=== PATIENT | female | born 1960 | race Caucasian/White ===

== ENCOUNTER → 2016-10-29 | Outpatient (CLI) | payer BC ==
[~2016-10-29] MED LIST: ASCO500T9 PO; DOCU-168 PO; DRON2.5C11 PO; GADOBUTROL 10mMol/10ml INJECTION IV ONE; HYDR-4246 PO; IBUP200C5 PO; LIRA0.6P2 SQ; LISI10TA7 PO; NORMAL SALINE 50 ML IV ONE; OMEP-122 PO; ONDA4TAB7 PO; ONDA8TAB8 PO; OXYC-532 PO; PREN1TAB73 PO; PROC-14 PO; SALINE FLUSH 10ml SYRINGE ONE; SUCR1TAB20 PO
--- NOTE | 2016-10-29 15:34 | DI ---
Indication: ITS.REASON: C54.1 BREAST CANCER, C57.8; C78.6;C79.62 C79.61 PROCEDURE: MRI BREAST BILATERAL W/WO CON: Encounter: Initial Comparison: CT chest dated July 05, 2016 Technique: Multiplanar multisequence MR imaging of both breasts was performed with and without contrast utilizing a dedicated breast coil. Dynamic postcontrast imaging was analyzed on a stand-alone [employer] workstation. Contrast: 15 mL Gadavist Findings: There is minimal background parenchymal enhancement. Increased number of axillary nodes bilaterally which are stable in size and appearance compared to the comparison chest CT. These are borderline enlarged measuring up to 11 mm in short axis dimension in the right axilla on axial postcontrast image #169 and 11 mm in the left axilla on image #143. There is also an intramammary node in the central right breast on axial postcontrast image #118 and T2 fat-suppressed images #23 measuring 6 mm in short axis dimension. Additional smaller intramammary node in the anterior aspect of the right breast at the 2:00 position on image #191 of the postcontrast series measuring 4 mm in short axis. No enhancing mass or worrisome nonmasslike enhancement. There is artifact and loss of fat suppression due to the patient's right-sided port. No fluid collections or obvious skin thickening. Impression: No MR evidence of breast malignancy. Bilateral borderline axillary adenopathy probably related to a systemic process. BI-RADS 2: Benign .
== END ==
LOC: IMA 12:11
PROVIDERS: ATTEND Internal Medicine Medical Oncology
DX: C54.1 Malignant neoplasm of endometrium (principal); C57.8 Malignant neoplasm of overlapping sites of female genital organs; C78.6 Secondary malignant neoplasm of retroperitoneum and peritoneum; C79.62 Secondary malignant neoplasm of left ovary; C79.61 Secondary malignant neoplasm of right ovary
CPT/HCPCS: 77059; A9585; J1642; J7050

== ENCOUNTER 2017-07-11 10:26 | Inpatient (IN) ==
[2017-07-11] MEDS ORDERED: DEXAMETHASONE 20 MG/5 ML INJECTION IVP ONE (10:40)
[2017-07-11] MEDS ORDERED: NS 1,000 ML IV SCH (10:45)
--- NOTE | 2017-07-11 10:51 | Emergency Department Report ---
General Adult HPI - General Chief complaint: Medical Emergency Stated complaint: altered mental status Time Seen by Provider: 07/11/17 10:51 Source: patient Mode of arrival: ambulatory Limitations: no limitations - History of Present Illness HPI narrative: Patient is a 56-year-old female history of endometrial cancer. Patient is under treatment Dr. Endy Quezada. Patient received ifosfamide and Paxil call 2 days ago, presented to the office today with complaint of "not myself". Patient is slow to mentate, having difficulty with memory. Patient thought the year was 2006 and the president was Lynnette. Dr. Quezada's concern for ifosfamide toxicity, is also confirmed for metastases to the brain. He did contact Hospital service recommend come to the ER for acute evaluation. On arrival patient is alert and oriented somewhat slow to respond to questions, however appropriate. Patient got to your right this time, however still does not know who the president is. Patient given dexamethasone [address] Quezada's recommendation - Related Data Home Medications Medication Instructions Recorded Confirmed Pnv No.95/Ferrous Fum/Folic AC 1 tab PO DAILY 06/25/17 07/11/17 [ Tablet] Ondansetron [Zofran Odt] 4 mg PO Q4HR 06/26/17 07/11/17 LORazepam [Ativan] 0.5 mg PO Q6H PRN 07/11/17 07/11/17 Sennosides [Senokot] 8.6 mg PO PRN 07/11/17 07/11/17 Previous Rx's Medication Instructions Recorded Oxycodone/Apap 7.5/325 [Percocet 1 tab PO Q4H PRN #20 tab 06/25/17 7.5/325] Allergies Allergy/AdvReac Type Severity Reaction Status Date / Time morphine AdvReac Intermediate NAUSEA & Verified 06/26/17 16:18 VOMITING Review of Systems Constitutional: Reports: weakness. Denies: fever, chills Eyes: Denies: eye pain, eye discharge, vision change ENT: Denies: throat pain, dental pain Cardiovascular: Denies: chest pain, palpitations Respiratory: Denies: cough, dyspnea Gastrointestinal: Reports: abdominal pain. Denies: nausea, vomiting Genitourinary: Denies: dysuria, frequency Musculoskeletal: Denies: back pain Neurological: Reports: weakness, confusion. Denies: headache Psychiatric: Denies: anxiety, depression Endocrine: Denies: fatigue, heat or cold intolerance PFSH Patient Stated Medical History Migraine Yes Diabetes Mellitus Type 2 Yes Obstructive Bowel Yes Other GI Yes: ENDOMETRIAL CA W/ METASTASIS TO LIVER, STOMACH, AND KIDNEYS Depression Yes Post Menopausal Yes Now No Medical History Updates: Anxiety. Depression. Insomnia. Endometrial CA ( stage 4) Surgical History: Hysterectomy 2016 - Social History Smoking status: Never smoker Substance use type: does not use Alcohol intake frequency: does not drink Physical Exam - Limitations Limitations: no limitations - General General appearance: alert, in no apparent distress - Eye Eye exam: Present: PERRL, EOMI - ENT ENT exam: Present: normal oropharynx, mucous membranes moist - Neck Neck exam: Present: trachea midline - Chest Chest inspection: Present: symmetric chest wall rise. Absent: tenderness - Respiratory Respiratory exam: Present: normal lung sounds bilaterally. Absent: respiratory distress, wheezes - Cardiovascular Cardiovascular exam: Present: regular rate, normal rhythm, normal heart sounds - Abdominal Exam Abdominal exam: Present: soft, normal bowel sounds. Absent: distention, tenderness - Back Exam Back exam: Present: full ROM. Absent: tenderness, CVA tenderness (R), CVA tenderness (L), muscle spasm, paraspinal tenderness - Skin Skin exam: Present: warm, dry - Neurological Exam Neurological exam: Present: alert, oriented X3 - Psychiatric Psychiatric exam: Present: normal affect, normal mood Course Vital Signs Temperature 98.5 F 07/11/17 10:27 Pulse Rate 100 07/11/17 10:27 Respiratory Rate 28 H 07/11/17 10:27 Blood Pressure 167/83 H 07/11/17 10:27 Pulse Oximetry 96 07/11/17 10:27 Temperature 96.2 F L 07/11/17 15:24 Pulse Rate 97 07/11/17 15:24 Respiratory Rate 18 07/11/17 15:24 Blood Pressure 148/78 H 07/11/17 15:24 Pulse Oximetry 98 07/11/17 15:24 Medical Decision Making - [facility] Narrative Medical decision making narrative: Discuss case with Dr. Quezada, he will feel it was prudent to place patient in observation status. Discuss case with Dr. Fowler, hospitalist, she will admit patient observation status - Medical Records Medical records reviewed: Yes: I reviewed the patient's medical records. - Lab Data Lab results reviewed: Yes: I reviewed the patient's lab results. Lab results narrative: I reviewed the patient's laboratory results from earlier today - Radiology Data Radiology results reviewed: Yes: I reviewed the patient's radiology results. MRI with and without: No acute findings, chronic changes. Disposition Clinical Impression: Altered mental status Disposition: 02 To [facility] Condition: Stable - Seen By: physician
[2017-07-11] MEDS: SALINE FLUSH 10ml SYRINGE IVF PRN (10:52)
[2017-07-11] MEDS ORDERED: FentaNYL 100 MCG/2 ML INJECTION IVP ONE ×3 (10:53→14:07)
[2017-07-11] MEDS ORDERED: SALINE FLUSH 10ml SYRINGE ONE (12:05)
[2017-07-11] MEDS ORDERED: ONDANSETRON 4 MG/2 ML INJECTION IVP ONE (12:43)
--- NOTE | 2017-07-11 13:00 | Magnetic Resonance Report ---
Indication: altered mental status, endometrial CA rule out metastases PROCEDURE: MR head/brain wo/w con: Encounter: Initial Comparisons: None Technique: Multiplanar, multisequence, MR imaging of the head with and without contrast was acquired. Contrast: 20 mL of ProHance FINDINGS: The ventricles are of normal size, shape, and contour for the patient's age. There are a couple nonspecific punctate areas of T2-weighted and T2 FLAIR weighted signal abnormality in the deep frontoparietal white matter that most likely represent small vessel ischemic disease. These lesions do not enhance and are of a degree that is considered to be normal for the patient's age. The brain stem, cerebellum, and cerebral hemispheres otherwise have a normal morphologic appearance as well as MR signal intensity on all pulse sequences. Following intravenous administration of contrast, no areas of abnormal enhancement are evident. There are no areas of restricted diffusion to suggest an acute infarct. There is no evidence of an intracranial mass lesion, intracranial hemorrhage, or hydrocephalus. The visualized portions of the orbits, calvarium, paranasal sinuses, and skull base demonstrate no significant abnormality. IMPRESSION: Unremarkable MRI of the head for the patient's age with and without contrast. No evidence of acute intracranial abnormality or metastatic disease. .
[2017-07-11] MEDS ORDERED: KETOROLAC 30 MG/ML INJECTION IVP ONE (15:08)
--- NOTE | 2017-07-11 15:09 | History & Physical Report ---
History of Present Illness Date: 07/11/17 Chief complaint: altered mental status HPI: Elva Heredia is a 56 year old woman with a history of metastatic endometrial cancer, diagnosed in March,. She had to restart chemotherapy (ifosfamide and Taxol) on 07/09/17. The plans were to have chemo on Friday, , and Friday for a total of 8 cycles. She had chemo on 07/09 and 07/10, but in the evening of 07/10 started to get sick with nausea and vomiting. She really hasn't been able to keep anything down. She also states that she has been having more intense abdominal pain. Compared to usual. She has been requiring regular doses of Percocet 7.5 mg to help control her pain. Her pain is mostly to the right upper quadrant and right lower quadrant, and tends to be waxing and waning. She is also having some pain related to constipation, but she does not believe that the current pain. She is feeling is because of constipation, which is more "gurgly" nature. She hasn't been able to sleep well, and has felt weak, lightheaded and dizzy. She developed a cold sore to her left naris a few days ago, soon after receiving her pneumonia and influenza vaccinations. She denies any fevers, but admits to having chills. She denies numbness or tingling. She denies dysuria. In the morning of 07/11/17. She went to go see Dr. Quezada ( usually she sees Dr. Clancy), and she was having difficulty thinking straight. For example, she thought the year was 2016, and that [facility] was president. She complained of blurred vision, which has since resolved. Her significant other stated that she wasn't able to walk with a steady gait, and she had to help hold her up. She was not able to answer questions appropriately, and wasn't sure that Elva could even understand her questions at all. Labs were done, showing leukocytosis with a white count of 14.4, mild anemia with hemoglobin of 11.8. Electrolytes were stable: Sodium 140, potassium 4.1, BUN 21, creatinine 0.8, blood glucose 130, magnesium 2.3. Dr. Quezada was concerned about neurotoxicity from ifosfamide, which has been known to cause seizures, neuropathy, weakness and ataxia. He recommended ED evaluation. On arrival, she was mildly tachycardic. She was afebrile. Brain MRI was negative for acute intracranial abnormality or metastatic disease. She received IV fluids, Toradol , fentanyl, and antiemetics. Dr. Quezada also recommended dexamethasone. She was subsequently admitted for further observation. Review of Systems All systems PM: 10-point ROS was reviewed, no additional remarkable complaints except - Constitutional Constitutional: Present: as per HPI - EENMT Eyes: Present: as per HPI Nose: Absent: obstruction Mouth/Throat: Absent: sore throat - Cardiovascular Cardiovascular: Present: as per HPI Vascular: Absent: pedal edema - Respiratory Respiratory: Present: as per HPI - Gastrointestinal Gastrointestinal: Present: as per HPI - Genitourinary Genitourinary: Absent: dysuria, urinary frequency, urinary urgency Menstruation: post hysterectomy, post menopausal - Musculoskeletal Musculoskeletal: Present: as per HPI - Integumentary/Breasts Integumentary: Present: alopecia (associated with chemotherapy) - Neurological Neurological: Present: as per HPI - Psychiatric Psychiatric: Present: as per HPI - Endocrine Endocrine: Present: as per HPI - Hematologic/Lymphatic Hematologic/Lymphatic: Absent: easy bleeding - Allergic/Immunologic Allergic/Immunologic: Absent: seasonal rhinorrhea Past Medical History Coronary artery disease Stage IV endometrial cancer Anxiety Depression Insomnia Migraine Obesity, BMI 37.7 Remote history of gastric ulcers Surgical History: PowerPort insertion. Total abdominal hysterectomy with resection of right ureter anastomosis in March 2016. Lumbar discectomy. Partial right knee replacement. Heart catheter with angioplasty 2 vessels in 2003. Laparoscopic ovarian cystectomy. Ectopic with left oophorectomy. EGD. Family History Updates: Mother had advanced lymphoma, heart disease and diabetes. She at age 47 of suicide from a self-inflicted gunshot wound to the head. Her father at age 58. He had epilepsy. He also committed suicide via self-inflicted gunshot wound to the head, a year after his . Elva does not have any brothers or sisters. She was an only child. She has a son who is doing well. She has a daughter who suffers from drug addiction. 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 Medications Home Medications Medication Instructions Recorded Confirmed Type Pnv No.95/Ferrous Fum/Folic AC 1 tab PO DAILY 06/25/17 07/11/17 History [ Tablet] Ondansetron [Zofran Odt] 4 mg PO Q4HR 06/26/17 07/11/17 History LORazepam [Ativan] 0.5 mg PO Q6H PRN 07/11/17 07/11/17 History Sennosides [Senokot] 8.6 mg PO PRN 07/11/17 07/11/17 History Allergies Allergy/AdvReac Type Severity Reaction Status Date / Time morphine AdvReac Intermediate NAUSEA & Verified 06/26/17 16:18 VOMITING Exam Vital Signs: Temperature 98.5 F 07/11/17 10:27 Pulse Rate 105 H 07/11/17 13:00 Respiratory Rate 19 07/11/17 13:00 Blood Pressure 133/76 07/11/17 13:00 Pulse Oximetry 90 07/11/17 13:00 Height/Weight/BMI: Height 1.6 m Weight 96.6 kg - Constitutional Present: mild distress, well nourished, well developed - Routine HEENT Exam Head: Present: normocephalic Eye: Present: EOMI, PERRL. Absent: conjunctival icterus, scleral injection ENT: Present: mucous membranes moist, oropharynx clear - Routine Neck Exam Present: supple - Routine Respiratory Exam Present: CTA bilaterally - Routine Cardiovascular Exam Present: RRR, S1, S2 - Routine Abdominal Exam Present: soft, tenderness (mild tenderness without guarding or rebound to the right upper quadrant, right lower quadrant, and to a lesser extent left upper quadrant) - Routine Extremities Exam Present: no edema, pulses intact, normal capillary refill - Routine Skin Exam Present: intact, dry, warm - Routine Neurological Exam Present: alert, oriented X3, CN II-XII intact, moving all extremities, normal speech - Routine Psychiatric Exam Present: normal affect, normal thought process, cooperative Assessment and Plan (1) Ifosfamide toxicity Current visit: Yes Status: Acute Assessment and Plan: Impression Ifosfamide neurotoxicity Leukocytosis, present on admission Nausea and vomiting, Acute on chronic abdominal pain Stage IV endometrial cancer Coronary artery disease Anxiety and Depression Insomnia Migraine Plan Admit, observation status, under the hospitalist service. IV fluids: Normal saline at 125 mL's per hour. Zofran and/or Reglan as needed for nausea. Percocet as needed for pain (she takes Percocet 7.5 mg at home) Repeat urinalysis. UA done on 07/09/17 was negative. Continue home medications. Serial neuro exams. Consult Dr. Quezada for ongoing management and to delineate dexamethasone dosing. Patient requests that any potentially sensitive medical diagnoses should be discussed with her before disclosing any information to family or significant other. 07/11/2017-6:16 PM-I reviewed this chart, the patient history, and the DROPHAMMER OPERATOR's/PA 's documented findings as above. We discussed and formulated the assessment and plan as above with the additions below.-Dr. Fowler The patient was seen this evening accompanied by her girlfriend. Patient states that she recently started new chemotherapy on Friday. Friday evening she started to have nausea and vomiting which she did not think was unusual. She had further nausea and vomiting yesterday. Last night she woke up and felt confused. She describes how she was feeling fairly well. She states she did not feel herself and her vision was somewhat wavy for a bit. She states her gait was off. She states that at one point her speech was slurred but this has resolved. She states overall she still feels a little "out of it" but feels much better than she did earlier today. She states that initially she thought she had taken too much pain medication and so she waited longer than usual to take her next dose of pain medicine. By that time, she states she was having pretty severe back pain. She denies any headache today but states she had a migraine last week. She has some occasional charley horse type pain in her right side of her neck and left leg. She denies any chest pain. She states she occasionally feels short of breath. She briefly became emotional and tearful when discussing feeling short of breath. He states she has lorazepam that she takes when necessary for anxiety. She is not on any antidepressants. During my examination she was noted to have some mild giveaway type weakness in the left leg and stated she was having a little numbness in the leg, possibly from lying on it wrong. On exam she is alert and a good historian. Speech is normal And fluent. She briefly becomes emotional and tearful but then this resolves. HEENT reveals pupils to be equal round and reactive, sclerae are anicteric, extraocular movements are intact. Oropharynx is moist. She does have an cold sore in the left nares that has been present for 5 or 6 days. Neck is supple. Chest is clear to auscultation. Cardiovascular reveals regular rate and rhythm. Abdomen is soft with positive bowel sounds. Extremities are free of edema. On neurologic exam, cranial nerves II through XII are grossly intact. Motor strength is equal and 5 over 5 in the upper extremities. She has some possibly giveaway weakness in the left leg which is mild. She does describe some mild numbness in the leg which she just noticed when she was trying to move to have her strength examined. MRI brain showed no significant abnormalities Lab was reviewed and white count is mildly elevated without significant left shift. Impression Altered mental [id number] secondary to ifosfamide neurotoxicity New onset mild left leg weakness, numbness Nausea and vomiting Endometrial cancer Anxiety and depression History of migraine headache Plan Neuro checks every 4 hours. IV fluid for rehydration. Pain medication as needed. Antiemetics as needed. Consult PT and OT tomorrow regarding left leg weakness, which can be a result of ifosfamide neurotoxicity. We'll need to continue to monitor this. Discussed with the patient, Dr. Quezada, and the patient's nurse. DVT Prophylaxis: SCD's Resuscitation Status: Full Code - Physician Narrative Narrative: Date: 07/11/17 Time: 1459 Hospital Course Summary Disclaimer: The visit summary below is not to be considered part of the above Progress Note. Hospital Course: Impression Ifosfamide neurotoxicity Leukocytosis, present on admission Nausea and vomiting, Acute on chronic abdominal pain Stage IV endometrial cancer Coronary artery disease Anxiety and Depression Insomnia Migraine Plan Admit, observation status, under the hospitalist service. IV fluids: Normal saline at 125 mL's per hour. Zofran and/or Reglan as needed for nausea. Percocet as needed for pain (she takes Percocet 7.5 mg at home) Repeat urinalysis. UA done on 07/09/17 was negative. Continue home medications. Serial neuro exams. Consult Dr. Quezada.a Patient requests that any potentially sensitive medical diagnoses should be discussed with her before disclosing any information to family or significant other.
[2017-07-11 15:31] VITALS: BMI 38.1
[2017-07-11] MEDS: NS 1,000 ML IV SCH ×2 (15:39→20:30)
[2017-07-11] MEDS ORDERED: SENNOSIDES 8.6 MG TABLET PO PRN (16:15)
[2017-07-11] MEDS: OXYCODONE/APAP 7.5 MG/325 MG TABLET PO PRN ×2 (17:17→22:53)
[2017-07-11] MEDS: METOCLOPRAMIDE 10mg/2ml INJECTION IVP PRN (18:42)
[2017-07-11] MEDS: FentaNYL 100 MCG/2 ML INJECTION IVP PRN (18:46)
[2017-07-11] MEDS: HYDROMORPHONE 2 MG/ML INJECTION IVP PRN ×2 (18:54→21:43)
[2017-07-11] MEDS: ONDANSETRON ODT 4 MG TABLET PO SCH (20:23)
[2017-07-12] MEDS: FentaNYL 100 MCG/2 ML INJECTION IVP PRN ×5 (00:20→16:39)
[2017-07-12] MEDS: ONDANSETRON ODT 4 MG TABLET PO SCH ×6 (00:21→20:31)
[2017-07-12] MEDS: NS 1,000 ML IV SCH ×4 (00:40→20:51)
[2017-07-12] MEDS: OXYCODONE/APAP 7.5 MG/325 MG TABLET PO PRN ×4 (02:43→20:40)
[2017-07-12] MEDS: SALINE FLUSH 10ml SYRINGE IVF PRN (05:18)
[2017-07-12] MEDS: POLYETHYL GLYCOL 3350 17gm PACKET PO SCH (08:27)
[2017-07-12] MEDS: PRENATAL VITAMIN TABLET PO SCH (08:27)
[2017-07-12] MEDS: HYDROMORPHONE 2 MG/ML INJECTION IVP PRN ×2 (13:01→20:34)
--- NOTE | 2017-07-12 13:46 | Consultation ---
DATE OF CONSULTATION 07/12/2017 CHIEF COMPLAINT Nausea and abdominal pain. HISTORY OF PRESENT ILLNESS This is a 56-year-old female patient diagnosed in March 2016 with stage III/ locally advanced endometrial cancer, mixed mllerian type/carcinosarcoma. She was treated with debulking surgery, hysterectomy, bilateral salpingo- oophorectomy, omentectomy. She received six cycles of adjuvant chemotherapy, Taxol and carboplatin which ended in October 2016. Unfortunately, she has developed a recurrence in less than six months with peritoneal disease. She presented with bowel obstruction. She underwent exploratory laparotomy by Dr. Viveros at [facility] and was found to have peritoneal metastasis in the incisional hernia sac. She presented again with abdominal pain. CT scan showed peritoneal carcinomatosis with mass causing right hydronephrosis. She was started on chemotherapy, ifosfamide and Taxol, on 07/09/2017. She received two doses out of three. Taxol was given on day 1. Ifosfamide on days 1 and 2 and was supposed to be given on day 3 07/11/2017 followed by Vandana. However, the patient presented with confusion and change in mental status. It was thought due to ifosfamide, i.e., ifosfamide-induced neurotoxicity. She was admitted for observation. All the confusion and neurologic symptoms resolved with conservative treatment including hydration. Her albumin is fine at 4.1. Her chief complaint is nausea and abdominal pain. She is on Percocet. She is on 100 mcg IV every three hours. Also, she had constipation. REVIEW OF SYSTEMS GENERAL: No fever. No weight loss. INTERIOR DESIGN COORDINATOR: Neurologic symptoms of confusion and change in mental status resolved. CARDIOVASCULAR: No chest pain. GASTROINTESTINAL: Nausea, vomiting and constipation. She passes gas. She had a bowel movement yesterday. RESPIRATORY: No shortness of breath, cough or hemoptysis. SKIN: No skin rash. PAST MEDICAL HISTORY Coronary artery disease. Anxiety/depression. Insomnia. Migraines. PAST SURGICAL HISTORY Hysterectomy with bilateral salpingo-oophorectomy and debulking surgery in March 2016. Exploratory laparotomy for bowel obstruction. Herniorrhaphy. Port-A-Cath placement. SOCIAL HISTORY Never smoked. She works for [employer]. PHYSICAL EXAMINATION GENERAL: Not in acute distress. She seems in pain. The short-acting fentanyl patch and Percocet do not last enough. Has pain in her abdomen. VITAL SIGNS: Stable. LYMPH SYSTEM: No cervical, supraclavicular or axillary adenopathy. RESPIRATORY: Lungs are clear to auscultation. No wheezing. CARDIOVASCULAR: No murmur. No JVD. Normal heart sounds. ABDOMEN: Diffuse mild tenderness. No rebound tenderness. Bowel sounds are positive. No masses or organomegaly. She has midline incision, healed. INTERIOR DESIGN COORDINATOR: No focal neurologic deficits. Alert and oriented x 3. Cranial nerves II- XII intact. SKIN: No rash. HEENT: Unremarkable. LABORATORY Chemistry remarkable for a potassium of 3.4. Creatinine is 0.7. Liver enzymes are normal. Alkaline phosphatase 134. Albumin 4.1. CA-125 elevated at 79.8. CBC remarkable for WBC 12.9. Urinalysis shows no RBCs. No hematuria. MRI of the brain negative. ASSESSMENT 1. 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 2. Patient is on ifosfamide and Taxol for metastatic disease, completed two days out of three. She was supposed to receive Neulasta following the chemotherapy due to previous chemotherapy treatment. 3. Persistent nausea, vomiting and abdominal pain due to peritoneal carcinomatosis. 4. Ifosfamide-induced neurotoxicity, resolved. 5. Constipation due to narcotics. RECOMMENDATION/PLAN 1. Continue hydration and neuro checks. 2. Continue Percocet and fentanyl IV for pain control. Fentanyl patch 50 mcg every three days added to the narcotic regimen. 3. MiraLAX, Senokot and Zofran for the GI symptoms. 4. I will add GCSF at least for three days for anticipated neutropenia. The patient was supposed to receive GCSF following chemotherapy. 5. If the patient stays stable by tomorrow she could go home with a fentanyl patch 50 mcg and Percocet as needed. 6. Follow up in the office. MTDD
--- NOTE | 2017-07-12 13:48 | Progress Note ---
- Date 07/12/17 Subjective: 56 y/o female with a history of metastatic endometrial cancer diagnosed in March,. She had to restart chemotherapy (ifosfamide and Taxol) on . The plans were to have chemo on Friday, , and Friday for a total of 8 cycles. She had chemo on 07/09 and 07/10, but in the evening of 07/10 started to get sick with nausea and vomiting. She couldn't keep anything down. She also states that she has been having more intense abdominal pain compared to usual. She has been requiring regular doses of Percocet 7.5 mg to help control her pain. Her pain is mostly to the right upper quadrant and right lower quadrant, and tends to be waxing and waning. She is also having some pain related to constipation. She hasn't been able to sleep well, and has felt weak, lightheaded and dizzy. She developed a cold sore to her left naris a few days ago, soon after receiving her pneumonia and influenza vaccinations. She denies any fevers, but admits to having chills. She denies numbness or tingling. She denies dysuria. In the morning of 07/11/17. She went to go see Dr. Quezada ( usually she sees Dr. Clancy), and she was having difficulty thinking straight. For example, she thought the year was 2016, and that [facility] was president. She complained of blurred vision, which has since resolved. Her significant other stated that she wasn't able to walk with a steady gait, and she had to help hold her up. She was not able to answer questions appropriately, and wasn't sure that Elva could even understand her questions at all. Labs were done, showing leukocytosis with a white count of 14.4, mild anemia with hemoglobin of 11.8. Electrolytes were stable: Sodium 140, potassium 4.1, BUN 21, creatinine 0.8, blood glucose 130, magnesium 2.3. Dr. Quezada was concerned about neurotoxicity from ifosfamide, which has been known to cause seizures, neuropathy, weakness and ataxia. He recommended ED evaluation. On arrival, she was mildly tachycardic. She was afebrile. Brain MRI was negative for acute intracranial abnormality or metastatic disease. She received IV fluids, Toradol , fentanyl, and antiemetics. Dr. Quezada also recommended dexamethasone. She was subsequently admitted for further observation. Today, she has been up and walking with physical therapy. Shortly after she ambulate in the halls with physical therapy she became nauseated and vomited. When I saw her she was resting comfortably in bed however she continues to complain of brother severe abdominal pain. She states that the combination of her cancer pain as well as her constipation pain. She is requiring IV pain management. She is requesting senna S for her constipation. She denies any further episodes of confusion, blurred vision or unstable gait. She is able to answer all questions appropriately today. She denies feeling short of breath. She denies any chest discomfort, or palpitations. She is urinating without difficulty. She is not eating very well as nothing sounds good and by the time she gets her food the smell and appearance of it makes for slightly nauseated. She was seen by Dr. Clancy today ordered a fentanyl patch 50 g every 3 days in addition to her narcotic regimen. He also gave her GCSF in anticipation of neutropenia from her recent chemotherapy. Objective Vital signs: Temperature 96.2 F L 07/12/17 07:00 Pulse Rate 107 H 07/12/17 07:00 Respiratory Rate 18 07/12/17 07:00 Blood Pressure 141/75 H 07/12/17 07:00 Pulse Oximetry 92 07/12/17 07:00 Height/Weight/BMI: Height 1.6 m Weight 97.7 kg Body Mass Index 38.1 Comments: Gen: alert and oriented. NAD. Pleasant and conversive Skin: warm and dry. HEENT: NC/AT PERRL, EOMI, Sclera,lids and conjunctiva wnl. MMM. OP clear. Neck: supple. No JVD. Carotids 2+ without bruits Lungs: clear. No rales, rhonchi or wheezes CV: regular rate and rhythm. No murmur, rub or gallop No edema. Pedal pulses are good Abd: soft. Hypoactive BS. TTP diffusely, ND MS: Good strength and ROM. Neuro: no focal deficit. Results - Labs CBC & Chem 7: 07/12/17 05:04 07/12/17 05:04 Assessment and Plan (1) Ifosfamide toxicity Current visit: Yes Status: Acute Assessment and Plan: Impression and Plan: 1. Ifosfamide neurotoxicity -her altered mental status appears to have resolved with conservative therapy -continue neural checks 2. Leukocytosis, present on admission -Better today. 3. Nausea and vomiting, -Likely related to chemotherapy as well as constipation -Will add Senna S to her bowel regimen -Antiemetics 4. Constipation -Increase ambulation -Miralax and Senna S 5. Acute on chronic abdominal pain -we will add Senna S back to her medical regimen see if we can get her bowels moving better. -She will likely need to be on this chronically due to her narcotic consumption. 6. Stage IV endometrial cancer -she is under the care of Dr. Clancy -He ordered GCSF today -he recommends continued IV fluids 7. Coronary artery disease -patient denies any symptoms at this time. -History of angioplasties times 2 in 2003. 8. Anxiety and Depression 9. Insomnia 10. Migraine -she states that she really hasn't had a migraine in quite some time. 11. Prophylaxis -PPI and SCDs - Physician Narrative Narrative: Date: 07/12/17 Time: 1348 Hospital Course Summary Disclaimer: The visit summary below is not to be considered part of the above Progress Note. Hospital Course: Impression Ifosfamide neurotoxicity Leukocytosis, present on admission Nausea and vomiting, Acute on chronic abdominal pain Stage IV endometrial cancer Coronary artery disease Anxiety and Depression Insomnia Migraine Plan Admit, observation status, under the hospitalist service. IV fluids: Normal saline at 125 mL's per hour. Zofran and/or Reglan as needed for nausea. Percocet as needed for pain (she takes Percocet 7.5 mg at home) Repeat urinalysis. UA done on 07/09/17 was negative. Continue home medications. Serial neuro exams. Consult Dr. Quezada.a Patient requests that any potentially sensitive medical diagnoses should be discussed with her before disclosing any information to family or significant other.
[2017-07-12] MEDS: SENNA + DOCUSATE TABLET PO SCH (15:03)
[2017-07-12] MEDS: TBO-FILGRASTIM 480mcg/0.8ml INJECTION SQ SCH (15:03)
[2017-07-13] MEDS: ONDANSETRON ODT 4 MG TABLET PO SCH ×6 (00:01→21:21)
[2017-07-13] MEDS: FentaNYL 100 MCG/2 ML INJECTION IVP PRN ×7 (00:11→21:28)
[2017-07-13] MEDS: NS 1,000 ML IV SCH ×3 (01:18→21:39)
[2017-07-13] MEDS: OXYCODONE/APAP 7.5 MG/325 MG TABLET PO PRN ×5 (04:55→21:29)
[2017-07-13] MEDS: METOCLOPRAMIDE 10mg/2ml INJECTION IVP PRN (05:00)
[2017-07-13] MEDS: PANTOPRAZOLE 20 MG TABLET PO SCH (06:59)
[2017-07-13] MEDS: HYDROMORPHONE 2 MG/ML INJECTION IVP PRN ×2 (08:32→23:08)
[2017-07-13] MEDS: ONDANSETRON 4 MG/2 ML INJECTION IVP PRN (09:22)
[2017-07-13] MEDS: SENNA + DOCUSATE TABLET PO SCH (09:23)
[2017-07-13] MEDS: POLYETHYL GLYCOL 3350 17gm PACKET PO SCH (09:24)
[2017-07-13] MEDS: TBO-FILGRASTIM 480mcg/0.8ml INJECTION SQ SCH (11:15)
[2017-07-13] MEDS: PRENATAL VITAMIN TABLET PO SCH (11:15)
--- NOTE | 2017-07-13 14:11 | Progress Note ---
- Date 07/13/17 Subjective: 56 y/o female with a history of metastatic endometrial cancer diagnosed in March,. She had to restart chemotherapy (ifosfamide and Taxol) on . The plans were to have chemo on Friday, , and Friday for a total of 8 cycles. She had chemo on 07/09 and 07/10, but in the evening of 07/10 started to get sick with nausea and vomiting. She couldn't keep anything down. She also states that she has been having more intense abdominal pain compared to usual. She has been requiring regular doses of Percocet 7.5 mg to help control her pain. Her pain is mostly to the right upper quadrant and right lower quadrant, and tends to be waxing and waning. She is also having some pain related to constipation. She hasn't been able to sleep well, and has felt weak, lightheaded and dizzy. She developed a cold sore to her left naris a few days ago, soon after receiving her pneumonia and influenza vaccinations. She denies any fevers, but admits to having chills. She denies numbness or tingling. She denies dysuria. In the morning of 07/11/17. She went to go see Dr. Quezada ( usually she sees Dr. Clancy), and she was having difficulty thinking straight. For example, she thought the year was 2016, and that [facility] was president. She complained of blurred vision, which has since resolved. Her significant other stated that she wasn't able to walk with a steady gait, and she had to help hold her up. She was not able to answer questions appropriately, and wasn't sure that Elva could even understand her questions at all. Labs were done, showing leukocytosis with a white count of 14.4, mild anemia with hemoglobin of 11.8. Electrolytes were stable: Sodium 140, potassium 4.1, BUN 21, creatinine 0.8, blood glucose 130, magnesium 2.3. Dr. Quezada was concerned about neurotoxicity from ifosfamide, which has been known to cause seizures, neuropathy, weakness and ataxia. He recommended ED evaluation. On arrival, she was mildly tachycardic. She was afebrile. Brain MRI was negative for acute intracranial abnormality or metastatic disease. She received IV fluids, Toradol , fentanyl, and antiemetics. Dr. Quezada also recommended dexamethasone. She was subsequently admitted for further observation. The patient today continues to complain of abdominal pain. She reports still no flatus or bowel movement. Her nausea is under fairly good control with the medications. She denies any further confusion or disorientation. She still not eating well as nothing sounds good to her. She denies any headaches. She denies any shortness of breath, cough or sputum production. She denies chest pain or palpitations. She is urinating without issue. Her strength is pretty good and she is up and walking. Objective Vital signs: Temperature 98.4 F 07/13/17 08:08 Pulse Rate 100 07/13/17 08:08 Respiratory Rate 20 07/13/17 08:08 Blood Pressure 134/66 07/13/17 08:08 Pulse Oximetry 94 07/13/17 08:08 Height/Weight/BMI: Weight 101 kg Comments: Gen: alert and oriented. NAD. Skin: warm and dry. HEENT: NC/AT PERRL, EOMI, Sclera,lids and conjunctiva wnl. MMM. OP clear. Neck: supple. No JVD. Carotids 2+ without bruits Lungs: clear. No rales, rhonchi or wheezes CV: regular rate and rhythm. No murmur, rub or gallop No edema. Pedal pulses are good Abd: soft. Hypoactive BS. TTP diffusely, MS: Good strength and ROM. Neuro: no focal deficit. Results - Labs CBC & Chem 7: 07/13/17 04:14 07/13/17 04:14 Assessment and Plan (1) Ifosfamide toxicity Current visit: Yes Status: Acute Assessment and Plan: Impression and Plan: 1. Ifosfamide neurotoxicity-resolved. -her altered mental status appears to have resolved with conservative therapy 2. Leukocytosis, present on admission -Up today but was given GCSF 07/12/17 3. Nausea and vomiting, -Likely related to chemotherapy as well as constipation -Will add Senna S to her bowel regimen -Antiemetics -Will get KUB today and do enema 4. Constipation -Increase ambulation -Miralax and Senna S -Enema 5. Acute on chronic abdominal pain -we will add Senna S back to her medical regimen see if we can get her bowels moving better. -She will likely need to be on this chronically due to her narcotic consumption. 6. Stage IV endometrial cancer -she is under the care of Dr. Clancy -He ordered GCSF 07/12/17 -he recommends continued IV fluids 7. Coronary artery disease -patient denies any symptoms at this time. -History of angioplasties times 2 in 2003. 8. Anxiety and Depression 9. Insomnia 10. Migraine -she states that she really hasn't had a migraine in quite some time. 11. Prophylaxis -PPI and SCDs - Physician Narrative Narrative: Date: 07/13/17 Time: 1406 Hospital Course Summary Disclaimer: The visit summary below is not to be considered part of the above Progress Note. Hospital Course: Impression Ifosfamide neurotoxicity Leukocytosis, present on admission Nausea and vomiting, Acute on chronic abdominal pain Stage IV endometrial cancer Coronary artery disease Anxiety and Depression Insomnia Migraine Plan Admit, observation status, under the hospitalist service. IV fluids: Normal saline at 125 mL's per hour. Zofran and/or Reglan as needed for nausea. Percocet as needed for pain (she takes Percocet 7.5 mg at home) Repeat urinalysis. UA done on 07/09/17 was negative. Continue home medications. Serial neuro exams. Consult Dr. Quezada.a Patient requests that any potentially sensitive medical diagnoses should be discussed with her before disclosing any information to family or significant other.
[2017-07-13] MEDS ORDERED: FLEET PHOSPHO - SODA ENEMA 133ml PR ONE (16:55)
[2017-07-13] MEDS: METOCLOPRAMIDE 10mg/2ml INJECTION IVP SCH ×2 (18:26→21:22)
--- NOTE | 2017-07-13 19:08 | Progress Note ---
Oncology Subjective .She complains of constipation nausea and abdominal pain. Abdomen x-ray series showed air-fluid level concerning for bowel obstruction. The patient has no fever. Exam Vital signs: Temperature 97.1 F 07/13/17 15:38 Pulse Rate 95 07/13/17 15:38 Respiratory Rate 20 07/13/17 15:38 Blood Pressure 112/52 07/13/17 15:38 Pulse Oximetry 94 07/13/17 15:38 - Constitutional no acute distress - Routine Respiratory Exam Absent: rales, respiratory distress, rhonchi, wheezes - Routine Cardiovascular Exam Present: RRR, no murmur - Routine Abdominal Exam Present: soft, non tender Comments: Bowel sounds are distant. There is mild diffuse tenderness. No rebound tenderness. - Routine Skin Exam Present: intact. Absent: rash - Routine Neurological Exam Present: alert, oriented X3, CN II-XII intact, normal reflexes. Absent: sensory deficit, motor deficit Oncology Results - Labs CBC & Chem 7: 07/13/17 04:14 07/13/17 04:14 Labs: Short CBC 07/13/17 Range/Units 04:14 WBC 17.2 H (4.5-11.0) T/MM3 Hgb 9.7 L (12-16) GM/DL Hct 30.5 L (36-46) % Plt Count 291 (130-400) T/MM3 [facility] 07/13/17 04:14 Sodium 140 Potassium 3.4 L Chloride 108 H Carbon Dioxide 26 BUN 18.0 H Creatinine 0.7 Glucose 140 H Calcium 8.5 Assessment and Plan Assessment and Plan: Assessment and plan 1. 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 2. Ifosfamide induced neurotoxicity, resolved. 3. Leukocytosis due to G-CSF. Continue conservative treatment with laxative. The patient may not be a good candidate for surgical intervention in case of bowel obstruction due to peritoneal carcinomatosis. - Time Spent With Patient Total time spent is greater than 50% in coordination of care (as documented) at patient's floor/unit and/or counseling patient: 25 - 35 minutes
[2017-07-14] MEDS: NS 1,000 ML IV SCH ×2 (01:02→06:42)
[2017-07-14] MEDS: HYDROMORPHONE 2 MG/ML INJECTION IVP PRN ×4 (02:17→17:15)
[2017-07-14] MEDS: ONDANSETRON ODT 4 MG TABLET PO SCH ×7 (02:17→23:59)
[2017-07-14] MEDS: METOCLOPRAMIDE 10mg/2ml INJECTION IVP SCH ×4 (02:34→20:34)
[2017-07-14] MEDS: FentaNYL 100 MCG/2 ML INJECTION IVP PRN ×5 (04:25→23:00)
[2017-07-14] MEDS: PANTOPRAZOLE 20 MG TABLET PO SCH (05:40)
[2017-07-14] MEDS: OXYCODONE/APAP 7.5 MG/325 MG TABLET PO PRN ×4 (06:16→23:59)
[2017-07-14] MEDS: LORazepam 0.5 MG TABLET PO PRN ×2 (06:16→23:00)
[2017-07-14] MEDS: POLYETHYL GLYCOL 3350 17gm PACKET PO SCH (09:12)
[2017-07-14] MEDS: PRENATAL VITAMIN TABLET PO SCH (09:12)
[2017-07-14] MEDS: SENNA + DOCUSATE TABLET PO SCH (09:13)
[2017-07-14] MEDS: SALINE FLUSH 10ml SYRINGE IVF PRN ×4 (09:13→20:35)
[2017-07-14] MEDS: NS with KCL 20 mEq 1,000 ML IV SCH ×2 (10:19→20:41)
[2017-07-14] MEDS: TBO-FILGRASTIM 480mcg/0.8ml INJECTION SQ SCH (10:19)
--- NOTE | 2017-07-14 14:35 | Progress Note ---
<Poly Adkins - Last Filed: 07/14/17 15:27> Oncology Subjective Alert and oriented. Answers questions correctly. Continues w/ decreased appetite , nausea-no emesis. Persistent, intermittent abd. pain-feels Fentanyl patch is helping pain, but recurs. Reports moderate BM yesterday. Voiding normally. General: No fever, no night sweats Eyes: No redness, no pain, no diplopia ENT: No mouth sores, no trouble swallowing Cardiac: No chest pain no palpitations Pulmonary: No cough, no shortness of breath, no wheezing Abdomen: + pain, +nausea, no vomiting. no diarrhea, + constipation : No urgency, frequency, dysuria, or hematuria Musculoskeletal: No arthritis, no myalgias Neurological: No headaches, no focal weakness Skin: No rash, no sores Psychiatric: Some anxiety/depression R/T cancer diagnosis. Exam Vital signs: Temperature 96.3 F L 07/14/17 08:16 Pulse Rate 106 H 07/14/17 08:16 Respiratory Rate 15 07/14/17 00:00 Blood Pressure 131/75 07/14/17 08:16 Pulse Oximetry 91 07/14/17 08:16 - Constitutional mild distress, well nourished, well developed, cooperative - Routine HEENT Exam Head: Present: normocephalic Eye: Present: EOMI ENT: Present: mucous membranes moist - Routine Neck Exam Present: supple. Absent: lymphadenopathy - Routine Respiratory Exam Present: CTA bilaterally. Absent: wheezes, crackles - Routine Cardiovascular Exam Present: RRR. Absent: no murmur, gallop - Routine Abdominal Exam Present: soft, tenderness (mild tenderness with examination. Bowel sounds appreciated/slow/decreased) - Routine Extremities Exam Present: full ROM. Absent: no edema - Routine Back/Spine/Pelvis Exam Back/Spine: Absent: vertebral tenderness - Routine Skin Exam Present: intact, dry. Absent: petechiae, jaundice - Routine Neurological Exam Present: alert, oriented X3, moving all extremities - Routine Psychiatric Exam Present: normal affect, cooperative Oncology Results - Labs CBC & Chem 7: 07/14/17 04:15 07/14/17 04:15 Labs: Short CBC 07/14/17 Range/Units 04:15 WBC 10.9 (4.5-11.0) T/MM3 Hgb 9.5 L (12-16) GM/DL Hct 30.0 L (36-46) % Plt Count 281 (130-400) T/MM3 [facility] 07/14/17 04:15 Sodium 142 Potassium 3.4 L Chloride 108 H Carbon Dioxide 27 BUN 9.0 D Creatinine 0.7 Glucose 122 H Calcium 8.6 Assessment and Plan Assessment and Plan: Assessment and plan 1. 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 Constipation/ nausea intermittently, subjectively feels some improvement. BM noted yesterday and today. 2. Ifosfamide induced neurotoxicity, resolved. 3. Leukocytosis due to G-CSF. Continue conservative treatment with laxative. Continue w/ supportive care. The patient not a good candidate for surgical intervention in case of bowel obstruction due to peritoneal carcinomatosis. - Time Spent With Patient Total time spent is greater than 50% in coordination of care (as documented) at patient's floor/unit and/or counseling patient: less than 15 minutes <Tomás Quezada - Last Filed: 07/14/17 17:01> Exam Vital signs: Temperature 96.5 F L 07/14/17 15:13 Pulse Rate 108 H 07/14/17 15:13 Respiratory Rate 16 07/14/17 15:13 Blood Pressure 120/68 07/14/17 15:13 Pulse Oximetry 97 07/14/17 15:13 Oncology Results - Labs CBC & Chem 7: 07/14/17 04:15 07/14/17 04:15 Labs: Short CBC 07/14/17 Range/Units 04:15 WBC 10.9 (4.5-11.0) T/MM3 Hgb 9.5 L (12-16) GM/DL Hct 30.0 L (36-46) % Plt Count 281 (130-400) T/MM3 [facility] 07/14/17 04:15 Sodium 142 Potassium 3.4 L Chloride 108 H Carbon Dioxide 27 BUN 9.0 D Creatinine 0.7 Glucose 122 H Calcium 8.6 Assessment and Plan Assessment and Plan: Increasing abdominal pain. No significant bowel movements. Pain is crampy and worrisome for obstruction. She is having significant pain at the present time. Bowel sounds are present and have a high pitched sound. Will obtain CT scan with Gastrografin contrast both oral and rectal. Laboratory Tests 07/11/17 07/14/17 07/14/17 22:04 04:15 04:15 WBC 10.9 Hgb 9.5 L Hct 30.0 L Plt Count 281 Sodium 142 Potassium 3.4 L Chloride 108 H Carbon Dioxide 27 BUN 9.0 D Creatinine 0.7 Ur Specific [place] >=1.030 H Urine WBC 5-10 H I participated in development of the plan of care with this patient. Dr. Clancy has mentioned consultation with Dr. Mcneil - Time Spent With Patient Total time spent is greater than 50% in coordination of care (as documented) at patient's floor/unit and/or counseling patient:
--- NOTE | 2017-07-14 14:53 | XRay Report ---
EXAM: XR acute abdomen series DICTATION LOCATION: [facility] INDICATION: No BM, no flatus COMPARISON STUDY: None available. FINDINGS: Chest: The heart size is normal. The lungs are clear. Right PowerPort in place the tip overlying the mid SVC. Abdomen: Nonobstructive bowel gas pattern.Gas within normal caliber colonic bowel loops. Nonspecific Differential air-fluid levels on upright views. No free intraperitoneal air. Cholecystectomy clips. Skeletal Structures: The visualized skeletal structures are within normal limits for the patient's age. IMPRESSION: 1. Nonobstructive bowel gas pattern. Nonspecific differential air-fluid levels on upright views. 2. Cholecystectomy clips. .
[2017-07-14] MEDS ORDERED: FLEET PHOSPHO - SODA ENEMA 133ml PR ONE (15:39)
--- NOTE | 2017-07-14 16:55 | Progress Note ---
- Date 07/14/17 Subjective: Debbie is still having quite a bit of pain. It is almost constantly is at a 6- 7, and at times it spikes up even higher. Even with the fentanyl patch, Percocet , and IV Dilaudid and fentanyl, her pain has not been adequately controlled. Her nausea has improved with Reglan. She had an enema yesterday which produced a bowel movement, and is volunteering for another enema today. Her appetite has been poor. She feels a little bit dizzy if she stands up or changes positions too quickly. She denies any shortness of breath. She knows that her cancer will not be cured, but she is hoping to resume chemotherapy as soon as possible to slow the rate down and have some quality of life at home. Objective Vital signs: Temperature 96.5 F L 07/14/17 15:13 Pulse Rate 108 H 07/14/17 15:13 Respiratory Rate 16 07/14/17 15:13 Blood Pressure 120/68 07/14/17 15:13 Pulse Oximetry 97 07/14/17 15:13 Height/Weight/BMI: Weight 102.5 kg - Constitutional Present: mild distress, well nourished, well developed, obese - Routine HEENT Exam Head: Present: normocephalic Eye: Absent: conjunctival icterus, scleral injection ENT: Present: mucous membranes moist Comments: Herpes simplex to left naris is improving and dried up. - Routine Respiratory Exam Present: CTA bilaterally - Routine Cardiovascular Exam Present: RRR, S1, S2 - Routine Abdominal Exam Present: soft, tenderness (tender, especially to right lower quadrant and left upper quadrant), non distended. Absent: normoactive bowel sounds (very hypoactive bowel sounds), rebound - Routine Extremities Exam Present: no edema - Routine Skin Exam Present: intact, dry, warm - Routine Neurological Exam Present: alert, oriented X3 - Routine Psychiatric Exam Present: normal affect, normal thought process, cooperative Results - Labs CBC & Chem 7: 07/14/17 04:15 07/14/17 04:15 Assessment and Plan (1) Ifosfamide toxicity Current visit: Yes Status: Acute Assessment and Plan: Impression Ifosfamide neurotoxicity-resolved. Leukocytosis, present on admission; received GCSF 07/12/17 Acute on chronic abdominal pain Nausea and vomiting Constipation Stage IV endometrial cancer Coronary artery disease Anxiety and Depression Insomnia Migraine Plan Cognitively she has returned to baseline WBC returned to normal level K slightly low at 3.4 - will try oral replacement if she can tolerate. Pain is still poorly managed - consider increasing fentanyl patch (currently on 50 mcg) and/or introducing a longer-acting narcotic. In the meantime, will increase Dilaudid to 1 mg. Requiring repeated IV doses of fentanyl and Dilaudid. Discussed with Dr. Quezada - CT scan abd/pelvis to be ordered; concerned for bowel obstruction. Not a good surgical candidate. Continue meds for bowel motivation and nausea. Dr. Mcneil consulted; awaiting recommendations. DVT Prophylaxis: SCD's GI Prophylaxis: Protonix Resuscitation Status: Full Code - Physician Narrative Physician: Ibis Anguiano MD Narrative: Date: 07/14/17 Time: 1819 I have independently evaluated and examined this patient. I reviewed the chart, the patient's history, and the DISTRIBUTION SALES MANAGER/PA's documented findings as above. We discussed and formulated the assessment and plan as above with additions as below: Debbie was seen earlier today. She reports that she was able to eat half of the sandwich at lunch and that she had a bowel movement after an enema yesterday but is not passing gas and has not had a spontaneous stool in over 3 weeks. She continues to have abdominal pain which varies in intensity and comes in waves. Vision has normalized. NAD, alert, oriented 3 Hyperactive bowel sounds the time of my assessment, bowel activity corresponds to patient wincing. Abdomen is distended with moderate tenderness on palpation diffusely. Respirations are nonlabored with good airflow and clear breath sounds Yesterday's chest x-ray/KUB is reviewed-multiple air-fluid levels although bowel loops are not particularly distended; chest x-ray unremarkable. Findings discussed with Dr. Quezada-proceed with CT imaging of abdomen and formal surgical consultation. Discussed with nursing-repeat enema or Dulcolax suppository for bowel stimulation. Hospital Course Summary Disclaimer: The visit summary below is not to be considered part of the above Progress Note. Hospital Course: Impression Ifosfamide neurotoxicity Leukocytosis, present on admission Nausea and vomiting, Acute on chronic abdominal pain Stage IV endometrial cancer Coronary artery disease Anxiety and Depression Insomnia Migraine Plan Admit, observation status, under the hospitalist service. IV fluids: Normal saline at 125 mL's per hour. Zofran and/or Reglan as needed for nausea. Percocet as needed for pain (she takes Percocet 7.5 mg at home) Repeat urinalysis. UA done on 07/09/17 was negative. Continue home medications. Serial neuro exams. Consult Dr. Quezada. Patient requests that any potentially sensitive medical diagnoses should be discussed with her before disclosing any information to family or significant other. 07/14/17 Still with severe pain despite fentanyl patch and multiple IV doses of narcotics. CT scan abdomen/pelvis ordered and Dr. Mcneil ordered. K 3.4. WBC back to normal.
[2017-07-14] MEDS ORDERED: HYDROMORPHONE 2 MG/ML INJECTION IVP PRN (17:04)
[2017-07-14] MEDS ORDERED: SALINE FLUSH 10ml SYRINGE ONE (18:34)
[2017-07-14] MEDS ORDERED: NS 100 ML ONE (18:34)
[2017-07-14] MEDS ORDERED: IOHEXOL 300mg/ml 100ml INJECTION ONE (18:34)
[2017-07-15] MEDS: METOCLOPRAMIDE 10mg/2ml INJECTION IVP SCH ×4 (04:03→19:00)
[2017-07-15] MEDS: ONDANSETRON ODT 4 MG TABLET PO SCH ×5 (04:23→19:39)
[2017-07-15] MEDS: OXYCODONE/APAP 7.5 MG/325 MG TABLET PO PRN ×5 (04:23→23:29)
[2017-07-15] MEDS: FentaNYL 100 MCG/2 ML INJECTION IVP PRN ×6 (04:23→23:29)
[2017-07-15] MEDS: PANTOPRAZOLE 20 MG TABLET PO SCH (06:32)
[2017-07-15] MEDS: NS with KCL 20 mEq 1,000 ML IV SCH ×2 (06:37→17:04)
--- NOTE | 2017-07-15 08:27 | CT Scan Report ---
Indication: Abd Pain PROCEDURE: CT abdomen pelvis w con: Encounter: Initial Comparison: CT abdomen and pelvis dated June 25, 2017 Technique: Axial CT images were performed through the abdomen and pelvis after the administration of intravenous contrast. Coronal and sagittal two-dimensional reformats. Automated Exposure Control and Iterative Reconstruction dose reducing techniques were utilized. Contrast: Omnipaque 300 100 mL Findings: New atelectasis in the lower lobes. Increasing ascites. Hepatic metastatic lesions are grossly stable from the recent comparison study. No bile duct dilatation. The gallbladder is surgically absent. The spleen, pancreas, adrenal glands and left kidney are within normal limits. Delayed nephrogram in the obstructed right kidney with severe hydronephrosis and hydroureter. Retroperitoneal soft tissue implant causing obstruction of the right ureter is again noted along the right side as muscle. Bladder is grossly normal. Rectum is distended with contrast with a cystic submucosal possible metastatic lesion in the mid sigmoid causing luminal narrowing. This is best seen on sagittal image #43 measuring 4 cm in diameter. Severe wall thickening of the more proximal sigmoid colon is seen extending through the splenic flexure. Bone windows are stable without obvious lytic or blastic lesions. Impression: 1. Impaired function of the severely obstructed right kidney. 3. 4 cm cystic submucosal mass within the mid sigmoid colon causing luminal narrowing. There is severe wall thickening of the more proximal sigmoid colon extending through the splenic flexure. This could represent metastatic disease, infectious/inflammatory/ischemic colitis or possibly a primary colonic neoplastic process. Recommend direct visualization with colonoscopy. 3. Increasing ascites probably malignant. 4. Grossly stable hepatic metastatic lesions. There is a preliminary report by [employer]. .
[2017-07-15] MEDS: PRENATAL VITAMIN TABLET PO SCH (08:55)
[2017-07-15] MEDS: POLYETHYL GLYCOL 3350 17gm PACKET PO SCH ×2 (08:55→22:09)
[2017-07-15] MEDS: SALINE FLUSH 10ml SYRINGE IVF PRN ×4 (08:56→19:14)
[2017-07-15] MEDS: SENNA + DOCUSATE TABLET PO SCH ×2 (08:56→22:09)
[2017-07-15] MEDS: TBO-FILGRASTIM 480mcg/0.8ml INJECTION SQ SCH (10:44)
--- NOTE | 2017-07-15 13:23 | Progress Note ---
<Poly Adkins - Last Filed: 07/15/17 13:20> Oncology Subjective Reclining in hospital bed, daughter at bedside. Continues to have intermittent left upper quadrant and right lower quadrant pain. Intermittent nausea, no emesis today. Describes 2 small bowel movements, describes as loose/watery, small amount 2 times in the past 24 hours. Denies fever, chills, night sweats. No cough or shortness of air. No other complaints. General: No fever, no night sweats Eyes: No redness, no pain, no diplopia ENT: No mouth sores, no trouble swallowing Cardiac: No chest pain no palpitations Pulmonary: No cough, no shortness of breath, no wheezing Abdomen: + pain, + nausea, no vomiting. 2 small loose/watery stools : No urgency, frequency, dysuria, or hematuria Musculoskeletal: No arthritis, no myalgias Neurological: No headaches, no focal weakness Skin: No rash, no sores Psychiatric: No anxiety, no depression Exam Vital signs: Temperature 98.6 F 07/15/17 09:00 Pulse Rate 91 07/15/17 08:00 Respiratory Rate 16 07/15/17 08:00 Blood Pressure 143/99 H 07/15/17 08:00 Pulse Oximetry 99 07/15/17 08:00 - Constitutional mild distress, obese - Routine HEENT Exam Head: Present: normocephalic Eye: Present: EOMI. Absent: scleral injection ENT: Present: mucous membranes moist - Routine Neck Exam Present: supple. Absent: lymphadenopathy, tenderness - Routine Respiratory Exam Present: CTA bilaterally. Absent: wheezes - Routine Cardiovascular Exam Present: RRR, no murmur - Routine Abdominal Exam Present: soft, tenderness (mild tenderness with deep palpation. Bowel sounds noted, decreased/slow) - Routine Extremities Exam Present: no edema, full ROM - Routine Back/Spine/Pelvis Exam Back/Spine: Absent: vertebral tenderness - Routine Skin Exam Present: intact, dry - Routine Neurological Exam Present: alert, oriented X3 - Routine Psychiatric Exam Present: normal affect (becomes tearful when discussing findings.) Oncology Results - Labs CBC & Chem 7: 07/15/17 04:21 07/15/17 04:21 Labs: Short CBC 07/15/17 Range/Units 04:21 WBC 8.6 (4.5-11.0) T/MM3 Hgb 9.4 L (12-16) GM/DL Hct 29.5 L (36-46) % Plt Count 265 (130-400) T/MM3 BMP 07/15/17 04:21 Sodium 141 Potassium 3.6 Chloride 106 Carbon Dioxide 27 BUN 6.0 L Creatinine 0.7 Glucose 115 H Calcium 8.8 Liver Function 07/15/17 Range/Units 04:21 Total Bilirubin 0.40 (0.20-1.30) MG/DL AST 83 H (14-36) U/L ALT 107 H (9-52) U/L Alkaline Phosphatase 138 H (38-126) U/L Albumin 3.4 L (3.5-5.0) G/DL - Impressions = = = = = = = = = = = = = = = = = = = = = = = = = = = = = = = = = = = = = = = = = = = = = = = = = = = = = = = = = = = Date of Exam: 07/14/17 Ordering Provider: Tomás Quezada MD Type of Exam(s): CT abdomen pelvis w con Reason for Exam(s): Abd Pain Indication: Abd Pain PROCEDURE: CT abdomen pelvis w con: Encounter: Initial Comparison: CT abdomen and pelvis dated June 25, 2017 Technique: Axial CT images were performed through the abdomen and pelvis after the administration of intravenous contrast. Coronal and sagittal two-dimensional reformats. Automated Exposure Control and Iterative Reconstruction dose reducing techniques were utilized. Contrast: Omnipaque 300 100 mL Findings: New atelectasis in the lower lobes. Increasing ascites. Hepatic metastatic lesions are grossly stable from the recent comparison study. No bile duct dilatation. The gallbladder is surgically absent. The spleen, pancreas, adrenal glands and left kidney are within normal limits. Delayed nephrogram in the obstructed right kidney with severe hydronephrosis and hydroureter. Retroperitoneal soft tissue implant causing obstruction of the right ureter is again noted along the right side as muscle. Bladder is grossly normal. Rectum is distended with contrast with a cystic submucosal possible metastatic lesion in the mid sigmoid causing luminal narrowing. This is best seen on sagittal image #43 measuring 4 cm in diameter. Severe wall thickening of the more proximal sigmoid colon is seen extending through the splenic flexure. Bone windows are stable without obvious lytic or blastic lesions. Impression: 1. Impaired function of the severely obstructed right kidney. 3. 4 cm cystic submucosal mass within the mid sigmoid colon causing luminal narrowing. There is severe wall thickening of the more proximal sigmoid colon extending through the splenic flexure. This could represent metastatic disease, infectious/inflammatory/ischemic colitis or possibly a primary colonic neoplastic process. Recommend direct visualization with colonoscopy. 3. Increasing ascites probably malignant. 4. Grossly stable hepatic metastatic lesions. There is a preliminary report by [employer]. . Assessment and Plan Assessment and Plan: Assessment and plan 1. 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 Constipation/ nausea intermittently. Gastrografin CT performed; shows worsening/increasing mass in the midsigmoid and severe thickening of sigmoid colon with increasing ascites. 2. Ifosfamide induced neurotoxicity, resolved. 3. Leukocytosis due to G-CSF, resolved. Plan Dr. Clancy had long discussion with patient/daughter and reviewed CAT scan findings showing worsening disease and potential bowel obstruction related to new mass mid sigmoid. Call has been placed to surgeon, Dr. ALVAREZ. Dr. Clancy also discussed case with Dr. Albarran today; at this point will cancel consultation with Dr. Albarran. Awaiting Dr. Alvarez's input/ recommendations. Patient asked if radiation is a treatment option. Informed no; abdominal areas to diffuse to treat with radiation. Discussed potential sigmoid obstruction will need to be addressed before receives further chemotherapy. Patient understands treatment is not curative. Lesion verbalizes desire to continue chemotherapy "as long as I have a quality of life and can continue to function." Continue supportive care. Dr. Clancy will return later today. - Time Spent With Patient Total time spent is greater than 50% in coordination of care (as documented) at patient's floor/unit and/or counseling patient: 25 - 35 minutes <Digna Clancy - Last Filed: 07/15/17 17:11> Exam Vital signs: Temperature 96.8 F 07/15/17 14:22 Pulse Rate 99 07/15/17 14:22 Respiratory Rate 18 07/15/17 14:22 Blood Pressure 154/84 H 07/15/17 14:22 Pulse Oximetry 99 07/15/17 14:22 Oncology Results - Labs CBC & Chem 7: 07/15/17 04:21 07/15/17 04:21 Labs: Short CBC 07/15/17 Range/Units 04:21 WBC 8.6 (4.5-11.0) T/MM3 Hgb 9.4 L (12-16) GM/DL Hct 29.5 L (36-46) % Plt Count 265 (130-400) T/MM3 BMP 07/15/17 04:21 Sodium 141 Potassium 3.6 Chloride 106 Carbon Dioxide 27 BUN 6.0 L Creatinine 0.7 Glucose 115 H Calcium 8.8 Liver Function 07/15/17 Range/Units 04:21 Total Bilirubin 0.40 (0.20-1.30) MG/DL AST 83 H (14-36) U/L ALT 107 H (9-52) U/L Alkaline Phosphatase 138 H (38-126) U/L Albumin 3.4 L (3.5-5.0) G/DL Assessment and Plan Assessment and Plan: I have interviewed and examined the patient. And I developed the plan of care. I explained to the patient the situation of having disease progression in the abdomen causing intermittent bowel obstruction. I draw pictures for the patient to understand clinical situation. I discussed the situation with Dr. Alvarez over the phone. Dr. Alvarez is not recommending surgical intervention. He recommends continuing conservative treatment and may be chemotherapy with the plan for comfort care and hospice if the patient condition get worse. I went back to discuss with the patient the critical situation of having imminent bowel obstruction which could be a life-threatening situation. We discussed all options including comfort care and palliative chemotherapy. We will increase the fentanyl patch to 100 mcg and keep short acting Percocet. Once pain is controlled we will have the patient go home with soft diet. Also she needs to keep taking laxatives to keep her bowels moving. I answer the patient' s questions to her satisfaction. She is aware of the critical situation of bowel obstruction and disease progression. - Time Spent With Patient Total time spent is greater than 50% in coordination of care (as documented) at patient's floor/unit and/or counseling patient:
[2017-07-15] MEDS: LORazepam 0.5 MG TABLET PO PRN ×2 (14:25→23:34)
--- NOTE | 2017-07-15 17:10 | Progress Note ---
- Date 07/15/17 Subjective: A little bit better today. Her pain is under better control. She got her fentanyl patch had been increased, but looking at the patch, it continues as a 50 g dose. She went for a long walk today and denied feeling weak or dizzy or short of breath. She continues to feel nauseated and her appetite has been very poor. She had a very, very small bowel movement earlier. She has not been passing flatus. She knows that her cancer is not curative, and wants to focus on quality of life. As we're talking, Dr. Clancy entered the room and relayed information from his conversation with Dr. Mitchell. Dr. Mitchell does not recommend surgery to remove part of her colon because that would delay any chance of chemotherapy which might prolong her life and promote quality of life by slowing tumor growth. Objective Vital signs: Temperature 96.8 F 07/15/17 14:22 Pulse Rate 99 07/15/17 14:22 Respiratory Rate 18 07/15/17 14:22 Blood Pressure 154/84 H 07/15/17 14:22 Pulse Oximetry 99 07/15/17 14:22 Height/Weight/BMI: Weight 104.2 kg - Constitutional Present: no acute distress, well nourished, well developed - Routine HEENT Exam Eye: Present: PERRL. Absent: conjunctival icterus, scleral injection ENT: Present: oropharynx clear - Routine Respiratory Exam Present: CTA bilaterally - Routine Cardiovascular Exam Present: RRR, S1, S2 - Routine Abdominal Exam Present: non tender, distended. Absent: normoactive bowel sounds (hypoactive) - Routine Extremities Exam Present: no edema - Routine Musculoskeletal Exam Musculoskeletal: Present: moving extremities well - Routine Skin Exam Present: intact, dry, warm - Routine Neurological Exam Present: alert, oriented X3, CN II-XII intact, normal speech - Routine Psychiatric Exam Present: normal affect, normal thought process, cooperative Results - Labs CBC & Chem 7: 07/15/17 04:21 07/15/17 04:21 Assessment and Plan (1) Ifosfamide toxicity Current visit: Yes Status: Acute Assessment and Plan: Impression Ifosfamide neurotoxicity-resolved. Leukocytosis, present on admission; received GCSF 07/12/17 Acute on chronic abdominal pain Nausea and vomiting Constipation Hypokalemia Stage IV endometrial cancer with carcinomatosis Coronary artery disease Anxiety and Depression Insomnia Migraine Plan Labs are stable, potassium improved to 3.6. Discussed case in depth with Dr. Clancy and patient. The hope is to continue chemotherapy to help relieve the degree of carcinomatosis, which could help relieve impending bowel obstruction. First, however, we must get on top of her pain and promote regular bowel function. For pain control, Dr. Clancy recommends increasing the fentanyl patch to 100 g. For her bowels, will increase MiraLAX to twice a day. Give a dose of lactulose 20 g 1 now. Start Dulcolax suppositories 4 times a day until good results. Will change diet to low fiber. She was encouraged to consume more soft foods and more liquids instead of fiber rich and difficult to digest foods. Encourage activity and angulation. Increased Reglan dose to 10 mg. Oral intake is improving. Will DC IV fluids. Dr. Viveros does not recommend surgery. Dr. Clancy would like to resume chemotherapy in about 2 weeks. Debbie will be meeting with [facility] for an informational session tomorrow morning. She does not want her family or significant other to know about this meeting until she gets her questions answered. Discharge plans were discussed with Dr. Clancy. Once her pain is under control and bowels have been more regular, she can be discharged home. Hope for discharge before the weekend. High risk medications, still in use. DVT Prophylaxis: SCD's GI Prophylaxis: Protonix Resuscitation Status: Full Code - Time spent with patient Time with patient PN: 30 minutes Coordination of Care: >50% of visit spent providing counseling/coordination of care - Physician Narrative Physician: Ibis Anguiano MD Narrative: Date: 07/15/17 Time: 2023 I have independently evaluated and examined this patient. I reviewed the chart, the patient's history, and the LENS INSPECTOR/PA's documented findings as above. We discussed and formulated the assessment and plan as above with additions as below: Debbie reports having very small stool earlier today and tolerating a small amount of food but continues to have some nausea and variable abdominal pain. We additionally discussed whether it was truly her intent to remain a full code in light of her disease and she indicated that she did not want resuscitative efforts initiated and would prefer that natural be allowed should it occur. NAD, not grimacing in pain today, alert Abdomen is moderately distended but soft there is mild generalized tenderness but no guarding, hyperactive bowel sounds again present at time of my exam Hospice consultation for informative purposes noted/discussed with case management earlier today. DO NOT RESUSCITATE/allow natural order written. Continue to work on bowel regimen. CT abdomen/pelvis reviewed earlier demonstrating ascites, liver metastases, hydronephrosis/hydroureter on the right but no evidence of bowel obstruction. Possible mid sigmoid luminal narrowing due to metastatic lesion. Radiology reports thickening of the proximal sigmoid colon extending to the splenic flexure and recommends direct visualization by colonoscopy to determine if malignant, infectious, or ischemic. Will discuss further with patient. Hospital Course Summary Disclaimer: The visit summary below is not to be considered part of the above Progress Note. Hospital Course: Impression Ifosfamide neurotoxicity Leukocytosis, present on admission Nausea and vomiting, Acute on chronic abdominal pain Stage IV endometrial cancer Coronary artery disease Anxiety and Depression Insomnia Migraine Plan Admit, observation status, under the hospitalist service. IV fluids: Normal saline at 125 mL's per hour. Zofran and/or Reglan as needed for nausea. Percocet as needed for pain (she takes Percocet 7.5 mg at home) Repeat urinalysis. UA done on 07/09/17 was negative. Continue home medications. Serial neuro exams. Consult Dr. Quezada. Patient requests that any potentially sensitive medical diagnoses should be discussed with her before disclosing any information to family or significant other. 07/14/17 Still with severe pain despite fentanyl patch and multiple IV doses of narcotics. CT scan abdomen/pelvis ordered and Dr. Mcneil ordered. K 3.4. WBC back to normal. 07/15/17 Labs are stable, potassium improved to 3.6. Discussed case in depth with Dr. Clancy and patient. The hope is to continue chemotherapy to help relieve the degree of carcinomatosis, which could help relieve impending bowel obstruction. First, however, we must get on top of her pain and promote regular bowel function. For pain control, Dr. Clancy recommends increasing the fentanyl patch to 100 g. For her bowels, will increase MiraLAX to twice a day. Give a dose of lactulose 20 g 1 now. Start Dulcolax suppositories 4 times a day until good results. Will change diet to low fiber. She was encouraged to consume more soft foods and more liquids instead of fiber rich and difficult to digest foods. Encourage activity and angulation. Increased Reglan dose to 10 mg. Oral intake is improving. Will DC IV fluids. Dr. Viveros does not recommend surgery. Dr. Clancy would like to resume chemotherapy in about 2 weeks. Debbie will be meeting with [facility] for an informational session tomorrow morning.
[2017-07-15] MEDS ORDERED: LACTULOSE 20 GM/30 ML ORAL LIQUID PO ONE (17:16)
[2017-07-15] MEDS: BISACODYL 10 MG SUPPOSITORY RECTALLY SCH (22:10)
[2017-07-16] MEDS: METOCLOPRAMIDE 10mg/2ml INJECTION IVP SCH ×5 (01:52→23:50)
[2017-07-16] MEDS: ONDANSETRON ODT 4 MG TABLET PO SCH ×7 (01:53→23:50)
[2017-07-16] MEDS: FentaNYL 100 MCG/2 ML INJECTION IVP PRN ×5 (02:31→23:50)
[2017-07-16] MEDS: OXYCODONE/APAP 7.5 MG/325 MG TABLET PO PRN ×4 (03:01→23:50)
[2017-07-16] MEDS: PANTOPRAZOLE 20 MG TABLET PO SCH (05:38)
[2017-07-16] MEDS: LORazepam 0.5 MG TABLET PO PRN (07:55)
[2017-07-16] MEDS: POLYETHYL GLYCOL 3350 17gm PACKET PO SCH ×2 (08:46→20:07)
[2017-07-16] MEDS: PRENATAL VITAMIN TABLET PO SCH (08:46)
[2017-07-16] MEDS: BISACODYL 10 MG SUPPOSITORY RECTALLY SCH ×2 (08:46→13:42)
[2017-07-16] MEDS: SENNA + DOCUSATE TABLET PO SCH ×2 (08:46→20:07)
[2017-07-16] MEDS ORDERED: BISACODYL 10 MG SUPPOSITORY RECTALLY PRN (16:06)
--- NOTE | 2017-07-16 17:21 | Progress Note ---
- Date 07/16/17 Subjective: Patient is seen sitting in her bed. She reports that her pain is better, but she is still having breakthrough pain. The increased dose on the fentanyl patch has helped with the frequency of the breakthrough pain. She states her bowels are moving. She has been declining the suppositories since she has been going regularly. No chest pain or shortness of breath. Some vomiting this morning. Nausea has been controlled with Zofran and Reglan. Objective Vital signs: Temperature 98.6 F 07/16/17 00:00 Pulse Rate 92 07/16/17 16:00 Respiratory Rate 17 07/16/17 16:00 Blood Pressure 151/82 H 07/16/17 16:00 Pulse Oximetry 96 07/16/17 16:00 Height/Weight/BMI: Weight 103.2 kg - Constitutional Present: no acute distress, well nourished, well developed - Routine HEENT Exam Head: Present: normocephalic, atraumatic - Routine Respiratory Exam Present: CTA bilaterally. Absent: wheezes - Routine Cardiovascular Exam Present: RRR. Absent: murmur - Routine Abdominal Exam Present: soft, normoactive bowel sounds, tenderness (right lower quadrant. Left upper quadrant), non distended - Routine Extremities Exam Present: no edema, normal capillary refill - Routine Skin Exam Present: dry, warm - Routine Neurological Exam Present: alert, oriented X3 - Routine Lymphatic Exam Lymphatic: Absent: adenopathy - Routine Psychiatric Exam Present: normal affect, cooperative Results - Labs CBC & Chem 7: 07/16/17 04:23 07/16/17 04:23 Assessment and Plan (1) Ifosfamide toxicity Current visit: Yes Status: Acute Assessment and Plan: Impression Ifosfamide neurotoxicity-resolved. Leukocytosis, present on admission; received GCSF 07/12/17 Acute on chronic abdominal pain Nausea and vomiting Constipation Hypokalemia Stage IV endometrial cancer with carcinomatosis Coronary artery disease Anxiety and Depression Insomnia Migraine Plan Labs are stable. Patient is hoping to be able to discharge on Friday. Pain improved with the 100 micrograms fentanyl patch. Continue MiraLAX and senna plus twice a day, soft diet DVT Prophylaxis: SCD's GI Prophylaxis: Protonix Resuscitation Status: Do Not Resuscitate - Physician Narrative Physician: Ibis Anguiano MD Narrative: Date: 07/16/17 Time: 1929 Debbie reports today's been a better day. Pain control is improving with increased dose but no patch and she is only required 2 doses IV narcotic today. She's having some loose stools and variable nausea but overall feels improved. I advised her of this thickening and narrowed area reported by radiology on CT scan and the recommendation to consider colonoscopy but she felt comfortable focusing on pain control without further testing. NAD-appears much more comfortable than prior days, respirations nonlabored Abdomen is soft, obese, moderate tenderness right lower quadrant and mild tenderness left upper quadrant; diminished bowel sounds. Blood pressures modestly elevated, given advanced malignancy do not believe treatment indicated. Diet as tolerated. Continue to focus on management of GI symptoms with goal of discharge in the next 1-2 days. Oral pain medications available for breakthrough. Patient met with hospice earlier today; not discussed as she had visitors when seen. Hospital Course Summary Disclaimer: The visit summary below is not to be considered part of the above Progress Note. Hospital Course: Impression Ifosfamide neurotoxicity Leukocytosis, present on admission Nausea and vomiting, Acute on chronic abdominal pain Stage IV endometrial cancer Coronary artery disease Anxiety and Depression Insomnia Migraine Plan Admit, observation status, under the hospitalist service. IV fluids: Normal saline at 125 mL's per hour. Zofran and/or Reglan as needed for nausea. Percocet as needed for pain (she takes Percocet 7.5 mg at home) Repeat urinalysis. UA done on 07/09/17 was negative. Continue home medications. Serial neuro exams. Consult Dr. Quezada. Patient requests that any potentially sensitive medical diagnoses should be discussed with her before disclosing any information to family or significant other. 07/14/17 Still with severe pain despite fentanyl patch and multiple IV doses of narcotics. CT scan abdomen/pelvis ordered and Dr. Mcneil ordered. K 3.4. WBC back to normal. 07/15/17 Labs are stable, potassium improved to 3.6. Discussed case in depth with Dr. Clancy and patient. The hope is to continue chemotherapy to help relieve the degree of carcinomatosis, which could help relieve impending bowel obstruction. First, however, we must get on top of her pain and promote regular bowel function. For pain control, Dr. Clancy recommends increasing the fentanyl patch to 100 g. For her bowels, will increase MiraLAX to twice a day. Give a dose of lactulose 20 g 1 now. Start Dulcolax suppositories 4 times a day until good results. Will change diet to low fiber. She was encouraged to consume more soft foods and more liquids instead of fiber rich and difficult to digest foods. Encourage activity and angulation. Increased Reglan dose to 10 mg. Oral intake is improving. Will DC IV fluids. Dr. Viveros does not recommend surgery. Dr. Clancy would like to resume chemotherapy in about 2 weeks. Debbie will be meeting with [facility] for an informational session tomorrow morning. 07/16/17 Patient is hoping to be able to discharge on Friday. Pain improved with the 100 micrograms fentanyl patch. Continue MiraLAX and senna plus twice a day, soft diet
[2017-07-16] MEDS: ONDANSETRON 4 MG/2 ML INJECTION IVP PRN ×2 (20:07→23:50)
[2017-07-16] MEDS: SALINE FLUSH 10ml SYRINGE IVF PRN (20:07)
[2017-07-17] MEDS: LORazepam 0.5 MG TABLET PO PRN ×2 (01:58→19:39)
[2017-07-17] MEDS: SALINE FLUSH 10ml SYRINGE IVF PRN ×5 (03:34→22:07)
[2017-07-17] MEDS: FentaNYL 100 MCG/2 ML INJECTION IVP PRN ×6 (03:35→22:07)
[2017-07-17] MEDS: OXYCODONE/APAP 7.5 MG/325 MG TABLET PO PRN ×4 (04:38→20:50)
[2017-07-17] MEDS: ONDANSETRON 4 MG/2 ML INJECTION IVP PRN (04:41)
[2017-07-17] MEDS: METOCLOPRAMIDE 10mg/2ml INJECTION IVP SCH ×3 (04:41→18:11)
[2017-07-17] MEDS: ONDANSETRON ODT 4 MG TABLET PO SCH ×5 (04:42→20:48)
[2017-07-17] MEDS: PANTOPRAZOLE 20 MG TABLET PO SCH (06:36)
[2017-07-17] MEDS: POLYETHYL GLYCOL 3350 17gm PACKET PO SCH ×2 (10:08→22:06)
[2017-07-17] MEDS: PRENATAL VITAMIN TABLET PO SCH (10:09)
[2017-07-17] MEDS: SENNA + DOCUSATE TABLET PO SCH ×2 (10:09→22:06)
--- NOTE | 2017-07-17 17:27 | Progress Note ---
- Date 07/17/17 Subjective: Patient is seen in her room after her shower. She reports she is feeling better. Pain is still an issue, but it is tolerable. Currently is 6 out of 10. Bowels are loose. No cough or shortness of breath. No urinary symptoms. Trying to drink plenty of fluids. Nausea has been controlled. Objective Vital signs: Temperature 98.4 F 07/17/17 08:00 Pulse Rate 92 07/17/17 15:28 Respiratory Rate 16 07/17/17 15:28 Blood Pressure 153/91 H 07/17/17 15:28 Pulse Oximetry 93 07/17/17 15:28 Height/Weight/BMI: Weight 102.6 kg - Constitutional Present: well nourished, well developed - Routine Respiratory Exam Present: CTA bilaterally. Absent: wheezes - Routine Cardiovascular Exam Present: RRR. Absent: murmur - Routine Abdominal Exam Present: soft, normoactive bowel sounds, tenderness (left upper quadrant and right lower quadrant), non distended - Routine Extremities Exam Present: no edema, normal capillary refill - Routine Skin Exam Present: dry, warm - Routine Neurological Exam Present: alert, oriented X3 - Routine Lymphatic Exam Lymphatic: Absent: adenopathy - Routine Psychiatric Exam Present: normal affect, cooperative Results - Labs CBC & Chem 7: 07/16/17 04:23 07/16/17 04:23 Assessment and Plan (1) Ifosfamide toxicity Current visit: Yes Status: Acute Assessment and Plan: Impression Ifosfamide neurotoxicity-resolved. Leukocytosis, present on admission; received GCSF 07/12/17 Acute on chronic abdominal pain Nausea and vomiting Constipation Hypokalemia Stage IV endometrial cancer with carcinomatosis Coronary artery disease Anxiety and Depression Insomnia Migraine Plan Labs are stable. Tentatively planning discharge for tomorrow. Dr. Clancy will continue with her pain management outpatient. Pain improved with the 100 micrograms fentanyl patch. Using Percocet for breakthrough pain. Continue MiraLAX and senna plus twice a day, soft diet. She will need prescription for Reglan to go home on. She already has Zofran. She has a follow-up appointment with Dr. Clancy in 2 weeks DVT Prophylaxis: SCD's Resuscitation Status: Do Not Resuscitate - Physician Narrative Physician: Ibis Anguiano MD Narrative: Date: 07/17/17 Time: 2224 I have independently evaluated and examined this patient. I reviewed the chart, the patient's history, and the PROGRAM SUPPORT ASSISTANT/PA's documented findings as above. We discussed and formulated the assessment and plan as above with additions as below: Debbie was in good spirits when seen and reported that she's having no dyspnea and general improvement in abdominal pain and nausea. She's trying to stay ahead of nausea utilizing Zofran with meals. Pain tends to increase in the evening when she has needed IV medications more than she does early in the day. Patient is alert and appears comfortable, abdomen is obese but soft and bowel sounds are present Labs reviewed-unremarkable Lactulose added when necessary for constipation in addition to current regimen. Patient encouraged to use Percocet for breakthrough pain. IV narcotics still being utilized for to 5 times daily. Hospital Course Summary Disclaimer: The visit summary below is not to be considered part of the above Progress Note. Hospital Course: Impression Ifosfamide neurotoxicity Leukocytosis, present on admission Nausea and vomiting, Acute on chronic abdominal pain Stage IV endometrial cancer Coronary artery disease Anxiety and Depression Insomnia Migraine Plan Admit, observation status, under the hospitalist service. IV fluids: Normal saline at 125 mL's per hour. Zofran and/or Reglan as needed for nausea. Percocet as needed for pain (she takes Percocet 7.5 mg at home) Repeat urinalysis. UA done on 07/09/17 was negative. Continue home medications. Serial neuro exams. Consult Dr. Quezada. Patient requests that any potentially sensitive medical diagnoses should be discussed with her before disclosing any information to family or significant other. 07/14/17 Still with severe pain despite fentanyl patch and multiple IV doses of narcotics. CT scan abdomen/pelvis ordered and Dr. Mcneil ordered. K 3.4. WBC back to normal. 07/15/17 Labs are stable, potassium improved to 3.6. Discussed case in depth with Dr. Clancy and patient. The hope is to continue chemotherapy to help relieve the degree of carcinomatosis, which could help relieve impending bowel obstruction. First, however, we must get on top of her pain and promote regular bowel function. For pain control, Dr. Clancy recommends increasing the fentanyl patch to 100 g. For her bowels, will increase MiraLAX to twice a day. Give a dose of lactulose 20 g 1 now. Start Dulcolax suppositories 4 times a day until good results. Will change diet to low fiber. She was encouraged to consume more soft foods and more liquids instead of fiber rich and difficult to digest foods. Encourage activity and angulation. Increased Reglan dose to 10 mg. Oral intake is improving. Will DC IV fluids. Dr. Viveros does not recommend surgery. Dr. Clancy would like to resume chemotherapy in about 2 weeks. Debbie will be meeting with [facility] for an informational session tomorrow morning. 07/16/17 Patient is hoping to be able to discharge on Friday. Pain improved with the 100 micrograms fentanyl patch. Continue MiraLAX and senna plus twice a day, soft diet 07/17/17 Nausea is controlled. Pain is manageable. Bowels are moving. Plan discharge for tomorrow.
[2017-07-17] MEDS ORDERED: LACTULOSE 20 GM/30 ML ORAL LIQUID PO PRN (22:27)
[2017-07-18] MEDS: METOCLOPRAMIDE 10mg/2ml INJECTION IVP SCH ×4 (00:23→16:41)
[2017-07-18] MEDS: ONDANSETRON ODT 4 MG TABLET PO SCH ×6 (00:23→20:53)
[2017-07-18] MEDS: SALINE FLUSH 10ml SYRINGE IVF PRN ×3 (00:23→18:02)
[2017-07-18] MEDS: OXYCODONE/APAP 7.5 MG/325 MG TABLET PO PRN ×5 (01:30→21:05)
[2017-07-18] MEDS: FentaNYL 100 MCG/2 ML INJECTION IVP PRN ×5 (01:30→18:02)
[2017-07-18] MEDS: PANTOPRAZOLE 20 MG TABLET PO SCH (05:32)
[2017-07-18] MEDS: LORazepam 0.5 MG TABLET PO PRN ×2 (05:33→18:02)
[2017-07-18] MEDS: SENNA + DOCUSATE TABLET PO SCH ×2 (09:29→20:53)
[2017-07-18] MEDS: PRENATAL VITAMIN TABLET PO SCH (09:30)
[2017-07-18] MEDS: POLYETHYL GLYCOL 3350 17gm PACKET PO SCH ×2 (09:30→20:54)
--- NOTE | 2017-07-18 10:46 | Progress Note ---
- Date 07/18/17 Subjective: Patient is seen lying in bed. She reports she had a bad night. She states her pain is out of control and she could not get on top of it. She's been receiving IV fentanyl approximately every 3-4 hours and Percocet every 4 hours. She continues with the fentanyl patch 100 g due to be changed this evening. Her last bowel movement was yesterday. No chest pain or shortness of breath. No vomiting. Objective Vital signs: Temperature 98.4 F 07/17/17 08:00 Pulse Rate 93 07/18/17 08:00 Respiratory Rate 18 07/18/17 08:00 Blood Pressure 134/78 07/18/17 08:00 Pulse Oximetry 90 07/18/17 08:00 Height/Weight/BMI: Weight 103 kg - Constitutional Present: no acute distress, well nourished, well developed - Routine Respiratory Exam Present: CTA bilaterally. Absent: wheezes - Routine Cardiovascular Exam Present: RRR. Absent: murmur - Routine Abdominal Exam Present: soft, normoactive bowel sounds, tenderness (LUQ, RLQ), non distended - Routine Extremities Exam Present: no edema, normal capillary refill - Routine Skin Exam Present: dry, warm - Routine Neurological Exam Present: alert, oriented X3 - Routine Lymphatic Exam Lymphatic: Absent: adenopathy - Routine Psychiatric Exam Present: normal affect, cooperative Results - Labs CBC & Chem 7: 07/16/17 04:23 07/16/17 04:23 Assessment and Plan (1) Ifosfamide toxicity Current visit: Yes Status: Acute Assessment and Plan: Impression Ifosfamide neurotoxicity-resolved. Leukocytosis, present on admission; received GCSF 07/12/17 Acute on chronic abdominal pain Nausea and vomiting Constipation Hypokalemia Stage IV endometrial cancer with carcinomatosis Coronary artery disease Anxiety and Depression Insomnia Migraine Plan She is using the Percocet every 4 hours and still requiring fentanyl IV approximately every 3-5 hours. Try to wean her off IV fentanyl and maximize pain control with p.o. medication. Will discuss pain medication plan with Dr. Anguiano. Resuscitation Status: Do Not Resuscitate - Physician Narrative Physician: Ibis Anguiano MD Narrative: Date: 07/18/17 Time: 1814 I have independently evaluated and examined this patient. I reviewed the chart, the patient's history, and the PHYSIOTHERAPY ASSISTANT/PA's documented findings as above. We discussed and formulated the assessment and plan as above with additions as below: Debbie had a bad night as noted above; nausea and vomiting or well-controlled but pain continues to be challenging to manage. She had fairly severe reaction to morphine so Roxanol is not an option for more rapid offset pain control. Appears fatigued, flat affect Abdomen soft, nontender to light palpation-no focal findings noted today, bowel sounds less active today than prior days Options for pain management reviewed with Dr. Quezada-could consider fentanyl lollipops at discharge; for now we will add scheduled oxycodone 15 mg every 6 hours in addition to when necessary Percocet to try to improve pain control. Continued need for IV narcotics precludes discharge at this time. Hospital Course Summary Disclaimer: The visit summary below is not to be considered part of the above Progress Note. Hospital Course: Impression Ifosfamide neurotoxicity Leukocytosis, present on admission Nausea and vomiting, Acute on chronic abdominal pain Stage IV endometrial cancer Coronary artery disease Anxiety and Depression Insomnia Migraine Plan Admit, observation status, under the hospitalist service. IV fluids: Normal saline at 125 mL's per hour. Zofran and/or Reglan as needed for nausea. Percocet as needed for pain (she takes Percocet 7.5 mg at home) Repeat urinalysis. UA done on 07/09/17 was negative. Continue home medications. Serial neuro exams. Consult Dr. Quezada. Patient requests that any potentially sensitive medical diagnoses should be discussed with her before disclosing any information to family or significant other. 07/14/17 Still with severe pain despite fentanyl patch and multiple IV doses of narcotics. CT scan abdomen/pelvis ordered and Dr. Mcneil ordered. K 3.4. WBC back to normal. 07/15/17 Labs are stable, potassium improved to 3.6. Discussed case in depth with Dr. Clancy and patient. The hope is to continue chemotherapy to help relieve the degree of carcinomatosis, which could help relieve impending bowel obstruction. First, however, we must get on top of her pain and promote regular bowel function. For pain control, Dr. Clancy recommends increasing the fentanyl patch to 100 g. For her bowels, will increase MiraLAX to twice a day. Give a dose of lactulose 20 g 1 now. Start Dulcolax suppositories 4 times a day until good results. Will change diet to low fiber. She was encouraged to consume more soft foods and more liquids instead of fiber rich and difficult to digest foods. Encourage activity and angulation. Increased Reglan dose to 10 mg. Oral intake is improving. Will DC IV fluids. Dr. Viveros does not recommend surgery. Dr. Clancy would like to resume chemotherapy in about 2 weeks. Debbie will be meeting with [facility] for an informational session tomorrow morning. 07/16/17 Patient is hoping to be able to discharge on Friday. Pain improved with the 100 micrograms fentanyl patch. Continue MiraLAX and senna plus twice a day, soft diet 07/17/17 Nausea is controlled. Pain is manageable. Bowels are moving. Plan discharge for tomorrow. 07/18/17 She is using the Percocet every 4 hours and still requiring fentanyl IV approximately every 3-5 hours. Try to wean her off IV fentanyl and maximize pain control with p.o. medication. Will discuss pain medication plan with Dr. Anguiano.
[2017-07-18] MEDS ORDERED: BISACODYL 10 MG SUPPOSITORY RECTALLY PRN (18:24)
[2017-07-18] MEDS ORDERED: LACTULOSE 20 GM/30 ML ORAL LIQUID PO PRN (18:24)
[2017-07-18] MEDS: Oxycodone *IR* 15 MG TABLET PO SCH (18:39)
--- NOTE | 2017-07-18 19:30 | Progress Note ---
Oncology Subjective Patient continuing to have pain. Not controlled with present oral medication. Pain is primarily in the right lower quadrant and left upper quadrant. Bowels are moving. Current Colace and marrow like seems to be working. Exam Vital signs: Temperature 97.9 F 07/18/17 14:56 Pulse Rate 93 07/18/17 14:56 Respiratory Rate 18 07/18/17 14:56 Blood Pressure 145/77 H 07/18/17 14:56 Pulse Oximetry 97 07/18/17 14:56 - Constitutional mild distress, moderate distress, obese - Routine HEENT Exam Head: Present: normocephalic Eye: Present: EOMI, PERRL - Routine Neck Exam Present: supple - Routine Respiratory Exam Present: CTA bilaterally. Absent: dyspnea - Routine Cardiovascular Exam Present: RRR, no murmur - Routine Abdominal Exam Present: soft, tenderness (right lower quadrant), non distended - Routine Extremities Exam Absent: cyanosis, clubbing, edema - Routine Skin Exam Present: dry, warm - Routine Neurological Exam Present: alert, CN II-XII intact - Routine Psychiatric Exam Present: anxious (having difficulty coping with pain) Oncology Results - Labs CBC & Chem 7: 07/16/17 04:23 07/16/17 04:23 - Imaging and Cardiology CT scan - abdomen Additional comments: Date of Exam: 07/14/17 Ordering Provider: Tomás Quezada MD Type of Exam(s): CT abdomen pelvis w con Reason for Exam(s): Abd Pain Indication: Abd Pain PROCEDURE: CT abdomen pelvis w con: Encounter: Initial Comparison: CT abdomen and pelvis dated June 25, 2017 Technique: Axial CT images were performed through the abdomen and pelvis after the administration of intravenous contrast. Coronal and sagittal two-dimensional reformats. Automated Exposure Control and Iterative Reconstruction dose reducing techniques were utilized. Contrast: Omnipaque 300 100 mL Findings: New atelectasis in the lower lobes. Increasing ascites. Hepatic metastatic lesions are grossly stable from the recent comparison study. No bile duct dilatation. The gallbladder is surgically absent. The spleen, pancreas, adrenal glands and left kidney are within normal limits. Delayed nephrogram in the obstructed right kidney with severe hydronephrosis and hydroureter. Retroperitoneal soft tissue implant causing obstruction of the right ureter is again noted along the right side as muscle. Bladder is grossly normal. Rectum is distended with contrast with a cystic submucosal possible metastatic lesion in the mid sigmoid causing luminal narrowing. This is best seen on sagittal image #43 measuring 4 cm in diameter. Severe wall thickening of the more proximal sigmoid colon is seen extending through the splenic flexure. Bone windows are stable without obvious lytic or blastic lesions. Impression: 1. Impaired function of the severely obstructed right kidney. 3. 4 cm cystic submucosal mass within the mid sigmoid colon causing luminal narrowing. There is severe wall thickening of the more proximal sigmoid colon extending through the splenic flexure. This could represent metastatic disease, infectious/inflammatory/ischemic colitis or possibly a primary colonic neoplastic process. Recommend direct visualization with colonoscopy. 3. Increasing ascites probably malignant. 4. Grossly stable hepatic metastatic lesions. There is a preliminary report by virtual radiologic. Assessment and Plan Assessment and Plan: Dr. Clancy met with Patient on friday and explained to the patient the situation of having disease progression in the abdomen causing intermittent bowel obstruction. He discussed the situation with Dr. Viveros over the phone. Dr. Viveros is not recommending surgical intervention. He recommends continuing conservative treatment and may be chemotherapy with the plan for comfort care and hospice if the patient condition get worse. He increased the fentanyl patch to 100 mcg and keep short acting Percocet on Friday. Once pain is controlled we will have the patient go home with soft diet. Dr. Anguiano and I discussed the pain control this evening. She will increase Oxycodone, continue percocet and Fentanyl and strive for pain control. Dr. Garcia is irrigationist designer this weekend and will be available for assistance if needed. Please call him at [phone]. - Time Spent With Patient Total time spent is greater than 50% in coordination of care (as documented) at patient's floor/unit and/or counseling patient: less than 15 minutes
[2017-07-19] MEDS: ONDANSETRON ODT 4 MG TABLET PO SCH ×6 (00:35→20:12)
[2017-07-19] MEDS: LORazepam 0.5 MG TABLET PO PRN ×2 (00:36→23:09)
[2017-07-19] MEDS: Oxycodone *IR* 15 MG TABLET PO SCH ×4 (00:36→18:06)
[2017-07-19] MEDS: METOCLOPRAMIDE 10mg/2ml INJECTION IVP SCH ×4 (00:36→17:09)
[2017-07-19] MEDS: FentaNYL 100 MCG/2 ML INJECTION IVP PRN ×3 (00:36→17:11)
[2017-07-19] MEDS: PANTOPRAZOLE 20 MG TABLET PO SCH (06:23)
[2017-07-19] MEDS: POLYETHYL GLYCOL 3350 17gm PACKET PO SCH ×2 (09:11→20:26)
[2017-07-19] MEDS: PRENATAL VITAMIN TABLET PO SCH (09:12)
[2017-07-19] MEDS: SENNA + DOCUSATE TABLET PO SCH ×2 (09:12→20:28)
[2017-07-19] MEDS: ONDANSETRON 4 MG/2 ML INJECTION IVP PRN (10:17)
[2017-07-19] MEDS: SALINE FLUSH 10ml SYRINGE IVF PRN (10:17)
--- NOTE | 2017-07-19 11:02 | Progress Note ---
- Date 07/19/17 Subjective: Slept a little better and pain control improved somewhat since yesterday AM. Scheduled roxicodone has helped. Bowels are moving, increasing senna when needed. Appetite poor. Some nausea comes and goes. Objective Vital signs: Temperature 97.7 F 07/19/17 01:00 Pulse Rate 100 07/19/17 08:09 Respiratory Rate 16 07/19/17 08:09 Blood Pressure 136/76 07/19/17 08:09 Pulse Oximetry 93 07/19/17 08:09 Height/Weight/BMI: Weight 104.4 kg - Constitutional Present: no acute distress, well nourished, well developed, cooperative - Routine HEENT Exam Head: Present: normocephalic, atraumatic Eye: Present: PERRL. Absent: conjunctival icterus ENT: Present: mucous membranes moist, oropharynx clear - Routine Respiratory Exam Present: CTA bilaterally - Routine Cardiovascular Exam Present: RRR - Routine Abdominal Exam Present: soft, normoactive bowel sounds, non tender, distended - Routine Extremities Exam Present: no edema, pulses intact - Routine Skin Exam Present: dry, warm. Absent: rash - Routine Neurological Exam Present: alert, oriented X3 - Routine Psychiatric Exam Present: normal affect, cooperative, good insight Results - Labs CBC & Chem 7: 07/16/17 04:23 07/16/17 04:23 Assessment and Plan Assessment and Plan: Impression Ifosfamide neurotoxicity-resolved. Leukocytosis, present on admission; received GCSF 07/12/17 Acute on chronic abdominal pain Nausea and vomiting Constipation Hypokalemia Stage IV endometrial cancer with carcinomatosis Coronary artery disease Anxiety and Depression Insomnia Migraine Plan She continues to improve; scheduled roxicodone has helped and will continue. Will make IV fentanyl available less frequently and see if pain can be controlled with fentaly patch + scheduled roxicodone + prn percocet. Continue bowel regimen. Encourage po nutrition as able. If pain control can be achieved without IV medications in the next 1-2 days she could go home at that point. DVT Prophylaxis: SCD's GI Prophylaxis: Protonix Resuscitation Status: Do Not Resuscitate - Physician Narrative Physician: Heike Acosta MD Narrative: Date: 07/19/17 Time: 1059 Hospital Course Summary Disclaimer: The visit summary below is not to be considered part of the above Progress Note. Hospital Course: Impression Ifosfamide neurotoxicity Leukocytosis, present on admission Nausea and vomiting, Acute on chronic abdominal pain Stage IV endometrial cancer Coronary artery disease Anxiety and Depression Insomnia Migraine Plan Admit, observation status, under the hospitalist service. IV fluids: Normal saline at 125 mL's per hour. Zofran and/or Reglan as needed for nausea. Percocet as needed for pain (she takes Percocet 7.5 mg at home) Repeat urinalysis. UA done on 07/09/17 was negative. Continue home medications. Serial neuro exams. Consult Dr. Quezada. Patient requests that any potentially sensitive medical diagnoses should be discussed with her before disclosing any information to family or significant other. 07/14/17 Still with severe pain despite fentanyl patch and multiple IV doses of narcotics. CT scan abdomen/pelvis ordered and Dr. Mcneil ordered. K 3.4. WBC back to normal. 07/15/17 Labs are stable, potassium improved to 3.6. Discussed case in depth with Dr. Clancy and patient. The hope is to continue chemotherapy to help relieve the degree of carcinomatosis, which could help relieve impending bowel obstruction. First, however, we must get on top of her pain and promote regular bowel function. For pain control, Dr. Clancy recommends increasing the fentanyl patch to 100 g. For her bowels, will increase MiraLAX to twice a day. Give a dose of lactulose 20 g 1 now. Start Dulcolax suppositories 4 times a day until good results. Will change diet to low fiber. She was encouraged to consume more soft foods and more liquids instead of fiber rich and difficult to digest foods. Encourage activity and angulation. Increased Reglan dose to 10 mg. Oral intake is improving. Will DC IV fluids. Dr. Viveros does not recommend surgery. Dr. Clancy would like to resume chemotherapy in about 2 weeks. Debbie will be meeting with [facility] for an informational session tomorrow morning. 07/16/17 Patient is hoping to be able to discharge on Friday.07/19/1978/ Pain improved with the 100 micrograms fentanyl patch. Continue MiraLAX and senna plus twice a day, soft diet 07/17/17 Nausea is controlled. Pain is manageable. Bowels are moving. Plan discharge for tomorrow. 07/18/17 She is using the Percocet every 4 hours and still requiring fentanyl IV approximately every 3-5 hours. Try to wean her off IV fentanyl and maximize pain control with p.o. medication. Will discuss pain medication plan with Dr. Anguiano. 07/19/17 She continues to improve; scheduled roxicodone has helped and will continue. Will make IV fentanyl available less frequently and see if pain can be controlled with fentaly patch + scheduled roxicodone + prn percocet. Continue bowel regimen. Encourage po nutrition as able. If pain control can be achieved without IV medications in the next 1-2 days she could go home at that point.
--- NOTE | 2017-07-19 12:08 | Progress Note ---
Oncology Subjective complaints of left upper and right lower quadrant pain. Moving bowels today. On fentanyl and oxycondone. Home Medications Oxycodone/Apap 7.5/325 [Percocet 7.5/325] 1 tab PO Q4H PRN #20 tab 06/25/17 [Rx Confirmed 07/11/17] Pnv No.95/Ferrous Fum/Folic AC [ Tablet] 1 tab PO DAILY 06/25/17 [ History Confirmed 07/11/17] Ondansetron [Zofran Odt] 4 mg PO Q4HR 06/26/17 [History Confirmed 07/11/17] LORazepam [Ativan] 0.5 mg PO Q6H PRN 07/11/17 [History Confirmed 07/11/17] Sennosides [Senokot] 8.6 mg PO PRN 07/11/17 [History Confirmed 07/11/17] Active Medications Bisacodyl (Dulcolax) 10 mg RECTALLY BID PRN PRN Reason: Constipation Fentanyl (Duragesic Patch) 100 mcg TD Q3D [facility] Last Admin: 07/18/17 16:39 Dose: 100 mcg Fentanyl (Fentanyl) 100 mcg IVP Q6HR PRN Lactulose (Lactulose) 20 gm PO BID PRN PRN Reason: Constipation Lorazepam (Ativan) 0.5 mg PO Q6H PRN PRN Reason: Anxiety Last Admin: 07/19/17 00:36 Dose: 0.5 mg Magnesium Hydroxide (Mom) 30 ml PO DAILY PRN PRN Reason: Constipation Metoclopramide HCl (Reglan) 10 mg IVP Q6H [facility] Last Admin: 07/19/17 11:26 Dose: 10 mg Ondansetron HCl (Zofran Po) 4 mg PO Q4HR [facility] Last Admin: 07/19/17 11:26 Dose: 4 mg Ondansetron HCl (Zofran) 4 mg IVP Q6H PRN PRN Reason: Nausea &/or vomiting Last Admin: 07/19/17 10:17 Dose: 4 mg Oxycodone HCl (Roxicodone *Ir*) 15 mg PO Q6H [facility] Last Admin: 07/19/17 06:21 Dose: 15 mg Oxycodone/Acetaminophen (Percocet 7.5/325) 1 tab PO Q4H PRN PRN Reason: Pain Last Admin: 07/18/17 21:05 Dose: 1 tab Pantoprazole Sodium (Protonix) 20 mg PO ACB [facility] Last Admin: 07/19/17 06:23 Dose: 20 mg Polyethylene Glycol (Miralax) 17 gm PO BID [facility] Last Admin: 07/19/17 09:11 Dose: Not Given Prenat Multivit/Custom Harvester/Iron/Folic Ac (Duane ) 1 tab PO DAILY [facility] Last Admin: 07/19/17 09:12 Dose: Not Given Senna (Senna Lax) 8.6 mg PO PRN PRN Last Admin: 07/11/17 17:17 Dose: 8.6 mg Senna/Docusate Sodium (Senna Plus Tablet) 1 tab PO BID [facility] Last Admin: 07/19/17 09:12 Dose: Not Given Sodium Chloride (Iv Flush) 10 - 80 ml IVF PRN PRN PRN Reason: Flushing Last Admin: 07/19/17 10:17 Dose: 10 ml Active Orders 24 hr Category Date Time Status Bisacodyl Supp [Dulcolax] Medication 07/18/17 18:24 Active 10 mg RECTALLY BID PRN FentaNYL Medication 07/19/17 11:04 Active 100 mcg IVP Q6HR PRN Lactulose Oral Liq [Lactulose] Medication 07/18/17 18:24 Active 20 gm PO BID PRN Oxycodone *IR* [Roxicodone *IR*] Medication 07/18/17 18:15 Active 15 mg PO Q6H Intake & Output 07/17/17 07/18/17 07/19/17 07/20/17 06:59 06:59 06:59 06:59 Intake Total 1360 / 1360 1490 / 1490 830 / 830 500 / 500 Output Total 300 / 300 Balance 1360 / 1360 1490 / 1490 830 / 830 200 / 200 Weight 103.2 kg 102.6 kg 103 kg 104.4 kg Exam Vital signs: Temperature 97.7 F 07/19/17 01:00 Pulse Rate 100 07/19/17 08:09 Respiratory Rate 16 07/19/17 08:09 Blood Pressure 136/76 07/19/17 08:09 Pulse Oximetry 93 07/19/17 08:09 - Constitutional no acute distress, average body habitus - Routine HEENT Exam Head: Present: normocephalic, atraumatic ENT: Present: mucous membranes moist - Routine Neck Exam Present: supple, full ROM - Routine Respiratory Exam Present: CTA bilaterally - Routine Abdominal Exam Present: soft, normoactive bowel sounds. Absent: tenderness - Routine Extremities Exam Present: no edema - Routine Neurological Exam Present: alert, oriented X3 Oncology Results - Labs CBC & Chem 7: 07/16/17 04:23 07/16/17 04:23 Assessment and Plan Assessment and Plan: 1. Mixed Mullerian tumor-recurrent 2. S/p taxol and ifex chemo 3. Abdominal pain 4. Case d/w GYNonc Dr. Viveros by Dr. Dixon 5. Pain mgmt-intol of MS with Nausea and vomiting Plan pain mgmt with fentanyl case plan review with Dr. Abhishek graf next week. Consider ativan/benzo trial for abd discomfort as well. Encourage ambulation/OOB. Dr. Clancy met with Patient on friday and explained to the patient the situation of having disease progression in the abdomen causing intermittent bowel obstruction. He discussed the situation with Dr. Viveros over the phone. Dr. Viveros is not recommending surgical intervention. He recommends continuing conservative treatment and may be chemotherapy with the plan for comfort care and hospice if the patient condition get worse. He increased the fentanyl patch to 100 mcg and keep short acting Percocet on Friday. Once pain is controlled we will have the patient go home with soft diet. Dr. Anguiano and I discussed the pain control this evening. She will increase Oxycodone, continue percocet and Fentanyl and strive for pain control. Dr. Garcia is cfo controller this weekend and will be available for assistance if needed. Please call him at [phone]. - Time Spent With Patient Total time spent is greater than 50% in coordination of care (as documented) at patient's floor/unit and/or counseling patient: less than 15 minutes
[2017-07-19] MEDS ORDERED: PROMETHAZINE 25 MG INJECTION IVP ONE (14:39)
[2017-07-20] MEDS: METOCLOPRAMIDE 10mg/2ml INJECTION IVP SCH ×2 (00:13→06:18)
[2017-07-20] MEDS: ONDANSETRON ODT 4 MG TABLET PO SCH ×6 (00:14→21:11)
[2017-07-20] MEDS: Oxycodone *IR* 15 MG TABLET PO SCH ×4 (00:14→18:16)
[2017-07-20] MEDS: FentaNYL 100 MCG/2 ML INJECTION IVP PRN (02:51)
[2017-07-20] MEDS: OXYCODONE/APAP 7.5 MG/325 MG TABLET PO PRN ×3 (02:51→21:11)
[2017-07-20] MEDS: PANTOPRAZOLE 20 MG TABLET PO SCH (06:18)
[2017-07-20] MEDS: PROMETHAZINE 25 MG INJECTION IVP PRN (08:53)
--- NOTE | 2017-07-20 11:08 | Progress Note ---
- Date 07/20/17 Subjective: Had some emesis last night; unclear if related to the disease process or to the medications. Zofran was not helpful, nor was reglan. She did improve after a dose of phenergan yesterday afternoon. Hungry this morning and would like to try to eat again. Pain control is much improved. Feels like she could get home soon if nausea is controlled; discussed using the phenergan today. Objective Vital signs: Temperature 98.5 F 07/20/17 00:00 Pulse Rate 87 07/20/17 09:07 Respiratory Rate 12 07/20/17 09:07 Blood Pressure 146/111 H 07/20/17 09:07 Pulse Oximetry 98 07/20/17 09:07 Height/Weight/BMI: Weight 65.6 kg - Constitutional Present: no acute distress, well nourished, well developed, cooperative - Routine HEENT Exam Head: Present: normocephalic, atraumatic Eye: Present: PERRL. Absent: conjunctival icterus ENT: Present: mucous membranes moist, oropharynx clear - Routine Respiratory Exam Present: CTA bilaterally. Absent: rhonchi, crackles - Routine Cardiovascular Exam Present: RRR. Absent: murmur - Routine Abdominal Exam Present: soft, non tender, distended. Absent: rebound, guarding - Routine Extremities Exam Present: no edema, pulses intact - Routine Skin Exam Present: dry, warm. Absent: rash - Routine Neurological Exam Present: alert, moving all extremities, normal speech - Routine Psychiatric Exam Present: normal affect Results - Labs CBC & Chem 7: 07/20/17 08:01 07/20/17 08:01 Assessment and Plan Assessment and Plan: Impression Ifosfamide neurotoxicity-resolved. Leukocytosis, present on admission; received GCSF 07/12/17 Acute on chronic abdominal pain, improving with scheduled narcotics Nausea and vomiting; ongoing Constipation, improved Hypokalemia, resolved with replacement Stage IV endometrial cancer with carcinomatosis Coronary artery disease Anxiety and Depression Insomnia Migraine Normocytic anemia, secondary to malignancy, Hb stable Hypernatremia due to decreased free wate rintake Plan She continues to improve; scheduled roxicodone has helped and will continue. It may be contributing to nausea however. Will continue current pain regimen, discontinue IV fentanyl and see if pain can be controlled with po meds alone. Continue prn phenergan today; monitor for further nausea and vomiting. Continue bowel regimen. Encourage po nutrition as able. If pain and nausea control can be achieved without IV medications in the next 1- 2 days she could go home at that point. - Physician Narrative Narrative: Date: 07/20/17 Time: 1103 Hospital Course Summary Disclaimer: The visit summary below is not to be considered part of the above Progress Note. Hospital Course: Impression Ifosfamide neurotoxicity Leukocytosis, present on admission Nausea and vomiting, Acute on chronic abdominal pain Stage IV endometrial cancer Coronary artery disease Anxiety and Depression Insomnia Migraine Plan Admit, observation status, under the hospitalist service. IV fluids: Normal saline at 125 mL's per hour. Zofran and/or Reglan as needed for nausea. Percocet as needed for pain (she takes Percocet 7.5 mg at home) Repeat urinalysis. UA done on 07/09/17 was negative. Continue home medications. Serial neuro exams. Consult Dr. Quezada. Patient requests that any potentially sensitive medical diagnoses should be discussed with her before disclosing any information to family or significant other. 07/14/17 Still with severe pain despite fentanyl patch and multiple IV doses of narcotics. CT scan abdomen/pelvis ordered and Dr. Mcneil ordered. K 3.4. WBC back to normal. 07/15/17 Labs are stable, potassium improved to 3.6. Discussed case in depth with Dr. Clancy and patient. The hope is to continue chemotherapy to help relieve the degree of carcinomatosis, which could help relieve impending bowel obstruction. First, however, we must get on top of her pain and promote regular bowel function. For pain control, Dr. Clancy recommends increasing the fentanyl patch to 100 g. For her bowels, will increase MiraLAX to twice a day. Give a dose of lactulose 20 g 1 now. Start Dulcolax suppositories 4 times a day until good results. Will change diet to low fiber. She was encouraged to consume more soft foods and more liquids instead of fiber rich and difficult to digest foods. Encourage activity and angulation. Increased Reglan dose to 10 mg. Oral intake is improving. Will DC IV fluids. Dr. Viveros does not recommend surgery. Dr. Clancy would like to resume chemotherapy in about 2 weeks. Debbie will be meeting with [facility] for an informational session tomorrow morning. 07/16/17 Patient is hoping to be able to discharge on Friday.07/19/1978/ Pain improved with the 100 micrograms fentanyl patch. Continue MiraLAX and senna plus twice a day, soft diet 07/17/17 Nausea is controlled. Pain is manageable. Bowels are moving. Plan discharge for tomorrow. 07/18/17 She is using the Percocet every 4 hours and still requiring fentanyl IV approximately every 3-5 hours. Try to wean her off IV fentanyl and maximize pain control with p.o. medication. Will discuss pain medication plan with Dr. Anguiano. 07/19/17 She continues to improve; scheduled roxicodone has helped and will continue. Will make IV fentanyl available less frequently and see if pain can be controlled with fentaly patch + scheduled roxicodone + prn percocet. Continue bowel regimen. Encourage po nutrition as able. If pain control can be achieved without IV medications in the next 1-2 days she could go home at that point. 07/20/17 She continues to improve; scheduled roxicodone has helped and will continue. It may be contributing to nausea however. Will continue current pain regimen, discontinue IV fentanyl and see if pain can be controlled with po meds alone. Continue prn phenergan today; monitor for further nausea and vomiting. Continue bowel regimen. Encourage po nutrition as able. If pain and nausea control can be achieved without IV medications in the next 1- 2 days she could go home at that point.
[2017-07-20] MEDS: POLYETHYL GLYCOL 3350 17gm PACKET PO SCH ×2 (11:42→21:11)
[2017-07-20] MEDS: PRENATAL VITAMIN TABLET PO SCH (11:47)
[2017-07-20] MEDS: SENNA + DOCUSATE TABLET PO SCH ×2 (11:47→21:11)
[2017-07-21] MEDS: ONDANSETRON ODT 4 MG TABLET PO SCH ×6 (00:24→20:25)
[2017-07-21] MEDS: Oxycodone *IR* 15 MG TABLET PO SCH ×5 (00:24→23:31)
[2017-07-21] MEDS: LORazepam 0.5 MG TABLET PO PRN ×3 (00:34→12:54)
[2017-07-21] MEDS: OXYCODONE/APAP 7.5 MG/325 MG TABLET PO PRN ×2 (01:23→09:19)
[2017-07-21] MEDS: PANTOPRAZOLE 20 MG TABLET PO SCH (05:43)
[2017-07-21] MEDS: SALINE FLUSH 10ml SYRINGE IVF PRN ×2 (05:44→20:30)
[2017-07-21] MEDS: POLYETHYL GLYCOL 3350 17gm PACKET PO SCH ×2 (09:08→20:24)
[2017-07-21] MEDS: PRENATAL VITAMIN TABLET PO SCH ×2 (09:08→10:33)
[2017-07-21] MEDS: SENNA + DOCUSATE TABLET PO SCH ×3 (09:10→20:23)
[2017-07-21] MEDS: PROMETHAZINE 25 MG INJECTION IVP PRN (09:36)
[2017-07-21] MEDS: PROCHLORPERAZINE 5 MG TABLET PO SCH ×2 (15:32→23:31)
--- NOTE | 2017-07-21 15:36 | Progress Note ---
- Date 07/21/17 Subjective: Patient is seen today sitting on her bed. She reports she has been very emotional. She is very frustrated because she was not informed that she was going to have her IV medications discontinued over the weekend. She wants to go home, but understands she needs to be able to keep medications down before this can happen. She vomited this morning. She reports she has normally been doing well with routine Zofran. She thinks that she vomited this morning because she didn't get her Zofran on time. Objective Vital signs: Temperature 98.1 F 07/21/17 09:23 Pulse Rate 83 07/21/17 09:23 Respiratory Rate 16 07/21/17 09:23 Blood Pressure 154/85 H 07/21/17 09:23 Pulse Oximetry 94 07/21/17 09:23 Height/Weight/BMI: Weight 65.6 kg - Constitutional Present: no acute distress, well nourished, well developed, other (tearful) - Routine HEENT Exam Head: Present: normocephalic, atraumatic - Routine Respiratory Exam Present: CTA bilaterally. Absent: wheezes - Routine Cardiovascular Exam Present: RRR, no murmur - Routine Abdominal Exam Present: soft, tenderness (left upper quadrant and right lower quadrant), non distended, non tender - Routine Extremities Exam Present: no edema, normal capillary refill - Routine Skin Exam Present: dry, warm - Routine Neurological Exam Present: alert, oriented X3 - Routine Lymphatic Exam Lymphatic: Absent: adenopathy - Routine Psychiatric Exam Present: cooperative, depressed Results - Labs CBC & Chem 7: 07/20/17 08:01 07/20/17 08:01 Assessment and Plan (1) Ifosfamide toxicity Current visit: Yes Status: Acute Assessment and Plan: Impression Ifosfamide neurotoxicity-resolved. Leukocytosis, present on admission; received GCSF 07/12/17 Acute on chronic abdominal pain, improving with scheduled narcotics Nausea and vomiting; ongoing Constipation, improved Hypokalemia, resolved with replacement Stage IV endometrial cancer with carcinomatosis Coronary artery disease Anxiety and Depression Insomnia Migraine Normocytic anemia, secondary to malignancy, Hb stable Hypernatremia due to decreased free wate rintake Plan After discussion with patient and her daughter, we agreed to resume her chemotherapy dosing of antiemetics which was very beneficial for her. She will take Compazine every 8 hours and Zofran q 8 hours alternating so that she is receiving one of the medications every 4 hours. Will continue current pain regimen. Continue prn IV phenergan, but hopefully this will not be necessary. Last bowel movement was the day before yesterday per patient. Give milk of Magnesia now and if no results, give lactulose. Discussed with patient possibility of using clonazepam routinely to help with her anxiety; however, with starting the Compazine, will see how she does with that as it can help with anxiety. If pain and nausea control can be achieved without IV medications consider discharge in the next day or 2. - Physician Narrative Physician: Ibis Anguiano MD Narrative: Date: 07/21/17 Time: 2044 I have independently evaluated and examined this patient. I reviewed the chart, the patient's history, and the [employer]/PA's documented findings as above. We discussed and formulated the assessment and plan as above with additions as below: Mrs. Heredia reports pain control has improved but she said recurrent nausea and vomiting over the past 2 days. She has been able to take some sips of fluid this afternoon. Last bowel movement was approximately 3 days ago. She is hopeful that with adjustments in antiemetics discussed earlier today she will be able to discharge home tomorrow. Patient is alert and in no distress when seen. Respirations are nonlabored with clear breath sounds Abdomen is benign-nontender although bowel sounds remain diminished. briefly discussed with Dr. Quezada earlier today-Dr. Clancy will see tomorrow. Modify antiemetics as discussed; discussed option of Compazine or Phenergan suppositories as needed. Senokot increased to 2 tablets twice a day. Hospital Course Summary Disclaimer: The visit summary below is not to be considered part of the above Progress Note. Hospital Course: Impression Ifosfamide neurotoxicity Leukocytosis, present on admission Nausea and vomiting, Acute on chronic abdominal pain Stage IV endometrial cancer Coronary artery disease Anxiety and Depression Insomnia Migraine Plan Admit, observation status, under the hospitalist service. IV fluids: Normal saline at 125 mL's per hour. Zofran and/or Reglan as needed for nausea. Percocet as needed for pain (she takes Percocet 7.5 mg at home) Repeat urinalysis. UA done on 07/09/17 was negative. Continue home medications. Serial neuro exams. Consult Dr. Quezada. Patient requests that any potentially sensitive medical diagnoses should be discussed with her before disclosing any information to family or significant other. 07/14/17 Still with severe pain despite fentanyl patch and multiple IV doses of narcotics. CT scan abdomen/pelvis ordered and Dr. Mcneil ordered. K 3.4. WBC back to normal. 07/15/17 Labs are stable, potassium improved to 3.6. Discussed case in depth with Dr. Clancy and patient. The hope is to continue chemotherapy to help relieve the degree of carcinomatosis, which could help relieve impending bowel obstruction. First, however, we must get on top of her pain and promote regular bowel function. For pain control, Dr. Clancy recommends increasing the fentanyl patch to 100 g. For her bowels, will increase MiraLAX to twice a day. Give a dose of lactulose 20 g 1 now. Start Dulcolax suppositories 4 times a day until good results. Will change diet to low fiber. She was encouraged to consume more soft foods and more liquids instead of fiber rich and difficult to digest foods. Encourage activity and angulation. Increased Reglan dose to 10 mg. Oral intake is improving. Will DC IV fluids. Dr. Viveros does not recommend surgery. Dr. Clancy would like to resume chemotherapy in about 2 weeks. Debbie will be meeting with [facility] for an informational session tomorrow morning. 07/16/17 Patient is hoping to be able to discharge on Friday.07/19/1978/ Pain improved with the 100 micrograms fentanyl patch. Continue MiraLAX and senna plus twice a day, soft diet 07/17/17 Nausea is controlled. Pain is manageable. Bowels are moving. Plan discharge for tomorrow. 07/18/17 She is using the Percocet every 4 hours and still requiring fentanyl IV approximately every 3-5 hours. Try to wean her off IV fentanyl and maximize pain control with p.o. medication. Will discuss pain medication plan with Dr. Anguiano. 07/19/17 She continues to improve; scheduled roxicodone has helped and will continue. Will make IV fentanyl available less frequently and see if pain can be controlled with fentaly patch + scheduled roxicodone + prn percocet. Continue bowel regimen. Encourage po nutrition as able. If pain control can be achieved without IV medications in the next 1-2 days she could go home at that point. 07/20/17 She continues to improve; scheduled roxicodone has helped and will continue. It may be contributing to nausea however. Will continue current pain regimen, discontinue IV fentanyl and see if pain can be controlled with po meds alone. Continue prn phenergan today; monitor for further nausea and vomiting. Continue bowel regimen. Encourage po nutrition as able. If pain and nausea control can be achieved without IV medications in the next 1- 2 days she could go home at that point. 07/21/17 Schedule Compazine every 8 hours and Zofran every 8 hours alternating them every 4 hours. Continue with po pain meds only. Be aggressive with bowel motivation. Hope to discharge tomorrow if she does well.
[2017-07-21 23:35] VITALS: TEMP 97.4
[2017-07-22] MEDS: OXYCODONE/APAP 7.5 MG/325 MG TABLET PO PRN (01:03)
[2017-07-22] MEDS: SALINE FLUSH 10ml SYRINGE IVF PRN (04:15)
[2017-07-22] MEDS: ONDANSETRON ODT 4 MG TABLET PO SCH ×2 (04:15→11:57)
[2017-07-22] MEDS: Oxycodone *IR* 15 MG TABLET PO SCH ×2 (05:49→11:57)
[2017-07-22] MEDS: PANTOPRAZOLE 20 MG TABLET PO SCH (05:50)
[2017-07-22 08:42] VITALS: RESP 18
[2017-07-22] MEDS: PROCHLORPERAZINE 5 MG TABLET PO SCH ×2 (08:49→15:30)
[2017-07-22] MEDS: POLYETHYL GLYCOL 3350 17gm PACKET PO SCH (08:50)
[2017-07-22] MEDS: PRENATAL VITAMIN TABLET PO SCH (08:51)
[2017-07-22] MEDS: SENNA + DOCUSATE TABLET PO SCH (08:53)
[2017-07-22] MEDS: LORazepam 0.5 MG TABLET PO PRN ×2 (08:57→15:27)
--- NOTE | 2017-07-22 11:44 | Discharge Summary ---
Discharge Information Date of admission: 07/12/17 14:30 Anticipated date of discharge: 07/22/17 Attending Physician: Ibis Anguiano MD Primary care physician: El Hardy II, MD Consults: 07/14/17 Digna Clancy M.D. - Discharge Diagnosis (1) Ifosfamide toxicity Status: Acute Ifosfamide neurotoxicity-resolved. Leukocytosis, present on admission; received GCSF 07/12/17 Acute on chronic abdominal pain, improving with scheduled narcotics Nausea and vomiting; ongoing, improving with scheduled antiemetics Constipation, improved Hypokalemia, resolved with replacement Stage IV endometrial cancer with carcinomatosis Coronary artery disease Anxiety and Depression Insomnia Migraine Normocytic anemia, secondary to malignancy, Hb stable Hypernatremia due to decreased free water intake -resolved - Laboratory Labs: 07/20/17 08:01 07/22/17 04:18 Laboratory Tests 07/15/17 04:21 AST 83 H ALT 107 H Alkaline Phosphatase 138 H Laboratory Tests 07/13/17 07/15/17 07/20/17 04:14 04:21 08:01 Hgb 9.7 L 9.4 L 9.6 L - Radiology Radiology: Date of Exam: 07/11/17 Indication: altered mental status, endometrial CA rule out metastases PROCEDURE: MR head/brain wo/w con: FINDINGS: The ventricles are of normal size, shape, and contour for the patient's age. There are a couple nonspecific punctate areas of T2-weighted and T2 FLAIR weighted signal abnormality in the deep frontoparietal white matter that most likely represent small vessel ischemic disease. These lesions do not enhance and are of a degree that is considered to be normal for the patient's age. The brain stem, cerebellum, and cerebral hemispheres otherwise have a normal morphologic appearance as well as MR signal intensity on all pulse sequences. Following intravenous administration of contrast, no areas of abnormal enhancement are evident. There are no areas of restricted diffusion to suggest an acute infarct. There is no evidence of an intracranial mass lesion, intracranial hemorrhage, or hydrocephalus. The visualized portions of the orbits, calvarium, paranasal sinuses, and skull base demonstrate no significant abnormality. IMPRESSION: Unremarkable MRI of the head for the patient's age with and without contrast. No evidence of acute intracranial abnormality or metastatic disease. Date of Exam: 07/13/17 EXAM: XR acute abdomen series INDICATION: No BM, no flatus FINDINGS: Chest: The heart size is normal. The lungs are clear. Right PowerPort in place the tip overlying the mid SVC. Abdomen: Nonobstructive bowel gas pattern.Gas within normal caliber colonic bowel loops. Nonspecific Differential air-fluid levels on upright views. No free intraperitoneal air. Cholecystectomy clips. Skeletal Structures: The visualized skeletal structures are within normal limits for the patient's age. IMPRESSION: 1. Nonobstructive bowel gas pattern. Nonspecific differential air-fluid levels on upright views. 2. Cholecystectomy clips. Date of Exam: 07/14/17 Indication: Abd Pain PROCEDURE: CT abdomen pelvis w con: Findings: New atelectasis in the lower lobes. Increasing ascites. Hepatic metastatic lesions are grossly stable from the recent comparison study. No bile duct dilatation. The gallbladder is surgically absent. The spleen, pancreas, adrenal glands and left kidney are within normal limits. Delayed nephrogram in the obstructed right kidney with severe hydronephrosis and hydroureter. Retroperitoneal soft tissue implant causing obstruction of the right ureter is again noted along the right side as muscle. Bladder is grossly normal. Rectum is distended with contrast with a cystic submucosal possible metastatic lesion in the mid sigmoid causing luminal narrowing. This is best seen on sagittal image #43 measuring 4 cm in diameter. Severe wall thickening of the more proximal sigmoid colon is seen extending through the splenic flexure. Bone windows are stable without obvious lytic or blastic lesions. Impression: 1. Impaired function of the severely obstructed right kidney. 2. 4 cm cystic submucosal mass within the mid sigmoid colon causing luminal narrowing. There is severe wall thickening of the more proximal sigmoid colon extending through the splenic flexure. This could represent metastatic disease, infectious/inflammatory/ischemic colitis or possibly a primary colonic neoplastic process. Recommend direct visualization with colonoscopy. 3. Increasing ascites probably malignant. 4. Grossly stable hepatic metastatic lesions History of Present Illness HPI: Elva Heredia is a 56 year old woman with a history of metastatic endometrial cancer, diagnosed in March,. She had to restart chemotherapy (ifosfamide and Taxol) on 07/09/17. The plans were to have chemo on Friday, , and Friday for a total of 8 cycles. She had chemo on 07/09 and 07/10, but in the evening of 07/10 started to get sick with nausea and vomiting. She really hasn't been able to keep anything down. She also states that she has been having more intense abdominal pain. Compared to usual. She has been requiring regular doses of Percocet 7.5 mg to help control her pain. Her pain is mostly to the right upper quadrant and right lower quadrant, and tends to be waxing and waning. She is also having some pain related to constipation, but she does not believe that the current pain. She is feeling is because of constipation, which is more "gurgly" nature. She hasn't been able to sleep well, and has felt weak, lightheaded and dizzy. She developed a cold sore to her left naris a few days ago, soon after receiving her pneumonia and influenza vaccinations. She denies any fevers, but admits to having chills. She denies numbness or tingling. She denies dysuria. In the morning of 07/11/17. She went to go see Dr. Quezada ( usually she sees Dr. Clancy), and she was having difficulty thinking straight. For example, she thought the year was 2016, and that [facility] was president. She complained of blurred vision, which has since resolved. Her significant other stated that she wasn't able to walk with a steady gait, and she had to help hold her up. She was not able to answer questions appropriately, and wasn't sure that Elva could even understand her questions at all. Labs were done, showing leukocytosis with a white count of 14.4, mild anemia with hemoglobin of 11.8. Electrolytes were stable: Sodium 140, potassium 4.1, BUN 21, creatinine 0.8, blood glucose 130, magnesium 2.3. Dr. Quezada was concerned about neurotoxicity from ifosfamide, which has been known to cause seizures, neuropathy, weakness and ataxia. He recommended ED evaluation. On arrival, she was mildly tachycardic. She was afebrile. Brain MRI was negative for acute intracranial abnormality or metastatic disease. She received IV fluids, Toradol , fentanyl, and antiemetics. Dr. Quezada also recommended dexamethasone. She was subsequently admitted for further observation. Objective Vital signs: Temperature 97.4 F 07/21/17 23:32 Pulse Rate 88 07/21/17 23:32 Respiratory Rate 18 07/22/17 08:40 Blood Pressure 134/71 07/22/17 08:40 Pulse Oximetry 93 07/22/17 08:40 Height/Weight/BMI: Weight 102.5 kg - Constitutional Present: no acute distress, well nourished, well developed - Routine HEENT Exam Head: Present: normocephalic, atraumatic - Routine Respiratory Exam Present: CTA bilaterally. Absent: wheezes - Routine Cardiovascular Exam Present: RRR, no murmur - Routine Abdominal Exam Present: soft, tenderness (left upper quadrant and right lower quadrant), non distended - Routine Extremities Exam Present: no edema, normal capillary refill - Routine Skin Exam Present: dry, warm - Routine Neurological Exam Present: alert, oriented X3 - Routine Lymphatic Exam Lymphatic: Absent: adenopathy - Routine Psychiatric Exam Present: normal affect, cooperative Hospital Course This is a general summary of the patient's hospital course. For more details refer to the complete medical record. Hospital course: 07/13/17 - hospital admission Admit, observation status, under the hospitalist service. IV fluids: Normal saline at 125 mL's per hour. Zofran and/or Reglan as needed for nausea. Percocet as needed for pain (she takes Percocet 7.5 mg at home) Repeat urinalysis. UA done on 07/09/17 was negative. Continue home medications. Serial neuro exams. Consult Dr. Quezada. Patient requests that any potentially sensitive medical diagnoses should be discussed with her before disclosing any information to family or significant other. 07/14/17 Still with severe pain despite fentanyl patch and multiple IV doses of narcotics. CT scan abdomen/pelvis ordered and Dr. Mcneil ordered. K 3.4. WBC back to normal. 07/15/17 Labs are stable, potassium improved to 3.6. Discussed case in depth with Dr. Clancy and patient. The hope is to continue chemotherapy to help relieve the degree of carcinomatosis, which could help relieve impending bowel obstruction. First, however, we must get on top of her pain and promote regular bowel function. For pain control, Dr. Clancy recommends increasing the fentanyl patch to 100 g. For her bowels, will increase MiraLAX to twice a day. Give a dose of lactulose 20 g 1 now. Start Dulcolax suppositories 4 times a day until good results. Will change diet to low fiber. She was encouraged to consume more soft foods and more liquids instead of fiber rich and difficult to digest foods. Encourage activity and angulation. Increased Reglan dose to 10 mg. Oral intake is improving. Will DC IV fluids. Dr. Viveros does not recommend surgery. Dr. Clancy would like to resume chemotherapy in about 2 weeks. Debbie will be meeting with [facility] for an informational session tomorrow morning. 07/16/17 Patient is hoping to be able to discharge on Friday.07/19/1978/ Pain improved with the 100 micrograms fentanyl patch. Continue MiraLAX and senna plus twice a day, soft diet 07/17/17 Nausea is controlled. Pain is manageable. Bowels are moving. Plan discharge for tomorrow. 07/18/17 She is using the Percocet every 4 hours and still requiring fentanyl IV approximately every 3-5 hours. Try to wean her off IV fentanyl and maximize pain control with p.o. medication. Will discuss pain medication plan with Dr. Anguiano. 07/19/17 She continues to improve; scheduled roxicodone has helped and will continue. Will make IV fentanyl available less frequently and see if pain can be controlled with fentaly patch + scheduled roxicodone + prn percocet. Continue bowel regimen. Encourage po nutrition as able. If pain control can be achieved without IV medications in the next 1-2 days she could go home at that point. 07/20/17 She continues to improve; scheduled roxicodone has helped and will continue. It may be contributing to nausea however. Will continue current pain regimen, discontinue IV fentanyl and see if pain can be controlled with po meds alone. Continue prn phenergan today; monitor for further nausea and vomiting. Continue bowel regimen. Encourage po nutrition as able. If pain and nausea control can be achieved without IV medications in the next 1- 2 days she could go home at that point. 07/21/17 Schedule Compazine every 8 hours and Zofran every 8 hours alternating them every 4 hours. Continue with po pain meds only. Be aggressive with bowel motivation. Hope to discharge tomorrow if she does well. 07/22/17 Doing well with regards to nausea with scheduled Compazine and Zofran. Pain is controlled. Discharge home today. She will contact Dr. Clancy's office to determine further chemotherapy schedule. Time spent with patient: discharge greater than 30 minutes Resuscitation Status: Do Not Resuscitate Discharge Plan - Discharge Disposition Discharge Date: 07/22/17 Disposition: Discharged Home, Self-Care *Condition: Stable Reason For Visit (Visit label in EMR): neurotoxicity - Discharge Medications *Discharge Medications: New Lactulose Oral Liq [Lactulose] 20 gm PO BID PRN #240 ml PRN Reason: Constipation Milk of Magnesia [Mom] 30 ml PO DAILY PRN udc PRN Reason: Constipation Oxycodone *IR* [Roxicodone *Ir*] 15 mg PO Q6H #30 tab Prochlorperazine Tab [Compazine] 5 mg PO Q8H #60 tab FentaNYL PATCH [Duragesic Patch] 100 mcg TD Q3D #4 patch PEG 3350 17gm PACKET [Miralax] 17 gm PO BID packet Continue LORazepam [Ativan] 0.5 mg PO Q6H PRN #20 tab PRN Reason: Anxiety Oxycodone/Apap 7.5/325 [Percocet 7.5/325] 1 tab PO Q4H PRN #30 tab PRN Reason: Pain Pnv No.95/Ferrous Fum/Folic AC [ Tablet] 1 tab PO DAILY Changed Ondansetron [Zofran Odt] 4 mg PO Q8H #60 tab.rapdis Sennosides [Senokot] 17.2 mg PO BID PRN #30 PRN Reason: Constipation - Discharge Packet/Instructions *Diet: Soft diet as tolerated *Activity: As tolerated *Pain Management/Treatment: Per medication list *Wound Care: N/a Additional Instructions: It is extremely important you continue to keep your bowels moving and your stools soft. *Expected Signs/Symptoms: You may continue to have nausea and pain. You may have weight loss. *Notify Physician if: You have uncontrolled vomiting or pain is not controlled *During Business Hours Contact: Dr. Hardy or Dr. Clancy's office *After Business Hours Contact: Contact the above and follow after hours instructions *Pending Lab/Results: No Pending Lab - Referrals/Follow Up *Referrals/Follow Up: El Hardy II, MD [Family Provider] - 1 Week Digna Clancy MD [Physician] - (call their office to determine when you need to follow up) - Patient Handouts - Dismissal Complete Discharge Instructions are:: Complete Physician Narrative - Narrative Physician: Ibis Anguiano MD Attestation Narrative: Date: 07/22/17 Time: 1399 I have independently evaluated and examined this patient. I reviewed the chart, the patient's history, and the FOOD SERVICES DIRECTOR/PA's documented findings as above. We discussed and formulated the assessment and plan as above with additions as below: Debbie is doing well today. Abdominal pain and nausea are controlled; she's been able to tolerate some liquids and solid food. She feels stable for discharge at this time. The patient is alert, appears comfortable, in cardiac rhythm is regular. Abdomen is soft, nontender, and bowel sounds are present. Home with aggressive pain regimen as outlined above, antiemetics, and laxatives. Tentatively scheduled for chemotherapy with Dr. Clancy next week.
--- NOTE | 2017-07-22 17:05 | Progress Note ---
Oncology Subjective Pain is better controlled with the current narcotic regimen. She still nauseated but all in all doing better. Bowels doing better. She is ready to go home. Exam Vital signs: Temperature 97.4 F 07/21/17 23:32 Pulse Rate 88 07/21/17 23:32 Respiratory Rate 18 07/22/17 08:40 Blood Pressure 134/71 07/22/17 08:40 Pulse Oximetry 93 07/22/17 08:40 - Constitutional no acute distress, well developed, cooperative - Routine Respiratory Exam Absent: prolonged expiratory phase, rhonchi, wheezes, crackles - Routine Cardiovascular Exam Present: RRR, no murmur. Absent: JVD - Routine Abdominal Exam Present: soft, distended Comments: Bowel sounds positive. Diffuse tenderness. Oncology Results - Labs CBC & Chem 7: 07/20/17 08:01 07/22/17 04:18 Labs: BMP 07/22/17 04:18 Sodium 142 Potassium 4.1 Chloride 104 Carbon Dioxide 31 H BUN 13.0 Creatinine 0.9 Glucose 120 H Calcium 8.9 Assessment and Plan Assessment and Plan: Assessment and plan 1. 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 2. Ifosfamide induced neuropathy, resolved. 3. Bowel obstruction with nausea, constipation and pain, better controlled with current regimens. The patient may go home and will be scheduled for the second cycle of the chemotherapy with hydration next week. - Time Spent With Patient Total time spent is greater than 50% in coordination of care (as documented) at patient's floor/unit and/or counseling patient: 25 - 35 minutes
[2017-07-22 17:22] VITALS: BP 156/78; PULSE 81; O2SAT 98
== END 2017-07-22 17:15 | disposition home or self-care (01) | DRG 92 ==
LOC: ED 10:26 → MED 10:26 → SUATTDRO 07-12 14:30
PROVIDERS: ADMIT Internal Medicine; ATTEND Internal Medicine

== ENCOUNTER 2017-08-02 11:30 | Inpatient (IN) ==
[2017-08-01 10:02] VITALS: BMI 37.0
[2017-08-01] MEDS: Oxycodone *IR* 15 MG TABLET PO SCH ×5 (11:37→23:12)
[2017-08-01] MEDS: ONDANSETRON 4 MG/2 ML INJECTION IVP PRN (11:43)
--- NOTE | 2017-08-01 12:18 | History & Physical Report ---
History of Present Illness Date: 08/01/17 Chief complaint: Encephalopathy, vomiting HPI: Debbie Stock is a pleasant 57-year-old female who is well known to the hospitalist services from recent admissions 07/12/17) with Ifosfamide neurotoxicity related to treatment of stage IV endometrial cancer with carcinomatosis. She was discharged on 07/19/17. This past week, she started chemotherapy again on 07/30/17 and also had chemotherapy yesterday 07/31/17. Today she presented to oncology clinic for her 3rd day of chemotherapy along with mesna infusion. However, she was found to be acutely confused, documenting it was 2013. She has had persistent nausea and vomiting for the past 3 days with increased abdominal discomfort. Given all of these symptoms, accompanied with confusion. The hospitalist services were contacted and accepted patient for direct admission for further evaluation and treatment. She is seen on arrival to [facility], she is alert and orientated during examination. Initially she was confused about the year however did look at white board and give accurate date. She is able to give accurate history and appropriate history of present illness. She is acutely vomiting and complains of generalized diffuse abdominal pain. She does report that vomiting did start Friday07/29/17 prior to initiation of chemotherapy on Sunday 07/30. She reports she has been unable to keep down any oral fluids or foods since that time. Denies feeling short of breath or having chest pain. Review of Systems All systems PM: 10-point ROS was reviewed, no additional remarkable complaints except - Constitutional Constitutional: Present: fatigue Comments: Feeling thirsty - Gastrointestinal Gastrointestinal: Present: abdominal pain (diffuse), nausea, vomiting Past Medical History Patient Stated Medical History Stage IV endometrial cancer with carcinomatosis CAD Hypertension migraine headache Hiatal hernia Depression/anxiety Medical History Updates: Anxiety. Depression. Insomnia. Endometrial CA ( stage 4) Surgical History: PowerPort insertion. Total abdominal hysterectomy with resection of right ureter anastomosis in March 2016. Lumbar discectomy. Partial right knee replacement. Heart catheter with angioplasty 2 vessels in 2003. Laparoscopic ovarian cystectomy. Ectopic with left oophorectomy. EGD. Family History Updates: Mother had advanced lymphoma, heart disease and diabetes. She at age 47 from suicide, self inflicted gunshot wound to the head. Father had epilepsy, he also at age 58 from self-inflicted gunshot wound to the head. She is an only child. She has a son whom is well and a daughter who has history of drug addiction - Social History Smoking status: Never smoker Substance use type: does not use Alcohol intake frequency: does not drink Current occupational status: employed ([employer]) Current residence: Apartment/Private Home Social history: PCP Dr Hardy Oncologist- Dr Quezada Medications Home Medications Medication Instructions Recorded Confirmed Type Pnv No.95/Ferrous Fum/Folic AC 1 tab PO DAILY 06/25/17 08/01/17 History [ Tablet] Allergies Allergy/AdvReac Type Severity Reaction Status Date / Time morphine AdvReac Intermediate NAUSEA & Verified 08/01/17 10:19 VOMITING Exam Vital Signs: Temperature 96.1 F L 08/01/17 09:57 Pulse Rate 91 08/01/17 09:57 Respiratory Rate 18 08/01/17 09:57 Blood Pressure 139/84 08/01/17 09:57 Pulse Oximetry 95 08/01/17 09:57 Height/Weight/BMI: Height 1.6 m Weight 95 kg Body Mass Index 37.0 - Constitutional Present: mild distress, well nourished, well developed - Routine HEENT Exam Eye: Present: EOMI ENT: Present: mucous membranes dry, dentition normal - Routine Respiratory Exam Present: CTA bilaterally. Absent: wheezes - Routine Cardiovascular Exam Present: RRR, S1, S2. Absent: murmur - Routine Abdominal Exam Present: soft, normoactive bowel sounds, non distended. Absent: tenderness - Routine Extremities Exam Present: no edema, pulses intact - Routine Skin Exam Present: intact, dry, warm - Routine Neurological Exam Present: alert, oriented X3, CN II-XII intact, moving all extremities - Routine Psychiatric Exam Present: normal affect, cooperative Results - Labs CBC & Chem 7: 08/01/17 12:36 08/01/17 12:36 Assessment and Plan (1) Intractable nausea and vomiting Current visit: Yes Status: Acute Assessment and Plan: Impression Intractable nausea and vomiting Dehydration Hypokalemia-RLL 08/01/17 Abdominal pain Concern of altered mental status Stage IV endometrial cancer HTN CAD Anxiety and Depression Plan Admitted outpatient observation under care of Dr. Anguiano for intractable nausea, vomiting, dehydration, concern for encephalopathy Obtain CBC, CMP and magnesium on admission Will initial IV fluids for hydration- NS at 100 ML/hr Zofran, Compazine and Reglan for nausea. Recommended minimal oral intake until nausea and vomiting has subsided. Then may have clear liquid diet. Patient continues on chronic fentanyl patch at 100 micrograms. Due to be changed tomorrow, 2/3. Will give IV fentanyl as needed for acute breakthrough plane as she is unable to keep oral Roxanol down currently. Once nausea has been better controlled. We'll continue with home dosing of Roxicodone IR and Percocet 7.5 milligrams. Code status DNR. Will discuss further orders and plan of care with Dr Anguiano. DVT Prophylaxis: SCD's Resuscitation Status: Do Not Resuscitate - Physician Narrative Physician: Ibis Anguiano MD Narrative: Date: 08/01/17 Time: 1909 I have independently evaluated and examined this patient. I reviewed the chart, the patient's history, and the J2EE DEVELOPER/PA's documented findings as above. We discussed and formulated the assessment and plan as above with additions as below: Debbie was seen in Dr. Clancy's office after resuming chemotherapy 2 days ago. This is been accompanied by increasing vomiting-at least 3 times daily resulting in difficulty maintaining pain regimen and increased generalized abdominal pain. This morning her children reports the patient was confused and didn't know where she was, didn't know her birthday, and didn't know who the president was. She was asking for people who were present. She remained confused when she presented for chemotherapy similar to presentation with neurotoxicity developing with last course of ifosfamide. Due to increasing nausea and vomiting/impaired oral intake in conjunction with the altered mental status due to chemotherapy she is hospitalized now for hydration. Patient recognizes me when I arrived to see her a little before noon today and call me by name. She was able to identify her current location as the hospital until me that she cried when they told her she was coming back to the hospital. She couldn't recall what the year was or the date but remembered it was written on the white board in the room and was able to use that as a source of information. Her daughter reports that she's been fixated on 2013 all day. NAD, slightly confused but seems to be clearing compared to earlier in the day Sclera anicteric, EOMI Respirations are nonlabored with good airflow, breath sounds clear Regular rhythm, low-grade tachycardia Abdomen is distended, soft, mild generalized tenderness, diminished bowel sounds MAEW, sensation intact 4 extremities Ongoing emesis with large volume vomitus shortly after I visited with the patient. IV fluids initiated, IV/by mouth antiemetics available. Resume home pain meds with IV fentanyl available if needed. Oncology to assist in patient care. Oncology has suggested that hospice need to be discussed further this stay although patient is asking about alternate chemotherapy options. Anticipate confusion to clear quickly as it did prior admission. Potassium low-fluids converted to contain potassium this afternoon-will require reassessment of electrolytes later today. Check abdominal series to rule out obstruction given repetitive vomiting. Known carcinomatosis, there was concern about bowel obstruction during prior admission. Hospital Course Summary Disclaimer: The visit summary below is not to be considered part of the above Progress Note.
[2017-08-01] MEDS: PROCHLORPERAZINE 5 MG TABLET PO SCH ×2 (13:25→20:22)
[2017-08-01] MEDS: FentaNYL 100 MCG/2 ML INJECTION IVP PRN ×3 (13:54→22:15)
[2017-08-01] MEDS: ONDANSETRON ODT 4 MG TABLET PO SCH ×2 (18:43→19:48)
[2017-08-01] MEDS: OXYCODONE/APAP 7.5 MG/325 MG TABLET PO PRN (20:22)
[2017-08-01] MEDS: POLYETHYL GLYCOL 3350 17gm PACKET PO SCH (20:23)
[2017-08-01] MEDS: NS with KCL 20 mEq 1,000 ML IV SCH (20:43)
[2017-08-02] MEDS: NS with KCL 20 mEq 1,000 ML IV SCH ×6 (00:35→20:46)
[2017-08-02] MEDS: ONDANSETRON ODT 4 MG TABLET PO SCH ×3 (02:43→19:48)
[2017-08-02] MEDS: ONDANSETRON 4 MG/2 ML INJECTION IVP PRN ×2 (02:45→15:49)
[2017-08-02] MEDS: FentaNYL 100 MCG/2 ML INJECTION IVP PRN ×3 (03:07→08:49)
[2017-08-02] MEDS: PROCHLORPERAZINE 5 MG TABLET PO SCH ×3 (03:08→19:48)
[2017-08-02] MEDS: Oxycodone *IR* 15 MG TABLET PO SCH ×4 (04:37→22:15)
[2017-08-02] MEDS: METOCLOPRAMIDE 10mg/2ml INJECTION IVP PRN ×3 (05:26→20:02)
[2017-08-02] MEDS: POLYETHYL GLYCOL 3350 17gm PACKET PO SCH ×2 (10:26→20:57)
[~2017-08-02 11:30] MED LIST changes: -ASCO500T9 PO; -DOCU-168 PO; -DRON2.5C11 PO; -GADOBUTROL 10mMol/10ml INJECTION IV ONE; -HYDR-4246 PO; -IBUP200C5 PO; +LACTULOSE 20 GM/30 ML ORAL LIQUID PO PRN; -LIRA0.6P2 SQ; -LISI10TA7 PO; -NORMAL SALINE 50 ML IV ONE; +NS 1,000 ML IV SCH; -OMEP-122 PO; -ONDA4TAB7 PO; -ONDA8TAB8 PO; -OXYC-532 PO; +POTASSIUM CHLORIDE INJ 40 MEQ in NS 1,000 ML IV SCH; -PREN1TAB73 PO; -PROC-14 PO; -SALINE FLUSH 10ml SYRINGE ONE; +SENNOSIDES 8.6 MG TABLET PO PRN; -SUCR1TAB20 PO; +[UNRECOGNIZED DRUG - REMARK] PO SCH
[2017-08-02] MEDS: SALINE FLUSH 10ml SYRINGE IV PRN ×5 (13:35→20:02)
[2017-08-02] MEDS: HYDROMORPHONE 2 MG/ML INJECTION IVP PRN ×3 (14:13→23:31)
--- NOTE | 2017-08-02 15:20 | Consult Note ---
Oncology [facility] - Data of Consult Requesting Physician: Ibis Anguiano MD Primary Care Provider: El Hardy II, MD Family Provider: El Hardy II, MD - Consult Narrative History of present illness: History of Present Illness This is a 55 year old woman with family history of [employer] cancer, her mother and grandmother both diagnosed with female cancers. The patient was diagnosed on with stage IVB uterine/ovarian cancer. She is status post cytoreductive surgery, KESHAV/BSO with right ureteral resection with anastomosis. She is undergoing chemotherapy with Taxol and carboplatin. Tumor marker CA 125 went down from 276 to to 16.7. Restaging with CT scan of the chest, abdomen and pelvis after 4 cycles of Taxol carboplatin showed surgical changes in the abdomen with no evidence of recurrence. CT scan showed small bilateral axillary lymph nodes. Screening mammogram on 07/15/16 showed no evidence of malignancy. 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 This genetic test result is associated with the following cancer risk: High risk for female breast cancer and elevated risk for colorectal cancer. Interval history MRI of the breast bilateral on 10/29/16 showed no MR evidence of breast malignancy. Bilateral borderline axillary adenopathy 11.0 mm in size. The patient received 6 cycles of chemotherapy Taxol and carboplatin from 2015 to 08/21/2016. The patient presented on 02/21/2017 with acute abdominal pain. CT scan of the abdomen and pelvis with contrast showed small low- attenuation lesion in the inferior right lobe of the liver too small to characterize. There is a small bowel obstruction due to an adhesion near the patient umbilical hernia. Subsequently she was transferred to [facility]. She underwent primary incisional herniorrhaphy for the incarcerated incisional hernia/small bowel obstruction. 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 07/09/2017: The patient presented to the ED at [facility] with abdominal pain and nausea. CT scan of the abdomen and pelvis with contrast on showed low-attenuation liver lesions consistent with metastasis ranging from 1.1-2.9 cm in size. There is moderate right-sided hydronephrosis due to metastatic implants along the retroperitoneal reflection measuring 4.2 x 1.5 cm. New cystic lesion just below the aortic bifurcation measuring 4.6 cm in diameter. Evidence of intra-muscular metastases in the inferior aspect of the right rectus sheath. Cystic metastasis adjacent to the anterior margin of the bladder measuring 5.1 cm in diameter. No evidence of bowel obstruction. Small fat-containing ventral hernia near the left liver margin. Evidence of prior umbilical hernia repair with some nodularity along the umbilicus that could be due to metastatic implants. Tumor marker CA 125 came back elevated at 79.8. CBC: WBC 14.2 with ANC of 9.9, hemoglobin 12 and platelet count 398,000. CMP remarkable for alkaline phosphatase of 139 otherwise normal. The patient complains of nausea and constipation. KUB unremarkable. No signs of bowel obstruction. Patient complains of abdominal pain, on narcotics. 07/30/2017 :During the third day of ifosfamide the patient presented with confusion. She was admitted with possible ifosfamide induced neurotoxicity. She was treated conservatively with hydration. The patient continued to have abdominal pain nausea and constipation. CT scan on 07/14/2017 compared to the scan from 06/25/2017 showed a 4.0 cm cystic submucosal mass within the mid sigmoid colon causing luminal narrowing. There is severe wall thickening of the more proximal sigmoid colon extending through the splenic flexure. This could represent metastatic disease. Also there was increasing ascites. Hepatic metastatic lesions stable. There is also impaired function of the severely obstructed right kidney. Discussed the case with Dr. Viveros. The patient was deemed not a surgical candidate. I had a lengthy discussion with the patient regarding further management. We discussed the option of supportive care and hospice versus palliative chemotherapy. The patient chose for palliative chemotherapy. She came today to resume chemotherapy. Her nausea and bowel movement improved, as well as her pain. She is doing somewhat better with small meals/snacks. All in all, she is doing better and ready to resume chemotherapy. CBC and CMP unremarkable. Presents for unscheduled visit with complaint of acute confusion, weakness and difficulty with ambulation. Was scheduled to see nursing today for cycle 2, day 3 of ifosfamide, Taxol/mesna. States awoke this morning and legs felt quite weak ; near fall when coming down steps at her home. Patient reports was confused at home about the temperature and turning up the heat. She could not name today's date, states Lynnette is president. Is anxious and aware that she is confused. Becomes tearful. Denies pain. 08/02/2017 Pt now oriented, awake, no confusion. Pt with abdominal pain on IV meds and has Nausea and vomiting. RN is treating nausea and vominting with IV meds. Pt is now comfy Laboratory Results - last 48 hr 08/01/17 08/01/17 08/02/17 12:36 12:36 04:29 WBC 6.3 4.8 RBC 3.78 L 3.69 L Hgb 10.7 L 10.3 L Hct 33.6 L 32.9 L MCV 88.9 89.2 MCH 28.3 27.9 MCHC 31.8 31.3 RDW Std Deviation 48.2 49.5 Plt Count 307 290 MPV 10.5 11.1 Immature Gran % (Auto) 0.2 0.2 Neut % (Auto) 78.0 H 68.3 H Lymph % (Auto) 17.5 L 26.5 Rogers % (Auto) 3.8 4.6 Eos % (Auto) 0.2 0.2 Baso % (Auto) 0.3 0.2 Neut # (Auto) 4.9 3.2 Lymph # (Auto) 1.1 1.3 Rogers # (Auto) 0.2 0.2 Eos # (Auto) 0.0 0.0 Baso # (Auto) 0.0 0.0 Abs Immat Gran (auto) 0.01 0.01 Turbidity < 20 Sodium 143 Potassium 3.3 L Chloride 107 Carbon Dioxide 28 Anion Gap 8 BUN 12.0 Creatinine 0.7 D GFR Calculation 87 BUN/Creatinine Ratio 17 Glucose 108 Calculated Osmolality 276 Calcium 9.2 Phosphorus Magnesium 1.9 Total Bilirubin 0.90 Icterus Index < 2 AST 22 ALT 35 Alkaline Phosphatase 86 Total Protein 7.3 Albumin 4.0 Globulin 3.3 Albumin/Globulin Ratio 1.2 Specimen Hemolysis < 15 08/02/17 04:29 WBC RBC Hgb Hct MCV MCH MCHC RDW Std Deviation Plt Count MPV Immature Gran % (Auto) Neut % (Auto) Lymph % (Auto) Rogers % (Auto) Eos % (Auto) Baso % (Auto) Neut # (Auto) Lymph # (Auto) Rogers # (Auto) Eos # (Auto) Baso # (Auto) Abs Immat Gran (auto) Turbidity < 20 Sodium 142 Potassium 3.9 D Chloride 108 H Carbon Dioxide 26 Anion Gap 8 BUN 10.0 Creatinine 0.7 GFR Calculation 87 BUN/Creatinine Ratio 14 Glucose 96 Calculated Osmolality 272 Calcium 8.9 Phosphorus 2.5 Magnesium 2.0 Total Bilirubin Icterus Index < 2 AST ALT Alkaline Phosphatase Total Protein Albumin 3.7 Globulin Albumin/Globulin Ratio Specimen Hemolysis < 15 Intake & Output 07/31/17 08/01/17 08/02/17 08/03/17 06:59 06:59 06:59 06:59 Intake Total 2338.333 / 2338.333 1000 / 1000 Output Total 600 / 600 Balance 1738.333 / 7382.270 7403 / 1000 Weight 95 kg 95.8 kg PFSH Patient Stated Medical History Migraine Yes Coronary Artery Disease Yes Hypertension Yes Diabetes Mellitus Type 2 Yes Hiatal Hernia Yes Obstructive Bowel Yes Other GI Yes: ENDOMETRIAL CA W/ METASTASIS TO LIVER, STOMACH, AND KIDNEYS Hx Urinary Tract Infection Yes: HX of Chemotherapy Yes Depression Yes Endometriosis Yes Post Menopausal Yes Now No Medical History Updates: Anxiety. Depression. Insomnia. Endometrial CA ( stage 4) Surgical History: PowerPort insertion. Total abdominal hysterectomy with resection of right ureter anastomosis in March 2016. Lumbar discectomy. Partial right knee replacement. Heart catheter with angioplasty 2 vessels in 2003. Laparoscopic ovarian cystectomy. Ectopic with left oophorectomy. EGD. - Social History Smoking status: Former smoker Current residence: Apartment/Private Home Medications Home Medications Medication Instructions Recorded Confirmed Type Pnv No.95/Ferrous Fum/Folic AC 1 tab PO DAILY 06/25/17 08/01/17 History [ Tablet] Allergies Allergy/AdvReac Type Severity Reaction Status Date / Time morphine AdvReac Intermediate NAUSEA & Verified 08/01/17 10:19 VOMITING Exam Vital signs: Temperature 97.4 F 08/02/17 08:15 Pulse Rate 91 08/02/17 08:15 Respiratory Rate 22 08/02/17 08:15 Blood Pressure 139/84 08/02/17 08:15 Pulse Oximetry 95 08/02/17 08:15 - Constitutional no acute distress, thin - Routine HEENT Exam Head: Present: normocephalic, atraumatic Eye: Present: EOMI, PERRL ENT: Present: mucous membranes moist, oropharynx clear Throat: other (minimal mucositis, no reilly) - Routine Neck Exam Present: supple, full ROM. Absent: lymphadenopathy - Routine Chest/Breast/Axilla Exam Axillae: Absent: lymphadenopathy, tenderness - Routine Respiratory Exam Present: CTA bilaterally. Absent: wheezes - Routine Cardiovascular Exam Present: RRR, no murmur - Routine Abdominal Exam Present: soft, non tender - Routine Extremities Exam Present: no edema. Absent: cyanosis - Routine Skin Exam Present: intact. Absent: cyanosis, mottling - Routine Neurological Exam Present: alert, oriented X3 - Routine Psychiatric Exam Present: normal affect, normal thought process Oncology Results - Labs CBC & Chem 7: 08/02/17 04:29 08/02/17 04:29 Labs: Short CBC 08/02/17 Range/Units 04:29 WBC 4.8 (4.5-11.0) T/MM3 Hgb 10.3 L (12-16) GM/DL Hct 32.9 L (36-46) % Plt Count 290 (130-400) T/MM3 BMP 08/02/17 04:29 Sodium 142 Potassium 3.9 D Chloride 108 H Carbon Dioxide 26 BUN 10.0 Creatinine 0.7 Glucose 96 Calcium 8.9 Liver Function 08/02/17 Range/Units 04:29 Albumin 3.7 (3.5-5.0) G/DL Assessment and Plan Assessment and Plan: Recurrent endometrial cancer, carcinoma/sarcoma/mixed mullerian tumor. Recent evidence progressive disease with extensive peritoneal carcinomatosis causing right hydronephrosis and intermittent/partial bowel obstruction. Current treatment palliative ifosfamide/Taxol 2. 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 This occurred with first cycle on day 3, patient was hospitalized at [facility]. Today is day 3 of her second cycle and awoke this morning with acute confusion, difficulty with ambulation, more weakness. Plan 1. Discussed with Dr. Clancy and Dr. Anguiano. Plan direct admit to [facility] for supportive care/observation. Discussed with patient. She becomes tearful/very anxious. States "what about my treatment. I have to have my treatment. My cancer is bad and I do not want to ." Active listened. Encouraged take one day at a time. Reinforced chemotherapy is causing part of her confusion and weakness and we cannot pursue day 3 of this cycle. Reinforced has received 2 days of the cycle. Patient calms down. Family with patient. Will be taken by wheelchair for direct admit to [facility]. Addendum Discussed with Dr. Anguiano, patient asked about continuing today's infusion, thought she was supposed to get Mesna. No further treatment or medications are recommended today. 08/02/2017 Pt improved. Oriented. Recieving supportive pain and nausea meds. moving bowels. Understands plan for IV hydration and supportive meds. Plan for cancer treatment per Dr. JOSE graf. No new complaints today.
--- NOTE | 2017-08-02 17:22 | Progress Note ---
- Date 08/02/17 Subjective: 57-year-old female who is well known to the hospitalist services from recent admissions (07/12/17) with Ifosfamide neurotoxicity related to treatment of stage IV endometrial cancer with carcinomatosis. She was discharged on 07/19/17. This past week, she started chemotherapy again on 07/30/17 and also had chemotherapy yesterday 07/31/17. Today she presented to oncology clinic for her 3rd day of chemotherapy along with mesna infusion. However, she was found to be acutely confused, documenting it was 2013. She has had persistent nausea and vomiting for the past 3 days with increased abdominal discomfort. Given all of these symptoms, accompanied with confusion, the hospitalist services were contacted and accepted patient for direct admission for further evaluation and treatment. She is seen on arrival to [facility], she is alert and orientated during examination. Initially she was confused about the year however did look at white board and give accurate date. She is able to give accurate history and appropriate history of present illness. She is acutely vomiting and complains of generalized diffuse abdominal pain. She does report that vomiting did start Friday07/29/17 prior to initiation of chemotherapy on Sunday 07/30. She reports she has been unable to keep down any oral fluids or foods since that time. Denies feeling short of breath or having chest pain. Today, she continues to be quite nauseated. She reports being afraid of taking anything because she is afraid is going to come right back up. She's trying to take small sips of water. She is unable tolerate any oral medications. She continues to have abdominal pain but states the biggest issue is the nausea not the pain. We have changed her over to IV pain management as well as IV antiemetics. She is no longer having any confusion and is answering all questions appropriately for me today. She denies feeling short of breath. She denies chest pain or palpitations. She reports having a bowel movement yesterday and she is passing gas. Objective Vital signs: Temperature 98.6 F 08/02/17 16:00 Pulse Rate 97 08/02/17 16:00 Respiratory Rate 18 08/02/17 16:00 Blood Pressure 136/75 08/02/17 16:00 Pulse Oximetry 96 08/02/17 16:00 Height/Weight/BMI: Height 1.6 m Weight 95.8 kg Body Mass Index 37.0 Comments: Gen: alert and oriented. NAD. Pleasant and conversive Skin: warm and dry. HEENT: NC/AT PERRL, EOMI, Sclera,lids and conjunctiva wnl. dry MM. OP clear. Neck: supple. No JVD. Carotids 2+ without bruits Lungs: clear. No rales, rhonchi or wheezes CV: regular rate and rhythm. No murmur, rub or gallop No edema. Pedal pulses are good Abd: soft. +BS. Mildly TTP, diffuse, No rebound or guarding. MS: Good strength and ROM. Neuro: no focal deficit. Results - Labs CBC & Chem 7: 08/02/17 04:29 08/02/17 04:29 Assessment and Plan (1) Intractable nausea and vomiting Current visit: Yes Status: Acute Assessment and Plan: Impression and Plan: 1. Intractable nausea and vomiting -Medications changed to IV as she is not tolerating any po intake -IVF -On IV compazine, reglan and zofran -Clear liq diet 2. Dehydration -IVF 3. Hypokalemia -Resolved with replacement -Continue to follow 4. Abdominal pain -IV pain meds, fentanyl and dilaudid (allergy to morphine) -Once nausea is resolved can continue with home dosing of Roxicodone IR and Percocet 7.5 milligrams. 5. Concern of altered mental status -Resolved 6. Stage IV endometrial cancer -On chemo, Under the care of Dr. Clancy, seen by Dr. Garcia today 7. HTN -BP are reasonable 8. CAD -Appears stable without anginal symptoms 9. Anxiety and Depression 10. Prophylaxis -SCDs PPI - Physician Narrative Narrative: Date: 08/02/17 Time: 8 Hospital Course Summary Disclaimer: The visit summary below is not to be considered part of the above Progress Note.
[2017-08-02] MEDS: PANTOPRAZOLE 40 MG INJECTION IVP SCH (18:09)
[2017-08-02] MEDS: PROMETHAZINE 25 MG INJECTION IVP PRN (23:25)
[2017-08-03] MEDS: NS with KCL 20 mEq 1,000 ML IV SCH ×4 (01:41→19:43)
[2017-08-03] MEDS: PROCHLORPERAZINE 5 MG TABLET PO SCH ×3 (03:14→20:27)
[2017-08-03] MEDS: ONDANSETRON ODT 4 MG TABLET PO SCH ×4 (03:14→20:32)
[2017-08-03] MEDS: HYDROMORPHONE 2 MG/ML INJECTION IVP PRN (04:01)
[2017-08-03] MEDS: PROMETHAZINE 25 MG INJECTION IVP PRN ×3 (04:04→16:35)
[2017-08-03] MEDS: SALINE FLUSH 10ml SYRINGE IV PRN (04:06)
[2017-08-03] MEDS: Oxycodone *IR* 15 MG TABLET PO SCH ×4 (04:46→23:24)
[2017-08-03] MEDS: POLYETHYL GLYCOL 3350 17gm PACKET PO SCH ×2 (09:10→20:25)
[2017-08-03] MEDS: PANTOPRAZOLE 40 MG INJECTION IVP SCH (09:10)
[2017-08-03] MEDS: FentaNYL 100 MCG/2 ML INJECTION IVP PRN ×6 (09:11→16:34)
--- NOTE | 2017-08-03 10:45 | XRay Report ---
Indication: N/V PROCEDURE: PA view of the chest with supine and upright AP views of the abdomen Encounter: Initial Comparison: CT abdomen dated July 14, 2017 and acute abdomen series dated July 13, 2017 FINDINGS: The lungs are clear. There is no abnormal airspace opacity, pleural effusion or pneumothorax identified. The heart size, pulmonary vasculature and mediastinum are within normal limits. Right IJ port. There is no free air on the upright view. The bowel gas pattern is nonobstructive and nonspecific. Gas is seen in nondilated small and large bowel to the level of the rectum. Moderate stool is seen throughout the colon. The bony structures are grossly unremarkable. Cholecystectomy clips. IMPRESSION: 1. No acute cardiopulmonary abnormality. 2. No evidence of acute obstruction or free air. There is a preliminary report by virtual radiologic. .
[2017-08-03] MEDS: ONDANSETRON 4 MG/2 ML INJECTION IVP PRN ×2 (11:25→20:31)
--- NOTE | 2017-08-03 12:03 | Progress Note ---
- Date 08/03/17 Subjective: 57-year-old female who is well known to the hospitalist services from recent admissions (07/12/17) with Ifosfamide neurotoxicity related to treatment of stage IV endometrial cancer with carcinomatosis. She was discharged on 07/19/17. This past week, she started chemotherapy again on 07/30/17 and also had chemotherapy yesterday 07/31/17. Today she presented to oncology clinic for her 3rd day of chemotherapy along with mesna infusion. However, she was found to be acutely confused, documenting it was 2013. She has had persistent nausea and vomiting for the past 3 days with increased abdominal discomfort. Given all of these symptoms, accompanied with confusion, the hospitalist services were contacted and accepted patient for direct admission for further evaluation and treatment. She is seen on arrival to [facility], she is alert and orientated during examination. Initially she was confused about the year however did look at white board and give accurate date. She is able to give accurate history and appropriate history of present illness. She is acutely vomiting and complains of generalized diffuse abdominal pain. She does report that vomiting did start Friday07/29/17 prior to initiation of chemotherapy on Sunday 07/30. She reports she has been unable to keep down any oral fluids or foods since that time. Denies feeling short of breath or having chest pain. Today, she is feeling better. Her nausea and pain appear to be under good control at present. She is trying to eat and drink more. She continues to have no further confusion. She denies feeling short of breath. She denies chest pain or palpitations. She reports having bowel movements and she is passing gas. Objective Vital signs: Temperature 98.7 F 08/03/17 08:49 Pulse Rate 81 08/03/17 08:49 Respiratory Rate 16 08/03/17 08:49 Blood Pressure 134/73 08/03/17 08:49 Pulse Oximetry 96 08/03/17 08:49 Height/Weight/BMI: Height 1.6 m Weight 94.9 kg Body Mass Index 37.0 Comments: Gen: alert and oriented. NAD. Pleasant and conversive Skin: warm and dry. HEENT: NC/AT PERRL, EOMI, Sclera,lids and conjunctiva wnl. dry MM. OP clear. Neck: supple. No JVD. Carotids 2+ without bruits Lungs: clear. No rales, rhonchi or wheezes CV: regular rate and rhythm. No murmur, rub or gallop No edema. Pedal pulses are good Abd: soft. +BS. Mildly TTP, diffuse, No rebound or guarding. MS: Good strength and ROM. Neuro: no focal deficit. Results - Labs CBC & Chem 7: 08/02/17 04:29 08/03/17 04:19 Assessment and Plan (1) Intractable nausea and vomiting Current visit: Yes Status: Acute Assessment and Plan: Impression and Plan: 1. Intractable nausea and vomiting-improved today -Medications changed to IV as she is not tolerating any po intake -IVF -On IV Compazine, Reglan, Zofran and Phenergan-this seems to help the most -Clear liq diet--advance to full liquid today 2. Dehydration -IVF 3. Hypokalemia -Resolved with replacement -Continue to follow 4. Abdominal pain -IV pain meds, fentanyl and dilaudid (allergy to morphine) -Once nausea is resolved can continue with home dosing of Roxicodone IR and Percocet 7.5 milligrams. 5. Concern of altered mental status -Resolved 6. Stage IV endometrial cancer -On chemo, Under the care of Dr. Clancy 7. HTN -BP are reasonable 8. CAD -Appears stable without anginal symptoms 9. Anxiety and Depression 10. Prophylaxis -SCDs PPI - Physician Narrative Narrative: Date: 08/03/17 Time: 1200 Hospital Course Summary Disclaimer: The visit summary below is not to be considered part of the above Progress Note.
[2017-08-03] MEDS: LORazepam 0.5 MG TABLET PO PRN (13:47)
[2017-08-04] MEDS: NS with KCL 20 mEq 1,000 ML IV SCH ×4 (02:27→20:47)
[2017-08-04] MEDS: FentaNYL 100 MCG/2 ML INJECTION IVP PRN ×2 (02:32→22:39)
[2017-08-04] MEDS: ONDANSETRON ODT 4 MG TABLET PO SCH ×3 (02:33→18:28)
[2017-08-04] MEDS: PROCHLORPERAZINE 5 MG TABLET PO SCH ×3 (02:33→18:28)
[2017-08-04] MEDS: Oxycodone *IR* 15 MG TABLET PO SCH ×4 (06:20→23:30)
[2017-08-04] MEDS: PANTOPRAZOLE 40 MG INJECTION IVP SCH (08:37)
[2017-08-04] MEDS: SALINE FLUSH 10ml SYRINGE IV PRN (08:38)
[2017-08-04] MEDS: HYDROMORPHONE 2 MG/ML INJECTION IVP PRN (08:39)
[2017-08-04] MEDS: POLYETHYL GLYCOL 3350 17gm PACKET PO SCH ×2 (09:54→20:54)
[2017-08-04] MEDS: LORazepam 0.5 MG TABLET PO PRN (09:56)
--- NOTE | 2017-08-04 10:27 | Progress Note ---
- Date 08/04/17 Subjective: Larry is seen today in follow up. She is very tearful and emotional. She reports she feels overwhelmed and wants to know if this is "the end"? She describes not fully understanding if her cancer is curable or not and how much time she "has left". Overall nausea is much improved. She did have some increased abdominal pain overnight however she feels it is also related to the anciety. Appetite is good. Denies feeling short of breath or having chest pain. No difficulty with urination. Significant other at the bedside. Objective Vital signs: Temperature 98 F 08/04/17 07:00 Pulse Rate 84 08/04/17 07:00 Respiratory Rate 16 08/04/17 07:00 Blood Pressure 112/62 08/04/17 07:00 Pulse Oximetry 97 08/04/17 07:00 Height/Weight/BMI: Height 1.6 m Weight 94.9 kg Body Mass Index 37.0 - Constitutional Present: no acute distress, well nourished, well developed - Routine HEENT Exam Eye: Present: EOMI ENT: Present: mucous membranes moist, dentition normal - Routine Respiratory Exam Present: CTA bilaterally. Absent: wheezes - Routine Cardiovascular Exam Present: RRR, S1, S2. Absent: murmur - Routine Abdominal Exam Present: soft, normoactive bowel sounds, non distended. Absent: tenderness - Routine Extremities Exam Present: no edema - Routine Back/Spine/Pelvis Exam Back/Spine: Present: full ROM - Routine Skin Exam Present: intact, dry, warm - Routine Neurological Exam Present: alert, oriented X3, CN II-XII intact - Routine Lymphatic Exam Lymphatic: Absent: adenopathy - Routine Psychiatric Exam Present: anxious Results - Labs CBC & Chem 7: 08/02/17 04:29 08/03/17 04:19 Assessment and Plan (1) Intractable nausea and vomiting Current visit: Yes Status: Acute (2) Endometrial carcinoma Problem details: Metastatic with carcinomatosis Current visit: Yes Status: Acute Assessment and Plan: Impression Intractable nausea and vomiting Dehydration Hypokalemia-resolved Abdominal pain Concern of altered mental status- resolved Stage IV endometrial cancer HTN CAD Anxiety and Depression Plan Overall nausea is subsided- Tolerating advanced diet Continue with current pain medication regimen. We did discuss goal of switching to all oral pain control She feels fairly anxious and overwhelmed. She does utilize Ativan as needed, we did discuss adding a longer term location such as an SSRI. She will think about this further. She does request to talk to somebody from the oncology team and get more specific answers regarding prognosis and timing. She questions whether she should quit working and focus on healing. She recognizes this cycle of post chemotherapy illness. Hopeful for discharge in the near future DVT Prophylaxis: SCD's Resuscitation Status: Do Not Resuscitate - Physician Narrative Physician: Ibis Anguiano MD Narrative: Date: 08/04/17 Time: 2014 I have independently evaluated and examined this patient. I reviewed the chart, the patient's history, and the MANUAL MACHINIST/PA's documented findings as above. We discussed and formulated the assessment and plan as above with additions as below: Debbie reports increased abdominal pain over the past 1/2 days; pain is located in the left upper quadrant and right lower quadrant as in the past. Nausea and vomiting have stabilized and oral intake is better. Multiple family members were present at the time of my assessment. NAD, alert Respirations nonlabored, good airflow Abdomen soft, nontender to light exam No bowel movements recorded since admission-will ask nursing to dose lactulose again today. Decrease IV fluid rate; convert promethazine to oral administration, decreased frequency of IV fentanyl Discussed with Dr. Quezada. High-risk medications in use. Hospital Course Summary Disclaimer: The visit summary below is not to be considered part of the above Progress Note. Hospital Course: 2/5 Overall nausea is subsided- Tolerating advanced diet Continue with current pain medication regimen. We did discuss goal of switching to all oral pain control She feels fairly anxious and overwhelmed. She does utilize Ativan as needed, we did discuss adding a longer term location such as an SSRI. She will think about this further. She does request to talk to somebody from the oncology team and get more specific answers regarding prognosis and timing. She questions whether she should quit working and focus on healing. She recognizes this cycle of post chemotherapy illness. Hopeful for discharge in the near future
--- NOTE | 2017-08-04 17:26 | Progress Note ---
Oncology Subjective Patient is having less pain than 3 weeks ago. Continues to have difficulty with nausea and vomiting and that is her most significant side effect present time. She had similar ifosfamide toxicity on day 3 that she had before. It was not as bad this time. Review of systems: Gen.: Negative for fever or chills, malaise Eyes: Negative eye discharge, eye pain ENT: Negative for nosebleeds, mouth sores Lymph: Negative enlarged lymph nodes, no night sweats Respiratory: Negative for cough, shortness of breath, hemoptysis, Cardiac: Negative for chest pain, palpitations, or swelling GI: Positive for nausea, positive for vomiting, negative for diarrhea, having soft stools Genitourinary: No urgency, no dysuria, no hematuria Musculoskeletal: Positive for weakness, no joint pain Neurologic: Negative for headache, negative for focal weakness, negative for numbness Exam Vital signs: Temperature 96.9 F 08/04/17 16:00 Pulse Rate 86 08/04/17 16:00 Respiratory Rate 16 08/04/17 16:00 Blood Pressure 147/90 H 08/04/17 16:00 Pulse Oximetry 97 08/04/17 16:00 - Constitutional no acute distress Comments: Patient has her pain much better controlled than the last time I saw her. She is talking, even joking at times. - Routine HEENT Exam Head: Present: normocephalic Eye: Present: EOMI, PERRL Throat: normal inspection - Routine Neck Exam Present: supple. Absent: lymphadenopathy - Routine Respiratory Exam Present: CTA bilaterally. Absent: dyspnea - Routine Cardiovascular Exam Present: RRR, no murmur - Routine Abdominal Exam Present: soft, non distended, non tender - Routine Extremities Exam Absent: cyanosis, clubbing, edema - Routine Skin Exam Present: dry, warm - Routine Neurological Exam Present: alert, CN II-XII intact - Routine Psychiatric Exam Present: normal affect Oncology Results - Labs CBC & Chem 7: 08/02/17 04:29 08/03/17 04:19 - Impressions Laboratory Tests 08/02/17 08/03/17 04:29 04:19 WBC 4.8 Plt Count 290 Sodium 140 Potassium 4.1 Creatinine 0.6 L Calcium 8.9 Assessment and Plan Assessment and Plan: Recurrent endometrial cancer, carcinoma/sarcoma/mixed mullerian tumor. Recent evidence progressive disease with extensive peritoneal carcinomatosis causing right hydronephrosis and intermittent/partial bowel obstruction. Current treatment palliative ifosfamide/Taxol. Cycle 2 was started on 07/30/17. 2. 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 This occurred with first cycle on day 3, patient was hospitalized at [facility]. On day 3 of her second cycle she awoke with acute confusion, difficulty with ambulation , more weakness. This is the same symptoms she had with cycle 1 and improved dramatically with admission on 08/01/17. 3. Intractable nausea and vomiting. 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 4. Anxiety concerning end-of-life issues and choices regarding comfort care versus active treatment. Extensive discussion with the patient regarding her disease and the palliative nature of therapy. Also discussed the prognosis is something that is difficult to estimate. Because of her stricture unless there is significant response to treatment, this will probably be the most critical aspect that would threaten survival. Clinically she looks much better today than 3 weeks ago when I last saw her. Pain is definitely controlled discussed with Dr. Clancy and he had discussed with Dr. Garcia. There is consideration of using carboplatin in place of the ifosfamide along with paclitaxel. Plan Discussed end-of-life issues and difficulty with estimating survival at 6 months with medical information compared to a quite possible to quantify us being Justice accurate. As a set above she does look much better now than she did 3 weeks ago. I feel that this may be representing a response to her therapy. Will add olanzapine to see if this will help with nausea. Dr. Clancy to follow-up tomorrow. - Time Spent With Patient Total time spent is greater than 50% in coordination of care (as documented) at patient's floor/unit and/or counseling patient: 25 - 35 minutes
[2017-08-04] MEDS ORDERED: PROMETHAZINE 25 MG TABLET PO PRN (20:34)
[2017-08-04] MEDS: OXYCODONE/APAP 7.5 MG/325 MG TABLET PO PRN (20:53)
[2017-08-04] MEDS ORDERED: OLANZapine 2.5 MG TABLET PO SCH (21:00)
[2017-08-05] MEDS: NS with KCL 20 mEq 1,000 ML IV SCH ×2 (03:15→05:51)
[2017-08-05] MEDS: ONDANSETRON ODT 4 MG TABLET PO SCH ×2 (04:01→10:27)
[2017-08-05] MEDS: PROCHLORPERAZINE 5 MG TABLET PO SCH ×2 (04:01→11:41)
[2017-08-05] MEDS: OXYCODONE/APAP 7.5 MG/325 MG TABLET PO PRN (04:01)
[2017-08-05] MEDS: Oxycodone *IR* 15 MG TABLET PO SCH ×3 (05:51→16:55)
[2017-08-05] MEDS: FentaNYL 100 MCG/2 ML INJECTION IVP PRN ×3 (07:43→17:45)
[2017-08-05] MEDS: SALINE FLUSH 10ml SYRINGE IV PRN ×5 (07:43→17:46)
[2017-08-05 07:49] VITALS: BP 147/84; PULSE 76; RESP 16; TEMP 96.8; O2SAT 94
[2017-08-05] MEDS: LORazepam 0.5 MG TABLET PO PRN (09:56)
[2017-08-05] MEDS: POLYETHYL GLYCOL 3350 17gm PACKET PO SCH (10:15)
[2017-08-05] MEDS ORDERED: METOCLOPRAMIDE 10mg/2ml INJECTION IVP PRN (10:17)
[2017-08-05] MEDS: ONDANSETRON 4 MG/2 ML INJECTION IVP PRN (10:28)
--- NOTE | 2017-08-05 13:08 | Progress Note ---
Oncology Subjective She has been doing better. She has bowel movements. Still having occasional nausea. She eats small meals. Pain is under control. Exam Vital signs: Temperature 96.8 F 08/05/17 07:48 Pulse Rate 76 08/05/17 07:48 Respiratory Rate 16 08/05/17 07:48 Blood Pressure 147/84 H 08/05/17 07:48 Pulse Oximetry 94 08/05/17 07:48 Narrative: Vital signs stable. - Constitutional well nourished, cooperative - Routine Respiratory Exam Absent: rales, respiratory distress, rhonchi, wheezes - Routine Abdominal Exam Present: soft Comments: Bowel sounds present. No rebound tenderness. Diffuse mild tenderness in the lower abdomen. - Routine Extremities Exam Present: no edema Oncology Results - Labs CBC & Chem 7: 08/02/17 04:29 08/03/17 04:19 Assessment and Plan Assessment and Plan: 1. 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 2. Intermittent partial bowel obstruction, resolved. 3. Ifosfamide-induced neurotoxicity, resolved. I had a lengthy discussion with the patient regarding prognosis and treatment plan. We discussed various options including palliative/supportive care on hospice. We also discussed the role of palliative chemotherapy. The patient would like to continue fighting the cancer. I will switch her back to top small plus carboplatin and add Avastin. The patient is considering a second opinion visit at the [facility] in [place] but at the same time she would like to continue her routine scheduled chemotherapy. - Time Spent With Patient Total time spent is greater than 50% in coordination of care (as documented) at patient's floor/unit and/or counseling patient: 25 - 35 minutes
--- NOTE | 2017-08-05 14:57 | Discharge Summary ---
Discharge Information Date of admission: 08/02/17 11:30 Attending Physician: Ibis Anguiano MD Primary care physician: El Hardy II, MD Consults: Consulting Provider: Digna Clancy Reason For Exam: metastatic cancer with carcinomatosis - Discharge Diagnosis (1) Intractable nausea and vomiting Status: Acute (2) Endometrial carcinoma Status: Acute Intractable nausea and vomiting Dehydration Hypokalemia-resolved Abdominal pain Concern of altered mental status- resolved Stage IV endometrial cancer HTN CAD Anxiety and Depression - Procedures Procedures: None - Laboratory Labs: 08/02/17 04:29 08/03/17 04:19 - Microbiology None - Radiology Radiology: 08/01/17- Abdominal Xray- IMPRESSION: 1. No acute cardiopulmonary abnormality. 2. No evidence of acute obstruction or free air. - Pathology None History of Present Illness HPI: Debbie Stock is a pleasant 57-year-old female who is well known to the hospitalist services from recent admissions 07/12/17) with Ifosfamide neurotoxicity related to treatment of stage IV endometrial cancer with carcinomatosis. She was discharged on 07/19/17. This past week, she started chemotherapy again on 07/30/17 and also had chemotherapy yesterday 07/31/17. Today she presented to oncology clinic for her 3rd day of chemotherapy along with mesna infusion. However, she was found to be acutely confused, documenting it was 2013. She has had persistent nausea and vomiting for the past 3 days with increased abdominal discomfort. Given all of these symptoms, accompanied with confusion. The hospitalist services were contacted and accepted patient for direct admission for further evaluation and treatment. She is seen on arrival to [facility], she is alert and orientated during examination. Initially she was confused about the year however did look at white board and give accurate date. She is able to give accurate history and appropriate history of present illness. She is acutely vomiting and complains of generalized diffuse abdominal pain. She does report that vomiting did start Friday07/29/17 prior to initiation of chemotherapy on Sunday 07/30. She reports she has been unable to keep down any oral fluids or foods since that time. Denies feeling short of breath or having chest pain. Objective Vital signs: Temperature 96.8 F 08/05/17 07:48 Pulse Rate 76 08/05/17 07:48 Respiratory Rate 16 08/05/17 07:48 Blood Pressure 147/84 H 08/05/17 07:48 Pulse Oximetry 94 08/05/17 07:48 Height/Weight/BMI: Height 1.6 m Weight 95.6 kg Body Mass Index 37.0 - Constitutional Present: no acute distress, well nourished, well developed - Routine HEENT Exam Eye: Present: EOMI ENT: Present: mucous membranes moist, dentition normal - Routine Respiratory Exam Present: CTA bilaterally. Absent: wheezes - Routine Cardiovascular Exam Present: RRR, S1, S2. Absent: murmur - Routine Abdominal Exam Present: soft, tenderness (diffuse). Absent: normoactive bowel sounds ( hypoactive) - Routine Extremities Exam Present: normal capillary refill - Routine Skin Exam Present: dry, warm - Routine Neurological Exam Present: alert, oriented X3, CN II-XII intact, moving all extremities - Routine Lymphatic Exam Lymphatic: Absent: adenopathy - Routine Psychiatric Exam Present: normal affect, cooperative Hospital Course This is a general summary of the patient's hospital course. For more details refer to the complete medical record. Hospital course: 08/01/17- Admission Intractable nausea and vomiting Dehydration Hypokalemia-RLL 08/01/17 Abdominal pain Concern of altered mental status Stage IV endometrial cancer HTN CAD Anxiety and Depression Plan Admitted outpatient observation under care of Dr. Anguiano for intractable nausea, vomiting, dehydration, concern for encephalopathy Obtain CBC, CMP and magnesium on admission Will initial IV fluids for hydration- NS at 100 ML/hr Zofran, Compazine and Reglan for nausea. Recommended minimal oral intake until nausea and vomiting has subsided. Then may have clear liquid diet. Patient continues on chronic fentanyl patch at 100 micrograms. Due to be changed tomorrow, 2/3. Will give IV fentanyl as needed for acute breakthrough plane as she is unable to keep oral Roxanol down currently. Once nausea has been better controlled. We'll continue with home dosing of Roxicodone IR and Percocet 7.5 milligrams. Code status DNR. 2/3 Intractable nausea and vomiting/ Dehydration-Medications changed to IV as she is not tolerating any po intake, IVF, Continue compazine, reglan and zofran Hypokalemia -Resolved with replacement. Abdominal pain-IV pain meds, fentanyl and dilaudid (allergy to morphine) -Once nausea is resolved can continue with home dosing of Roxicodone IR and Percocet 7.5 milligrams. Altered mental status- Resolved Stage IV endometrial cancer -On chemo, Under the care of Dr. Clancy, seen by Dr. Garcia today HTN -BP are reasonable CAD -Appears stable without anginal symptoms Anxiety and Depression 2/4 Advanced to full liquid diet today. 2/5 Overall nausea is subsided- Tolerating advanced diet Continue with current pain medication regimen. We did discuss goal of switching to all oral pain control She feels fairly anxious and overwhelmed. She does utilize Ativan as needed, we did discuss adding a longer term location such as an SSRI. She will think about this further. She does request to talk to somebody from the oncology team and get more specific answers regarding prognosis and timing. She questions whether she should quit working and focus on healing. She recognizes this cycle of post chemotherapy illness. Hopeful for discharge in the near future 08/05/17- Discharge Larry is seen and examined prior to discharge. This morning she did have acute nausea and vomited that was brought on following an argument with her daughter. This has since resolved and she is able to take PO without difficulty. He shouldn't does have Zofran at home and requests Phenergan and Reglan for ongoing management of nausea and vomiting. Otherwise, she will continue on all her usual medications. She was seen today by oncologist, Dr. Clancy and it did discuss prognosis and treatment plan. At this time. She will plan to continue with aggressive treatment of cancer. Did encourage her to follow-up with her primary care provider, Dr. Hardy in 1 week. Overall she feels ready for discharge. Time spent with patient: greater than 35 minutes Resuscitation Status: Do Not Resuscitate Discharge Plan - Discharge Disposition Discharge Date: 08/05/17 Disposition: 01 Discharged Home, Self-Care *Condition: Stable Reason For Visit (Visit label in EMR): Dehydration,Confusion - Discharge Medications *Discharge Medications: New OLANZapine [Zyprexa] 2.5 mg PO HS #30 tab Promethazine Tab [Phenergan Tab] 25 mg PO Q6H PRN #30 tab PRN Reason: Nausea Metoclopramide HCl [Reglan] 10 mg PO Q6H #30 tab Continue Lactulose Oral Liq [Lactulose] 20 gm PO BID PRN #240 ml PRN Reason: Constipation LORazepam [Ativan] 0.5 mg PO Q6H PRN #20 tab PRN Reason: Anxiety Milk of Magnesia [Mom] 30 ml PO DAILY PRN udc PRN Reason: Constipation Ondansetron [Zofran Odt] 4 mg PO Q8H #60 tab.rapdis Oxycodone *IR* [Roxicodone *Ir*] 15 mg PO Q6H #30 tab Oxycodone/Apap 7.5/325 [Percocet 7.5/325] 1 tab PO Q4H PRN #30 tab PRN Reason: Pain Prochlorperazine Tab [Compazine] 5 mg PO Q8H #60 tab Sennosides [Senokot] 17.2 mg PO BID PRN #30 PRN Reason: Constipation Pnv No.95/Ferrous Fum/Folic AC [ Tablet] 1 tab PO DAILY FentaNYL PATCH [Duragesic Patch] 100 mcg TD Q3D #4 patch PEG 3350 17gm PACKET [Miralax] 17 gm PO BID packet - Discharge Packet/Instructions *Diet: Regular diet *Activity: Activity as tolerated *Pain Management/Treatment: Fentanyl patch, oxycodone IR, oxycodone PRN *Wound Care: None Additional Instructions: Use Reglan and phenergan as needed for nausea/vomiting *Expected Signs/Symptoms: Improvement in nausea/vomiting *Notify Physician if: Worsening pain, unable to keep PO fluids down *During Business Hours Contact: Dr. Hardy or Dr. Clancy *After Business Hours Contact: Page on-call physician for Dr. Hardy or Dr. Clancy *Pending Lab/Results: No Pending Lab - Referrals/Follow Up *Referrals/Follow Up: Digna Clancy MD [Physician] - El Hardy II, MD [Family Provider] - (Follow up in 1 week ) - Patient Handouts Patient Handouts: Dehydration (GEN) - Dismissal Complete Discharge Instructions are:: Complete Physician Narrative - Narrative Physician: Ibis Anguiano MD Attestation Narrative: Date: 08/05/17 Time: 1934 I have independently evaluated and examined this patient. I reviewed the chart, the patient's history, and the COATER HAND/PA's documented findings as above. We discussed and formulated the assessment and plan as above with additions as below: Debbie had one episode of vomiting after a disagreement with her daughter this morning but otherwise reports improved control of nausea and vomiting overall and generally good pain control on current regimen. Blood pressures and recent blood sugars were reviewed with the patient-she was previously been on Victoza for diabetes and has a history of hypertension but neither has been an issue during recent hospitalizations. Appears comfortable today, respirations are nonlabored with good airflow and clear breath sounds. Abdomen is obese but soft, bowel sounds are present and there is minimal tenderness on palpation. Stable for discharge with plans to follow-up with Dr. Clancy in a little over 1 week for reevaluation. Plans reviewed with Dr. Clancy. I asked Debbie to monitor postprandial blood sugars occasionally but do not believe there is any indication for resuming Victoza at this time. Current medications reviewed with the patient.
--- NOTE | 2017-08-07 15:28 | Right on Track Program ---
Right on Track Program Date of Discharge: 08/05/17 Home Medications: Home Medications Medication Instructions Recorded Confirmed Pnv No.95/Ferrous Fum/Folic AC 1 tab PO DAILY 06/25/17 08/01/17 [ Tablet] Previous Rx's Medication Instructions Recorded FentaNYL PATCH [Duragesic Patch] 100 mcg TD Q3D #4 patch 07/22/17 LORazepam [Ativan] 0.5 mg PO Q6H PRN #20 tab 07/22/17 Lactulose Oral Liq [Lactulose] 20 gm PO BID PRN #240 ml 07/22/17 Milk of Magnesia [Mom] 30 ml PO DAILY PRN udc 07/22/17 Ondansetron [Zofran Odt] 4 mg PO Q8H #60 tab.rapdis 07/22/17 Oxycodone *IR* [Roxicodone *Ir*] 15 mg PO Q6H #30 tab 07/22/17 Oxycodone/Apap 7.5/325 [Percocet 1 tab PO Q4H PRN #30 tab 07/22/17 7.5/325] PEG 3350 17gm PACKET [Miralax] 17 gm PO BID packet 07/22/17 Prochlorperazine Tab [Compazine] 5 mg PO Q8H #60 tab 07/22/17 Sennosides [Senokot] 17.2 mg PO BID PRN #30 07/22/17 Metoclopramide HCl [Reglan] 10 mg PO Q6H #30 tab 08/05/17 OLANZapine [Zyprexa] 2.5 mg PO HS #30 tab 08/05/17 Promethazine Tab [Phenergan Tab] 25 mg PO Q6H PRN #30 tab 08/05/17 - Right on Track Program 24-hour phone call Date: 08/06/17 Right on Track Program: 24 Hour Follow-Up Discharge Summary Received: Yes Care Plan Received: Yes Follow Up: Follow Up Appointment Scheduled Education: Diagnosis Education Reviewed Referral: Primary Care Physician, Home Health Comments: I called Larry on 08/06/17, but she was sleeping. I spoke to a family member and gave my call back number, but she never had a chance to call back that day. I called again on 08/07/17 and spoke to Larry -- her nausea is still there, and she has increasing abdominal pain, now has a new foci of pain to her LLQ. She's passing flatus but not having bowel movements. She's not eating much. She's on a fentanyl patch, roxicodone, and percocet, which keeps her pain tolerable. She has chemo next week and will see Dr. Clancy. She is going to start on chemo that she was on last year, and she is hoping this will help manage her symptoms better. She knows that the chemo won't cure her cancer. Discussed With Patient and Caregiver: Yes Recommendations For Follow-up: 1. She has an appt with Dr. Clancy next week. 2. Offered F2F visit but she feels like things are going ok and she will call back if she has any other questions/concerns 3. She is ok with weekly phone calls to check in.
== END 2017-08-05 18:00 | disposition home or self-care (01) | DRG 392 ==
LOC: MED
PROVIDERS: ADMIT Internal Medicine; ATTEND Internal Medicine

== ENCOUNTER 2017-08-22 13:59 | Inpatient (IN) ==
[2017-08-22] MEDS ORDERED: NS 1,000 ML IV ONE (15:08)
[2017-08-22] MEDS ORDERED: FentaNYL 100 MCG/2 ML INJECTION IVP ONE ×2 (15:08→16:13)
[2017-08-22] MEDS ORDERED: ONDANSETRON 4 MG/2 ML INJECTION IVP ONE (15:08)
--- NOTE | 2017-08-22 15:10 | Emergency Department Report ---
Abdominal Pain HPI - General Chief Complaint: Abdominal Pain Stated Complaint: abd pain Time Seen by Provider: 08/22/17 14:38 Source: patient Mode of arrival: ambulatory Limitations: no limitations - History of Present Illness HPI narrative: Patient is 57-year-old female who presents to the emergency room today for evaluation of severe abdominal pain with intractable nausea and vomiting. Patient has a long-standing history of endometrial carcinoma with metastatic disease. She underwent chemotherapy on Sunday 08/20 and began having vomiting and abdominal pain approximately 24 hours following this. She has had a history of abdominal pain with intractable nausea and vomiting following several previous rounds of chemotherapy and required hospitalization at that time. She was at the cancer center today and did receive 1 liter of fluid, however, continues to have significant pain and symptoms, and was directed to the emergency room for acute evaluation. Appears to be distressed upon arrival. Pulse rate in the 120s, she grimaces during exam. MD complaint: abdominal pain Onset (ago): hour(s) Consistency: constant Location: diffuse Quality: cramping Radiation: none - Related Data Home Medications Medication Instructions Recorded Confirmed Pnv No.95/Ferrous Fum/Folic AC 1 tab PO DAILY 06/25/17 08/22/17 [ Tablet] Dronabinol [Marinol] 2.5 mg PO BID 08/22/17 08/22/17 Metoclopramide HCl [Reglan] 10 mg PO Q6H PRN 08/22/17 08/22/17 Ondansetron [Zofran Odt] 4 mg PO Q8H PRN 08/22/17 08/22/17 PEG 3350 17gm PACKET [Miralax] 17 gm PO BID PRN 08/22/17 08/22/17 Prochlorperazine Tab [Compazine] 5 mg PO Q8H PRN 08/22/17 08/22/17 Previous Rx's Medication Instructions Recorded FentaNYL PATCH [Duragesic Patch] 100 mcg TD Q3D #4 patch 07/22/17 LORazepam [Ativan] 0.5 mg PO Q6H PRN #20 tab 07/22/17 Lactulose Oral Liq [Lactulose] 20 gm PO BID PRN #240 ml 07/22/17 Milk of Magnesia [Mom] 30 ml PO DAILY PRN udc 07/22/17 Oxycodone *IR* [Roxicodone *Ir*] 15 mg PO Q6H #30 tab 07/22/17 Oxycodone/Apap 7.5/325 [Percocet 1 tab PO Q4H PRN #30 tab 07/22/17 7.5/325] Sennosides [Senokot] 17.2 mg PO BID PRN #30 07/22/17 OLANZapine [Zyprexa] 2.5 mg PO HS #30 tab 08/05/17 Promethazine Tab [Phenergan Tab] 25 mg PO Q6H PRN #30 tab 08/05/17 Allergies Allergy/AdvReac Type Severity Reaction Status Date / Time morphine AdvReac Intermediate NAUSEA & Verified 08/22/17 14:35 VOMITING Review of Systems All systems: reviewed and negative except as stated Gastrointestinal: Reports: abdominal pain, nausea, vomiting PFSH Patient Stated Medical History Migraine Yes Coronary Artery Disease Yes Hypertension Yes Diabetes Mellitus Type 2 Yes Hiatal Hernia Yes Obstructive Bowel Yes Other GI Yes: ENDOMETRIAL CA W/ METASTASIS TO LIVER, STOMACH, AND KIDNEYS Hx Urinary Tract Infection Yes: HX of Chemotherapy Yes Depression Yes Endometriosis Yes Post Menopausal Yes Now No Medical History Updates: Anxiety. Depression. Insomnia. Endometrial CA ( stage 4) Surgical History: PowerPort insertion. Total abdominal hysterectomy with resection of right ureter anastomosis in March 2016. Lumbar discectomy. Partial right knee replacement. Heart catheter with angioplasty 2 vessels in 2003. Laparoscopic ovarian cystectomy. Ectopic with left oophorectomy. EGD. - Social History Smoking status: Former smoker Current residence: Apartment/Private Home Physical Exam - General General appearance: alert - Normal Exams: Eyes:: Pupils are PERRLA w/ EOMI Chest/Respirations:: Clear all dior Cardiovascular:: Regular rate and rhythm Integumentary:: No rashes Neurological:: Patient is alert, and oriented - Abdominal Exam Abdominal exam: Present: tenderness (diffuse) Course Vital Signs Temperature 99.0 F 08/22/17 14:05 Pulse Rate 121 H 08/22/17 14:05 Respiratory Rate 08/22/17 14:05 Blood Pressure 150/88 H 08/22/17 14:05 Pulse Oximetry 96 08/22/17 14:05 Temperature 99.0 F 08/22/17 14:05 Pulse Rate 121 H 08/22/17 14:05 Respiratory Rate 08/22/17 14:05 Blood Pressure 150/88 H 08/22/17 14:05 Pulse Oximetry 96 08/22/17 14:05 Abdominal Pain - [facility] Narrative Medical decision making narrative: 1600- Into re-examine patient. Minimal relief following IV fentanyl and Zofran. Remains uncomfortable, unable to take in by mouth fluids. Remains tachycardic in the 120s area. Patient does not feel like she can go home. Given the severity of her symptoms 1615- Spoke with manager professional development Hospitalist- Dr Elise. He accepts patient initially for observation and symptoms treatment. - Differential Diagnosis Differential diagnosis: Likely: abdominal pain, constipation, gastroenteritis, small bowel obstruction (dehydration, intractable vomiting) - Medical Records Attestation: I reviewed the patient's medical records. - Lab Data Attestation: I reviewed the patient's lab results. Result diagrams: 08/24/17 04:56 08/24/17 04:56 Disposition Clinical Impression: Nausea Abdominal pain Qualifiers: Abdominal location: generalized Qualified Code(s): R10.84 - Generalized abdominal pain Disposition: 02 To [facility] Condition: Stable Time of Disposition: 16:15 - Seen By: midlevel
[2017-08-22] MEDS ORDERED: PROMETHAZINE 25 MG INJECTION IM ONE (16:13)
[2017-08-22] MEDS ORDERED: POLYETHYL GLYCOL 3350 17gm PACKET PO PRN (17:05)
[2017-08-22] MEDS ORDERED: SENNOSIDES 8.6 MG TABLET PO PRN (17:05)
--- NOTE | 2017-08-22 17:07 | History & Physical Report ---
History of Present Illness Date: 08/22/17 Chief complaint: intractable nausea/vomiting, dehydration HPI: Debbie Stock is a pleasant 57-year-old female who is well known to the hospitalist services from recent admissions on 08/01/17 with intractable nausea and vomiting related to treatment of stage IV endometrial cancer with carcinomatosis for which she follows with Dr. Clancy. She had chemotherapy on and reports progressive nausea with intractable vomiting as well as band- like abdominal pain to her upper abdomen x 2 days. Due to her increased vomiting, she has had difficulty maintaining her pain regimen. Today she presented to the oncology clinic for evaluation and was given 1L NS without improvement and was sent to [facility] ED for further evaluation and additional IV hydration. She was given another liter of NS but remained tachycardic with tachypnea. She was also given a total of 150mcg of Fentanyl with Zofran 8mg IV and Phenergan 25mg IM with minimal improvement. Dr. Elise was consulted and she was accepted into observation status for further evaluation and continued hydration with pain control. Her length of stay is not expected to exceed more than 2 over nights. Review of Systems All systems PM: 10-point ROS was reviewed, no additional remarkable complaints except - Constitutional Constitutional: Present: anorexia, fatigue, malaise, weakness. Absent: chills, fever(s) - EENJT Eyes: Absent: diplopia, dry eye, photophobia Ears: Absent: ear pain Balance: Absent: falling to one side Nose: Absent: nosebleeds Mouth/Throat: Present: dry mouth. Absent: sore throat, changes in swallowing - Cardiovascular Cardiovascular: Absent: chest pain, palpitations, syncope, dyspnea on exertion, orthopnea Rhythm: Present: regular rhythm Vascular: Absent: pallor of an extermity, pedal edema - Respiratory Respiratory: Absent: cough, dyspnea, hemoptysis, dyspnea on exertion, wheezing - Gastrointestinal Gastrointestinal: Present: abdominal pain (upper abdomen), constipation, nausea , vomiting - Genitourinary Genitourinary: Absent: dysuria, flank pain, hematuria Menstruation: post hysterectomy - Musculoskeletal Musculoskeletal: Present: muscle weakness. Absent: deformity - Integumentary/Breasts Integumentary: Absent: rash - Neurological Neurological: Present: weakness. Absent: confusion, convulsions - Psychiatric Psychiatric: Present: anxiety, depression. Absent: behavioral changes - Endocrine Endocrine: Absent: heat intolerance, palpitations - Hematologic/Lymphatic Hematologic/Lymphatic: Absent: easy bruising - Allergic/Immunologic Allergic/Immunologic: Absent: seasonal rhinorrhea Past Medical History Medical History Updates: Anxiety. Depression. Insomnia. Endometrial CA ( stage 4) - metastasis to liver, stomach and kidneys. Immunosuppressed due to chemotherapy. CAD. Migraine headaches. Hypertension. Hiatal hernia. Surgical History: PowerPort insertion. Total abdominal hysterectomy with resection of right ureter anastomosis in March 2016. Lumbar discectomy. Partial right knee replacement. Heart catheter with angioplasty 2 vessels in 2003. Laparoscopic ovarian cystectomy. Ectopic with left oophorectomy. EGD. Family History Updates: Mother - 47, advanced lymphoma, heart disease, diabetes, from suicide (self inflicted gunshot to head). Father - epilepsy , age 58 from self-inflicted gunshot wound to the head. Son - healthy. Daughter - history of drug addiction. - Social History Smoking status: Never smoker Substance use type: does not use Alcohol intake frequency: does not drink Housing: house Household members: significant other Current occupational status: employed Does patient use chewing tobacco?: No Current residence: Apartment/Private Home Social history: PCP - Dr. Hardy. Onc - Dr. Clancy. Medications Home Medications Medication Instructions Recorded Confirmed Type Pnv No.95/Ferrous Fum/Folic AC 1 tab PO DAILY 06/25/17 08/22/17 History [ Tablet] Dronabinol [Marinol] 2.5 mg PO BID 08/22/17 08/22/17 History Metoclopramide HCl [Reglan] 10 mg PO Q6H PRN 08/22/17 08/22/17 History Ondansetron [Zofran Odt] 4 mg PO Q8H PRN 08/22/17 08/22/17 History PEG 3350 17gm PACKET [Miralax] 17 gm PO BID PRN 08/22/17 08/22/17 History Prochlorperazine Tab [Compazine] 5 mg PO Q8H PRN 08/22/17 08/22/17 History Allergies Allergy/AdvReac Type Severity Reaction Status Date / Time morphine AdvReac Intermediate NAUSEA & Verified 08/22/17 14:35 VOMITING Exam Vital Signs: Temperature 99.0 F 02/23/18 14:05 Pulse Rate 117 H 08/22/17 16:31 Respiratory Rate 20 08/22/17 16:31 Blood Pressure 131/77 08/22/17 16:31 Pulse Oximetry 92 08/22/17 16:31 Telemetry Rhythm: Sinus Tachycardia Comments: Patient is seen in ED while awaiting admission with her significant other at bedside. - Constitutional Present: mild distress, well developed, cooperative Comments: appears to feel ill with tachycardia and tachypnea. - Routine HEENT Exam Head: Present: normocephalic, atraumatic Eye: Present: PERRL. Absent: conjunctival icterus ENT: Present: mucous membranes dry - Routine Neck Exam Present: supple, full ROM, trachea midline - Routine Chest/Breast/Axilla Exam Chest wall: Absent: pacemaker Comments: power-port present. - Routine Respiratory Exam Present: CTA bilaterally. Absent: rales, rhonchi, stridor, wheezes, crackles - Routine Cardiovascular Exam Present: S1, S2, tachycardia - Routine Abdominal Exam Present: soft, tenderness (upper abdomen), non distended Comments: hypoactive bowel sounds. - Routine Extremities Exam Present: edema (trace), full ROM, pulses intact - Routine Back/Spine/Pelvis Exam Back/Spine: Present: full ROM. Absent: vertebral tenderness - Routine Skin Exam Present: dry, warm. Absent: jaundice Comments: afebrile. - Routine Neurological Exam Present: alert, oriented X3, CN II-XII intact, moving all extremities, hearing grossly intact, normal speech. Absent: facial asymmetry - Routine Psychiatric Exam Present: cooperative Results - Labs CBC & Chem 7: 08/22/17 15:39 08/22/17 15:39 Assessment and Plan (1) Intractable nausea and vomiting Current visit: No Status: Acute (2) Endometrial carcinoma Problem details: Metastatic with carcinomatosis Current visit: No Status: Acute Assessment and Plan: Assessment: Intractable nausea and vomiting secondary to chemotherapy. Dehydration. Leukocytosis (WBC 27.4), present on admission. Hypokalemia, present on admission. Abdominal pain, acute on chronic. Endometrial CA (stage 4) - metastasis to liver, stomach and kidneys. Anxiety and Depression. CAD and Hypertension. Migraine headaches. Plan - 08/22/17 Admit to observation status under the care of Dr. Elise for treatment of acute dehydration and intractable nausea/vomiting. She was given a total of 2L NS prior to admission. 1/2NS with KCl initiated in ED and will be continued at 125cc/hr for hydration. Zofran, Reglan and Compazine as needed for nausea/vomiting. Recommend minimal oral intake until nausea and vomiting has subsided, then clear liquid diet as tolerated. Continue home fentanyl patch at 100mcg. IV fentanyl as needed for acute breakthrough pain as she is unable to keep her home roxanol down due to nausea/ vomiting. Once nausea/vomiting is improved, will resume home Roxicodone IR and Percocet 7.5mg. Senna plus with Miralax and milk of magnesium for constipation and bowel motivation. History of carcinomatosis. Will obtain KUB now given her upper abdominal pain and high risk for bowel obstruction. Recheck labs in AM to monitor blood counts, electrolytes and renal function. Patient was seen by Dr. Lopez and Dr. Clancy during previous admission and it was recommended she consider hospice. She requested to try adjustments in chemotherapy regimen. Patient is a DNR code status. DVT Prophylaxis: SCD's Resuscitation Status: Do Not Resuscitate - Time spent with patient Time with patient PN: 50 minutes - Physician Narrative Physician: Taran Elise MD Narrative: Date: 08/22/17 Time: 2030 Have independently interviewed and examined pt. Chart reviewed. Case discussed with ED provider and my PA. Care plan developed with my supervision; agree with above. Presents to ED with refractory ab pain n/v. Symptoms worsened since chemo therapy. Since starting this regimen, has been feeling miserable. Worries the ' cure is worse than the disease.' Not able to keep meds down. Unable to take her pain and nausea medications. Very weak, very miserable. Given IVF in ED without help. IV Fentynl helped slightly but not provided sustained relief. Place in OBS for pain and nausea control. Lungs: decreased, shallow respiration. CV: tachy, regular AB: BS decreased MSE : awake alert GEN: looks very tired and weak Plan: OBS for IVF, pain and nausea control. Clear liquids as pt is able to tolerate. Monitor lab. Will consult with ONC - worry her palliative care is worsening her overall status. Hospital Course Summary Disclaimer: The visit summary below is not to be considered part of the above Progress Note. Hospital Course: Plan - 08/22/17 Admit to observation status under the care of Dr. Elise for treatment of acute dehydration and intractable nausea/vomiting. She was given a total of 2L NS prior to admission. 1/2NS with KCl initiated in ED and will be continued at 125cc/hr for hydration. Zofran, Reglan and Compazine as needed for nausea/vomiting. Recommend minimal oral intake until nausea and vomiting has subsided, then clear liquid diet as tolerated. Continue home fentanyl patch at 100mcg. IV fentanyl as needed for acute breakthrough pain as she is unable to keep her home roxanol down due to nausea/ vomiting. Once nausea/vomiting is improved, will resume home Roxicodone IR and Percocet 7.5mg. Senna plus with miralax and milk of magnesium for constipation and bowel motivation. History of carcinomatosis. Will obtain KUB now given her upper abdominal pain and high risk for bowel obstruction. Recheck labs in AM to monitor blood counts, electrolytes and renal function.
[2017-08-22] MEDS: FentaNYL 100 MCG/2 ML INJECTION IVP PRN ×6 (17:17→23:15)
[2017-08-22] MEDS: 1/2 NS with KCL 20mEq 1,000 ML IV SCH (17:18)
[2017-08-22 17:19] VITALS: BMI 37.7
[2017-08-22] MEDS: Oxycodone *IR* 15 MG TABLET PO SCH ×2 (17:44→23:22)
[2017-08-22] MEDS: PROCHLORPERAZINE 10 MG/2 ML INJECTION IVP PRN ×2 (18:01→23:21)
[2017-08-22] MEDS: ONDANSETRON 4 MG/2 ML INJECTION IVP PRN (20:34)
[2017-08-22] MEDS: DRONABINOL 2.5 MG CAPSULE PO SCH (20:35)
[2017-08-23] MEDS: FentaNYL 100 MCG/2 ML INJECTION IVP PRN ×16 (01:07→23:46)
[2017-08-23] MEDS: 1/2 NS with KCL 20mEq 1,000 ML IV SCH ×3 (01:08→18:40)
[2017-08-23] MEDS: ONDANSETRON 4 MG/2 ML INJECTION IVP PRN ×2 (01:13→07:15)
[2017-08-23] MEDS: Oxycodone *IR* 15 MG TABLET PO SCH ×3 (05:01→17:36)
[2017-08-23] MEDS: PROCHLORPERAZINE 10 MG/2 ML INJECTION IVP PRN ×3 (08:38→19:43)
[2017-08-23] MEDS: DRONABINOL 2.5 MG CAPSULE PO SCH (08:42)
--- NOTE | 2017-08-23 10:28 | Consult Note ---
Oncology [facility] - Data of Consult Patient: known to practice within the last 3 years Consult date: 08/23/17 Requesting Physician: Ibis Anguiano MD Primary Care Provider: El Hardy II, MD Family Provider: El Hardy II, MD - Consult Narrative Reason for consult: mixed mllerian tumor status post chemotherapy History of present illness: This is a 57 year old woman with family history of [employer] cancer, her mother and grandmother both diagnosed with female cancers. The patient was diagnosed on with stage IVB uterine/ovarian cancer. She is status post cytoreductive surgery, KESHAV/BSO with right ureteral resection with anastomosis. She is undergoing chemotherapy with Taxol and carboplatin. Tumor marker CA 125 went down from 276 to to 16.7. Restaging with CT scan of the chest, abdomen and pelvis after 4 cycles of Taxol carboplatin showed surgical changes in the abdomen with no evidence of recurrence. CT scan showed small bilateral axillary lymph nodes. Screening mammogram on 07/15/16 showed no evidence of malignancy. 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 This genetic test result is associated with the following cancer risk: High risk for female breast cancer and elevated risk for colorectal cancer. Interval history MRI of the breast bilateral on 10/29/16 showed no MR evidence of breast malignancy. Bilateral borderline axillary adenopathy 11.0 mm in size. The patient received 6 cycles of chemotherapy Taxol and carboplatin from 2015 to 08/21/2016. The patient presented on 02/21/2017 with acute abdominal pain. CT scan of the abdomen and pelvis with contrast showed small low- attenuation lesion in the inferior right lobe of the liver too small to characterize. There is a small bowel obstruction due to an adhesion near the patient umbilical hernia. Subsequently she was transferred to [facility]. She underwent primary incisional herniorrhaphy for the incarcerated incisional hernia/small bowel obstruction. 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 07/09/2017: The patient presented to the ED at [facility] with abdominal pain and nausea. CT scan of the abdomen and pelvis with contrast on showed low-attenuation liver lesions consistent with metastasis ranging from 1.1-2.9 cm in size. There is moderate right-sided hydronephrosis due to metastatic implants along the retroperitoneal reflection measuring 4.2 x 1.5 cm. New cystic lesion just below the aortic bifurcation measuring 4.6 cm in diameter. Evidence of intra-muscular metastases in the inferior aspect of the right rectus sheath. Cystic metastasis adjacent to the anterior margin of the bladder measuring 5.1 cm in diameter. No evidence of bowel obstruction. Small fat-containing ventral hernia near the left liver margin. Evidence of prior umbilical hernia repair with some nodularity along the umbilicus that could be due to metastatic implants. Tumor marker CA 125 came back elevated at 79.8 in March. . :During the third day of ifosfamide the patient presented with confusion. She was admitted with possible ifosfamide induced neurotoxicity. She was treated conservatively with hydration. The patient continued to have abdominal pain nausea and constipation. CT scan on 07/14/2017 compared to the scan from 2016 showed a 4.0 cm cystic submucosal mass within the mid sigmoid colon causing luminal narrowing. There is severe wall thickening of the more proximal sigmoid colon extending through the splenic flexure. This could represent metastatic disease. Also there was increasing ascites. Hepatic metastatic lesions stable. There is also impaired function of the severely obstructed right kidney. Discussed the case with Dr. Viveros after 07/14/17 CT. The patient was deemed not a surgical candidate. I had a lengthy discussion with the patient regarding further management. We discussed the option of supportive care and hospice versus palliative chemotherapy. The patient chose for palliative chemotherapy. She had second cycle of chemotherapy with ifosfamide on 07/30/17. She had the same neurotoxicity and was admitted on 08/01/17 for this problem. At that time Dr. Clancy decided to switch to carboplatinum and Taxol. This therapy was initiated on 08/20/17 with Neulasta on body inject her which would've administer Neulasta on 08/21/17. She presented to the office with increasing pain, nausea and vomiting that was uncontrolled on 08/22/17. She was referred to the ER and admitted last evening she continues to have significant abdominal pain. She does not have bowel movement for 4 days. She continues to have nausea and vomiting. IV narcotics seem to control the pain. She is on a Duragesic patch.. Review of Systems - Constitutional Constitutional: Present: fatigue, weakness. Absent: headache(s) - EENT Eyes: Absent: blurry vision, change in vision Ears: Absent: ear pain, tinnitus Nose: Absent: nosebleeds Mouth/Throat: Absent: sores, changes in swallowing - Cardiovascular Cardiovascular: Present: chest pain (last p.m.). Absent: palpitations - Respiratory Respiratory: Present: dyspnea. Absent: cough, hemoptysis - Gastrointestinal Gastrointestinal: Present: constipation, nausea, vomiting - Genitourinary Genitourinary: Absent: abnormal vaginal bleeding, urinary hesitancy, urinary urgency, vaginal discharge - Musculoskeletal Musculoskeletal: Absent: joint swelling, myalgias - Neurological Neurological: Absent: headache(s), lack of coordination, numbness - Psychiatric Psychiatric: Present: anxiety - Hematologic/Lymphatic Hematologic/Lymphatic: Present: anemia. Absent: easy bleeding, easy bruising, lymphadenopathy [facility] Patient Stated Medical History Migraine Yes Coronary Artery Disease Yes Hypertension Yes Diabetes Mellitus Type 2 Yes Hiatal Hernia Yes Obstructive Bowel Yes Other GI Yes: ENDOMETRIAL CA W/ METASTASIS TO LIVER, STOMACH, AND KIDNEYS Hx Urinary Tract Infection Yes: HX of Chemotherapy Yes Depression Yes Endometriosis Yes Post Menopausal Yes Now No Medical History Updates: Anxiety. Depression. Insomnia. Endometrial CA ( stage 4) - metastasis to liver, stomach and kidneys. Immunosuppressed due to chemotherapy. CAD. Migraine headaches. Hypertension. Hiatal hernia. Surgical History: PowerPort insertion. Total abdominal hysterectomy with resection of right ureter anastomosis in March 2016. Lumbar discectomy. Partial right knee replacement. Heart catheter with angioplasty 2 vessels in 2003. Laparoscopic ovarian cystectomy. Ectopic with left oophorectomy. EGD. Family History: Positive family history, Father: (suicide); Mother: ( from lymphoma, pt did not know what type); ], Other Family Members Other family members: Maternal grandfather Cause of : Other Diagnosis Diabetes mellitus type I, had "clotting disorder"; Maternal grandmother Cause of : "female cancer"; - Social History Smoking status: Never smoker Current occupational status: employed Does patient use chewing tobacco?: No Current residence: Apartment/Private Home Medications Home Medications Medication Instructions Recorded Confirmed Type Pnv No.95/Ferrous Fum/Folic AC 1 tab PO DAILY 06/25/17 08/22/17 History [ Tablet] Dronabinol [Marinol] 2.5 mg PO BID 08/22/17 08/22/17 History Metoclopramide HCl [Reglan] 10 mg PO Q6H PRN 08/22/17 08/22/17 History Ondansetron [Zofran Odt] 4 mg PO Q8H PRN 08/22/17 08/22/17 History PEG 3350 17gm PACKET [Miralax] 17 gm PO BID PRN 08/22/17 08/22/17 History Prochlorperazine Tab [Compazine] 5 mg PO Q8H PRN 08/22/17 08/22/17 History Allergies Allergy/AdvReac Type Severity Reaction Status Date / Time morphine AdvReac Intermediate NAUSEA & Verified 08/22/17 14:35 VOMITING Exam Vital signs: Temperature 97.8 F 08/23/17 07:31 Pulse Rate 119 H 08/23/17 07:31 Respiratory Rate 24 08/23/17 07:31 Blood Pressure 148/83 H 08/23/17 07:31 Pulse Oximetry 91 08/23/17 07:31 - Constitutional moderate distress, average body habitus - Routine HEENT Exam Head: Present: normocephalic Eye: Present: EOMI, PERRL Throat: other (dry mucous membranes with coating on tongue question thrush) - Routine Neck Exam Present: supple. Absent: lymphadenopathy - Routine Respiratory Exam Present: CTA bilaterally. Absent: accessory muscle use - Routine Cardiovascular Exam Present: RRR. Absent: no murmur - Routine Abdominal Exam Present: soft, tenderness (mild). Absent: normoactive bowel sounds (hypoactive) , rebound - Routine Extremities Exam Absent: cyanosis, clubbing, edema - Routine Skin Exam Present: dry, warm, alopecia - Routine Neurological Exam Present: alert, oriented X3, CN II-XII intact - Routine Psychiatric Exam Present: anxious Oncology Results - Labs CBC & Chem 7: 08/23/17 04:58 08/23/17 04:58 Labs: Short CBC 08/23/17 Range/Units 04:58 WBC 23.3 H (4.5-11.0) T/MM3 Hgb 11.7 L (12-16) GM/DL Hct 36.2 (36-46) % Plt Count 239 (130-400) T/MM3 BMP 08/23/17 04:58 Sodium 138 Potassium 3.9 Chloride 100 Carbon Dioxide 26 BUN 12.0 Creatinine 0.6 L Glucose 148 H Calcium 8.9 Liver Function 08/23/17 Range/Units 04:58 Total Bilirubin 1.10 (0.20-1.30) MG/DL AST 24 (14-36) U/L ALT 38 (9-52) U/L Alkaline Phosphatase 154 H D (38-126) U/L Albumin 3.9 (3.5-5.0) G/DL Laboratory Tests 04/09/17 07/30/17 08/20/17 15:39 09:46 08:17 WBC Hgb Plt Count Sodium Potassium Chloride Carbon Dioxide Creatinine Glucose Alkaline Phosphatase CA 125 Antigen 79.8 H 118 H 40.7 H 08/22/17 08/22/17 08/23/17 15:39 15:39 04:58 WBC 27.4 H* D 23.3 H Hgb 11.8 L 11.7 L Plt Count 224 239 Sodium 141 Potassium 3.5 L Chloride 102 Carbon Dioxide 27 Creatinine 0.6 L D Glucose 162 H Alkaline Phosphatase CA 125 Antigen 08/23/17 04:58 WBC Hgb Plt Count Sodium 138 Potassium 3.9 Chloride 100 Carbon Dioxide 26 Creatinine 0.6 L Glucose 148 H Alkaline Phosphatase 154 H D CA 125 Antigen Assessment and Plan Assessment and Plan: 1. Recurrent endometrial cancer, carcinoma/sarcoma/mixed mullerian tumor. Recent evidence progressive disease with extensive peritoneal carcinomatosis causing right hydronephrosis and intermittent/partial bowel obstruction. Began palliative ifosfamide/Taxol in June. Treatment stopped secondary to [employer] toxicity and inability to get an day 3 of therapy. Began carboplatin and Taxol on 08/20/17. Currently with increasing abdominal pain that is uncontrolled with associated constipation. Constipation is exacerbated by the nausea and vomiting , Zofran, and chemotherapy. CA 125 decreasing suggesting response to current palliative chemotherapy. We'll add olanzapine and continue therapy for constipation. 2. Chronic pain of uncertain etiology exacerbated by chemotherapy and constipation. This could be related to tumor within the pelvis, hydronephrosis although the pain is not described as colicky. 3. Difficulty with pain control currently on Duragesic plus IV fentanyl and morphine 4. Chemotherapy associated nausea and vomiting. Ever recommended trial of olanzapine 5 mg daily for the next 4 days Recommendations 1. Supportive care 2. Pain control 3. Aggressive bowel regimen to prevent constipation and obstruction especially with narrowing of prior CT scan from July 14 4. Add olanzapine 2 help with nausea
--- NOTE | 2017-08-23 10:45 | Progress Note ---
- Date 08/23/17 Subjective: Patient is seen lying in bed this morning. She reports she has had a horrible night. She's had pain, nausea and vomiting all night. She's been requiring fentanyl every hour. She also has her fentanyl patch. Her pain is not controlled. She had another round of chemotherapy on 08/20/17 and states symptoms started following that. They worsened to the point where she needed IV fluids and pain control thus came to the ER and was admitted last night. She states it's been several days since she's had a bowel movement. Objective Vital signs: Temperature 97.8 F 08/23/17 07:31 Pulse Rate 119 H 08/23/17 07:31 Respiratory Rate 24 08/23/17 07:31 Blood Pressure 148/83 H 08/23/17 07:31 Pulse Oximetry 91 08/23/17 07:31 Height/Weight/BMI: Height 1.6 m Weight 96.5 kg Body Mass Index 37.7 - Constitutional Present: mild distress, well nourished, well developed, obese, disheveled - Routine HEENT Exam Head: Present: normocephalic, atraumatic - Routine Respiratory Exam Present: CTA bilaterally. Absent: wheezes - Routine Cardiovascular Exam Present: no murmur, tachycardia - Routine Abdominal Exam Present: soft, tenderness (dffuse), non distended Comments: hypoactive BS's - Routine Extremities Exam Present: no edema, normal capillary refill - Routine Skin Exam Present: dry, warm - Routine Neurological Exam Present: alert, oriented X3 - Routine Lymphatic Exam Lymphatic: Absent: adenopathy - Routine Psychiatric Exam Present: normal affect, cooperative Results - Labs CBC & Chem 7: 08/23/17 04:58 08/23/17 04:58 Assessment and Plan (1) Intractable nausea and vomiting Current visit: No Status: Acute (2) Endometrial carcinoma Problem details: Metastatic with carcinomatosis Current visit: No Status: Acute Assessment and Plan: Assessment: Intractable nausea and vomiting secondary to chemotherapy. Dehydration. Leukocytosis (WBC 27.4), present on admission - Improving Hypokalemia, present on admission - resolved Abdominal pain, acute on chronic. Endometrial CA (stage 4) - metastasis to liver, stomach and kidneys. Anxiety and Depression. CAD and Hypertension. Migraine headaches. Plan Patient would like to try morphine. She reports in the past, reaction was nausea and vomiting which she had following a surgery. Given Dilaudid is not available, will give trial of morphine. Continue home fentanyl patch at 100mcg. IV fentanyl and morphine as needed for acute breakthrough pain as she is unable to keep her home roxanol down due to nausea/vomiting. Once nausea/vomiting is improved, will resume home Roxicodone IR and Percocet 7.5mg. Will put her on scheduled Reglan and Zofran as she does well on this at home. Compazine can still be given when necessary. Need to watch for extrapyramidal symptoms with combo of all medications. Dr. Quezada also suggest Zyprexa 5 mg IV daily for several days. States this can be used post chemotherapy for nausea and may help with anxiety as well. Continue IV fluids at 125 cc per hour as she is unable to keep anything down at this time. Senna plus with Miralax and milk of magnesia for constipation and bowel motivation. Dr. Quezada recommends patient have repeat Gastrografin enema CT tomorrow if her symptoms are not improving. Recheck labs in AM to monitor blood counts, electrolytes and renal function. DVT Prophylaxis: SCD's Resuscitation Status: Do Not Resuscitate - Physician Narrative Physician: Ibis Anguiano MD Narrative: Date: 08/23/17 Time: Tyson Juarez is well known from prior hospitalizations. Presentation discussed with Dr. Elise earlier today. Also reviewed with Dr. Quezada. In addition to previously described symptoms she reports that she is voiding well with IV fluids administered and denies fevers or chills. She continues to have generalized abdominal pain as opposed to prior pain in the left upper and right lower quadrants. Fatigued-appearing female, abdomen is soft, moderately distended, and diffusely tender with sparse bowel sounds White count elevated-post chemotherapy; liver enzymes/electrolytes unremarkable. Patient's goals discussed-she reports she simply doesn't want to suffer and acknowledges that currently that in point is not being reached. She doesn't know if she is ready for hospice; we discussed palliative care as a consideration to focus more on symptom management and her goals without eliminating chemotherapy as an option at this time. We'll readdress over the next couple of days. Zyprexa converted from IM to ODT for oral administration. KUB reviewed by myself-NAD; if ongoing symptoms may need to repeat CT. Hospital Course Summary Disclaimer: The visit summary below is not to be considered part of the above Progress Note. Hospital Course: 08/22/17 Admit to observation status under the care of Dr. Elise for treatment of acute dehydration and intractable nausea/vomiting. She was given a total of 2L NS prior to admission. 1/2NS with KCl initiated in ED and will be continued at 125cc/hr for hydration. Zofran, Reglan and Compazine as needed for nausea/vomiting. Recommend minimal oral intake until nausea and vomiting has subsided, then clear liquid diet as tolerated. Continue home fentanyl patch at 100mcg. IV fentanyl as needed for acute breakthrough pain as she is unable to keep her home roxanol down due to nausea/ vomiting. Once nausea/vomiting is improved, will resume home Roxicodone IR and Percocet 7.5mg. Senna plus with miralax and milk of magnesium for constipation and bowel motivation. History of carcinomatosis. Will obtain KUB now given her upper abdominal pain and high risk for bowel obstruction. 08/23/17 Patient would like to try morphine. She reports in the past, reaction was nausea and vomiting which she had following a surgery. Given Dilaudid is not available, will give trial of morphine. Continue home fentanyl patch at 100mcg. IV fentanyl and morphine as needed for acute breakthrough pain as she is unable to keep her home roxanol down due to nausea/vomiting. Once nausea/vomiting is improved, will resume home Roxicodone IR and Percocet 7.5mg. Will put her on scheduled Reglan and Zofran as she does well on this at home. Compazine can still be given when necessary. Need to watch for extrapyramidal symptoms with combo of all medications. Dr. Quezada also suggest Zyprexa 5 mg IV daily for several days. States this can be used post chemotherapy for nausea and may help with anxiety as well. Continue IV fluids at 125 cc per hour as she is unable to keep anything down at this time. Senna plus with Miralax and milk of magnesia for constipation and bowel motivation. Dr. Quezada recommends patient have repeat Gastrografin enema CT tomorrow if her symptoms are not improving. Recheck labs in AM to monitor blood counts, electrolytes and renal function.
[2017-08-23] MEDS: METOCLOPRAMIDE 10mg/2ml INJECTION IVP SCH ×3 (12:13→21:30)
[2017-08-23] MEDS: MORPHINE SULFATE 4mg INJECTION IVP PRN ×2 (12:53→16:18)
[2017-08-23] MEDS: ONDANSETRON 4 MG/2 ML INJECTION IVP SCH ×2 (12:54→21:30)
[2017-08-23] MEDS: OLANZapine ODT 5 MG TABLET PO SCH (17:35)
[2017-08-23] MEDS: SENNOSIDES 8.6 MG TABLET PO SCH (21:43)
[2017-08-23] MEDS: POLYETHYL GLYCOL 3350 17gm PACKET PO SCH (22:28)
[2017-08-24] MEDS ORDERED: PROMETHAZINE 25 MG INJECTION IVP ONE (01:05)
[2017-08-24] MEDS: FentaNYL 100 MCG/2 ML INJECTION IVP PRN ×7 (01:14→13:26)
[2017-08-24] MEDS: Oxycodone *IR* 15 MG TABLET PO SCH ×3 (01:22→10:32)
[2017-08-24] MEDS: METOCLOPRAMIDE 10mg/2ml INJECTION IVP SCH ×5 (03:49→21:32)
[2017-08-24] MEDS: 1/2 NS with KCL 20mEq 1,000 ML IV SCH ×3 (03:56→11:56)
[2017-08-24] MEDS: ONDANSETRON 4 MG/2 ML INJECTION IVP SCH (04:58)
[2017-08-24] MEDS: PROCHLORPERAZINE 10 MG/2 ML INJECTION IVP PRN ×2 (06:42→13:23)
[2017-08-24] MEDS ORDERED: OLANZapine INJ 10 MG VIAL IM SCH (09:00)
[2017-08-24] MEDS: POLYETHYL GLYCOL 3350 17gm PACKET PO SCH ×2 (09:32→21:42)
[2017-08-24] MEDS: OLANZapine ODT 5 MG TABLET PO SCH (09:32)
[2017-08-24] MEDS: SENNOSIDES 8.6 MG TABLET PO SCH ×2 (09:32→21:42)
[2017-08-24] MEDS: OXYCODONE/APAP 7.5 MG/325 MG TABLET PO PRN (09:34)
[2017-08-24] MEDS ORDERED: PROMETHAZINE 25 MG INJECTION IM PRN (10:21)
[2017-08-24] MEDS ORDERED: SCOPOLAMINE PATCH REMOVAL TD ONE (10:21)
[2017-08-24] MEDS: MORPHINE SULFATE 4mg INJECTION IVP PRN (10:28)
[2017-08-24] MEDS ORDERED: ONDANSETRON 4 MG/2 ML INJECTION IVP SCH (10:30)
--- NOTE | 2017-08-24 10:48 | Progress Note ---
- Date 08/24/17 Subjective: Larry is seen this morning in follow up. She is sleeping however does arouse during examination. She is tachycardia 120-130. C/o moderated nausea and abdominal pain. She is not able to make it between medications doses for nausea. She is pleased she had a large bowel movement last evening. Overall appears miserable. Objective Vital signs: Temperature 99.0 F 08/24/17 08:00 Pulse Rate 131 H 08/24/17 08:00 Respiratory Rate 18 08/24/17 08:00 Blood Pressure 147/95 H 08/24/17 08:00 Pulse Oximetry 94 08/24/17 08:00 Rhythm: Sinus Tachycardia (120-130) Height/Weight/BMI: Weight 98.6 kg - Constitutional Present: moderate distress, well nourished, well developed - Routine HEENT Exam Eye: Present: EOMI ENT: Present: mucous membranes moist, dentition normal - Routine Respiratory Exam Present: CTA bilaterally. Absent: wheezes - Routine Cardiovascular Exam Present: S1, S2, tachycardia (120). Absent: murmur - Routine Abdominal Exam Present: soft, tenderness (diffuse). Absent: normoactive bowel sounds ( hypoactive) - Routine Extremities Exam Present: normal capillary refill - Routine Skin Exam Present: intact, dry, warm - Routine Neurological Exam Present: alert, oriented X3, CN II-XII intact, moving all extremities - Routine Lymphatic Exam Lymphatic: Absent: adenopathy - Routine Psychiatric Exam Present: normal affect, cooperative Results - Labs CBC & Chem 7: 08/24/17 04:56 08/24/17 04:56 Assessment and Plan (1) Intractable nausea and vomiting Current visit: No Status: Acute (2) Endometrial carcinoma Problem details: Metastatic with carcinomatosis Current visit: No Status: Acute Assessment and Plan: Assessment: Intractable nausea and vomiting secondary to chemotherapy. Dehydration. Leukocytosis (WBC 27.4), present on admission - Improving Hypokalemia, present on admission - resolved Abdominal pain, acute on chronic. Endometrial CA (stage 4) - metastasis to liver, stomach and kidneys. Anxiety and Depression. CAD and Hypertension. Migraine headaches. Plan Will work on being more aggressive with nausea control. Will given Phenergan 50mg IM and continue with Zofran and Reglan IV. Add scopolamine patch She has had one time dose of IV morphine yesterday. Has been having fentanyl overnight. Hospital is getting low of fentanyl quantity. Spoke with nursing staff, will Increase IV morphine to 4 mg and continue on home Fentanyl patch and home Roxanol. Could consider increasing fentanyl patch. Zyprexa IV daily as this can help with post chemo nausea and anxiety Bowels are moving Overall status is concerning, requiring large amounts of medication to keep her comfortable Recommend having Palliative care consult Friday. Case discussed with attending Dr Anguinao DVT Prophylaxis: SCD's GI Prophylaxis: Protonix Resuscitation Status: Do Not Resuscitate - Physician Narrative Physician: Ibis Anguiano MD Narrative: Date: 08/24/17 Time: 1500 I have independently evaluated and examined this patient. I reviewed the chart, the patient's history, and the SKIMMER/PA's documented findings as above. We discussed and formulated the assessment and plan as above with additions as below: Debbie describes ongoing generalized abdominal pain, nausea, and episodic emesis. She had 2 large bowel movements last night and this morning and reports no dyspnea or lightheadedness. She advise Dr. Clancy earlier today that she doesn't think she can continue chemotherapy due to side effects; he is looking into second opinion in [place] regarding surgical debulking of tumor as a palliative procedure. Alert, respirations nonlabored with good airflow and clear breath sounds Abdomen soft with mild generalized tenderness but no guarding, active bowel sounds Refractory nausea/abdominal pain- Management options reviewed with PharmD-have elected to treat with prechemotherapy dose Aloxi followed by Emend/Decadron dose; hold Zofran but continue other antiemetics. Initiate LIVESTOCK DEALER with morphine to improve pain control; continue Dilaudid patch but hold oral narcotics and IV fentanyl at present. Discussed with Dr. Clancy earlier today-will hold off on Gastrografin/CT. High- risk medications in use with continuous IV narcotics. Fluid bolus for ongoing tachycardia. Hospital Course Summary Disclaimer: The visit summary below is not to be considered part of the above Progress Note. Hospital Course: 08/22/17 Admit to observation status under the care of Dr. Elise for treatment of acute dehydration and intractable nausea/vomiting. She was given a total of 2L NS prior to admission. 1/2NS with KCl initiated in ED and will be continued at 125cc/hr for hydration. Zofran, Reglan and Compazine as needed for nausea/vomiting. Recommend minimal oral intake until nausea and vomiting has subsided, then clear liquid diet as tolerated. Continue home fentanyl patch at 100mcg. IV fentanyl as needed for acute breakthrough pain as she is unable to keep her home roxanol down due to nausea/ vomiting. Once nausea/vomiting is improved, will resume home Roxicodone IR and Percocet 7.5mg. Senna plus with miralax and milk of magnesium for constipation and bowel motivation. History of carcinomatosis. Will obtain KUB now given her upper abdominal pain and high risk for bowel obstruction. 08/23 Patient would like to try morphine. She reports in the past, reaction was nausea and vomiting which she had following a surgery. Given Dilaudid is not available, will give trial of morphine. Continue home fentanyl patch at 100mcg. IV fentanyl and morphine as needed for acute breakthrough pain as she is unable to keep her home roxanol down due to nausea/vomiting. Once nausea/vomiting is improved, will resume home Roxicodone IR and Percocet 7.5mg. Will put her on scheduled Reglan and Zofran as she does well on this at home. Compazine can still be given when necessary. Need to watch for extrapyramidal symptoms with combo of all medications. Dr. Quezada also suggest Zyprexa 5 mg IV daily for several days. States this can be used post chemotherapy for nausea and may help with anxiety as well. Continue IV fluids at 125 cc per hour as she is unable to keep anything down at this time. Senna plus with Miralax and milk of magnesia for constipation and bowel motivation. Dr. Quezada recommends patient have repeat Gastrografin enema CT tomorrow if her symptoms are not improving. Recheck labs in AM to monitor blood counts, electrolytes and renal function. 08/24 Will work on being more aggressive with nausea control. Will given Phenergan 50mg IM and continue with Zofran and Reglan IV. Add scopolamine patch She has had one time dose of IV morphine yesterday. Has been having fentanyl overnight. Hospital is getting low of fentanyl quantity. Spoke with nursing staff, will Increase IV morphine to 4 mg and continue on home Fentanyl patch and home Roxanol. Could consider increasing fentanyl patch. Zyprexa IV daily as this can help with post chemo nausea and anxiety Bowels are moving Overall status is concerning, requiring large amounts of medication to keep her comfortable Recommend having Palliative care consult Friday. Case discussed with attending Dr Anguiano
--- NOTE | 2017-08-24 11:39 | Progress Note ---
Oncology Subjective Chief complaint: Abdominal pain and constipation. She had large bowel movement last night. No fever. Exam Vital signs: Temperature 99.0 F 08/24/17 08:00 Pulse Rate 128 H 08/24/17 08:00 Respiratory Rate 18 08/24/17 08:00 Blood Pressure 147/95 H 08/24/17 08:00 Pulse Oximetry 94 08/24/17 08:00 - Constitutional no acute distress, cooperative - Routine Respiratory Exam Absent: rales, stridor, wheezes, crackles - Routine Cardiovascular Exam Present: RRR, no murmur. Absent: JVD - Routine Abdominal Exam Present: soft, tenderness Comments: Diffuse tenderness especially in the left upper quadrant. Bowel sounds positive. Oncology Results - Labs CBC & Chem 7: 08/24/17 04:56 08/24/17 04:56 Labs: Short CBC 08/24/17 Range/Units 04:56 WBC 18.6 H (4.5-11.0) T/MM3 Hgb 11.7 L (12-16) GM/DL Hct 36.2 (36-46) % Plt Count 301 (130-400) T/MM3 [facility] 08/24/17 04:56 Sodium 137 Potassium 3.8 Chloride 98 Carbon Dioxide 25 BUN 17.0 Creatinine 0.7 Glucose 151 H Calcium 9.1 Assessment and Plan Assessment and Plan: 1. Recurrent endometrial cancer, carcinoma/sarcoma/mixed mullerian tumor. Recent evidence progressive disease with extensive peritoneal carcinomatosis causing right hydronephrosis and intermittent/partial bowel obstruction. Began palliative ifosfamide/Taxol in June. Treatment stopped secondary to CROSS TIE CUTTER toxicity and inability to get an day 3 of therapy. Began carboplatin and Taxol on 08/20/17. 2. Intractable, constant abdominal pain, improved his morphine. 3. Irregular bowel, mainly constipation. The patient had bowel movement last night. 4. leukocytosis due to G-CSF. Recommendations 1. We'll continue with supportive care: Pain management. 2. Pain management consultation. 3. we discussed goal of therapy. The goal of therapy is palliative. The patient is not interested to continue chemotherapy anymore. We discussed option of referral to surgery for second opinion for possible palliative surgical procedure with extension to the obstructive colonic mass. I will send the patient for second opinion in [place] at [facility]. - Time Spent With Patient Total time spent is greater than 50% in coordination of care (as documented) at patient's floor/unit and/or counseling patient: 25 - 35 minutes
[2017-08-24] MEDS: SCOPOLAMINE 1mg/3 days PATCH (Eq. 1.5 Patch) TD SCH (11:56)
[2017-08-24] MEDS ORDERED: DEXAMETHASONE 20 MG/5 ML INJECTION IV ONE (14:06)
[2017-08-24] MEDS ORDERED: PALONOSETRON 0.25 MG/5 ML INJECTION IV ONE (14:15)
[2017-08-24] MEDS ORDERED: FOSAPREPITANT IV ONE (14:30)
[2017-08-24] MEDS ORDERED: DEXAMETHASONE IV ONE (14:30)
[2017-08-24] MEDS ORDERED: NS IV ONE (14:30)
[2017-08-24] MEDS: MORPHINE PCA 30 MG/30 ML SYRINGE IV PRN (14:33)
[2017-08-24] MEDS ORDERED: NS 1,000 ML IV ONE (15:13)
[2017-08-24] MEDS: PANTOPRAZOLE 40 MG INJECTION IVP SCH (15:27)
--- NOTE | 2017-08-24 18:45 | XRay Report ---
Indication: abdominal pain, LIGHT [employer]USTRIAL CA PROCEDURE: PA view of the chest with supine and upright AP views of the abdomen Encounter: Initial Comparison: August 01, 2017 FINDINGS: The lungs are clear. There is no abnormal airspace opacity, pleural effusion or pneumothorax identified. The heart size, pulmonary vasculature and mediastinum are within normal limits. Right IJ port. There is no free air on the upright view. The bowel gas pattern is nonobstructive and nonspecific. Gas is seen in nondilated small and large bowel to the level of the rectum. Moderate stool is seen throughout the colon. The bony structures are grossly unremarkable. IMPRESSION: 1. No acute cardiopulmonary abnormality. 2. No evidence of acute obstruction or free air. .
[2017-08-25] MEDS: 1/2 NS with KCL 20mEq 1,000 ML IV SCH ×3 (01:18→18:43)
[2017-08-25] MEDS: METOCLOPRAMIDE 10mg/2ml INJECTION IVP SCH ×4 (03:36→21:33)
[2017-08-25] MEDS: MORPHINE PCA 30 MG/30 ML SYRINGE IV PRN ×2 (05:53→14:54)
--- NOTE | 2017-08-25 08:37 | Progress Note ---
<Poly Adkins - Last Filed: 08/25/17 12:03> Oncology Subjective Awake/alert. Children at bedside. Large BM yesterday, now with intermittent small episodes watery stools. Pleased with current MS infusion-feels pain better controlled. General: No fever, no night sweats Eyes: No redness, no pain, no diplopia ENT: No mouth sores, no trouble swallowing Cardiac: No chest pain no palpitations Pulmonary: No cough, no shortness of breath, no wheezing Abdomen: + pain, no nausea or vomiting for past 24 hr. + diarrhea : No urgency, frequency, dysuria, or hematuria Musculoskeletal: No arthritis, no myalgias Neurological: No headaches, no focal weakness Skin: No rash, no sores Psychiatric: No anxiety, no depression Exam Vital signs: Temperature 95.4 F L 08/25/17 00:11 Pulse Rate 112 H 08/25/17 00:11 Respiratory Rate 18 08/25/17 05:53 Blood Pressure 132/79 08/25/17 00:11 Pulse Oximetry 93 08/25/17 00:11 - Constitutional no acute distress, obese - Routine HEENT Exam Head: Present: normocephalic Eye: Present: EOMI ENT: Present: mucous membranes dry - Routine Neck Exam Present: supple. Absent: lymphadenopathy - Routine Respiratory Exam Present: decreased breath sounds - Routine Cardiovascular Exam Present: RRR, no murmur - Routine Abdominal Exam Present: soft, non distended Comments: decreased/absent bowel sounds - Routine Extremities Exam Present: no edema - Routine Back/Spine/Pelvis Exam Back/Spine: Absent: vertebral tenderness - Routine Skin Exam Present: intact, dry, pallor - Routine Neurological Exam Present: alert, oriented X3 - Routine Psychiatric Exam Present: normal affect, cooperative Oncology Results - Labs CBC & Chem 7: 08/24/17 04:56 08/25/17 04:34 Labs: BMP 08/25/17 04:34 Sodium 135 Potassium 3.3 L Chloride 102 Carbon Dioxide 25 BUN 14.0 Creatinine 0.6 L Glucose 101 Calcium 8.3 L D Liver Function 08/25/17 Range/Units 04:34 Albumin 3.3 L (3.5-5.0) G/DL Assessment and Plan Assessment and Plan: 1. Recurrent endometrial cancer, carcinoma/sarcoma/mixed mullerian tumor. Recent evidence progressive disease with extensive peritoneal carcinomatosis causing right hydronephrosis and intermittent/partial bowel obstruction. Began palliative ifosfamide/Taxol in June. Treatment stopped secondary to COOKER CLEANER toxicity and inability to get an day 3 of therapy. Began carboplatin and Taxol on 08/20/17. 2. Intractable, constant abdominal pain, improved with morphine. 3. Irregular bowel, mainly constipation. Good BM yesterday, now with small amounts inc. BM Recommendations Continue supportive care/ pain management. Patient has decided on no further chemotherapy-see Dr. Clancy's note 08/24/17. Working on obtaining 2nd opinion/ surgical consultation at [facility] in [place]. - Time Spent With Patient Total time spent is greater than 50% in coordination of care (as documented) at patient's floor/unit and/or counseling patient: less than 15 minutes <Tomás Quezada - Last Filed: 08/25/17 17:21> Exam Vital signs: Temperature 97.9 F 08/25/17 11:28 Pulse Rate 97 08/25/17 16:00 Respiratory Rate 14 08/25/17 14:54 Blood Pressure 132/71 08/25/17 11:28 Pulse Oximetry 94 08/25/17 11:28 Oncology Results - Labs CBC & Chem 7: 08/24/17 04:56 08/25/17 04:34 Labs: BMP 08/25/17 04:34 Sodium 135 Potassium 3.3 L Chloride 102 Carbon Dioxide 25 BUN 14.0 Creatinine 0.6 L Glucose 101 Calcium 8.3 L D Liver Function 08/25/17 Range/Units 04:34 Albumin 3.3 L (3.5-5.0) G/DL Assessment and Plan Assessment and Plan: Patient examined, chart reviewed, patient describes a large bowel movement on Friday evening. She is now having diarrhea. Pain is very well controlled with morphine HISTORIAN [employer]IC [employer]S. Dr. Clancy is looking a surgical opinion at [facility]. I provided the name of nurse navigator to Amanda Adkins. The nurse navigator has contacted obstetrics gyn onc and they will call Dr. Clancy in AM. I participated in the development of the plan of care of this patient - Time Spent With Patient Total time spent is greater than 50% in coordination of care (as documented) at patient's floor/unit and/or counseling patient:
[2017-08-25] MEDS: POLYETHYL GLYCOL 3350 17gm PACKET PO SCH ×2 (09:35→21:34)
[2017-08-25] MEDS: SENNOSIDES 8.6 MG TABLET PO SCH ×2 (09:36→21:34)
[2017-08-25] MEDS: OLANZapine ODT 5 MG TABLET PO SCH (09:43)
[2017-08-25] MEDS: PANTOPRAZOLE 40 MG INJECTION IVP SCH (10:03)
--- NOTE | 2017-08-25 11:35 | Progress Note ---
- Date 08/25/17 Subjective: Patient is seen lying in bed this morning. She reports she is feeling much better. She states that pain pump has been a "godsend." Her pain is much better controlled and she is not having any further nausea. She's been having significant diarrhea. She has started to take in some clear liquids this morning. She reports she is "scared" to have further vomiting, so she plans to go very slowly with oral intake. She voiced concerns about going back home. Reports she's having trouble with her kids understanding that she needs to make some changes in the house, such as moving her bedroom downstairs. She's decided to forego further chemotherapy, and oncology as set her up for a second opinion on possible palliative surgery in [place]. Objective Vital signs: Temperature 97.9 F 08/25/17 11:28 Pulse Rate 93 08/25/17 11:28 Respiratory Rate 16 08/25/17 11:28 Blood Pressure 132/71 08/25/17 11:28 Pulse Oximetry 94 08/25/17 11:28 Rhythm: Sinus Tachycardia (120-130) Height/Weight/BMI: Weight 98.4 kg - Constitutional Present: no acute distress, well nourished, well developed, obese - Routine HEENT Exam Head: Present: normocephalic, atraumatic - Routine Respiratory Exam Present: CTA bilaterally. Absent: wheezes - Routine Cardiovascular Exam Present: RRR, no murmur, tachycardia (mild) - Routine Abdominal Exam Present: soft, normoactive bowel sounds, non distended Comments: Mild tenderness left upper quadrant and right lower quadrant - Routine Extremities Exam Present: no edema, normal capillary refill - Routine Skin Exam Present: dry, warm - Routine Neurological Exam Present: alert, oriented X3 - Routine Lymphatic Exam Lymphatic: Absent: adenopathy - Routine Psychiatric Exam Present: normal affect, cooperative Results - Labs CBC & Chem 7: 08/24/17 04:56 08/25/17 04:34 Assessment and Plan (1) Intractable nausea and vomiting Current visit: No Status: Acute (2) Endometrial carcinoma Problem details: Metastatic with carcinomatosis Current visit: No Status: Acute Assessment and Plan: Assessment: Intractable nausea and vomiting secondary to chemotherapy. Dehydration. Leukocytosis (WBC 27.4), present on admission - Improving Hypokalemia, present on admission Abdominal pain, acute on chronic. Endometrial CA (stage 4) - metastasis to liver, stomach and kidneys. Anxiety and Depression. CAD and Hypertension. Migraine headaches. Plan Her IV fluids were decreased to 50 mL/h last evening. Will continue to decrease as she takes in the more by mouth. For nausea, she continues on Reglan IV q 6, Zofran was held when scopolamine patch was initiated yesterday afternoon, IV Protonix was started yesterday afternoon. She received PRN Compazine twice yesterday and 1 dose of IM Phenergan yesterday as well. For pain, she is doing well with the morphine PODIATRY PROFESSOR pump. Fentanyl IV was discontinued yesterday afternoon as there is a current shortage. She continues with Fentanyl patch. As she continues to feel better and is able to tolerate p.o., will begin to convert IV meds to p.o. Case discussed with attending, Dr Anguiano DVT Prophylaxis: SCD's Resuscitation Status: Do Not Resuscitate - Physician Narrative Physician: Ibis Anguiano MD Narrative: Date: 08/25/17 Time: 1839 I have independently evaluated and examined this patient. I reviewed the chart, the patient's history, and the STRIPPER COLOR/PA's documented findings as above. We discussed and formulated the assessment and plan as above with additions as below: Debbie is most more comfortable today although continues to use PODIATRY PROFESSOR with extra doses at least hourly. She has opted to hold on palliative care consult here pending decision regarding palliative surgery in [place]. Patient is alert and appears comfortable. Respirations are nonlabored, abdomen is soft with minimal tenderness on palpation today. Continue current management pending surgical decision. Dr. Clancy working on those plans. Consider MS Corona with Roxanol or MSIR for pain management at discharge. Discussed with oncology; high-risk medications in use. Hospital Course Summary Disclaimer: The visit summary below is not to be considered part of the above Progress Note. Hospital Course: 08/22/17 Admit to observation status under the care of Dr. Elise for treatment of acute dehydration and intractable nausea/vomiting. She was given a total of 2L NS prior to admission. 1/2NS with KCl initiated in ED and will be continued at 125cc/hr for hydration. Zofran, Reglan and Compazine as needed for nausea/vomiting. Recommend minimal oral intake until nausea and vomiting has subsided, then clear liquid diet as tolerated. Continue home fentanyl patch at 100mcg. IV fentanyl as needed for acute breakthrough pain as she is unable to keep her home roxanol down due to nausea/ vomiting. Once nausea/vomiting is improved, will resume home Roxicodone IR and Percocet 7.5mg. Senna plus with miralax and milk of magnesium for constipation and bowel motivation. History of carcinomatosis. Will obtain KUB now given her upper abdominal pain and high risk for bowel obstruction. 08/23 Patient would like to try morphine. She reports in the past, reaction was nausea and vomiting which she had following a surgery. Given Dilaudid is not available, will give trial of morphine. Continue home fentanyl patch at 100mcg. IV fentanyl and morphine as needed for acute breakthrough pain as she is unable to keep her home roxanol down due to nausea/vomiting. Once nausea/vomiting is improved, will resume home Roxicodone IR and Percocet 7.5mg. Will put her on scheduled Reglan and Zofran as she does well on this at home. Compazine can still be given when necessary. Need to watch for extrapyramidal symptoms with combo of all medications. Dr. Quezada also suggest Zyprexa 5 mg IV daily for several days. States this can be used post chemotherapy for nausea and may help with anxiety as well. Continue IV fluids at 125 cc per hour as she is unable to keep anything down at this time. Senna plus with Miralax and milk of magnesia for constipation and bowel motivation. Dr. Quezada recommends patient have repeat Gastrografin enema CT tomorrow if her symptoms are not improving. Recheck labs in AM to monitor blood counts, electrolytes and renal function. 08/24 Will work on being more aggressive with nausea control. Will given Phenergan 50mg IM and continue with Zofran and Reglan IV. Add scopolamine patch She has had one time dose of IV morphine yesterday. Has been having fentanyl overnight. Hospital is getting low of fentanyl quantity. Spoke with nursing staff, will Increase IV morphine to 4 mg and continue on home Fentanyl patch and home Roxanol. Could consider increasing fentanyl patch. Zyprexa IV daily as this can help with post chemo nausea and anxiety Bowels are moving Overall status is concerning, requiring large amounts of medication to keep her comfortable Recommend having Palliative care consult Friday. Case discussed with attending Dr Anguiano 08/25 Her IV fluids were decreased to 50 mL/h last evening. Will continue to decrease as she takes in the more by mouth. For nausea, she continues on Reglan IV q 6, Zofran was held when scopolamine patch was initiated yesterday afternoon, IV Protonix was started yesterday afternoon. She received PRN Compazine twice yesterday and 1 dose of IM Phenergan yesterday as well. For pain, she is doing well with the morphine PODIATRY PROFESSOR pump. Fentanyl IV was discontinued yesterday afternoon as there is a current shortage. She continues with Fentanyl patch. As she continues to feel better and is able to tolerate p.o., will begin to convert IV meds to p.o. Case discussed with attending, Dr Anguiano
[2017-08-25] MEDS: POTASSIUM CHLORIDE PREMIX 10 MEQ/100 ML BAG IV SCH ×4 (12:29→15:50)
[2017-08-25] MEDS ORDERED: MORPHINE SULFATE 4mg INJECTION IVP PRN (15:00)
[2017-08-26] MEDS: MORPHINE PCA 30 MG/30 ML SYRINGE IV PRN ×2 (00:29→11:34)
[2017-08-26] MEDS: METOCLOPRAMIDE 10mg/2ml INJECTION IVP SCH ×4 (03:21→21:05)
[2017-08-26] MEDS: 1/2 NS with KCL 20mEq 1,000 ML IV SCH (06:10)
[2017-08-26] MEDS: POLYETHYL GLYCOL 3350 17gm PACKET PO SCH ×2 (08:04→21:08)
[2017-08-26] MEDS: SENNOSIDES 8.6 MG TABLET PO SCH ×3 (08:04→21:06)
[2017-08-26] MEDS: PANTOPRAZOLE 40 MG INJECTION IVP SCH (09:37)
[2017-08-26] MEDS: OLANZapine ODT 5 MG TABLET PO SCH (09:37)
--- NOTE | 2017-08-26 10:45 | Progress Note ---
Oncology Subjective Reclining in hospital bed. Pleasant. Reports loose stools 2 this morning, no overt diarrhea today. No nausea or vomiting today. Intermittent abdominal pain persists, lessened with current pain management. General: No fever, no night sweats Eyes: No redness, no pain, no diplopia ENT: No mouth sores, no trouble swallowing Cardiac: No chest pain no palpitations Pulmonary: No cough, no shortness of breath, no wheezing Abdomen: + pain, no nausea vomiting. + loose stools : No urgency, frequency, dysuria, or hematuria Musculoskeletal: No arthritis, no myalgias Neurological: No headaches, no focal weakness Skin: No rash, no sores Psychiatric: No anxiety, no depression Exam Vital signs: Temperature 98.4 F 08/26/17 07:32 Pulse Rate 85 08/26/17 07:32 Respiratory Rate 17 08/26/17 07:32 Blood Pressure 131/76 08/26/17 07:32 Pulse Oximetry 95 08/26/17 07:32 - Constitutional no acute distress, cooperative - Routine HEENT Exam Head: Present: normocephalic Eye: Present: EOMI ENT: Present: mucous membranes moist - Routine Neck Exam Present: supple. Absent: lymphadenopathy - Routine Respiratory Exam Present: CTA bilaterally. Absent: wheezes - Routine Cardiovascular Exam Present: RRR. Absent: no murmur - Routine Abdominal Exam Present: soft, normoactive bowel sounds, non tender - Routine Extremities Exam Present: no edema, full ROM - Routine Neurological Exam Present: alert, oriented X3, moving all extremities - Routine Psychiatric Exam Present: normal affect Oncology Results - Labs CBC & Chem 7: 08/27/17 04:11 08/27/17 04:11 Assessment and Plan Assessment and Plan: Assessment and Plan: 1. Recurrent endometrial cancer, carcinoma/sarcoma/mixed mullerian tumor. Recent evidence progressive disease with extensive peritoneal carcinomatosis causing right hydronephrosis and intermittent/partial bowel obstruction. Began palliative ifosfamide/Taxol in June. Treatment stopped secondary to BARREL POLISHER toxicity and inability to get an day 3 of therapy. Began carboplatin and Taxol on 08/20/17. 2. Intractable, constant abdominal pain, improved with morphine. 3. Irregular bowel, mainly constipation; now with loose stools. Recommendations 1. Continue with supportive care: Pain management. 2. Dr. Clancy spoke with Dr. Rafi Gore this morning; had long discussion with patient and partner, Sofiya Hwang on recommendation for 2nd opinion for possible palliative surgical procedure. She is agreeable with seeing surgeon. Arrangements for appointment with surgeon Dr. Rafi Gore, at [facility]; they will be calling patient with details. Instructed patient to take a copy of disc with all radiology examinations done here at [facility] with to Dr. Gore appointment; acknowledges/agrees to do. - Time Spent With Patient Total time spent is greater than 50% in coordination of care (as documented) at patient's floor/unit and/or counseling patient: 25 - 35 minutes
[2017-08-26] MEDS: Oxycodone *IR* 15 MG TABLET PO SCH ×2 (11:31→18:28)
[2017-08-26] MEDS: PHOSPHORUS 250 MG TABLET PO SCH ×3 (11:31→21:05)
--- NOTE | 2017-08-26 16:00 | Progress Note ---
- Date 08/26/17 Subjective: Patient seen sitting in her bed, her partner is bedside. She's doing much better today. States at this point the nausea and pain are both minimal. She has just had liquids thus far, but plans to try "real food" today. Dr. Clancy has given her the option to see a specialist in [place] to discuss possible surgical palliative measures. She does not want further chemotherapy at this time. She states she just wants to be able to be around her family and feel good. She is tired of the hospital and is hesitant for surgery because she states she typically responds "very slowly" after surgery. Objective Vital signs: Temperature 96.8 F 08/26/17 15:00 Pulse Rate 91 08/26/17 15:00 Respiratory Rate 18 08/26/17 15:00 Blood Pressure 146/72 H 08/26/17 15:00 Pulse Oximetry 96 08/26/17 15:00 Rhythm: Sinus Tachycardia (120-130) Height/Weight/BMI: Weight 97.8 kg - Constitutional Present: no acute distress, well nourished, well developed - Routine HEENT Exam Head: Present: normocephalic, atraumatic - Routine Respiratory Exam Present: CTA bilaterally. Absent: wheezes - Routine Cardiovascular Exam Present: RRR, no murmur - Routine Abdominal Exam Present: soft, tenderness (mild LUQ and RLQ pain w/ palpation), non distended - Routine Extremities Exam Present: no edema, normal capillary refill - Routine Skin Exam Present: dry, warm - Routine Neurological Exam Present: alert, oriented X3 - Routine Lymphatic Exam Lymphatic: Absent: adenopathy - Routine Psychiatric Exam Present: normal affect, cooperative Results - Labs CBC & Chem 7: 08/24/17 04:56 08/25/17 04:34 Assessment and Plan (1) Intractable nausea and vomiting Current visit: No Status: Acute (2) Endometrial carcinoma Problem details: Metastatic with carcinomatosis Current visit: No Status: Acute Assessment and Plan: Assessment: Intractable nausea and vomiting secondary to chemotherapy- improving Dehydration. Leukocytosis (WBC 27.4), present on admission - Improving Hypokalemia, present on admission Abdominal pain, acute on chronic. Endometrial CA (stage 4) - metastasis to liver, stomach and kidneys. Anxiety and Depression. CAD and Hypertension. Migraine headaches. Plan Potassium and phosphorus are low - supplementation ordered. Recheck in am. DC IV fluids. Pt is taking fluids well. Progressed to regular diet and plans to try solids today. Will try to convert to PO pain and nausea meds. On exam, it was discovered her Fentanyl patch was absent. She had a new one applied last night so thinks it must've come off in her bed or when she changed shorts last evening. She doesn't feel her pain was optimally controlled on Percocet prior to her hospitalization and is interested in trying morphine if possible. On dismissal, she plans to schedule with specialist in [place] to discuss surgical opts. She wants to know what her opts are, but isn't overly excited about the idea of further surgery at this point. Had a long conversation (40+min) with her and her partner re: "palliative care and hospice" and what this means. It seems patient is leaning towards no further interventions, but family/partner perhaps aren't fully on board with that yet. Pt's biggest concern is having her pain and nausea controlled so she can enjoy the time she has left. - Physician Narrative Physician: Donnie King MD Narrative: Date: 08/26/17 Time: 1639 I have independently evaluated and examined this patient. I reviewed the chart, the patient's history, and the DEVICE ENGINEER/PA's documented findings as above. We discussed and formulated the assessment and plan as above with additions as below: Resting comfortably. Says pain is better with MATTRESS RENOVATOR. Advancing diet. Reports diarrhea. After my visit with patient, CM says patient has asked about going home on MATTRESS RENOVATOR NAD. CTAB. RRR. Soft, mild tenderness, nondistended. No edema. Advance diet and see how she tolerates it. She has a fentanyl patch, will need to convert to oral meds for pain control. Fentanyl patch was off for an undetermined amount of time. d/w pharmacy. Will start MS Contin 30 bid with Percocet q 4 prn. Will continue MATTRESS RENOVATOR but without basal rate and demand dose decreased to 1 mg q30 minutes. iv morphine of 2-4 mg will remain available for breakthrough pain. Continue fentanyl patch. Hospital Course Summary Disclaimer: The visit summary below is not to be considered part of the above Progress Note. Hospital Course: 08/22/17 Admit to observation status under the care of Dr. Elise for treatment of acute dehydration and intractable nausea/vomiting. She was given a total of 2L NS prior to admission. 1/2NS with KCl initiated in ED and will be continued at 125cc/hr for hydration. Zofran, Reglan and Compazine as needed for nausea/vomiting. Recommend minimal oral intake until nausea and vomiting has subsided, then clear liquid diet as tolerated. Continue home fentanyl patch at 100mcg. IV fentanyl as needed for acute breakthrough pain as she is unable to keep her home roxanol down due to nausea/ vomiting. Once nausea/vomiting is improved, will resume home Roxicodone IR and Percocet 7.5mg. Senna plus with miralax and milk of magnesium for constipation and bowel motivation. History of carcinomatosis. Will obtain KUB now given her upper abdominal pain and high risk for bowel obstruction. 08/23 Patient would like to try morphine. She reports in the past, reaction was nausea and vomiting which she had following a surgery. Given Dilaudid is not available, will give trial of morphine. Continue home fentanyl patch at 100mcg. IV fentanyl and morphine as needed for acute breakthrough pain as she is unable to keep her home roxanol down due to nausea/vomiting. Once nausea/vomiting is improved, will resume home Roxicodone IR and Percocet 7.5mg. Will put her on scheduled Reglan and Zofran as she does well on this at home. Compazine can still be given when necessary. Need to watch for extrapyramidal symptoms with combo of all medications. Dr. Quezada also suggest Zyprexa 5 mg IV daily for several days. States this can be used post chemotherapy for nausea and may help with anxiety as well. Continue IV fluids at 125 cc per hour as she is unable to keep anything down at this time. Senna plus with Miralax and milk of magnesia for constipation and bowel motivation. Dr. Quezada recommends patient have repeat Gastrografin enema CT tomorrow if her symptoms are not improving. Recheck labs in AM to monitor blood counts, electrolytes and renal function. 08/24 Will work on being more aggressive with nausea control. Will given Phenergan 50mg IM and continue with Zofran and Reglan IV. Add scopolamine patch She has had one time dose of IV morphine yesterday. Has been having fentanyl overnight. Hospital is getting low of fentanyl quantity. Spoke with nursing staff, will Increase IV morphine to 4 mg and continue on home Fentanyl patch and home Roxanol. Could consider increasing fentanyl patch. Zyprexa IV daily as this can help with post chemo nausea and anxiety Bowels are moving Overall status is concerning, requiring large amounts of medication to keep her comfortable Recommend having Palliative care consult Friday. Case discussed with attending Dr Anguiano 08/25 Her IV fluids were decreased to 50 mL/h last evening. Will continue to decrease as she takes in the more by mouth. For nausea, she continues on Reglan IV q 6, Zofran was held when scopolamine patch was initiated yesterday afternoon, IV Protonix was started yesterday afternoon. She received PRN Compazine twice yesterday and 1 dose of IM Phenergan yesterday as well. For pain, she is doing well with the morphine MATTRESS RENOVATOR pump. Fentanyl IV was discontinued yesterday afternoon as there is a current shortage. She continues with Fentanyl patch. As she continues to feel better and is able to tolerate p.o., will begin to convert IV meds to p.o. Case discussed with attending, Dr Anguiano 08/26 Potassium and phosphorus are low - supplementation ordered. Recheck in am. DC IV fluids. Pt is taking fluids well. Progressed to regular diet and plans to try solids today. Will try to convert to PO pain and nausea meds. On exam, it was discovered her Fentanyl patch was absent. She had a new one applied last night so thinks it must've come off in her bed or when she changed shorts last evening. She doesn't feel her pain was optimally controlled on Percocet prior to her hospitalization and is interested in trying morphine if possible. On dismissal, she plans to schedule with specialist in [place] to discuss surgical opts. She wants to know what her opts are, but isn't overly excited about the idea of further surgery at this point. Had a long conversation (40+min) with her and her partner re: "palliative care and hospice" and what this means. It seems patient is leaning towards no further interventions, but family/partner perhaps aren't fully on board with that yet. Pt's biggest concern is having her pain and nausea controlled so she can enjoy the time she has left. Start MS Contin 30 bid with Percocet q 4 prn. Continue MATTRESS RENOVATOR but without basal rate and demand dose decreased to 1 mg q30 minutes. iv morphine of 2-4 mg will remain available for breakthrough pain. Continue fentanyl patch.
[2017-08-26] MEDS: OXYCODONE/APAP 7.5 MG/325 MG TABLET PO PRN (22:18)
[2017-08-27] MEDS: MORPHINE PCA 30 MG/30 ML SYRINGE IV PRN ×2 (02:31→16:50)
[2017-08-27] MEDS: SALINE FLUSH 10ml SYRINGE IV PRN (02:31)
[2017-08-27] MEDS: METOCLOPRAMIDE 10mg/2ml INJECTION IVP SCH ×3 (03:37→14:37)
[2017-08-27] MEDS: POLYETHYL GLYCOL 3350 17gm PACKET PO SCH ×3 (09:41→22:34)
[2017-08-27] MEDS: SCOPOLAMINE 1mg/3 days PATCH (Eq. 1.5 Patch) TD SCH (09:42)
[2017-08-27] MEDS: PHOSPHORUS 250 MG TABLET PO SCH ×5 (09:43→22:34)
[2017-08-27] MEDS: SENNOSIDES 8.6 MG TABLET PO SCH ×3 (09:43→22:34)
[2017-08-27] MEDS: SCOPOLAMINE PATCH REMOVAL TD SCH (09:43)
[2017-08-27] MEDS: PANTOPRAZOLE 40 MG INJECTION IVP SCH (09:44)
--- NOTE | 2017-08-27 15:52 | Progress Note ---
- Date 08/27/17 Subjective: Says she was awakened by pain at least twice overnight. Says she is more comfortable now. She has had some nausea. Having loose stools. Tearful at times. Plans to have informational meeting with hospice and says she has a lot on her mind. Objective Vital signs: Temperature 97.6 F 08/27/17 11:00 Pulse Rate 77 08/27/17 11:00 Respiratory Rate 18 08/27/17 14:00 Blood Pressure 141/69 H 08/27/17 11:00 Pulse Oximetry 95 08/27/17 11:00 Rhythm: Sinus Tachycardia (120-130) Height/Weight/BMI: Weight 99.3 kg - Constitutional Present: no acute distress - Routine HEENT Exam Eye: Present: EOMI ENT: Present: mucous membranes moist, dentition normal - Routine Respiratory Exam Present: CTA bilaterally - Routine Cardiovascular Exam Present: RRR, S1, S2 - Routine Abdominal Exam Present: tenderness. Absent: rebound, guarding - Routine Extremities Exam Present: no edema Results - Labs CBC & Chem 7: 08/27/17 04:11 08/27/17 04:11 Assessment and Plan (1) Intractable nausea and vomiting Current visit: No Status: Acute (2) Endometrial carcinoma Problem details: Metastatic with carcinomatosis Current visit: No Status: Acute Assessment and Plan: Assessment: Intractable nausea and vomiting secondary to chemotherapy- improving Dehydration. Leukocytosis (WBC 27.4), present on admission - Improving Hypokalemia, present on admission Abdominal pain, acute on chronic. Endometrial CA (stage 4) - metastasis to liver, stomach and kidneys. Anxiety and Depression. CAD and Hypertension. Migraine headaches. Plan Replace potassium IV. Recheck Mg. Phosphorus improved. Monitor. Pt is taking fluids well. Progressed to regular diet and plans to try solids today. Converting to PO pain and nausea meds. Change Protonix to po. She is anxious but willing to talk with hospice. - Physician Narrative Narrative: Date: 08/27/17 Time: 1548 Hospital Course Summary Disclaimer: The visit summary below is not to be considered part of the above Progress Note. Hospital Course: 08/22/17 Admit to observation status under the care of Dr. Elise for treatment of acute dehydration and intractable nausea/vomiting. She was given a total of 2L NS prior to admission. 1/2NS with KCl initiated in ED and will be continued at 125cc/hr for hydration. Zofran, Reglan and Compazine as needed for nausea/vomiting. Recommend minimal oral intake until nausea and vomiting has subsided, then clear liquid diet as tolerated. Continue home fentanyl patch at 100mcg. IV fentanyl as needed for acute breakthrough pain as she is unable to keep her home roxanol down due to nausea/ vomiting. Once nausea/vomiting is improved, will resume home Roxicodone IR and Percocet 7.5mg. Senna plus with miralax and milk of magnesium for constipation and bowel motivation. History of carcinomatosis. Will obtain KUB now given her upper abdominal pain and high risk for bowel obstruction. 08/23 Patient would like to try morphine. She reports in the past, reaction was nausea and vomiting which she had following a surgery. Given Dilaudid is not available, will give trial of morphine. Continue home fentanyl patch at 100mcg. IV fentanyl and morphine as needed for acute breakthrough pain as she is unable to keep her home roxanol down due to nausea/vomiting. Once nausea/vomiting is improved, will resume home Roxicodone IR and Percocet 7.5mg. Will put her on scheduled Reglan and Zofran as she does well on this at home. Compazine can still be given when necessary. Need to watch for extrapyramidal symptoms with combo of all medications. Dr. Quezada also suggest Zyprexa 5 mg IV daily for several days. States this can be used post chemotherapy for nausea and may help with anxiety as well. Continue IV fluids at 125 cc per hour as she is unable to keep anything down at this time. Senna plus with Miralax and milk of magnesia for constipation and bowel motivation. Dr. Quezada recommends patient have repeat Gastrografin enema CT tomorrow if her symptoms are not improving. Recheck labs in AM to monitor blood counts, electrolytes and renal function. 08/24 Will work on being more aggressive with nausea control. Will given Phenergan 50mg IM and continue with Zofran and Reglan IV. Add scopolamine patch She has had one time dose of IV morphine yesterday. Has been having fentanyl overnight. Hospital is getting low of fentanyl quantity. Spoke with nursing staff, will Increase IV morphine to 4 mg and continue on home Fentanyl patch and home Roxanol. Could consider increasing fentanyl patch. Zyprexa IV daily as this can help with post chemo nausea and anxiety Bowels are moving Overall status is concerning, requiring large amounts of medication to keep her comfortable Recommend having Palliative care consult Friday. Case discussed with attending Dr Anguiano 08/25 Her IV fluids were decreased to 50 mL/h last evening. Will continue to decrease as she takes in the more by mouth. For nausea, she continues on Reglan IV q 6, Zofran was held when scopolamine patch was initiated yesterday afternoon, IV Protonix was started yesterday afternoon. She received PRN Compazine twice yesterday and 1 dose of IM Phenergan yesterday as well. For pain, she is doing well with the morphine EDUCATION PROFESSIONAL pump. Fentanyl IV was discontinued yesterday afternoon as there is a current shortage. She continues with Fentanyl patch. As she continues to feel better and is able to tolerate p.o., will begin to convert IV meds to p.o. Case discussed with attending, Dr Anguiano 08/26 Potassium and phosphorus are low - supplementation ordered. Recheck in am. DC IV fluids. Pt is taking fluids well. Progressed to regular diet and plans to try solids today. Will try to convert to PO pain and nausea meds. On exam, it was discovered her Fentanyl patch was absent. She had a new one applied last night so thinks it must've come off in her bed or when she changed shorts last evening. She doesn't feel her pain was optimally controlled on Percocet prior to her hospitalization and is interested in trying morphine if possible. On dismissal, she plans to schedule with specialist in [place] to discuss surgical opts. She wants to know what her opts are, but isn't overly excited about the idea of further surgery at this point. Had a long conversation (40+min) with her and her partner re: "palliative care and hospice" and what this means. It seems patient is leaning towards no further interventions, but family/partner perhaps aren't fully on board with that yet. Pt's biggest concern is having her pain and nausea controlled so she can enjoy the time she has left. Start MS Contin 30 bid with Percocet q 4 prn. Continue EDUCATION PROFESSIONAL but without basal rate and demand dose decreased to 1 mg q30 minutes. iv morphine of 2-4 mg will remain available for breakthrough pain. Continue fentanyl patch.
--- NOTE | 2017-08-27 16:54 | Progress Note ---
Oncology Subjective She remains stable. She is using PRODUCTION CONTROLLER very regularly. She is scheduled to meet with hospice today. Exam Vital signs: Temperature 97.7 F 08/27/17 15:51 Pulse Rate 102 H 08/27/17 15:51 Respiratory Rate 16 08/27/17 15:51 Blood Pressure 130/77 08/27/17 15:51 Pulse Oximetry 92 08/27/17 15:51 - Constitutional no acute distress, well nourished, cooperative - Routine Respiratory Exam Absent: rales, respiratory distress, rhonchi, wheezes, crackles - Routine Cardiovascular Exam Present: RRR, no murmur. Absent: JVD - Routine Abdominal Exam Present: soft, normoactive bowel sounds, tenderness, non distended Oncology Results - Labs CBC & Chem 7: 08/27/17 04:11 08/27/17 04:11 Labs: Short CBC 08/27/17 Range/Units 04:11 WBC 15.3 H (4.5-11.0) T/MM3 Hgb 9.0 L D (12-16) GM/DL Hct 28.3 L D (36-46) % Plt Count 223 (130-400) T/MM3 BMP 08/27/17 04:11 Sodium 141 D Potassium 3.1 L Chloride 102 Carbon Dioxide 29 BUN 7.0 D Creatinine 0.6 L Glucose 104 Calcium 8.5 Assessment and Plan Assessment and Plan: Assessment and Plan: 1. Recurrent endometrial cancer, carcinoma/sarcoma/mixed mullerian tumor. Recent evidence progressive disease with extensive peritoneal carcinomatosis causing right hydronephrosis and intermittent/partial bowel obstruction. Began palliative ifosfamide/Taxol in June. Treatment stopped secondary to LITHOGRAPHIC PROOFER APPRENTICE toxicity and inability to get an day 3 of therapy. Began carboplatin and Taxol on 08/20/17. 2. Intractable, constant abdominal pain, improved with morphine. 3. Irregular bowel, mainly constipation; now with loose stools. Recommendations 1. Continue with supportive care: Pain management. 2. The patient is scheduled to meet with hospice today. Also she is keeping her appointment at [facility] in [place]. - Time Spent With Patient Total time spent is greater than 50% in coordination of care (as documented) at patient's floor/unit and/or counseling patient: less than 15 minutes
[2017-08-27] MEDS ORDERED: POTASSIUM ACETATE IV SCH (17:00)
[2017-08-27] MEDS ORDERED: NS IV SCH (17:00)
[2017-08-27] MEDS: POTASSIUM CHLORIDE INJ 10 MEQ in NS 100 ML IV SCH ×5 (18:05→23:05)
[2017-08-27] MEDS: POTASSIUM CHLORIDE PREMIX 10 MEQ/100 ML BAG IV SCH (18:11)
[2017-08-27] MEDS: OXYCODONE/APAP 7.5 MG/325 MG TABLET PO PRN (19:44)
[2017-08-28] MEDS: POTASSIUM CHLORIDE INJ 10 MEQ in NS 100 ML IV SCH (00:13)
[2017-08-28] MEDS: PANTOPRAZOLE 40 MG TABLET PO SCH (05:54)
[2017-08-28] MEDS: PROCHLORPERAZINE 10 MG/2 ML INJECTION IVP PRN (08:39)
[2017-08-28] MEDS: SENNOSIDES 8.6 MG TABLET PO SCH ×2 (08:40→20:45)
[2017-08-28] MEDS: POLYETHYL GLYCOL 3350 17gm PACKET PO SCH ×2 (08:40→20:43)
[2017-08-28] MEDS: PHOSPHORUS 250 MG TABLET PO SCH ×2 (08:40→12:26)
--- NOTE | 2017-08-28 12:05 | Progress Note ---
- Date 08/28/17 Subjective: Patient is seen sitting in bed eating breakfast. She continues to have pain, but no nausea. Thinks she pushes the button on the morphine QUALITY CONTROL COORDINATOR pump about hourly during the day. She hasn't been asking for the percocet prior to using the morphine pump as I had asked her to. She reports she had a good visit with Hospice. She wants to go to for the consult to hear about her opts, but if she chooses not to proceed with surgery, she plans to set up with hospice when she returns home for pain measures, etc. She's done well with switching from basal morphine through the pump to p.o. MS contin. Objective Vital signs: Temperature 97.4 F 08/28/17 08:16 Pulse Rate 88 08/28/17 08:16 Respiratory Rate 16 08/28/17 08:16 Blood Pressure 147/82 H 08/28/17 08:16 Pulse Oximetry 98 08/28/17 08:16 Rhythm: Sinus Tachycardia (120-130) Height/Weight/BMI: Weight 99.5 kg - Constitutional Present: no acute distress, well nourished, well developed - Routine HEENT Exam Head: Present: normocephalic, atraumatic - Routine Respiratory Exam Present: CTA bilaterally. Absent: wheezes - Routine Cardiovascular Exam Present: RRR, no murmur - Routine Abdominal Exam Present: soft, tenderness (LUQ, RLQ), non distended - Routine Extremities Exam Present: no edema, normal capillary refill - Routine Skin Exam Present: dry, warm - Routine Neurological Exam Present: alert, oriented X3 - Routine Lymphatic Exam Lymphatic: Absent: adenopathy - Routine Psychiatric Exam Present: normal affect, cooperative Results - Labs CBC & Chem 7: 08/28/17 04:30 08/28/17 04:30 Assessment and Plan (1) Intractable nausea and vomiting Current visit: No Status: Acute (2) Endometrial carcinoma Problem details: Metastatic with carcinomatosis Current visit: No Status: Acute Assessment and Plan: Assessment: Intractable nausea and vomiting secondary to chemotherapy- resolved Dehydration - resolved Leukocytosis (WBC 27.4), present on admission - Improving Hypokalemia, present on admission Abdominal pain, acute on chronic. - improving Hypomagnesemia-not POA Endometrial CA (stage 4) - metastasis to liver, stomach and kidneys. Anxiety and Depression. CAD and Hypertension. Migraine headaches. Plan Potassium 3.4- replace with 40mEq po. Magnesium 1.4 - replaced with 2 mg IV. Phosphorus improved. Patient is tolerating regular diet. Doing okay with switch from basal morphine through pump to MS Contin p.o., but still using the morphine pump at least hourly. Will increase her a.m. morphine to 45 mg and continue 30 mg at bedtime. Will decrease her QUALITY CONTROL COORDINATOR morphine dose from 2 mg to 0.5 mg on demand every 30 minutes. Encouraged her to use the Percocet for breakthrough pain opposed to using the morphine pump in effort to get her off of IV meds. If the Percocet is not holding her pain, then she can use the morphine pump. Continue Reglan 10 mg p.o. before meals and at bedtime and scopolamine patch. She can use Compazine or Zofran if she needs something beyond this. Suspect she'll be able to discharge within the next few days presuming pain is control and nausea does not return. She plans to go to [place] to find out what her options are with the specialist. If she does not proceed with any further intervention, she will establish with hospice. Goal is to DC her home on MS Contin BID with percocet as needed for breakthrough pain. For nausea, hope to DC on Reglan 10mg (or perhaps even 5mg) AC/hs and scopalamine patch, with compazine as needed. She'll need to continue on routine senna and Miralax to keep stools soft/loose. - Physician Narrative Physician: Donnie King MD Narrative: Date: 08/28/17 Time: 1904 I have independently evaluated and examined this patient. I reviewed the chart, the patient's history, and the [employer]/PA's documented findings as above. We discussed and formulated the assessment and plan as above with additions as below: Patient resting comfortably. Tolerating food. Estimates she is pushing the button on QUALITY CONTROL COORDINATOR about q 90 minutes. Pain is fairly well controlled. NAD. CTAB. RRR. soft, diffuse tenderness. No edema Increase MS Contin to 45 bid and DC QUALITY CONTROL COORDINATOR. IV morphine remains available. Patient understands iv pain meds must be stopped to be able to go home and then f/u with surgeon. Hospital Course Summary Disclaimer: The visit summary below is not to be considered part of the above Progress Note. Hospital Course: 08/22/17 Admit to observation status under the care of Dr. Elise for treatment of acute dehydration and intractable nausea/vomiting. She was given a total of 2L NS prior to admission. 1/2NS with KCl initiated in ED and will be continued at 125cc/hr for hydration. Zofran, Reglan and Compazine as needed for nausea/vomiting. Recommend minimal oral intake until nausea and vomiting has subsided, then clear liquid diet as tolerated. Continue home fentanyl patch at 100mcg. IV fentanyl as needed for acute breakthrough pain as she is unable to keep her home roxanol down due to nausea/ vomiting. Once nausea/vomiting is improved, will resume home Roxicodone IR and Percocet 7.5mg. Senna plus with miralax and milk of magnesium for constipation and bowel motivation. History of carcinomatosis. Will obtain KUB now given her upper abdominal pain and high risk for bowel obstruction. 08/23 Patient would like to try morphine. She reports in the past, reaction was nausea and vomiting which she had following a surgery. Given Dilaudid is not available, will give trial of morphine. Continue home fentanyl patch at 100mcg. IV fentanyl and morphine as needed for acute breakthrough pain as she is unable to keep her home roxanol down due to nausea/vomiting. Once nausea/vomiting is improved, will resume home Roxicodone IR and Percocet 7.5mg. Will put her on scheduled Reglan and Zofran as she does well on this at home. Compazine can still be given when necessary. Need to watch for extrapyramidal symptoms with combo of all medications. Dr. Quezada also suggest Zyprexa 5 mg IV daily for several days. States this can be used post chemotherapy for nausea and may help with anxiety as well. Continue IV fluids at 125 cc per hour as she is unable to keep anything down at this time. Senna plus with Miralax and milk of magnesia for constipation and bowel motivation. Dr. Quezada recommends patient have repeat Gastrografin enema CT tomorrow if her symptoms are not improving. Recheck labs in AM to monitor blood counts, electrolytes and renal function. 08/24 Will work on being more aggressive with nausea control. Will given Phenergan 50mg IM and continue with Zofran and Reglan IV. Add scopolamine patch She has had one time dose of IV morphine yesterday. Has been having fentanyl overnight. Hospital is getting low of fentanyl quantity. Spoke with nursing staff, will Increase IV morphine to 4 mg and continue on home Fentanyl patch and home Roxanol. Could consider increasing fentanyl patch. Zyprexa IV daily as this can help with post chemo nausea and anxiety Bowels are moving Overall status is concerning, requiring large amounts of medication to keep her comfortable Recommend having Palliative care consult Friday. Case discussed with attending Dr Anguiano 08/25 Her IV fluids were decreased to 50 mL/h last evening. Will continue to decrease as she takes in the more by mouth. For nausea, she continues on Reglan IV q 6, Zofran was held when scopolamine patch was initiated yesterday afternoon, IV Protonix was started yesterday afternoon. She received PRN Compazine twice yesterday and 1 dose of IM Phenergan yesterday as well. For pain, she is doing well with the morphine QUALITY CONTROL COORDINATOR pump. Fentanyl IV was discontinued yesterday afternoon as there is a current shortage. She continues with Fentanyl patch. As she continues to feel better and is able to tolerate p.o., will begin to convert IV meds to p.o. Case discussed with attending, Dr Anguiano 08/26 Potassium and phosphorus are low - supplementation ordered. Recheck in am. DC IV fluids. Pt is taking fluids well. Progressed to regular diet and plans to try solids today. Will try to convert to PO pain and nausea meds. On exam, it was discovered her Fentanyl patch was absent. She had a new one applied last night so thinks it must've come off in her bed or when she changed shorts last evening. She doesn't feel her pain was optimally controlled on Percocet prior to her hospitalization and is interested in trying morphine if possible. On dismissal, she plans to schedule with specialist in [place] to discuss surgical opts. She wants to know what her opts are, but isn't overly excited about the idea of further surgery at this point. Had a long conversation (40+min) with her and her partner re: "palliative care and hospice" and what this means. It seems patient is leaning towards no further interventions, but family/partner perhaps aren't fully on board with that yet. Pt's biggest concern is having her pain and nausea controlled so she can enjoy the time she has left. Start MS Contin 30 bid with Percocet q 4 prn. Continue QUALITY CONTROL COORDINATOR but without basal rate and demand dose decreased to 1 mg q30 minutes. iv morphine of 2-4 mg will remain available for breakthrough pain. Continue fentanyl patch.Potassium 3.4- replace with 3/1 40mEq po. Magnesium 1.4 - replaced with 2 mg IV. Phosphorus improved. Patient is tolerating regular diet. Doing okay with switch from basal morphine through pump to MS Contin p.o., but still using the morphine pump at least hourly. Will increase her a.m. morphine to 45 mg and continue 30 mg at bedtime. Will decrease her QUALITY CONTROL COORDINATOR morphine dose from 2 mg to 0.5 mg on demand every 30 minutes. Encouraged her to use the Percocet for breakthrough pain opposed to using the morphine pump in effort to get her off of IV meds. If the Percocet is not holding her pain, then she can use the morphine pump. Continue Reglan 10 mg p.o. before meals and at bedtime and scopolamine patch. She can use Compazine or Zofran if she needs something beyond this. Suspect she'll be able to discharge within the next few days presuming pain is control and nausea does not return. She plans to go to [place] to find out what her options are with the specialist. If she does not proceed with any further intervention, she will establish with hospice. Goal is to DC her home on MS Contin BID with percocet as needed for breakthrough pain. For nausea, hope to DC on Reglan 10mg (or perhaps even 5mg) AC/hs and scopalamine patch, with compazine as needed. She'll need to continue on routine senna and Miralax to keep stools soft/loose. Addendum entered and electronically signed by JAXON Kendrick 08/28/17 16:31 : Discussed case with Dr. King. Will DC QUALITY CONTROL COORDINATOR and have her use Percocet po PRN and can use morphine IV if needed for breakthrough pain not covered by MS contin or percocet. Will increase both am and pm dose of MS contin to 45mg.
[2017-08-28] MEDS: MORPHINE PCA 30 MG/30 ML SYRINGE IV PRN (12:18)
[2017-08-28] MEDS: MAGNESIUM SULFATE 1gm PREMIX 1 GM/100 ML BAG IV SCH ×2 (14:09→15:10)
[2017-08-28] MEDS: OXYCODONE/APAP 7.5 MG/325 MG TABLET PO PRN (14:21)
[2017-08-28] MEDS ORDERED: DiphenhydrAMINE 25 MG CAPSULE PO ONE (21:58)
[2017-08-29] MEDS: OXYCODONE/APAP 7.5 MG/325 MG TABLET PO PRN ×3 (02:42→20:16)
[2017-08-29] MEDS: PANTOPRAZOLE 40 MG TABLET PO SCH (05:30)
[2017-08-29] MEDS: MORPHINE SULFATE 2mg INJECTION IVP PRN ×2 (08:22→23:32)
[2017-08-29] MEDS: SALINE FLUSH 10ml SYRINGE IV PRN ×2 (08:22→23:32)
[2017-08-29] MEDS: SENNOSIDES 8.6 MG TABLET PO SCH ×3 (09:30→22:15)
[2017-08-29] MEDS: POLYETHYL GLYCOL 3350 17gm PACKET PO SCH ×2 (09:30→22:14)
--- NOTE | 2017-08-29 11:14 | Progress Note ---
- Date 08/29/17 Subjective: Patient is seen sitting in bed. She reports the pain is still an issue but she no longer has any nausea. She's been eating a regular diet. Her morphine was increased to 45 mg last night and she took a Percocet overnight. She reports that she should have asked her the IV morphine as well. She is having more pain now. Currently is 6-7/10. Her main goal is to get the pain controlled so she can go to [place] to see the specialist. She wants to listen to what the surgeon has to say, but is not wanting to have any major surgery done. She is anxious because she feels her stools are becoming formed. Objective Vital signs: Temperature 97.6 F 08/29/17 07:51 Pulse Rate 77 08/29/17 07:51 Respiratory Rate 16 08/29/17 07:51 Blood Pressure 151/86 H 08/29/17 07:51 Pulse Oximetry 96 08/29/17 07:51 Rhythm: Sinus Tachycardia (120-130) Height/Weight/BMI: Weight 99.5 kg - Constitutional Present: no acute distress, well nourished, well developed - Routine HEENT Exam Head: Present: normocephalic, atraumatic - Routine Respiratory Exam Present: CTA bilaterally. Absent: wheezes - Routine Cardiovascular Exam Present: RRR, no murmur - Routine Abdominal Exam Present: soft, tenderness (diffuse, worse in the abdomen to left upper quadrant. She has a fullness in this area, but I can't say that it is clearly a mass.), non distended - Routine Extremities Exam Present: no edema, normal capillary refill - Routine Skin Exam Present: dry, warm - Routine Neurological Exam Present: alert, oriented X3 - Routine Lymphatic Exam Lymphatic: Absent: adenopathy - Routine Psychiatric Exam Present: normal affect, cooperative, anxious (tearful at times) Results - Labs CBC & Chem 7: 08/29/17 04:23 08/29/17 04:23 Assessment and Plan (1) Intractable nausea and vomiting Current visit: No Status: Acute (2) Endometrial carcinoma Problem details: Metastatic with carcinomatosis Current visit: No Status: Acute Assessment and Plan: Assessment: Intractable nausea and vomiting secondary to chemotherapy- resolved Dehydration - resolved Leukocytosis (WBC 27.4), present on admission - Improving Hypokalemia, present on admission Abdominal pain, acute on chronic. - improving Hypomagnesemia-not POA Endometrial CA (stage 4) - metastasis to liver, stomach and kidneys. Anxiety and Depression. CAD and Hypertension. Migraine headaches. Plan Continue MS Contin 45 mg twice a day. Will change PRN Percocet to scheduled 7.5/ 325 one every 4 hours. Will continue with a PRN every 4 hours Percocet 7.5/325 order as well. Morphine IV will still be available, but she should only use this if she has failed the max dose of PRN Percocet. May have to consider increasing her MS Contin dose if she continues to need IV morphine. Start Cymbalta 30 mg twice a day to help with depression, anxiety, chronic pain. Patient is willing. Discussed it may take several weeks to see results of medication. Will need to watch for serotonin syndrome given her narcotic usage. Decrease Reglan to 5 mg before meals and at bedtime as she is having no nausea. Continue scopolamine patch. She can use Compazine or Zofran if she needs something beyond this. Increase senna from twice a day to 3 times a day. - Physician Narrative Physician: Donnie King MD Narrative: Date: 08/29/17 Time: 1939 I have independently evaluated and examined this patient. I reviewed the chart, the patient's history, and the [employer]/PA's documented findings as above. We discussed and formulated the assessment and plan as above with additions as below: She is resting. Pain is about the same. She has not had iv morphine since this am. Hoping to go home soon and then see surgeon about possible palliative measures. She is concerned about her stools being more formed. NAD. CTAB. RRR. Tender. No edema Percocet now scheduled. Patient trying to avoid iv morphine. Senna is increased. Encourage activity. Hospital Course Summary Disclaimer: The visit summary below is not to be considered part of the above Progress Note. Hospital Course: 08/22/17 Admit to observation status under the care of Dr. Elise for treatment of acute dehydration and intractable nausea/vomiting. She was given a total of 2L NS prior to admission. 1/2NS with KCl initiated in ED and will be continued at 125cc/hr for hydration. Zofran, Reglan and Compazine as needed for nausea/vomiting. Recommend minimal oral intake until nausea and vomiting has subsided, then clear liquid diet as tolerated. Continue home fentanyl patch at 100mcg. IV fentanyl as needed for acute breakthrough pain as she is unable to keep her home roxanol down due to nausea/ vomiting. Once nausea/vomiting is improved, will resume home Roxicodone IR and Percocet 7.5mg. Senna plus with miralax and milk of magnesium for constipation and bowel motivation. History of carcinomatosis. Will obtain KUB now given her upper abdominal pain and high risk for bowel obstruction. 08/23 Patient would like to try morphine. She reports in the past, reaction was nausea and vomiting which she had following a surgery. Given Dilaudid is not available, will give trial of morphine. Continue home fentanyl patch at 100mcg. IV fentanyl and morphine as needed for acute breakthrough pain as she is unable to keep her home roxanol down due to nausea/vomiting. Once nausea/vomiting is improved, will resume home Roxicodone IR and Percocet 7.5mg. Will put her on scheduled Reglan and Zofran as she does well on this at home. Compazine can still be given when necessary. Need to watch for extrapyramidal symptoms with combo of all medications. Dr. Quezada also suggest Zyprexa 5 mg IV daily for several days. States this can be used post chemotherapy for nausea and may help with anxiety as well. Continue IV fluids at 125 cc per hour as she is unable to keep anything down at this time. Senna plus with Miralax and milk of magnesia for constipation and bowel motivation. Dr. Quezada recommends patient have repeat Gastrografin enema CT tomorrow if her symptoms are not improving. Recheck labs in AM to monitor blood counts, electrolytes and renal function. 08/24 Will work on being more aggressive with nausea control. Will given Phenergan 50mg IM and continue with Zofran and Reglan IV. Add scopolamine patch She has had one time dose of IV morphine yesterday. Has been having fentanyl overnight. Hospital is getting low of fentanyl quantity. Spoke with nursing staff, will Increase IV morphine to 4 mg and continue on home Fentanyl patch and home Roxanol. Could consider increasing fentanyl patch. Zyprexa IV daily as this can help with post chemo nausea and anxiety Bowels are moving Overall status is concerning, requiring large amounts of medication to keep her comfortable Recommend having Palliative care consult Friday. Case discussed with attending Dr Anguiano 08/25 Her IV fluids were decreased to 50 mL/h last evening. Will continue to decrease as she takes in the more by mouth. For nausea, she continues on Reglan IV q 6, Zofran was held when scopolamine patch was initiated yesterday afternoon, IV Protonix was started yesterday afternoon. She received PRN Compazine twice yesterday and 1 dose of IM Phenergan yesterday as well. For pain, she is doing well with the morphine DATA PROCESSING SUPERVISOR pump. Fentanyl IV was discontinued yesterday afternoon as there is a current shortage. She continues with Fentanyl patch. As she continues to feel better and is able to tolerate p.o., will begin to convert IV meds to p.o. Case discussed with attending, Dr Anguiano 08/26 Potassium and phosphorus are low - supplementation ordered. Recheck in am. DC IV fluids. Pt is taking fluids well. Progressed to regular diet and plans to try solids today. Will try to convert to PO pain and nausea meds. On exam, it was discovered her Fentanyl patch was absent. She had a new one applied last night so thinks it must've come off in her bed or when she changed shorts last evening. She doesn't feel her pain was optimally controlled on Percocet prior to her hospitalization and is interested in trying morphine if possible. On dismissal, she plans to schedule with specialist in [place] to discuss surgical opts. She wants to know what her opts are, but isn't overly excited about the idea of further surgery at this point. Had a long conversation (40+min) with her and her partner re: "palliative care and hospice" and what this means. It seems patient is leaning towards no further interventions, but family/partner perhaps aren't fully on board with that yet. Pt's biggest concern is having her pain and nausea controlled so she can enjoy the time she has left. Start MS Contin 30 bid with Percocet q 4 prn. Continue DATA PROCESSING SUPERVISOR but without basal rate and demand dose decreased to 1 mg q30 minutes. iv morphine of 2-4 mg will remain available for breakthrough pain. Continue fentanyl patch.Potassium 3.4- replace with 3/1 40mEq po. Magnesium 1.4 - replaced with 2 mg IV. Phosphorus improved. Patient is tolerating regular diet. Doing okay with switch from basal morphine through pump to MS Contin p.o., but still using the morphine pump at least hourly. Will increase her a.m. morphine to 45 mg and continue 30 mg at bedtime. Will decrease her DATA PROCESSING SUPERVISOR morphine dose from 2 mg to 0.5 mg on demand every 30 minutes. Encouraged her to use the Percocet for breakthrough pain opposed to using the morphine pump in effort to get her off of IV meds. If the Percocet is not holding her pain, then she can use the morphine pump. Continue Reglan 10 mg p.o. before meals and at bedtime and scopolamine patch. She can use Compazine or Zofran if she needs something beyond this. Suspect she'll be able to discharge within the next few days presuming pain is control and nausea does not return. She plans to go to [place] to find out what her options are with the specialist. If she does not proceed with any further intervention, she will establish with hospice. Goal is to DC her home on MS Contin BID with percocet as needed for breakthrough pain. For nausea, hope to DC on Reglan 10mg (or perhaps even 5mg) AC/hs and scopalamine patch, with compazine as needed. She'll need to continue on routine senna and Miralax to keep stools soft/loose. 3/2 Continue MS Contin 45 mg twice a day. Will change PRN Percocet to scheduled 7.5/ 325 one every 4 hours. Will continue with a PRN every 4 hours Percocet 7.5/325 order as well. Morphine IV will still be available, but she should only use this if she has failed the max dose of PRN Percocet. May have to consider increasing her MS Contin dose if she continues to need IV morphine. Start Cymbalta 30 mg twice a day to help with depression, anxiety, chronic pain. Patient is willing. Discussed it may take several weeks to see results of medication. Will need to watch for serotonin syndrome given her narcotic usage. Decrease Reglan to 5 mg before meals and at bedtime as she is having no nausea. Continue scopolamine patch. She can use Compazine or Zofran if she needs something beyond this. Increase senna from twice a day to 3 times a day.
[2017-08-29] MEDS: METOCLOPRAMIDE 5mg TABLET PO SCH ×3 (12:19→22:15)
[2017-08-29] MEDS: OXYCODONE/APAP 7.5 MG/325 MG TABLET PO SCH ×4 (14:36→22:15)
[2017-08-29] MEDS: DULOXETINE 30 MG CAPSULE PO SCH (22:14)
[2017-08-30] MEDS: OXYCODONE/APAP 7.5 MG/325 MG TABLET PO SCH ×7 (02:47→22:24)
[2017-08-30] MEDS: METOCLOPRAMIDE 5mg TABLET PO SCH ×5 (05:05→21:33)
[2017-08-30] MEDS: PANTOPRAZOLE 40 MG TABLET PO SCH ×2 (05:05→06:25)
[2017-08-30] MEDS: DULOXETINE 30 MG CAPSULE PO SCH ×2 (08:28→21:33)
[2017-08-30] MEDS: SENNOSIDES 8.6 MG TABLET PO SCH ×3 (08:28→21:33)
[2017-08-30] MEDS: POLYETHYL GLYCOL 3350 17gm PACKET PO SCH ×2 (08:28→21:33)
[2017-08-30] MEDS: OXYCODONE/APAP 7.5 MG/325 MG TABLET PO PRN ×2 (08:29→21:33)
[2017-08-30] MEDS: SCOPOLAMINE 1mg/3 days PATCH (Eq. 1.5 Patch) TD SCH (11:20)
[2017-08-30] MEDS: SCOPOLAMINE PATCH REMOVAL TD SCH (11:22)
[2017-08-30] MEDS ORDERED: MAGNESIUM CITRATE 296ml PO ONE (13:49)
[2017-08-30] MEDS ORDERED: MORPHINE SULFATE 10 MG/5 ML PO PRN (14:59)
--- NOTE | 2017-08-30 15:31 | Progress Note ---
- Date 08/30/17 Subjective: Larry is seen in follow up. She reports that she is having more pain today. She appears quite anxious, wringing her hands, but states that she does not feel anxiety is not a contributing factor. Reports she just had Percocet. Is waiting for the Roxanol that was recently ordered to arrive. States her need is to "just get my pain under control." Objective Vital signs: Temperature 97.2 F 08/30/17 12:00 Pulse Rate 84 08/30/17 12:00 Respiratory Rate 18 08/30/17 12:00 Blood Pressure 183/82 H 08/30/17 12:00 Pulse Oximetry 97 08/30/17 12:00 Rhythm: Sinus Tachycardia (120-130) Height/Weight/BMI: Weight 99.2 kg - Constitutional Present: moderate distress, obese, cooperative - Routine HEENT Exam Head: Present: normocephalic, atraumatic Eye: Present: EOMI, PERRL ENT: Present: mucous membranes moist - Routine Respiratory Exam Present: CTA bilaterally. Absent: dyspnea - Routine Cardiovascular Exam Present: RRR, S1, S2, no murmur - Routine Abdominal Exam Present: soft, tenderness (RLQ, LUQ is tender), non distended - Routine Extremities Exam Present: no edema - Routine Musculoskeletal Exam Musculoskeletal: Present: normal strength, moving extremities well - Routine Skin Exam Present: intact, dry, warm, alopecia - Routine Neurological Exam Present: alert, oriented X3 - Routine Psychiatric Exam Present: cooperative, anxious Results - Labs CBC & Chem 7: 08/29/17 04:23 08/30/17 05:02 Assessment and Plan (1) Intractable nausea and vomiting Current visit: No Status: Acute (2) Endometrial carcinoma Problem details: Metastatic with carcinomatosis Current visit: No Status: Acute Assessment and Plan: Assessment: Intractable nausea and vomiting secondary to chemotherapy- resolved Dehydration - resolved Leukocytosis (WBC 27.4), present on admission - Improving Hypokalemia, present on admission Abdominal pain, acute on chronic. - improving Hypomagnesemia-not POA Endometrial CA (stage 4) - metastasis to liver, stomach and kidneys. Anxiety and Depression. CAD and Hypertension. Migraine headaches. Plan 08/30/17 Intractable pain of malignancy. Current medication orders: MS Contin 45mg PO BID. She also has Roxanol 10mg PRN, as well as Morphine IV PRN. Percocet 7.5mg PO both scheduled and PRN. Fentanyl patch 100 mcg TD scheduled. Will need to monitor closely for excess sedation. She appears to have significant anxiety that is a contributing factor. Started Cymbalta 30 mg twice a day to help with depression, anxiety, chronic pain. Monitor for serotonin syndrome type reaction or excess sedation. Decrease Reglan to 5 mg before meals and at bedtime as she is having no nausea. Continue scopolamine patch. She can use Compazine or Zofran if she needs something beyond this. DC IM Phenergan given sedation risk. Consider DC Reglan if she remains nausea free due to s/e risk. Increase senna from twice a day to 3 times a day, continue scheduled Miralax. Supportive care. Repeat labs in AM. Addendum:Seen and examined patient on same day as the above note. Agree with history, physical, assessment and plan. Comprehensive physical findings correlate to the above note. Subjective: all pain is gastric and she is able to control his by asking for additional pain medications. She has used the IV morphine a few times this morning. Objective: no apparent distress. Alert and conversant on current medications. S1 S2 +0, lung dior clear to auscultation bilaterally, occasional bowel sounds , abdomen appropriately tender to condition. Assessment and plan: patient is extremely well-informed to her condition and appears to be attempting to direct families responses to her decline appropriately. No family is available to discuss this with today. She is not adverse to debulking procedure but does not want to spend her declining time in the hospital of this can be avoided. She is keen to keep her gut peristalsis going and so I've added some mag citrate is a trial for. In regard to a pain, I'm uncertain why they had not tried oral morphine sublingually earlier but she is also keen to try this as she wants to discharge home as soon as possible and knows that she cannot do this with supplemental IV pain medication. Again we will observe this over the next day and determined if you shall dosing is sufficient Documented on Dragon speech to text. Efforts to correct speech recognition errors performed, but variation may exist DVT Prophylaxis: SCD's Resuscitation Status: Do Not Resuscitate - Physician Narrative Narrative: Date: 08/30/17 Time: 1528 Hospital Course Summary Disclaimer: The visit summary below is not to be considered part of the above Progress Note. Hospital Course: 08/22/17 Admit to observation status under the care of Dr. Elise for treatment of acute dehydration and intractable nausea/vomiting. She was given a total of 2L NS prior to admission. 1/2NS with KCl initiated in ED and will be continued at 125cc/hr for hydration. Zofran, Reglan and Compazine as needed for nausea/vomiting. Recommend minimal oral intake until nausea and vomiting has subsided, then clear liquid diet as tolerated. Continue home fentanyl patch at 100mcg. IV fentanyl as needed for acute breakthrough pain as she is unable to keep her home roxanol down due to nausea/ vomiting. Once nausea/vomiting is improved, will resume home Roxicodone IR and Percocet 7.5mg. Senna plus with miralax and milk of magnesium for constipation and bowel motivation. History of carcinomatosis. Will obtain KUB now given her upper abdominal pain and high risk for bowel obstruction. 08/23 Patient would like to try morphine. She reports in the past, reaction was nausea and vomiting which she had following a surgery. Given Dilaudid is not available, will give trial of morphine. Continue home fentanyl patch at 100mcg. IV fentanyl and morphine as needed for acute breakthrough pain as she is unable to keep her home roxanol down due to nausea/vomiting. Once nausea/vomiting is improved, will resume home Roxicodone IR and Percocet 7.5mg. Will put her on scheduled Reglan and Zofran as she does well on this at home. Compazine can still be given when necessary. Need to watch for extrapyramidal symptoms with combo of all medications. Dr. Quezada also suggest Zyprexa 5 mg IV daily for several days. States this can be used post chemotherapy for nausea and may help with anxiety as well. Continue IV fluids at 125 cc per hour as she is unable to keep anything down at this time. Senna plus with Miralax and milk of magnesia for constipation and bowel motivation. Dr. Quezada recommends patient have repeat Gastrografin enema CT tomorrow if her symptoms are not improving. Recheck labs in AM to monitor blood counts, electrolytes and renal function. 08/24 Will work on being more aggressive with nausea control. Will given Phenergan 50mg IM and continue with Zofran and Reglan IV. Add scopolamine patch She has had one time dose of IV morphine yesterday. Has been having fentanyl overnight. Hospital is getting low of fentanyl quantity. Spoke with nursing staff, will Increase IV morphine to 4 mg and continue on home Fentanyl patch and home Roxanol. Could consider increasing fentanyl patch. Zyprexa IV daily as this can help with post chemo nausea and anxiety Bowels are moving Overall status is concerning, requiring large amounts of medication to keep her comfortable Recommend having Palliative care consult Friday. Case discussed with attending Dr Anguiano 08/25 Her IV fluids were decreased to 50 mL/h last evening. Will continue to decrease as she takes in the more by mouth. For nausea, she continues on Reglan IV q 6, Zofran was held when scopolamine patch was initiated yesterday afternoon, IV Protonix was started yesterday afternoon. She received PRN Compazine twice yesterday and 1 dose of IM Phenergan yesterday as well. For pain, she is doing well with the morphine RADIOLOGY ASSISTANT pump. Fentanyl IV was discontinued yesterday afternoon as there is a current shortage. She continues with Fentanyl patch. As she continues to feel better and is able to tolerate p.o., will begin to convert IV meds to p.o. Case discussed with attending, Dr Anguiano 08/26 Potassium and phosphorus are low - supplementation ordered. Recheck in am. DC IV fluids. Pt is taking fluids well. Progressed to regular diet and plans to try solids today. Will try to convert to PO pain and nausea meds. On exam, it was discovered her Fentanyl patch was absent. She had a new one applied last night so thinks it must've come off in her bed or when she changed shorts last evening. She doesn't feel her pain was optimally controlled on Percocet prior to her hospitalization and is interested in trying morphine if possible. On dismissal, she plans to schedule with specialist in [place] to discuss surgical opts. She wants to know what her opts are, but isn't overly excited about the idea of further surgery at this point. Had a long conversation (40+min) with her and her partner re: "palliative care and hospice" and what this means. It seems patient is leaning towards no further interventions, but family/partner perhaps aren't fully on board with that yet. Pt's biggest concern is having her pain and nausea controlled so she can enjoy the time she has left. Start MS Contin 30 bid with Percocet q 4 prn. Continue RADIOLOGY ASSISTANT but without basal rate and demand dose decreased to 1 mg q30 minutes. iv morphine of 2-4 mg will remain available for breakthrough pain. Continue fentanyl patch.Potassium 3.4- replace with 3/1 40mEq po. Magnesium 1.4 - replaced with 2 mg IV. Phosphorus improved. Patient is tolerating regular diet. Doing okay with switch from basal morphine through pump to MS Contin p.o., but still using the morphine pump at least hourly. Will increase her a.m. morphine to 45 mg and continue 30 mg at bedtime. Will decrease her RADIOLOGY ASSISTANT morphine dose from 2 mg to 0.5 mg on demand every 30 minutes. Encouraged her to use the Percocet for breakthrough pain opposed to using the morphine pump in effort to get her off of IV meds. If the Percocet is not holding her pain, then she can use the morphine pump. Continue Reglan 10 mg p.o. before meals and at bedtime and scopolamine patch. She can use Compazine or Zofran if she needs something beyond this. Suspect she'll be able to discharge within the next few days presuming pain is control and nausea does not return. She plans to go to [place] to find out what her options are with the specialist. If she does not proceed with any further intervention, she will establish with hospice. Goal is to DC her home on MS Contin BID with percocet as needed for breakthrough pain. For nausea, hope to DC on Reglan 10mg (or perhaps even 5mg) AC/hs and scopalamine patch, with compazine as needed. She'll need to continue on routine senna and Miralax to keep stools soft/loose. 3/2 Continue MS Contin 45 mg twice a day. Will change PRN Percocet to scheduled 7.5/ 325 one every 4 hours. Will continue with a PRN every 4 hours Percocet 7.5/325 order as well. Morphine IV will still be available, but she should only use this if she has failed the max dose of PRN Percocet. May have to consider increasing her MS Contin dose if she continues to need IV morphine. Start Cymbalta 30 mg twice a day to help with depression, anxiety, chronic pain. Patient is willing. Discussed it may take several weeks to see results of medication. Will need to watch for serotonin syndrome given her narcotic usage. Decrease Reglan to 5 mg before meals and at bedtime as she is having no nausea. Continue scopolamine patch. She can use Compazine or Zofran if she needs something beyond this. Increase senna from twice a day to 3 times a day.
[2017-08-30] MEDS: MORPHINE SULFATE 10mg/0.5ml ORAL LIQ PO PRN (15:34)
[2017-08-31] MEDS: OXYCODONE/APAP 7.5 MG/325 MG TABLET PO SCH ×6 (02:20→22:38)
[2017-08-31] MEDS: PANTOPRAZOLE 40 MG TABLET PO SCH (05:42)
[2017-08-31] MEDS: METOCLOPRAMIDE 5mg TABLET PO SCH ×4 (05:42→20:50)
[2017-08-31] MEDS: SENNOSIDES 8.6 MG TABLET PO SCH ×3 (09:13→20:50)
[2017-08-31] MEDS: DULOXETINE 30 MG CAPSULE PO SCH ×2 (09:14→22:37)
[2017-08-31] MEDS: POLYETHYL GLYCOL 3350 17gm PACKET PO SCH ×2 (09:14→20:51)
[2017-08-31] MEDS: OXYCODONE/APAP 7.5 MG/325 MG TABLET PO PRN (09:14)
--- NOTE | 2017-08-31 11:40 | Progress Note ---
- Date 08/31/17 Subjective: Patient is seen sitting in bed this morning. She states she is very fatigued today. Slept well last night. Has a little nausea this am, but isn't requesting anything for nausea. Feels that using the liquid morphine is helpful. Last BM was the day before yesterday. Objective Vital signs: Temperature 97.0 F 08/31/17 08:00 Pulse Rate 92 08/31/17 08:00 Respiratory Rate 16 08/31/17 08:00 Blood Pressure 124/80 08/31/17 08:00 Pulse Oximetry 95 08/31/17 08:00 Rhythm: Sinus Tachycardia (120-130) Height/Weight/BMI: Weight 98.1 kg - Constitutional Present: no acute distress, well nourished, well developed - Routine HEENT Exam Head: Present: normocephalic, atraumatic - Routine Respiratory Exam Present: CTA bilaterally. Absent: wheezes - Routine Cardiovascular Exam Present: RRR, no murmur - Routine Abdominal Exam Present: soft, tenderness (LUQ), non distended - Routine Extremities Exam Present: no edema, normal capillary refill - Routine Skin Exam Present: dry, warm - Routine Neurological Exam Present: alert, oriented X3 - Routine Lymphatic Exam Lymphatic: Absent: adenopathy - Routine Psychiatric Exam Present: normal affect, cooperative Results - Labs CBC & Chem 7: 08/31/17 04:06 08/31/17 04:06 Assessment and Plan (1) Intractable nausea and vomiting Current visit: No Status: Acute (2) Endometrial carcinoma Problem details: Metastatic with carcinomatosis Current visit: No Status: Acute Assessment and Plan: Assessment: Intractable nausea and vomiting secondary to chemotherapy- resolved Dehydration - resolved Leukocytosis (WBC 27.4), present on admission - Improving Hypokalemia, present on admission Abdominal pain, acute on chronic. - improving Hypomagnesemia-not POA Endometrial CA (stage 4) - metastasis to liver, stomach and kidneys. Anxiety and Depression. CAD and Hypertension. Migraine headaches. Plan Current pain regimen: MS Contin 45mg PO BID. Roxanol 10mg PRN. Percocet 7.5mg PO both scheduled and PRN. Fentanyl patch 100 mcg. As soon as she is adequately controlled on p.o. pain meds, can DC. Recently started Cymbalta 30 mg twice a day to help with depression, anxiety, chronic pain. Monitor for serotonin syndrome type reaction or excess sedation. On Reglan 5 mg before meals and at bedtime and scopalamine patch for nausea. Consider DC Reglan if she remains nausea free due to s/e risk. Increase senna to 2 p.o. BID, continue scheduled Miralax. Addendum: Seen and examined patient on same day as the above note. Agree with history, physical, assessment and plan. Comprehensive physical findings correlate to the above note. Subjective: current regimen patient's pain is scale that 5 which for her is excellent. She has had positive bowel movement overnight with the use of magnesium citrate Objective: alert and conversant no apparent distress. Vital signs stable. Chest clear to auscultation bilaterally. Abdomen remains globally tender Assessment and plan: transitioning to oral medications for potential discharge tomorrow. Patient appears well-controlled with current regimen and nausea and vomiting or not problematic Documented on Dragon speech to text. Efforts to correct speech recognition errors performed, but variation may exist - Physician Narrative Narrative: Date: 08/31/17 Time: 1139 Hospital Course Summary Disclaimer: The visit summary below is not to be considered part of the above Progress Note. Hospital Course: 08/22/17 Admit to observation status under the care of Dr. Elise for treatment of acute dehydration and intractable nausea/vomiting. She was given a total of 2L NS prior to admission. 1/2NS with KCl initiated in ED and will be continued at 125cc/hr for hydration. Zofran, Reglan and Compazine as needed for nausea/vomiting. Recommend minimal oral intake until nausea and vomiting has subsided, then clear liquid diet as tolerated. Continue home fentanyl patch at 100mcg. IV fentanyl as needed for acute breakthrough pain as she is unable to keep her home roxanol down due to nausea/ vomiting. Once nausea/vomiting is improved, will resume home Roxicodone IR and Percocet 7.5mg. Senna plus with miralax and milk of magnesium for constipation and bowel motivation. History of carcinomatosis. Will obtain KUB now given her upper abdominal pain and high risk for bowel obstruction. 08/23 Patient would like to try morphine. She reports in the past, reaction was nausea and vomiting which she had following a surgery. Given Dilaudid is not available, will give trial of morphine. Continue home fentanyl patch at 100mcg. IV fentanyl and morphine as needed for acute breakthrough pain as she is unable to keep her home roxanol down due to nausea/vomiting. Once nausea/vomiting is improved, will resume home Roxicodone IR and Percocet 7.5mg. Will put her on scheduled Reglan and Zofran as she does well on this at home. Compazine can still be given when necessary. Need to watch for extrapyramidal symptoms with combo of all medications. Dr. Quezada also suggest Zyprexa 5 mg IV daily for several days. States this can be used post chemotherapy for nausea and may help with anxiety as well. Continue IV fluids at 125 cc per hour as she is unable to keep anything down at this time. Senna plus with Miralax and milk of magnesia for constipation and bowel motivation. Dr. Quezada recommends patient have repeat Gastrografin enema CT tomorrow if her symptoms are not improving. 08/24 Will work on being more aggressive with nausea control. Will given Phenergan 50mg IM and continue with Zofran and Reglan IV. Add scopolamine patch She has had one time dose of IV morphine yesterday. Has been having fentanyl overnight. Hospital is getting low of fentanyl quantity. Will Increase IV morphine to 4 mg and continue on home Fentanyl patch and home Roxanol. Zyprexa IV daily as this can help with post chemo nausea and anxiety Overall status is concerning, requiring large amounts of medication to keep her comfortable Recommend having Palliative care consult Friday. 08/25 Her IV fluids were decreased to 50 mL/h last evening. Will continue to decrease as she takes in the more by mouth. For nausea, she continues on Reglan IV q 6, Zofran was held when scopolamine patch was initiated yesterday afternoon, IV Protonix was started yesterday afternoon. She received PRN Compazine twice yesterday and 1 dose of IM Phenergan yesterday as well. For pain, she is doing well with the morphine MIDDLEWARE SYSTEMS ARCHITECT pump. Fentanyl IV was discontinued yesterday afternoon as there is a current shortage. She continues with Fentanyl patch. 08/26 Potassium and phosphorus are low - supplementation ordered. Recheck in am. DC IV fluids. Pt is taking fluids well. Progressed to regular diet and plans to try solids today. Will try to convert to PO pain and nausea meds. On exam, it was discovered her Fentanyl patch was absent. She had a new one applied last night so thinks it must've come off in her bed or when she changed shorts last evening. She doesn't feel her pain was optimally controlled on Percocet prior to her hospitalization and is interested in trying morphine if possible. On dismissal, she plans to schedule with specialist in [place] to discuss surgical opts. She wants to know what her opts are, but isn't overly excited about the idea of further surgery at this point. Had a long conversation (40+min) with her and her partner re: "palliative care and hospice" and what this means. It seems patient is leaning towards no further interventions, but family/partner perhaps aren't fully on board with that yet. Pt's biggest concern is having her pain and nausea controlled so she can enjoy the time she has left. Start MS Contin 30 bid with Percocet q 4 prn. Continue MIDDLEWARE SYSTEMS ARCHITECT but without basal rate and demand dose decreased to 1 mg q30 minutes. iv morphine of 2-4 mg will remain available for breakthrough pain. Continue fentanyl patch.Potassium 3.4- replace with 3/1 40mEq po. Magnesium 1.4 - replaced with 2 mg IV. Phosphorus improved. Patient is tolerating regular diet. Doing okay with switch from basal morphine through pump to MS Contin p.o., but still using the morphine pump at least hourly. Will increase her a.m. morphine to 45 mg and continue 30 mg at bedtime. Will decrease her MIDDLEWARE SYSTEMS ARCHITECT morphine dose from 2 mg to 0.5 mg on demand every 30 minutes. Encouraged her to use the Percocet for breakthrough pain opposed to using the morphine pump in effort to get her off of IV meds. If the Percocet is not holding her pain, then she can use the morphine pump. Continue Reglan 10 mg p.o. before meals and at bedtime and scopolamine patch. She can use Compazine or Zofran if she needs something beyond this. She plans to go to [place] to find out what her options are with the specialist. If she does not proceed with any further intervention, she will establish with hospice. Goal is to DC her home on MS Contin BID with percocet as needed for breakthrough pain. For nausea, hope to DC on Reglan 10mg (or perhaps even 5mg) AC/hs and scopalamine patch, with compazine as needed. She'll need to continue on routine senna and Miralax to keep stools soft/loose. 3/2 Continue MS Contin 45 mg twice a day. Will change PRN Percocet to scheduled 7.5/ 325 one every 4 hours. Will continue with a PRN every 4 hours Percocet 7.5/325 order as well. Morphine IV will still be available, but she should only use this if she has failed the max dose of PRN Percocet. May have to consider increasing her MS Contin dose if she continues to need IV morphine. Start Cymbalta 30 mg twice a day to help with depression, anxiety, chronic pain. Patient is willing. Discussed it may take several weeks to see results of medication. Will need to watch for serotonin syndrome given her narcotic usage. Decrease Reglan to 5 mg before meals and at bedtime as she is having no nausea. Continue scopolamine patch. She can use Compazine or Zofran if she needs something beyond this. Increase senna from twice a day to 3 times a day. 3/ Current pain regimen: MS Contin 45mg PO BID. Roxanol 10mg PRN. Percocet 7.5mg PO both scheduled and PRN. Fentanyl patch 100 mcg. On Reglan 5 mg before meals and at bedtime and scopalamine patch for nausea. Consider DC Reglan if she remains nausea free due to s/e risk. Increase senna to 2 p.o. BID, continue scheduled Miralax.
[2017-08-31] MEDS: MORPHINE SULFATE 10mg/0.5ml ORAL LIQ PO PRN ×3 (12:38→20:46)
[2017-09-01] MEDS: MORPHINE SULFATE 10mg/0.5ml ORAL LIQ PO PRN ×4 (00:46→12:57)
[2017-09-01] MEDS: OXYCODONE/APAP 7.5 MG/325 MG TABLET PO SCH ×4 (02:39→14:59)
[2017-09-01] MEDS: PANTOPRAZOLE 40 MG TABLET PO SCH (06:16)
[2017-09-01] MEDS: METOCLOPRAMIDE 5mg TABLET PO SCH ×3 (07:41→17:40)
[2017-09-01] MEDS: POLYETHYL GLYCOL 3350 17gm PACKET PO SCH (08:51)
[2017-09-01] MEDS: SENNOSIDES 8.6 MG TABLET PO SCH ×2 (08:51→17:40)
[2017-09-01] MEDS: DULOXETINE 30 MG CAPSULE PO SCH (08:52)
[2017-09-01 11:45] VITALS: BP 143/79; PULSE 78; RESP 18; TEMP 97.1; O2SAT 95
--- NOTE | 2017-09-01 12:12 | Discharge Summary ---
Discharge Information Date of admission: 08/23/17 10:48 Anticipated date of discharge: 09/01/17 Attending Physician: Maximino Ortiz MD Primary care physician: El Hardy II, MD - Discharge Diagnosis (1) Intractable nausea and vomiting Status: Acute (2) Endometrial carcinoma Status: Acute Intractable nausea and vomiting secondary to chemotherapy- resolved Dehydration - resolved Leukocytosis (WBC 27.4), present on admission - Improving Hypokalemia, present on admission Abdominal pain, acute on chronic. - improving Hypomagnesemia-not POA Endometrial CA (stage 4) - metastasis to liver, stomach and kidneys. Anxiety and Depression. CAD and Hypertension. Migraine headaches. 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 There is no abnormal airspace opacity, pleural effusion or pneumothorax identified. The heart size, pulmonary vasculature and mediastinum are within normal limits. Right IJ port. There is no free air on the upright view. The bowel gas pattern is nonobstructive and nonspecific. Gas is seen in nondilated small and large bowel to the level of the rectum. Moderate stool is seen throughout the colon. The bony structures are grossly unremarkable. IMPRESSION: 1. No acute cardiopulmonary abnormality. 2. No evidence of acute obstruction or free air. History of Present Illness HPI: Debbie Stock is a pleasant 57-year-old female who is well known to the hospitalist services from recent admissions on 08/01/17 with intractable nausea and vomiting related to treatment of stage IV endometrial cancer with carcinomatosis for which she follows with Dr. Clancy. She had chemotherapy on and reports progressive nausea with intractable vomiting as well as band- like abdominal pain to her upper abdomen x 2 days. Due to her increased vomiting, she has had difficulty maintaining her pain regimen. Today she presented to the oncology clinic for evaluation and was given 1L NS without improvement and was sent to [facility] ED for further evaluation and additional IV hydration. She was given another liter of NS but remained tachycardic with tachypnea. She was also given a total of 150mcg of Fentanyl with Zofran 8mg IV and Phenergan 25mg IM with minimal improvement. Dr. Elise was consulted and she was accepted into observation status for further evaluation and continued hydration with pain control. Her length of stay is not expected to exceed more than 2 over nights. Objective Vital signs: Temperature 97.1 F 09/01/17 11:44 Pulse Rate 78 09/01/17 11:44 Respiratory Rate 18 09/01/17 11:44 Blood Pressure 143/79 H 09/01/17 11:44 Pulse Oximetry 95 09/01/17 11:44 Rhythm: Sinus Tachycardia (120-130) Height/Weight/BMI: Weight 98 kg - Constitutional Present: no acute distress, well nourished, well developed - Routine HEENT Exam Head: Present: normocephalic, atraumatic - Routine Respiratory Exam Present: CTA bilaterally. Absent: wheezes - Routine Cardiovascular Exam Present: RRR, no murmur - Routine Abdominal Exam Present: soft, tenderness (left upper quadrant, right lower quadrant), non distended - Routine Extremities Exam Present: no edema, normal capillary refill - Routine Skin Exam Present: dry, warm - Routine Neurological Exam Present: alert, oriented X3 - Routine Lymphatic Exam Lymphatic: Absent: adenopathy - Routine Psychiatric Exam Present: normal affect, cooperative Hospital Course This is a general summary of the patient's hospital course. For more details refer to the complete medical record. Hospital course: 08/22/17 Admit to observation status under the care of Dr. Elise for treatment of acute dehydration and intractable nausea/vomiting. She was given a total of 2L NS prior to admission. 1/2NS with KCl initiated in ED and will be continued at 125cc/hr for hydration. Zofran, Reglan and Compazine as needed for nausea/vomiting. Recommend minimal oral intake until nausea and vomiting has subsided, then clear liquid diet as tolerated. Continue home fentanyl patch at 100mcg. IV fentanyl as needed for acute breakthrough pain as she is unable to keep her home roxanol down due to nausea/ vomiting. Once nausea/vomiting is improved, will resume home Roxicodone IR and Percocet 7.5mg. Senna plus with miralax and milk of magnesium for constipation and bowel motivation. History of carcinomatosis. Will obtain KUB now given her upper abdominal pain and high risk for bowel obstruction. 08/23 Patient would like to try morphine. She reports in the past, reaction was nausea and vomiting which she had following a surgery. Given Dilaudid is not available, will give trial of morphine. Continue home fentanyl patch at 100mcg. IV fentanyl and morphine as needed for acute breakthrough pain as she is unable to keep her home roxanol down due to nausea/vomiting. Once nausea/vomiting is improved, will resume home Roxicodone IR and Percocet 7.5mg. Will put her on scheduled Reglan and Zofran as she does well on this at home. Compazine can still be given when necessary. Need to watch for extrapyramidal symptoms with combo of all medications. Dr. Quezada also suggest Zyprexa 5 mg IV daily for several days. States this can be used post chemotherapy for nausea and may help with anxiety as well. Continue IV fluids at 125 cc per hour as she is unable to keep anything down at this time. Senna plus with Miralax and milk of magnesia for constipation and bowel motivation. Dr. Quezada recommends patient have repeat Gastrografin enema CT tomorrow if her symptoms are not improving. 08/24 Will work on being more aggressive with nausea control. Will given Phenergan 50mg IM and continue with Zofran and Reglan IV. Add scopolamine patch She has had one time dose of IV morphine yesterday. Has been having fentanyl overnight. Hospital is getting low of fentanyl quantity. Will Increase IV morphine to 4 mg and continue on home Fentanyl patch and home Roxanol. Zyprexa IV daily as this can help with post chemo nausea and anxiety Overall status is concerning, requiring large amounts of medication to keep her comfortable Recommend having Palliative care consult Friday. 08/25 Her IV fluids were decreased to 50 mL/h last evening. Will continue to decrease as she takes in the more by mouth. For nausea, she continues on Reglan IV q 6, Zofran was held when scopolamine patch was initiated yesterday afternoon, IV Protonix was started yesterday afternoon. She received PRN Compazine twice yesterday and 1 dose of IM Phenergan yesterday as well. 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 Fentanyl IV was discontinued yesterday afternoon as there is a current shortage. She continues with Fentanyl patch. 08/26 Potassium and phosphorus are low - supplementation ordered. Recheck in am. DC IV fluids. Pt is taking fluids well. Progressed to regular diet and plans to try solids today. Will try to convert to PO pain and nausea meds. On exam, it was discovered her Fentanyl patch was absent. She had a new one applied last night so thinks it must've come off in her bed or when she changed shorts last evening. She doesn't feel her pain was optimally controlled on Percocet prior to her hospitalization and is interested in trying morphine if possible. On dismissal, she plans to schedule with specialist in [place] to discuss surgical opts. She wants to know what her opts are, but isn't overly excited about the idea of further surgery at this point. Had a long conversation (40+min) with her and her partner re: "palliative care and hospice" and what this means. It seems patient is leaning towards no further interventions, but family/partner perhaps aren't fully on board with that yet. Pt's biggest concern is having her pain and nausea controlled so she can enjoy the time she has left. Start MS Contin 30 bid with Percocet q 4 prn. Continue RUNSTITCHING MACHINE OPERATOR but without basal rate and demand dose decreased to 1 mg q30 minutes. iv morphine of 2-4 mg will remain available for breakthrough pain. Continue fentanyl patch.Potassium 3.4- replace with 3/1 40mEq po. Magnesium 1.4 - replaced with 2 mg IV. Phosphorus improved. Patient is tolerating regular diet. Doing okay with switch from basal morphine through pump to MS Contin p.o., but still using the morphine pump at least hourly. Will increase her a.m. morphine to 45 mg and continue 30 mg at bedtime. Will decrease her RUNSTITCHING MACHINE OPERATOR morphine dose from 2 mg to 0.5 mg on demand every 30 minutes. Encouraged her to use the Percocet for breakthrough pain opposed to using the morphine pump in effort to get her off of IV meds. If the Percocet is not holding her pain, then she can use the morphine pump. Continue Reglan 10 mg p.o. before meals and at bedtime and scopolamine patch. She can use Compazine or Zofran if she needs something beyond this. She plans to go to [place] to find out what her options are with the specialist. If she does not proceed with any further intervention, she will establish with hospice. Goal is to DC her home on MS Contin BID with percocet as needed for breakthrough pain. For nausea, hope to DC on Reglan 10mg (or perhaps even 5mg) AC/hs and scopalamine patch, with compazine as needed. She'll need to continue on routine senna and Miralax to keep stools soft/loose. 08/29 Continue MS Contin 45 mg twice a day. Will change PRN Percocet to scheduled 7.5/ 325 one every 4 hours. Will continue with a PRN every 4 hours Percocet 7.5/325 order as well. Morphine IV will still be available, but she should only use this if she has failed the max dose of PRN Percocet. May have to consider increasing her MS Contin dose if she continues to need IV morphine. Start Cymbalta 30 mg twice a day to help with depression, anxiety, chronic pain. Patient is willing. Discussed it may take several weeks to see results of medication. Will need to watch for serotonin syndrome given her narcotic usage. Decrease Reglan to 5 mg before meals and at bedtime as she is having no nausea. Continue scopolamine patch. She can use Compazine or Zofran if she needs something beyond this. Increase senna from twice a day to 3 times a day. 08/30 Current pain regimen: MS Contin 45mg PO BID. Roxanol 10mg PRN. Percocet 7.5mg PO both scheduled and PRN. Fentanyl patch 100 mcg. On Reglan 5 mg before meals and at bedtime and scopalamine patch for nausea. Consider DC Reglan if she remains nausea free due to s/e risk. Increase senna to 2 p.o. BID, continue scheduled Miralax. 08/31 Patient doing well on current pain regimen. Roxanol liquid seems to work better than the Percocet. Minimal nausea. Pain averaging 5/10. 3/5 Discharge home today on med regimen listed on 08/30 above. F-u with Dr Hardy in 1 wk with BMP to follow potassium level. Addendum cosignature: Seen and examined patient on same day as the above note. Agree with history, physical, assessment and plan. Comprehensive physical findings correlate to the above note. Subjective: states are pain is 5 out of 10, an excellent baseline for her. No other symptoms. She is eager and ready to discharge Objective: no apparent distress. S1 S2 +0. Clear to auscultation bilaterally. Bowel sounds moderately present. Moderate global tenderness to light palpitation Assessment and plan: discharge back to home under her own care. She is planning to follow-up with Dr. Mckee in [place] for potential debulking surgery of her abdominal mass causing obstruction. Follow-up with Dr. Clancy within the week Documented on Markafonion speech to text. Efforts to correct speech recognition errors performed, but variation may exist Time spent with patient: greater than 35 minutes Resuscitation Status: Do Not Resuscitate Discharge Plan - Discharge Disposition Discharge Date: 09/01/17 Disposition: 01 Discharged Home, Self-Care *Condition: Stable Reason For Visit (Visit label in EMR): abd pain,nausea & vomiting - Discharge Medications *Discharge Medications: New Metoclopramide [Reglan] 5 mg PO ACHS #80 tab Morphine Sulfate *SR* [Ms Contin] 15 mg PO BID #40 tab Morphine Sulfate *SR* [Ms Contin] 30 mg PO BID #40 tab PEG 3350 17gm PACKET [Miralax] 17 gm PO BID packet Scopolamine Patch [TRANSDERM-SCOP 1.5 mg EQ] 1 mg TD Q3D #4 patch Duloxetine [Cymbalta] 30 mg PO BID #60 cap Morphine Sulfate Oral Liq [Roxanol Oral Liq] 10 mg PO Q4H PRN #60 ml PRN Reason: Pain Continue Milk of Magnesia [Mom] 30 ml PO DAILY PRN udc PRN Reason: Constipation Prochlorperazine Tab [Compazine] 5 mg PO Q8H PRN PRN Reason: Nausea Ondansetron [Zofran Odt] 4 mg PO Q8H PRN PRN Reason: Nausea FentaNYL PATCH [Duragesic Patch] 100 mcg TD Q3D #4 patch LORazepam [Ativan] 0.5 mg PO Q6H PRN #20 tab PRN Reason: Anxiety Pnv No.95/Ferrous Fum/Folic AC [ Tablet] 1 tab PO DAILY Changed Oxycodone/Apap 7.5/325 [Percocet 7.5/325] 1 tab PO Q4H #80 tab Sennosides [Senokot] 34.4 mg PO BID #30 Discontinued Lactulose Oral Liq [Lactulose] 20 gm PO BID PRN #240 ml PRN Reason: Constipation Oxycodone *IR* [Roxicodone *Ir*] 15 mg PO Q6H #30 tab OLANZapine [Zyprexa] 2.5 mg PO HS #30 tab Promethazine Tab [Phenergan Tab] 25 mg PO Q6H PRN #30 tab PRN Reason: Nausea Metoclopramide HCl [Reglan] 10 mg PO Q6H PRN PRN Reason: Prn Orders Dronabinol [Marinol] 2.5 mg PO BID No Action PEG 3350 17gm PACKET [Miralax] 17 gm PO BID PRN PRN Reason: Constipation - Discharge Packet/Instructions *Diet: As tolerated *Activity: as tolerated *Pain Management/Treatment: As we discussed: Morphine pills am and pm. Roxycodone liquid every 4 hours as needed. Percocet every 4 hours as needed. Fentanyl patch. *Wound Care: n/a Additional Instructions: Call Amanda Guajardo at Dr. Clancy's office to get your appointment set up in . Adjust your laxatives as needed to keep stools soft ( as we had discussed) *Expected Signs/Symptoms: You will likely continue to have some pain and nausea despite your medications. Your meds can cause drowsiness, fatigue. *Notify Physician if: uncontrolled pain or intractable vomiting *During Business Hours Contact: Dr. Hardy's office *After Business Hours Contact: [facility] *Pending Lab/Results: No Pending Lab - Referrals/Follow Up *Referrals/Follow Up: El Hardy II, MD [Family Provider] - 1 Week (Please sched pt for appt with Dr Hardy in 1 wk. Needs BMP at that visit to follow potassium APPOINTMENT ON 09/09 AT 9:30.) - Patient Handouts Patient Handouts: Acute Nausea and Vomiting (GEN), Acute Abdominal Pain (GEN) - Dismissal Complete Discharge Instructions are:: Complete Physician Narrative - Narrative Attestation Narrative: Date: 09/01/17 Time: 1202
[2017-09-01] MEDS: SALINE FLUSH 10ml SYRINGE IV PRN (18:12)
== END 2017-09-01 18:49 | disposition home or self-care (01) | DRG 392 ==
LOC: MED 13:59 → ED 13:59 → SUATTDRO 16:27 → MED 17:05 → SUATTDRO 08-23 10:48
PROVIDERS: ADMIT Hospitalist; ATTEND Family Medicine

== ENCOUNTER 2018-01-05 11:47 | Inpatient (IN) ==
[2018-01-05] MEDS ORDERED: PROMETHAZINE 25 MG INJECTION IVP ONE (13:24)
[2018-01-05] MEDS ORDERED: MORPHINE SULFATE 2mg INJECTION IVP ONE ×2 (13:24→15:24)
--- NOTE | 2018-01-05 13:35 | Emergency Department Report ---
Abdominal Pain HPI - General Chief Complaint: Abdominal Pain Stated Complaint: stomach/abd pain Source: patient Mode of arrival: ambulatory Limitations: no limitations - History of Present Illness HPI narrative: PT presents with increased abdominal pain today that pt has not been able to control at home. Pt has a history of stage 4 endometrial cancer. She had an ileostomy placed about 3 weeks ago. She has been receiving home health for wound care and recently had a portion of the wound reopened for unknown reason. Pt denies fever, increased wound drainage, and states she is "always" nauseated. She denies nausea or urinary symptoms. MD complaint: abdominal pain Onset (ago): hour(s) Consistency: constant Location: diffuse Severity scale (1-10): >10 Treatments prior to arrival: prescription analgesics - Related Data Home Medications Medication Instructions Recorded Confirmed Pnv No.95/Ferrous Fum/Folic AC 1 tab PO DAILY 06/25/17 01/05/18 [ Tablet] Prochlorperazine Tab [Compazine] 5 mg PO Q8H PRN 08/22/17 01/05/18 Metoclopramide [Reglan] 5 mg PO ACHS PRN 12/06/17 01/05/18 Promethazine HCl 25 mg PO Q6H PRN 12/06/17 01/05/18 Previous Rx's Medication Instructions Recorded Famotidine [Pepcid] 20 mg PO BID tab 12/26/17 Gabapentin [Neurontin] 100 mg PO TID #30 cap 12/26/17 Metoprolol Tartrate [Lopressor] 100 mg PO BIDWM #60 tab 12/26/17 Morphine Sulfate *IR* [Morphine 15 mg PO Q4HR #20 tab 12/26/17 Sulfate *Ir*] Morphine Sulfate *SR* [Ms Contin] 30 mg PO BID PRN #20 tab 12/26/17 Levaquin (levofloxacin) 500 mg 500 mg PO DAILY #5 tab 12/30/17 tablet Allergies Allergy/AdvReac Type Severity Reaction Status Date / Time No Known Allergies Allergy Unknown Verified 01/05/18 12:33 Review of Systems All systems: reviewed and negative except as stated Constitutional: Reports: as per HPI Gastrointestinal: Reports: as per HPI Genitourinary: Reports: as per HPI Musculoskeletal: Reports: as per HPI PFSH Patient Stated Medical History Migraine Yes Coronary Artery Disease Yes Hypertension Yes Sleep Apnea No Diabetes Mellitus Type 2 Yes Hiatal Hernia Yes Obstructive Bowel Yes Other GI Yes: ENDOMETRIAL CA W/ METASTASIS TO LIVER, STOMACH, AND KIDNEYS Hx Urinary Tract Infection Yes Chemotherapy Yes Depression Yes Endometriosis Yes Post Menopausal Yes Now No Clinic Medical History (Last Updated 12/30/17 @ 17:57 by Amrita Harris APRN) Endometrial cancer (Acute Medical ~2014) Medical History Updates: DM 2. HTN. GERD. Anxiety. Depression. Insomnia. Endometrial CA (stage IV) with mets to liver, stomach and kidneys 04/18/2016. CAD angioplasty 2003. Migraine headaches. Hiatal hernia. gastric ulcer Surgical History: PowerPort insertion 05/03/2016 Mortezaonegricarda. KESHAV-BSO with resection of right ureter anastomosis incidental [id number]/2/2016 Tejinder. Lumbar discectomy 2013. Partial right knee replacement 2008 Celine. Heart catheter with angioplasty 2 vessels in 2003. Laparoscopic ovarian cystectomy. Ectopic with left oophorectomy. EGD. exploratory laparotomy extensive adhesiolysis, small bowel resection, creation of loop ileostomy, widely metastatic endometrial cancer 12/15/2017 Svetlana Family History Updates: Mother at 47 of lymphoma, heart disease, diabetes but ultimately of suicide (GSW to head). Father also committed suicide of GSW to head at age 58. He had epilepsy. Daughter with hx of drug addiction. Son is healthy. Maternal grandmother had ovarian cancer. 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 Does patient use chewing tobacco?: No Current residence: Apartment/Private Home Physical Exam - Limitations Limitations: no limitations - General General appearance: alert, in no apparent distress - Normal Exams: Head:: Normocephalic without trauma Chest/Respirations:: Clear all dior, with good airflow, and symmetry bilaterally Cardiovascular:: Regular rate and rhythm, without murmur or gallop, Pulses 2+ all extremities, capillary refill, <2 seconds all extremities Musculoskeletal:: No tenderness, or deformity noted, good range of motion, all extremities Neurological:: Patient is alert, and oriented, cranial nerves, motor/sensory/ cerebellar, exams w/o gross deficits, to observation Psychiatric:: Patient exhibits, appropriate attention, emotion and affect - Abdominal Exam Abdominal exam: Present: soft, tenderness, normal bowel sounds. Absent: distention, rigidity Abdominal tenderness: Present: diffuse (ostomy in place with brown/green drainage) - Expanded Skin Exam Type of lesion: Present: other (surgical wound majority is well approximated. open portions with packing and dressing are clean, no redness, warmth, or odor ) Course Vital Signs Temperature 98.2 F 01/05/18 11:52 Pulse Rate 99 01/05/18 11:52 Respiratory Rate 32 H 01/05/18 11:52 Blood Pressure 136/68 01/05/18 11:52 Pulse Oximetry 99 01/05/18 11:52 Temperature 98.2 F 01/05/18 11:52 Pulse Rate 99 01/05/18 11:52 Respiratory Rate 32 H 01/05/18 11:52 Blood Pressure 136/68 01/05/18 11:52 Pulse Oximetry 99 01/05/18 11:52 Abdominal Pain - MDM Narrative Medical decision making narrative: Labs and CT results reviewed. PT continues to have pain after 8mg of morphine and Phenergan. Hospitalist notified of need for admission 2/2 uncontrolled pain and abnormal labs. Care coordination reports pt has been seriously considering Hospice. Findings and plan discussed with pt who voices understanding. - Differential Diagnosis Differential diagnosis: Likely: abdominal pain, diverticulitis, pancreatitis, small bowel obstruction - Lab Data Attestation: I reviewed the patient's lab results. Result diagrams: 01/06/18 04:22 01/06/18 04:22 - Radiology Data Attestation: I reviewed the patient's radiology results. Disposition Clinical Impression: ABDOMINAL PAIN Disposition: 02 To [facility] Acute Care Condition: Stable for Transport - Seen By: midlevel
[2018-01-05] MEDS ORDERED: IODIXANOL 320mg/ml 100ml INJECTION IV ONE (14:21)
[2018-01-05] MEDS ORDERED: SALINE FLUSH 10ml SYRINGE ONE (14:21)
[2018-01-05] MEDS ORDERED: MORPHINE SULFATE 4mg INJECTION IVP ONE ×2 (14:36→17:27)
--- NOTE | 2018-01-05 15:38 | CT Scan Report ---
EXAM: CT abdomen pelvis w con HISTORY: increased pain, POD 21 ileostomy, hx endometrial CA COMPARISON: Prior examination dated 12/15/2017 TECHNIQUE: CT images were obtained of the abdomen and pelvis utilizing 100 cc of Visipaque 320. Coronal and sagittal reconstruction imaging was utilized. The current CT scan was performed using radiation dose-reduction techniques. FINDINGS: LUNG BASES: There is trace left pleural effusion. Wedge-shaped consolidations with air bronchograms are seen in the medial basal segment of both lower lobes. There is also a wedge-shaped consolidation seen in the anterior segment of the left lower lobe. LIVER: The liver is normal size again showing multiple hypodense lesions of varying sizes scattered throughout both lobes of the liver which appear to have increased in size, the largest in the right lobe is in the inferior aspect of the right lobe of the liver measuring 3.7 cm (previously measured the largest in the right lobe measured 2.5 cm) largest in the left lobe measuring 3 cm (previously measured 2.5 cm). There is small volume perihepatic ascites. SPLEEN: The spleen is normal size and contour showing no discrete lesions. GALLBLADDER/BILIARY: The gallbladder is surgically absent. PANCREAS: The pancreas is stable in size and contour showing no evidence of enhancing mass effect , ductal dilatation or peripancreatic inflammatory change. ADRENAL GLANDS: The adrenal glands are not enlarged. KIDNEYS: There is again noted grade 3 right hydronephrosis and right hydroureter that extends to the area conglomerate soft tissue mass effect in the right hemipelvis where the pocket of fluid was seen previously. This conglomerate soft tissue mass effect measures 5.7 x 5.3 cm and may represent an enlarged lymph node or a peritoneal metastatic deposit. VASCULAR: The abdominal aorta and IVC are normal caliber. Mild plaque formation is seen in the abdominal aorta. LYMPH NODES: There are enlarged areas of soft tissue mass effect in the pelvis one is seen just right of the midline that measures 5.7 x 5.3 cm and anterior lower pelvis there are two soft tissue masses one measuring 3.5 x 3.1 cm, right of the midline and just left of the midline adjacent to this mass there is a 3.6 x 3.1 cm soft tissue mass. These may represent enlarged lymph nodes or peritoneal metastatic deposits. STOMACH/BOWEL LOOPS: There is a small hiatal hernia, the stomach is partially distended. There are some edematous changes in the region of the wall of the stomach antrum which may represent an antral gastritis. The bowel loops show post surgical change in the right lower quadrant with a diverting ileostomy in the right lower quadrant region. The small bowel and large bowel loops appear to be of normal caliber. There is no evidence of mechanical bowel obstruction. The evaluation for acute inflammatory bowel change is limited due to the small volume ascites in the abdomen and pelvis. URINARY BLADDER: The urinary bladder is normal size and contour showing no wall thickening or intraluminal filling defects. UTERUS/OVARIES: Surgically absent. OSSEOUS STRUCTURES: Stable showing no acute osseous abnormality. Advanced degenerative disc changes are again noted at the lumbosacral junction. PERITONEAL CAVITY: There is small volume free fluid in the abdomen and pelvis. ABDOMINAL WALL: There is been interval postsurgical change with partial small bowel resection and placement of a right lower quadrant diverting ileostomy. There is also a lower anterior abdominal wall midline defect in the periumbilical region with edematous changes and herniated mesenteric fat which appears postsurgical in etiology, likely representing an incisional hernia. There is no associated herniated bowel loops at this time. IMPRESSION: 1. There has been interval postsurgical change involving small bowel loops in the right lower quadrant likely due to partial resection and there is a diverging ileostomy in the right lower quadrant. There is no evidence of mechanical bowel obstruction. The evaluation for acute inflammatory bowel involvement is limited secondary to the small volume free fluid in the abdomen and pelvis. 2. Interval development of soft tissue masses in the pelvis as described that may represent enlarged lymph nodes or metastatic peritoneal deposits. 3. Slight interval worsening of the hepatic metastasis. 4. Small volume abdominal pelvic ascites. 5. Persistent grade 3 right obstructive uropathy secondary to the soft tissue mass effect in the right hemipelvis. 6. There are some edematous changes noted in the region of the stomach antrum which may represent an antral gastritis. Correlate clinically and follow-up as indicated. .
--- NOTE | 2018-01-05 17:29 | History & Physical Report ---
History of Present Illness Date: 01/05/18 Chief complaint: Abdominal pain HPI: Larry is a 57-year-old female who presents today to emergency room with uncontrolled abdominal pain. She has known endometrial cancer with metastasis within the abdomen and pelvis, including the liver. She was previously on chemotherapy but discontinued due to adverse side effects. She follows with Dr. Clancy. She was recently hospitalized on 12/13/17 for small bowel obstruction. She had exploratory laparotomy, adhesiolysis, small bowel resection, loop ileostomy and incidental appendectomy on 12/05/[address] Mota. She was dismissed on 12/26/17 and since that time, has been controlling her pain with morphine long acting and short acting. She states last week she was having quite a bit of vomiting anytime she would try to eat. Over the weekend, she was able to eat and drink without significant problems. Her pain has been worsening over the last week and has been much worse today. She mentions that she had to move in with her partner's mother because the electricity has been turned off in the house. She states that apparently her family is not using her money to pay the bills, so now she has significant financial stress and has no electricity in her home. She states her anxiety/depression is at an all time high. Her pain is currently a 4, when she moves it is off the charts. She's not currently having any nausea, but she recently received an antiemetic in the emergency room. CT performed patient was in ER shows no evidence of mechanical bowel obstruction. She has had interval development of soft tissue masses in the pelvis that may represent enlarged lymph nodes or metastatic peritoneal deposits. She's had slight interval worsening of her hepatic metastasis and has small-volume abdominal pelvic ascites. She has a persistent grade 3 right obstructive uropathy secondary to the soft tissue mass affecting the right hemipelvis and she has some edematous changes in the stomach which may represent gastritis. White count slightly elevated at 12.9. Hemoglobin 8.6 which is what she has averaged since surgery. Prior to surgery she was averaging 10-11. Creatinine is slightly elevated at 1.4 with her baseline being 0.8. Review of Systems All systems PM: 10-point ROS was reviewed, no additional remarkable complaints except (abdominal pain described as burning across the lower abdomen, specifically no burning with urination or frequency. Reports normal amounts of drainage in her ostomy bag with no alarming changes.) Past Medical History Medical History: Medical History (Last Updated 12/30/17 @ 17:57 by Amrita Harris, AARON) Endometrial cancer Onset Date: ~2014 Medical History Updates: DM 2. HTN. GERD. Anxiety. Depression. Insomnia. Endometrial CA (stage IV) with mets to liver, stomach and kidneys 04/18/2016. CAD angioplasty 2004. Migraine headaches. Hiatal hernia. gastric ulcer Surgical History: PowerPort insertion 05/03/2016 Mortezaoneghewalter. KESHAV-BSO with resection of right ureter anastomosis incidental [id number]/2/2016 Felice and Armando. Lumbar discectomy 2013. Partial right knee replacement 2008 Celine. Heart catheter with angioplasty 2 vessels in 2003. Laparoscopic ovarian cystectomy. Ectopic with left oophorectomy. EGD. exploratory laparotomy extensive adhesiolysis, small bowel resection, creation of loop ileostomy, widely metastatic endometrial cancer 12/15/2017 [facility] Family History: Mother at 47 of lymphoma, heart disease, diabetes but ultimately of suicide (GSW to head). Father also committed suicide of GSW to head at age 58. He had epilepsy. Daughter with hx of drug addiction. Son is healthy. Family History: As Above - Social History Smoking status: Never smoker Substance use type: does not use Alcohol intake frequency: does not drink Housing: house (currently living with her partner's mother) Household members: significant other Current occupational status: employed ([employer]) Does patient use chewing tobacco?: No Current residence: Apartment/Private Home Social history: PCP - Dr Hardy Surgeon - Dr. Mota Onc - Dr. Clancy Medications Home Medications Medication Instructions Recorded Confirmed Type Pnv No.95/Ferrous Fum/Folic AC 1 tab PO DAILY 06/25/17 01/05/18 History [ Tablet] Prochlorperazine Tab [Compazine] 5 mg PO Q8H PRN 08/22/17 01/05/18 History Metoclopramide [Reglan] 5 mg PO ACHS PRN 12/06/17 01/05/18 History Promethazine HCl 25 mg PO Q6H PRN 12/06/17 01/05/18 History Famotidine [Pepcid] 20 mg PO BID tab 12/26/17 01/05/18 Rx Gabapentin [Neurontin] 100 mg PO TID #30 cap 12/26/17 01/05/18 Rx Metoprolol Tartrate [Lopressor] 100 mg PO BIDWM #60 tab 12/26/17 01/05/18 Rx Morphine Sulfate *IR* [Morphine 15 mg PO Q4HR #20 tab 12/26/17 01/05/18 Rx Sulfate *Ir*] Morphine Sulfate *SR* [Ms Contin] 30 mg PO BID PRN #20 tab 12/26/17 01/05/18 Rx Levaquin (levofloxacin) 500 mg 500 mg PO DAILY #5 tab 12/30/17 01/05/18 Rx tablet Allergies Allergy/AdvReac Type Severity Reaction Status Date / Time No Known Allergies Allergy Unknown Verified 01/05/18 12:33 Exam Vital Signs: Temperature 98.2 F 01/05/18 11:52 Pulse Rate 97 01/05/18 16:45 Respiratory Rate 20 01/05/18 16:30 Blood Pressure 116/62 01/05/18 16:30 Pulse Oximetry 93 01/05/18 16:45 - Constitutional Present: mild distress (in pain), well nourished, well developed - Routine HEENT Exam Head: Present: normocephalic, atraumatic Eye: Present: EOMI, PERRL ENT: Present: mucous membranes moist, oropharynx clear - Routine Neck Exam Present: supple. Absent: lymphadenopathy, thyromegaly - Routine Respiratory Exam Present: CTA bilaterally. Absent: wheezes - Routine Cardiovascular Exam Present: RRR, no murmur - Routine Abdominal Exam Present: soft, tenderness (LUQ and across lower abd), wound (2 wounds noted at previous surgical incision - pt reports they are packing these daily), ostomy ( RLQ). Absent: normoactive bowel sounds (hypoactive), distended - Routine Extremities Exam Present: no edema, normal capillary refill - Routine Skin Exam Present: dry, warm - Routine Neurological Exam Present: alert, oriented X3, CN II-XII intact - Routine Psychiatric Exam Present: normal affect, cooperative Results - Labs CBC & Chem 7: 01/05/18 13:47 01/05/18 13:47 - Imaging and Cardiology CT scan - abdomen Additional comments: Date of Exam: 01/05/18 EXAM: CT abdomen pelvis w con HISTORY: increased pain, POD 21 ileostomy, hx endometrial CA COMPARISON: Prior examination dated 12/15/2017 FINDINGS: LUNG BASES: There is trace left pleural effusion. Wedge-shaped consolidations with air bronchograms are seen in the medial basal segment of both lower lobes. There is also a wedge-shaped consolidation seen in the anterior segment of the left lower lobe. LIVER: The liver is normal size again showing multiple hypodense lesions of varying sizes scattered throughout both lobes of the liver which appear to have increased in size, the largest in the right lobe is in the inferior aspect of the right lobe of the liver measuring 3.7 cm ( previously measured the largest in the right lobe measured 2.5 cm) largest in the left lobe measuring 3 cm (previously measured 2.5 cm). There is small volume perihepatic ascites.SPLEEN: The spleen is normal size and contour showing no discrete lesions. GALLBLADDER/BILIARY: The gallbladder is surgically absent. PANCREAS: The pancreas is stable in size and contour showing no evidence of enhancing mass effect , ductal dilatation or peripancreatic inflammatory change. ADRENAL GLANDS: The adrenal glands are not enlarged. KIDNEYS: There is again noted grade 3 right hydronephrosis and right hydroureter that extends to the area conglomerate soft tissue mass effect in the right hemipelvis where the pocket of fluid was seen previously. This conglomerate soft tissue mass effect measures 5.7 x 5.3 cm and may represent an enlarged lymph node or a peritoneal metastatic deposit. VASCULAR: The abdominal aorta and IVC are normal caliber. Mild plaque formation is seen in the abdominal aorta. LYMPH NODES: There are enlarged areas of soft tissue mass effect in the pelvis one is seen just right of the midline that measures 5.7 x 5.3 cm and anterior lower pelvis there are two soft tissue masses one measuring 3.5 x 3.1 cm, right of the midline and just left of the midline adjacent to this mass there is a 3.6 x 3.1 cm soft tissue mass. These may represent enlarged lymph nodes or peritoneal metastatic deposits. STOMACH/BOWEL LOOPS: There is a small hiatal hernia, the stomach is partially distended. There are some edematous changes in the region of the wall of the stomach antrum which may represent an antral gastritis. The bowel loops show post surgical change in the right lower quadrant with a diverting ileostomy in the right lower quadrant region. The small bowel and large bowel loops appear to be of normal caliber. There is no evidence of mechanical bowel obstruction. The evaluation for acute inflammatory bowel change is limited due to the small volume ascites in the abdomen and pelvis. URINARY BLADDER: The urinary bladder is normal size and contour showing no wall thickening or intraluminal filling defects. UTERUS/ OVARIES: Surgically absent. OSSEOUS STRUCTURES: Stable showing no acute osseous abnormality. Advanced degenerative disc changes are again noted at the lumbosacral junction. PERITONEAL CAVITY: There is small volume free fluid in the abdomen and pelvis. ABDOMINAL WALL: There is been interval postsurgical change with partial small bowel resection and placement of a right lower quadrant diverting ileostomy. There is also a lower anterior abdominal wall midline defect in the periumbilical region with edematous changes and herniated mesenteric fat which appears postsurgical in etiology, likely representing an incisional hernia. There is no associated herniated bowel loops at this time. IMPRESSION: 1. There has been interval postsurgical change involving small bowel loops in the right lower quadrant likely due to partial resection and there is a diverging ileostomy in the right lower quadrant. There is no evidence of mechanical bowel obstruction. The evaluation for acute inflammatory bowel involvement is limited secondary to the small volume free fluid in the abdomen and pelvis. 2. Interval development of soft tissue masses in the pelvis as described that may represent enlarged lymph nodes or metastatic peritoneal deposits. 3. Slight interval worsening of the hepatic metastasis. 4. Small volume abdominal pelvic ascites. 5. Persistent grade 3 right obstructive uropathy secondary to the soft tissue mass effect in the right hemipelvis. 6. There are some edematous changes noted in the region of the stomach antrum which may represent an antral gastritis. 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 Leukocytosis- POA Thrombocytosis - POA Anxiety, Depression Insomnia CAD Migraine headaches Hiatal hernia Normocytic Anemia, chronic Hypertension Plan Admit for obs and pain control. Morphine IV/PO and Percocet for pain (will continue her home long acting morphine if she is able to keep it down), compazine/phenergan for nausea/ vomiting. Ativan for anxiety. Pt has met with Hospice previously. Discussed with pt once her pain is under control, recommend Hospice as resource to help keep her pain under control at home. Significant stressors at home may make DC a challenge. Continue home meds if able to take po. She was on Levaquin for 5 days for post-op seroma with some "creamy drainage." She should have completed this on 01/03/18. Continue daily packing to abd wounds. Consult to wound clinic/[facility] to follow wounds. Lovenox for VTE ppx Pepcid for GERD/GI ppx DNR Dr Hardy - PCP DVT Prophylaxis: Lovenox GI Prophylaxis: Pepcid Resuscitation Status: Do Not Resuscitate - Physician Narrative Physician: Ibis Anguiano MD Narrative: Date: 01/05/18 Time: 2129 I have independently evaluated and examined this patient. I reviewed the chart, the patient's history, and the TOWEL HEMMER/PA's documented findings as above. We discussed and formulated the assessment and plan as above with additions as below: Debbie is well known from prior hospitalizations. She reports progressive increase in abdominal pain since prior discharge about 2 weeks ago. This been complicated by social issues outlined above. Her partner's mother is present and reports she noted significant worsening in pain over the past 24 hours and reports the patient was eating well 2 days ago. Nausea and vomiting have not been prominent symptoms prior to this ER evaluation and the patient reports pain is largely along the groin creases. Uncomfortable appearing female Respirations nonlabored Midline surgical wound with packing present, ileostomy with fecal output Generalized abdominal tenderness with marked tenderness bilateral upper quadrants with guarding, diminished bowel sounds Laboratory data reviewed-BUN up slightly, creatinine up 0.8-> 1.4 since mid November. Liver enzymes unremarkable except alkaline phosphatase of 179 which is slightly higher than it was in mid in early November. CT reviewed by [id number] infiltrate in bilateral lower lobes-greater on the left; increasing liver metastases, chronic right hydronephrosis/ hydroureter, soft tissue mass in the pelvis-possibly lymph nodes just to the right of the midline. Increasing tumor burden by CT with associated increasing pain/inadequate pain control. Will ask Dr. Clancy to reassess patient determine if any additional chemotherapy /immunotherapy options are available as tumor was being tested to determine if immunotherapy was an option during her last hospitalization. She did not tolerate chemotherapy earlier this year but is not opposed to additional active therapy if something is offered to her which she can tolerate. If no other options for active therapy available palliative care or hospice will need to be pursued. MS Contin increased to 60 mg every 12 hours. Discussed with the ER provider, social work, old records reviewed. Hospital Course Summary Disclaimer: The visit summary below is not to be considered part of the above Progress Note. Hospital Course: 01/05/18 Admit for obs and pain control. Morphine IV/PO and Percocet for pain (will continue her home long acting morphine if she is able to keep it down), compazine/phenergan for nausea/ vomiting. Ativan for anxiety. Pt has met with Hospice previously. Discussed with pt once her pain is under control, recommend Hospice as resource to help keep her pain under control at home. Significant stressors at home may make DC a challenge. Continue home meds. She was on Levaquin for 5 days for post-op seroma with some "creamy drainage." She should have completed this on 01/03/18. Continue daily packing to abd wounds. Consult to wound clinic/[facility] to follow wounds. Lovenox for VTE ppx Pepcid for GERD/GI ppx DNR Dr Hardy - PCP
[2018-01-05] MEDS ORDERED: MORPHINE SULFATE 2mg INJECTION IVP PRN ×2 (17:46→17:50)
[2018-01-05] MEDS ORDERED: METOCLOPRAMIDE 5mg TABLET PO PRN (17:47)
[2018-01-05] MEDS ORDERED: NS 1,000 ML IV ONE (17:47)
[2018-01-05] MEDS ORDERED: PROCHLORPERAZINE 5 MG TABLET PO PRN (17:47)
[2018-01-05] MEDS ORDERED: PROMETHAZINE 25 MG TABLET PO PRN (17:47)
[2018-01-05] MEDS ORDERED: Oxycodone/Acetaminophen 5/325 1 TAB PO PRN (17:52)
[2018-01-05] MEDS ORDERED: PANTOPRAZOLE 40 MG INJECTION IVP SCH (18:00)
[2018-01-05] MEDS: NS 1,000 ML IV SCH (19:09)
[2018-01-05] MEDS: FAMOTIDINE 20 MG TABLET PO SCH (21:12)
[2018-01-05] MEDS: GABAPENTIN 100 MG CAPSULE PO SCH (21:12)
[2018-01-06] MEDS: MORPHINE SULFATE 2mg INJECTION IVP PRN ×2 (03:25→11:40)
[2018-01-06] MEDS: NS 1,000 ML IV SCH ×2 (05:55→16:00)
--- NOTE | 2018-01-06 08:39 | General Surgery Consult Note ---
Consult date: 01/06/18 Attending Physician: Ibis Anguiano MD [facility] Patient Stated Medical History Migraine Yes Coronary Artery Disease Yes Hypertension Yes Sleep Apnea No Diabetes Mellitus Type 2 Yes Hiatal Hernia Yes Obstructive Bowel Yes Other GI Yes: ENDOMETRIAL CA W/ METASTASIS TO LIVER, STOMACH, AND KIDNEYS Hx Urinary Tract Infection Yes Chemotherapy Yes Depression Yes Endometriosis Yes Post Menopausal Yes Now No Clinic Medical History (Last Updated 12/30/17 @ 17:57 by Amrita Harris, AARON) Endometrial cancer (Acute Medical ~2014) Medical History Updates: DM 2. HTN. GERD. Anxiety. Depression. Insomnia. Endometrial CA (stage IV) with mets to liver, stomach and kidneys 04/18/2016. CAD angioplasty 2003. Migraine headaches. Hiatal hernia. gastric ulcer Surgical History: PowerPort insertion 05/03/2016 Mortezaonegricarda. KESHAV-BSO with resection of right ureter anastomosis incidental [id number]/2/2016 Tejinder. Lumbar discectomy 2013. Partial right knee replacement 2008 Celine. Heart catheter with angioplasty 2 vessels in 2003. Laparoscopic ovarian cystectomy. Ectopic with left oophorectomy. EGD. Exploratory laparotomy extensive adhesiolysis, small bowel resection, creation of loop ileostomy, widely metastatic endometrial cancer 12/15/2017 [facility] Family History Updates: Mother at 47 of lymphoma, heart disease, diabetes but ultimately of suicide (GSW to head). Father also committed suicide of GSW to head at age 58. He had epilepsy. Daughter with hx of drug addiction. Son is healthy. Maternal grandmother had ovarian cancer. 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 Does patient use chewing tobacco?: No Current residence: Apartment/Private Home Medications Home Medications Medication Instructions Recorded Confirmed Type Pnv No.95/Ferrous Fum/Folic AC 1 tab PO DAILY 06/25/17 01/05/18 History [ Tablet] Prochlorperazine Tab [Compazine] 5 mg PO Q8H PRN 08/22/17 01/05/18 History Metoclopramide [Reglan] 5 mg PO ACHS PRN 12/06/17 01/05/18 History Promethazine HCl 25 mg PO Q6H PRN 12/06/17 01/05/18 History Famotidine [Pepcid] 20 mg PO BID tab 12/26/17 01/05/18 Rx Gabapentin [Neurontin] 100 mg PO TID #30 cap 12/26/17 01/05/18 Rx Metoprolol Tartrate [Lopressor] 100 mg PO BIDWM #60 tab 12/26/17 01/05/18 Rx Morphine Sulfate *IR* [Morphine 15 mg PO Q4HR #20 tab 12/26/17 01/05/18 Rx Sulfate *Ir*] Morphine Sulfate *SR* [Ms Contin] 30 mg PO BID PRN #20 tab 12/26/17 01/05/18 Rx Levaquin (levofloxacin) 500 mg 500 mg PO DAILY #5 tab 12/30/17 01/05/18 Rx tablet Allergies Allergy/AdvReac Type Severity Reaction Status Date / Time No Known Allergies Allergy Unknown Verified 01/05/18 12:33 Review of Systems 10-point ROS: negative except for HPI and the following: - General Additional Comments: friend has been doing packing changes on the 2 incisional seroma wounds. - Gastrointestinal Gastrointestinal: Present: vomiting Additional comments: normal light brown stool output in ileostomy - Psychiatric Psychiatric: Present: anxiety - Vital Signs Last Vital Signs Temp 98.4 F 01/06/18 08:00 Pulse 95 01/06/18 08:00 Resp 18 01/06/18 08:00 BP 110/65 01/06/18 08:00 Pulse Ox 93 01/06/18 08:00 - Laboratory Result Diagrams: 01/06/18 04:22 01/06/18 04:22 General Surgery Results - Results Labs: 01/06/18 04:22 01/06/18 04:22
--- NOTE | 2018-01-06 09:28 | Progress Note ---
- Date 01/06/18 Subjective: Patient is seen this morning during her wound packing by Amrita Harris APRN. She reports she did not sleep well last night. States her pain is 5/10 currently. She's not had any nausea or vomiting. No cough, shortness of breath, fever or chills. She did require Percocet around midnight and IV morphine around 3:30 AM. Objective Vital signs: Temperature 98.4 F 01/06/18 08:00 Pulse Rate 95 01/06/18 08:00 Respiratory Rate 18 01/06/18 08:00 Blood Pressure 110/65 01/06/18 08:00 Pulse Oximetry 93 01/06/18 08:00 Height/Weight/BMI: Height 1.6 m Weight 89.3 kg Body Mass Index 34.3 - Constitutional Present: no acute distress, well nourished, well developed - Routine HEENT Exam Head: Present: normocephalic, atraumatic - Routine Respiratory Exam Present: CTA bilaterally. Absent: wheezes - Routine Cardiovascular Exam Present: RRR, no murmur - Routine Abdominal Exam Present: soft, normoactive bowel sounds, tenderness (diffuse, worse in left upper quadrant), non distended - Routine Extremities Exam Present: no edema, normal capillary refill - Routine Skin Exam Present: dry, warm Comments: Abdominal wounds with no sign of infection. The wound most proximal tunnels approximately 3 cm deep, distal wound approximately 4 cm deep. 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 No sign of infection. Patient is willing to restart Cymbalta for her depression, anxiety, and for chronic pain. She is unsure why this was not continued from previous hospitalization. Creatinine remains elevated at 1.3 compared to 1.4 yesterday. Baseline 0.8. Continue IVF's. Long-acting morphine was increased from 30 twice a day to 60 mg twice a day. Patient has not noted any significant drowsiness or other adverse effects. She did require Percocet and morphine IV overnight. Given that she's not having any nausea/vomiting, will try to utilize by mouth pain medications for ease of transition back home. Dr. Clancy consulted to reassess patient to determine if additional chemotherapy /immunotherapy options are available as tumor was being tested to determine if immunotherapy was an option during her last hospitalization. She did not tolerate chemotherapy earlier this year but is not opposed to additional active therapy if something is offered to her which she can tolerate. If no other options for active therapy available palliative care or hospice will need to be pursued. Hemoglobin dropped today 8.6.--> 7.9. Could be dilutional. Hemoglobin has averaged 8-9 since recent surgery. Vital signs are stable. DVT Prophylaxis: Lovenox GI Prophylaxis: Pepcid Resuscitation Status: Do Not Resuscitate - Physician Narrative Physician: Ibis Anguiano MD Narrative: Date: 01/06/18 Time: 2200 I have independently evaluated and examined this patient. I reviewed the chart, the patient's history, and the MEMORIAL DESIGNER/PA's documented findings as above. We discussed and formulated the assessment and plan as above with additions as below: Lynda reports ongoing nausea with vomiting earlier today although this afternoon she has been able to tolerate some liquids with 840 mL oral intake reported by nursing. Abdominal pain varies-was severe this morning but is better when seen late in the afternoon. NAD at time of assessment, respirations nonlabored, abdomen obese, soft, diminished bowel sounds Discussed with Dr. Clancy, to resume palliative chemotherapy tomorrow with goal of minimizing recurrent bowel obstructions/improving pain control Continues to require intermittent IV narcotics and IV antiemetics. Hospital Course Summary Disclaimer: The visit summary below is not to be considered part of the above Progress Note. Hospital Course: 01/05/18 Admit for obs and pain control. Morphine IV/PO and Percocet for pain (will continue her home long acting morphine if she is able to keep it down), compazine/phenergan for nausea/ vomiting. Ativan for anxiety. Pt has met with Hospice previously. Discussed with pt once her pain is under control, recommend Hospice as resource to help keep her pain under control at home. Significant stressors at home may make DC a challenge. Continue home meds. She was on Levaquin for 5 days for post-op seroma with some "creamy drainage." She should have completed this on 01/03/18. Continue daily packing to abd wounds. Consult to wound clinic/[facility] to follow wounds. Lovenox for VTE ppx Pepcid for GERD/GI ppx DNR Dr Hardy - PCP 01/06/18 Continue daily packing of abdominal wounds. No sign of infection. Patient is willing to restart Cymbalta for her depression, anxiety, and for chronic pain. She is unsure why this was not continued from previous hospitalization. Creatinine remains elevated at 1.3 compared to 1.4 yesterday. Baseline 0.8. Continue IVF's. Long-acting morphine was increased from 30 twice a day to 60 mg twice a day. Patient has not noted any significant drowsiness or other adverse effects. She did require Percocet and morphine IV overnight. Given that she's not having any nausea/vomiting, will try to utilize by mouth pain medications for ease of transition back home. Dr. Clancy consulted to reassess patient to determine if additional chemotherapy /immunotherapy options are available as tumor was being tested to determine if immunotherapy was an option during her last hospitalization. She did not tolerate chemotherapy earlier this year but is not opposed to additional active therapy if something is offered to her which she can tolerate. If no other options for active therapy available palliative care or hospice will need to be pursued. Hemoglobin dropped today 8.6.--> 7.9. Could be dilutional. Hemoglobin has averaged 8-9 since recent surgery. Vital signs are stable.
[2018-01-06] MEDS: GABAPENTIN 100 MG CAPSULE PO SCH ×3 (09:57→21:28)
[2018-01-06] MEDS: ENOXAPARIN 40 MG/0.4 ML INJECTION SQ SCH (09:57)
[2018-01-06] MEDS: FAMOTIDINE 20 MG TABLET PO SCH ×2 (09:57→21:28)
[2018-01-06] MEDS: DULOXETINE 30 MG CAPSULE PO SCH ×2 (09:58→21:28)
[2018-01-06] MEDS: PROCHLORPERAZINE 10 MG/2 ML INJECTION IVP PRN (11:45)
--- NOTE | 2018-01-06 15:40 | Consult Note ---
<Poly Adkins - Last Filed: 01/06/18 16:06> Oncology HPI - Data of Consult Patient: known to practice within the last 3 years Consult date: 01/06/18 Requesting Physician: Ibis Anguiano MD Primary Care Provider: El Hardy II, MD - Consult Narrative Reason for consult: Mixed mullerian endometrial cancer with extensive abdominal/ pelvic metastat History of present illness: The patient is readmitted to the hospital with worsening abdominal pain and nausea/vomiting. She requested oncology visit. At time of visit, alert/oriented. Denies fever/chills. No cough, SOA, or chest pain. She is frustrated w/ nausea/emesis and persistent abdominal pain. Now states willing to consider chemotherapy if will help abdominal symptoms. History of Present Illness Patient was diagnosed on 04/15/16 with stage IVB uterine/ovarian cancer. She is status post cytoreductive surgery, KESHAV/BSO with right ureteral resection with anastomosis. She is undergoing chemotherapy with Taxol and carboplatin. Tumor marker CA 125 went down from 276 to to 16.7. Restaging with CT scan of the chest, abdomen and pelvis after 4 cycles of Taxol carboplatin showed surgical changes in the abdomen with no evidence of recurrence. CT scan showed small bilateral axillary lymph nodes. Screening mammogram on 07/15/16 showed no evidence of malignancy. 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 This genetic test result is associated with the following cancer risk: High risk for female breast cancer and elevated risk for colorectal cancer. Interval history MRI of the breast bilateral on 10/29/16 showed no MR evidence of breast malignancy. Bilateral borderline axillary adenopathy 11.0 mm in size. The patient received 6 cycles of chemotherapy Taxol and carboplatin from 2015 to 08/21/2016. The patient presented on 02/21/2017 with acute abdominal pain. CT scan of the abdomen and pelvis with contrast showed small low- attenuation lesion in the inferior right lobe of the liver too small to characterize. There is a small bowel obstruction due to an adhesion near the patient umbilical hernia. Subsequently she was transferred to [facility]. She underwent primary incisional herniorrhaphy for the incarcerated incisional hernia/small bowel obstruction. 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 07/09/2017: The patient presented to the ED at [facility] with abdominal pain and nausea. CT scan of the abdomen and pelvis with contrast on 06/25/2017 showed low-attenuation liver lesions consistent with metastasis ranging from 1.1-2.9 cm in size. There is moderate right-sided hydronephrosis due to metastatic implants along the retroperitoneal reflection measuring 4.2 x 1.5 cm. New cystic lesion just below the aortic bifurcation measuring 4.6 cm in diameter. Evidence of intra-muscular metastases in the inferior aspect of the right rectus sheath. Cystic metastasis adjacent to the anterior margin of the bladder measuring 5.1 cm in diameter. No evidence of bowel obstruction. Small fat-containing ventral hernia near the left liver margin. Evidence of prior umbilical hernia repair with some nodularity along the umbilicus that could be due to metastatic implants. Tumor marker CA 125 came back elevated at 79.8. CBC: WBC 14.2 with ANC of 9.9, hemoglobin 12 and platelet count 398,000. CMP remarkable for alkaline phosphatase of 139 otherwise normal. The patient complains of nausea and constipation. KUB unremarkable. No signs of bowel obstruction. Patient complains of abdominal pain, on narcotics. 07/30/2017: During the third day of ifosfamide the patient presented with confusion. She was admitted with possible ifosfamide induced neurotoxicity. She was treated conservatively with hydration. The patient continued to have abdominal pain nausea and constipation. CT scan on 07/14/2017 compared to the scan from 06/25/2017 showed a 4.0 cm cystic submucosal mass within the mid sigmoid colon causing luminal narrowing. There is severe wall thickening of the more proximal sigmoid colon extending through the splenic flexure. This could represent metastatic disease. Also there was increasing ascites. Hepatic metastatic lesions stable. There is also impaired function of the severely obstructed right kidney. I discussed the case with Dr. Viveros. The patient was deemed not a surgical candidate. I had a lengthy discussion with the patient regarding further management. We discussed the option of supportive care and hospice versus palliative chemotherapy. The patient chose for palliative chemotherapy. She came today to resume chemotherapy. Her nausea and bowel movement improved, as well as her pain. She is doing somewhat better with small meals/snacks. All in all, she is doing better and ready to resume chemotherapy. CBC and CMP unremarkable. 09/16/2017: The patient was hospitalized twice following ifosfamide based chemotherapy and Taxol carboplatin. She received 1 cycle of each. The last cycle was on 08/20/2017 which was Taxol carboplatin. Each time the patient admitted to the hospital with worsening abdominal pain constipation and intractable nausea. She decided to stop chemotherapy. She is doing much better now with less nausea and abdominal pain which were controlled with narcotics and antiemetics. She would like to go back to work. She does not feel need a restriction for her type of work. She has not gone to her second opinion visit at [facility] in [place]. While patient off chemotherapy CA-125 went up to 381 12/15/2017: patient presented with disease progression in the abdomen associated with bowel obstruction. CT scan on 12/15/2017 showed persistent fluid distention of the small bowel consistent with small bowel obstruction with transition in the right pelvis near the area of peritoneal metastasis. Mild to moderate right hydroureteronephrosis secondary to obstruction from metastatic implant at the level of the right psoas muscle. Unchanged multifocal hypoenhancing hepatic metastatic lesions. The patient underwent exploratory laparotomy/ extensive adhesions/small bowel resection/repair of enterotomy/intraoperative colonoscopy/incidental appendectomy and creation of loop colostomy. Surgical pathology revealed small bowel segmental resection involved by metastatic adenocarcinoma, olon biopsy at 15 cm involved by metastatic adenocarcinoma, appendix involved by metastatic adenocarcinoma compatible with endometrial primary. MMR by IHC came back normal/MMR sufficient.Patient is not a candidate for immunotherapy Review of Systems - Constitutional Constitutional: Present: fatigue - EENT Eyes: Absent: change in vision Mouth/Throat: Absent: sore throat - Cardiovascular Cardiovascular: Absent: chest pain, palpitations - Respiratory Respiratory: Absent: cough, dyspnea - Gastrointestinal Gastrointestinal: Present: as per HPI, abdominal pain, nausea, vomiting - Genitourinary Genitourinary: Absent: dysuria, hematuria - Musculoskeletal Musculoskeletal: Absent: back pain - Neurological Neurological: Absent: focal weakness - Psychiatric Psychiatric: Present: anxiety (regarding cancer diagnosis/persistent abd. symptoms) PFSH Patient Stated Medical History Migraine Yes Coronary Artery Disease Yes Hypertension Yes Sleep Apnea No Diabetes Mellitus Type 2 Yes Hiatal Hernia Yes Obstructive Bowel Yes Other GI Yes: ENDOMETRIAL CA W/ METASTASIS TO LIVER, STOMACH, AND KIDNEYS Hx Urinary Tract Infection Yes Chemotherapy Yes Depression Yes Endometriosis Yes Post Menopausal Yes Now No Clinic Medical History (Last Updated 12/30/17 @ 17:57 by Amrita Harris APRN) Endometrial cancer (Acute Medical ~2014) Medical History Updates: DM 2. HTN. GERD. Anxiety. Depression. Insomnia. Endometrial CA (stage IV) with mets to liver, stomach and kidneys 04/18/2016. CAD angioplasty 2003. Migraine headaches. Hiatal hernia. gastric ulcer Surgical History: PowerPort insertion 05/03/2016 Mortezaonegricarda. KESHAV-BSO with resection of right ureter anastomosis incidental [id number]/2/2016 Tejinder. Lumbar discectomy 2013. Partial right knee replacement 2008 Celine. Heart catheter with angioplasty 2 vessels in 2003. Laparoscopic ovarian cystectomy. Ectopic with left oophorectomy. EGD. exploratory laparotomy extensive adhesiolysis, small bowel resection, creation of loop ileostomy, widely metastatic endometrial cancer 12/15/2017 [facility] Family History Updates: Mother at 47 of lymphoma, heart disease, diabetes but ultimately of suicide (GSW to head). Father also committed suicide of GSW to head at age 58. He had epilepsy. Daughter with hx of drug addiction. Son is healthy. Maternal grandmother had ovarian cancer. 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 Does patient use chewing tobacco?: No Current residence: Apartment/Private Home Medications Home Medications Medication Instructions Recorded Confirmed Type Pnv No.95/Ferrous Fum/Folic AC 1 tab PO DAILY 06/25/17 01/05/18 History [ Tablet] Prochlorperazine Tab [Compazine] 5 mg PO Q8H PRN 08/22/17 01/05/18 History Metoclopramide [Reglan] 5 mg PO ACHS PRN 12/06/17 01/05/18 History Promethazine HCl 25 mg PO Q6H PRN 12/06/17 01/05/18 History Famotidine [Pepcid] 20 mg PO BID tab 12/26/17 01/05/18 Rx Gabapentin [Neurontin] 100 mg PO TID #30 cap 12/26/17 01/05/18 Rx Metoprolol Tartrate [Lopressor] 100 mg PO BIDWM #60 tab 12/26/17 01/05/18 Rx Morphine Sulfate *IR* [Morphine 15 mg PO Q4HR #20 tab 12/26/17 01/05/18 Rx Sulfate *Ir*] Morphine Sulfate *SR* [Ms Contin] 30 mg PO BID PRN #20 tab 12/26/17 01/05/18 Rx Levaquin (levofloxacin) 500 mg 500 mg PO DAILY #5 tab 12/30/17 01/05/18 Rx tablet Allergies Allergy/AdvReac Type Severity Reaction Status Date / Time No Known Allergies Allergy Unknown Verified 01/05/18 12:33 Exam Vital signs: Temperature 96.7 F L 01/06/18 15:27 Pulse Rate 78 01/06/18 15:27 Respiratory Rate 15 01/06/18 15:27 Blood Pressure 111/68 01/06/18 15:27 Pulse Oximetry 95 01/06/18 15:27 - Constitutional mild distress, cooperative - Routine HEENT Exam Head: Present: normocephalic Eye: Present: EOMI ENT: Present: mucous membranes moist - Routine Neck Exam Present: supple. Absent: lymphadenopathy - Routine Respiratory Exam Present: CTA bilaterally. Absent: wheezes - Routine Cardiovascular Exam Present: RRR, no murmur - Routine Abdominal Exam Present: soft, normoactive bowel sounds, tenderness (mild with exam) - Routine Extremities Exam Present: no edema, full ROM Comments: ileostomy intact w/ large amount dark liquid stool - Routine Skin Exam Present: intact - Routine Neurological Exam Present: alert, oriented X3, moving all extremities - Routine Psychiatric Exam Present: normal affect, cooperative, anxious (mild) Oncology Results - Labs CBC & Chem 7: 01/06/18 04:22 01/06/18 04:22 Labs: Short CBC 01/06/18 Range/Units 04:22 WBC 12.5 H (4.5-11.0) T/MM3 Hgb 7.9 L (12-16) GM/DL Hct 26.0 L (36-46) % Plt Count 403 H (130-400) T/MM3 BMP 01/06/18 04:22 Sodium 140 Potassium 3.9 Chloride 105 Carbon Dioxide 27 BUN 13.0 Creatinine 1.3 H D Glucose 102 Calcium 8.2 L Urine 07/09/18 Range/Units 19:30 Urine Color Yellow (YELLOW) Urine Clarity Sl cloudy Urine pH 5.5 (5.0-8.0) Ur Specific [place] 1.010 L (1.015-1.025) Urine Protein Negative (NEGATIVE) Urine Glucose (UA) Negative (NEGATIVE) Assessment and Plan Assessment and Plan: 1. [place] sensitive MMR sufficient/normal progressive metastatic endometrial cancer (carcinosarcoma/mixed mullerian tumor) with extensive peritoneal carcinomatosis causing right hydronephrosis and small bowel obstruction s/p exploratory laparotomy with diverting colostomy. The patient was initially diagnosed with stage IVB endometrial/ovarian adenocarcinoma s/p cytoreductive surgery (KESHAV/BSO followed by 6 cycles of adjuvant chemotherapy Taxol and carboplatin from 05/08/2016 -08/21/2016. For recurrent disease the patient received 2 cycles of Ifex/Taxol and 1 cycle of Taxol/carbo from Jun - Jul 2017. 2. 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 Plan Dr. Clancy had lengthy discussion on diagnosis, prognosis, and treatment options. The patient would like to try chemotherapy again. Explained the chemotherapy is purely palliative. Goal would be hopefully prevent another episode of bowel obstruction. Because the patient has not failed eklutna; with significant drop of tumor marker CA 125, Dr. Clancy recommends treat with carboplatin on day 1 along with weekly Taxol. Will plan to start chemotherapy tomorrow. <Digna Clancy - Last Filed: 01/06/18 21:38> Oncology HPI - Data of Consult Requesting Physician: Ibis Anguiano MD Primary Care Provider: El Hardy II, MD [facility] Patient Stated Medical History Migraine Yes Coronary Artery Disease Yes Hypertension Yes Sleep Apnea No Diabetes Mellitus Type 2 Yes Hiatal Hernia Yes Obstructive Bowel Yes Other GI Yes: ENDOMETRIAL CA W/ METASTASIS TO LIVER, STOMACH, AND KIDNEYS Hx Urinary Tract Infection Yes Chemotherapy Yes Depression Yes Endometriosis Yes Post Menopausal Yes Now No Clinic Medical History (Last Updated 12/30/17 @ 17:57 by Amrita Harris APRN) Endometrial cancer (Acute Medical ~2014) Exam Vital signs: Temperature 96.7 F L 01/06/18 15:27 Pulse Rate 78 01/06/18 15:27 Respiratory Rate 18 01/06/18 21:29 Blood Pressure 111/68 01/06/18 15:27 Pulse Oximetry 95 01/06/18 15:27 Oncology Results - Labs CBC & Chem 7: 01/06/18 04:22 01/06/18 04:22 Labs: Short CBC 01/06/18 Range/Units 04:22 WBC 12.5 H (4.5-11.0) T/MM3 Hgb 7.9 L (12-16) GM/DL Hct 26.0 L (36-46) % Plt Count 403 H (130-400) T/MM3 BMP 01/06/18 04:22 Sodium 140 Potassium 3.9 Chloride 105 Carbon Dioxide 27 BUN 13.0 Creatinine 1.3 H D Glucose 102 Calcium 8.2 L Assessment and Plan Assessment and Plan: I have interviewed and examined the patient. I reviewed the patient office chart under developed child the following plan: Because the patient is still considered has eklutna sensitive endometrial ( cancer CA-125 has dropped significantly after 3 cycles of second line chemotherapy including Ifex/Taxol 2 then Taxol/carbo 1) I would treat her with carboplatin and Taxol. The patient initially chose supportive care but now she changed her mind and she would like to try chemotherapy again.
[2018-01-06] MEDS ORDERED: DULOXETINE 30 MG CAPSULE PO SCH (21:00)
[2018-01-07] MEDS: NS 1,000 ML IV SCH ×3 (02:05→20:37)
[2018-01-07] MEDS: DULOXETINE 30 MG CAPSULE PO SCH ×2 (08:10→20:32)
[2018-01-07] MEDS: GABAPENTIN 100 MG CAPSULE PO SCH ×3 (08:10→20:32)
[2018-01-07] MEDS: FAMOTIDINE 20 MG TABLET PO SCH (08:11)
[2018-01-07] MEDS: ENOXAPARIN 40 MG/0.4 ML INJECTION SQ SCH (08:11)
[2018-01-07 10:08] VITALS: BMI 34.6
[2018-01-07] MEDS ORDERED: DiphenhydrAMINE 50 MG/ML INJECTION IVP PRN (11:32)
[2018-01-07] MEDS ORDERED: METHYLPREDNISOLONE SOD SUCC 125mg/2ml INJECTION IVP PRN (11:34)
[2018-01-07] MEDS ORDERED: HYDROCORTISONE SOD SUCC 100mg/2ml INJECTION IVP PRN (11:34)
[2018-01-07] MEDS ORDERED: NS IVP ONE (12:00)
[2018-01-07] MEDS ORDERED: ONDANSETRON IVP ONE (12:00)
[2018-01-07] MEDS ORDERED: DEXAMETHASONE INJ 10 MG in NS 50 ML IV ONE (12:20)
[2018-01-07] MEDS ORDERED: FAMOTIDINE 20 MG in NS 50 ML IV ONE (12:45)
[2018-01-07] MEDS ORDERED: DiphenhydrAMINE 50 MG/ML INJECTION IVP ONE (13:15)
[2018-01-07] MEDS ORDERED: PACLITAXEL IV ONE (13:20)
[2018-01-07] MEDS ORDERED: NS IV ONE ×2 (13:20→16:30)
--- NOTE | 2018-01-07 15:54 | Wound Care Progress Note ---
Wound Center Progress Note: Pt seen for wound consult r/t mid abdominal incision. Pt also have a RLQ ileostomy. Pt lying in bed, complains of pain with movement. Pt reports she is getting along well at home with her ileostomy; she has been able to change the pouching system herself and empty pouch PRN. Pt has a midline abdominal incision ; 2 open areas, superior and inferior to umbilicus. At this time both wounds are being packed daily with 1/4" packing gauze. Inferior and superior wound beds : red non-granulating tissue, scant serosanguineous drainage on dressing removed , no active drainage. Periwound: WDNL. Ileostomy pouch is 2/3 full with brown semi-formed effluent.
--- NOTE | 2018-01-07 15:58 | Wound Care Progress Note ---
Wound Management - Patient Status Premedicated Prior to Dressing Change: Yes - Wound Upper Abdomen Wound Type: Surgical Incision Wound Present on Admission?: Yes Length: 1.1 Width: 0.5 Depth: 1 Senia Wound Appearance: Well Defined Tunneling: No Undermining: No Drainage Description: Sanguineous Drainage Amount: Scant Drainage Odor: No Odor Dressing Status: Changed Packing Type: Gauze Packing Strips Number of Packing Pieces Removed?: 1 Number of Packing Pieces Placed?: 1 Secondary Dressing: Adhesive Dressing Dressing Change Date: 01/07/18 Dressing Change Time: 14:00 Dressing Change Patient Tolerance: Tolerated Well (Packed with 1/4" plain packing strips, daily) Lower Abdomen Wound Type: Surgical Incision Wound Present on Admission?: Yes Length: 2 Width: 1 Depth: 4.5 Senia Wound Appearance: Well Defined Tunneling: No Undermining: No Drainage Description: Sanguineous Drainage Amount: Scant Drainage Odor: No Odor Dressing Status: Changed Packing Type: Gauze Packing Strips Number of Packing Pieces Removed?: 1 Number of Packing Pieces Placed?: 1 Secondary Dressing: Adhesive Dressing Dressing Change Date: 01/07/18 Dressing Change Time: 14:00 Dressing Change Patient Tolerance: Tolerated Well (Packed with 1/4" plain packing strips, daily)
[2018-01-07] MEDS ORDERED: CARBOPLATIN IV ONE (16:30)
--- NOTE | 2018-01-07 19:14 | Progress Note ---
- Date 01/07/18 Subjective: Patient is seen resting in bed this morning. She reports she's been dry heaving for the last hour. She hasn't had anything to eat today. She's getting ready to start chemotherapy. States her pain is currently controlled. The burning in the lower abdomen has improved. No chest pain or shortness of breath. No fever or chills. Objective Vital signs: Temperature 96.8 F 01/07/18 15:16 Pulse Rate 72 01/07/18 15:16 Respiratory Rate 16 01/07/18 15:16 Blood Pressure 114/65 01/07/18 15:16 Pulse Oximetry 92 01/07/18 15:16 Height/Weight/BMI: Height 1.6 m Weight 88.6 kg Body Mass Index 34.6 - Constitutional Present: no acute distress, well nourished, well developed - Routine HEENT Exam Head: Present: normocephalic, atraumatic - Routine Respiratory Exam Present: CTA bilaterally. Absent: wheezes - Routine Cardiovascular Exam Present: RRR, no murmur - Routine Abdominal Exam Present: soft, tenderness (diffuse, worse in the left upper quadrant. The 2 open wounds are currently packed and covered with gauze dressings. 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 No sign of infection. Creatinine continues to improve and is now within normal limits. White count is still slightly elevated, but not increasing. Hemoglobin stable at 8.2. Vital signs are stable. Chemotherapy started today. Patient understands this is palliative and not curative. She hopes to have some shrinkage of the tumors in hopes that her pain will be improved. Continue IV anti-emetics and pain medication as needed for nausea/pain. Will see how she tolerates chemotherapy. Seen and examined patient on same day as the above note physician's drilling assistant Lurdes Pugh. Agree with above note physical, assessment and plan. Comprehensive physical findings correlate to the above note. Exam: Gen.: minimally anxious but no parent medical distress, chronically ill appearing HEENT: normocephalic atraumatic, oral mucosa moderately dry neck: no lymphadenopathy no jugular venous distention respiratory: there to auscultation bilaterally with good excursion cardiovascular: cardiovascular S1 S2 no adventitious murmurs rubs or gallops abdomen/GI: postoperative with bandages in place. No new erythema extremities: good peripheral perfusion with no edema skin/integument: no significant injuries or edema neuro: alert and oriented. No focal deficits appreciable psych: moderately anxious per appropriate Labs: reviewed imaging: no acute processes EKG: within normal limits n Assessment and plan: patient is restarting chemotherapy for palliative purposes. She has very poor pain control and suffers augmented symptoms with emotional distress brought about by situational conditions to her own life. Continue with pain control for late stage metastatic cancer. Appreciate oncology's efforts. Documented on [employer] speech to text. Efforts to correct speech recognition errors performed, but variation may exist - Physician Narrative Narrative: Date: 01/07/18 Time: 1907 Hospital Course Summary Disclaimer: The visit summary below is not to be considered part of the above Progress Note. Hospital Course: 01/05/18 Admit for obs and pain control. Morphine IV/PO and Percocet for pain (will continue her home long acting morphine if she is able to keep it down), compazine/phenergan for nausea/ vomiting. Ativan for anxiety. Pt has met with Hospice previously. Discussed with pt once her pain is under control, recommend Hospice as resource to help keep her pain under control at home. Significant stressors at home may make DC a challenge. Continue home meds. She was on Levaquin for 5 days for post-op seroma with some "creamy drainage." She should have completed this on 01/03/18. Continue daily packing to abd wounds. Consult to wound clinic/Svetlana to follow wounds. Lovenox for VTE ppx Pepcid for GERD/GI ppx DNR Dr Hardy - PCP 01/06/18 Continue daily packing of abdominal wounds. No sign of infection. Patient is willing to restart Cymbalta for her depression, anxiety, and for chronic pain. She is unsure why this was not continued from previous hospitalization. Creatinine remains elevated at 1.3 compared to 1.4 yesterday. Baseline 0.8. Continue IVF's. Long-acting morphine was increased from 30 twice a day to 60 mg twice a day. Patient has not noted any significant drowsiness or other adverse effects. She did require Percocet and morphine IV overnight. Given that she's not having any nausea/vomiting, will try to utilize by mouth pain medications for ease of transition back home. Dr. Clancy consulted to reassess patient to determine if additional chemotherapy /immunotherapy options are available as tumor was being tested to determine if immunotherapy was an option during her last hospitalization. She did not tolerate chemotherapy earlier this year but is not opposed to additional active therapy if something is offered to her which she can tolerate. If no other options for active therapy available palliative care or hospice will need to be pursued. Hemoglobin dropped today 8.6.--> 7.9. Could be dilutional. Hemoglobin has averaged 8-9 since recent surgery. Vital signs are stable. 01/07/18 Creatinine continues to improve and is now within normal limits. White count is still slightly elevated, but not increasing. Hemoglobin stable at 8.2. Chemotherapy started today. Patient understands this is palliative and not curative. She hopes to have some shrinkage of the tumors in hopes that her pain will be improved. Continue IV anti-emetics and pain medication as needed for nausea/pain. Will see how she tolerates chemotherapy.
[2018-01-07] MEDS: PROCHLORPERAZINE 10 MG/2 ML INJECTION IVP PRN (20:26)
[2018-01-08] MEDS: NS 1,000 ML IV SCH ×2 (05:10→16:01)
[2018-01-08] MEDS: PROCHLORPERAZINE 10 MG/2 ML INJECTION IVP PRN ×2 (05:10→13:23)
--- NOTE | 2018-01-08 08:38 | Progress Note ---
<Poly Adkins - Last Filed: 01/08/18 10:36> Oncology Subjective Sleeping at time of intake. Awakens easily. Denies fever, chills, night sweats. Denies nausea or vomiting abdominal pain currently. Feels she tolerated the chemotherapy well, "if I get sick it is usually 2 days after the chemo. Only complaint is decreased appetite; has anxiety about eating because feels she may get abdominal pain. General: No fever, no night sweats. Decreased appetite Eyes: No redness, no pain, no diplopia ENT: No mouth sores, no trouble swallowing Cardiac: No chest pain no palpitations Pulmonary: No cough, no shortness of breath, no wheezing Abdomen: No pain, no nausea vomiting, no diarrhea or constipation : No urgency, frequency, dysuria, or hematuria Musculoskeletal: No arthritis, no myalgias Neurological: No headaches, no focal weakness Skin: No rash, no sores Psychiatric: + anxiety, no depression Exam Vital signs: Temperature 97.4 F 01/08/18 07:48 Pulse Rate 69 01/08/18 07:48 Respiratory Rate 16 01/08/18 07:48 Blood Pressure 105/61 01/08/18 07:48 Pulse Oximetry 91 01/08/18 07:48 Narrative: Generic Name Dose Route Start Last Admin Trade Name Kangq PRN Reason Stop Dose Admin Diphenhydramine HCl 50 mg 01/07/18 11:32 Benadryl IVP PRN PRN chemo hypersensitivity Duloxetine HCl 30 mg 01/06/18 09:30 01/07/18 20:32 Cymbalta PO 30 mg BID SHERIN Administration Enoxaparin Sodium 40 mg 01/06/18 09:00 01/07/18 08:11 Lovenox SQ 40 mg DAILY SHERIN Administration Famotidine 20 mg 01/05/18 21:00 01/07/18 08:11 Pepcid PO 20 mg BID SHERIN Administration Gabapentin 100 mg 01/05/18 21:00 01/07/18 20:32 Neurontin PO 100 mg TID SHERIN Administration Hydrocortisone Sodium Succinate 100 mg 01/07/18 11:34 Solu-Cortef IVP PRN PRN chemo hypersensitivity Sodium Chloride 1,000 mls @ 100 mls/hr 01/05/18 18:00 01/08/18 05:10 Normal Saline IV 100 mls/hr .Q10H SHERIN Administration Lorazepam 0.5 - 1 mg 01/05/18 17:46 01/05/18 18:03 Ativan Inj IVP 1 mg Q6H PRN Administration Methylprednisolone Sodium Succinate 125 mg 01/07/18 11:34 Solu-Medrol IVP PRN PRN chemo hypersensitivity Metoclopramide HCl 5 mg 01/05/18 17:47 Reglan PO ACHS PRN PRN orders Metoprolol Tartrate 100 mg 01/06/18 08:00 01/07/18 17:06 Lopressor PO 100 mg BIDWM SHERIN Administration Morphine Sulfate 60 mg 01/05/18 21:00 01/07/18 20:32 Ms Contin PO 60 mg BID SHERIN Administration Morphine Sulfate 4 mg 01/05/18 20:05 01/06/18 11:40 Morphine Sulf 2 Mg Inj IVP 4 mg Q1HR PRN Administration Pain Morphine Sulfate 15 mg 01/05/18 20:04 01/08/18 05:10 Morphine Sulfate *Ir* PO 15 mg Q2HR PRN Administration Oxycodone/Acetaminophen 1 tab 01/05/18 17:52 01/05/18 23:26 Percocet 5/325 PO 1 tab Q6H PRN Administration Pain Prochlorperazine 5 mg 01/05/18 17:47 Compazine PO Q8H PRN Nausea Prochlorperazine Edisylate 10 mg 01/05/18 17:49 01/08/18 05:10 Compazine Iv IVP 10 mg Q6H PRN Administration Nausea &/or vomiting Promethazine HCl 25 mg 01/05/18 17:47 01/05/18 21:13 Phenergan Tab PO 25 mg Q6H PRN Administration PRN orders Discontinued Medications Generic Name Dose Route Start Last Admin Trade Name Freq PRN Reason Stop Dose Admin Diphenhydramine HCl 25 mg 01/07/18 13:15 01/07/18 14:57 Benadryl IVP 01/07/18 13:16 25 mg O ONE Administration Duloxetine HCl 30 mg 01/06/18 21:00 Cymbalta PO BID SHERIN Sodium Chloride 1,000 mls @ 999.9 mls/hr 01/05/18 17:47 01/05/18 19:06 Normal Saline IV 01/05/18 18:46 Infused .Q1H ONE Infusion Dexamethasone 10 mg/ Sodium 52.5 mls @ 155 mls/hr 01/07/18 12:20 01/07/18 13: 52 Chloride IV 01/07/18 12:40 Infused O ONE Infusion Famotidine 20 mg/ Sodium 52 mls @ 100 mls/hr 01/07/18 12:45 01/07/18 14:39 Chloride IV 01/07/18 13:16 Infused O ONE Infusion Paclitaxel 150 mg/ Sodium 525 mls @ 175 mls/hr 01/07/18 13:20 01/07/18 18:30 Chloride IV 01/07/18 16:19 Infused O ONE Infusion Ondansetron HCl 16 mg/ Sodium 58 mls @ 200 mls/hr 01/07/18 12:00 01/07/18 13: 22 Chloride IVP 01/07/18 12:17 Infused O ONE Infusion Carboplatin 440 mg/ Sodium 544 mls @ 544 mls/hr 01/07/18 16:30 01/07/18 20:20 Chloride IV 01/07/18 17:29 Infused O ONE Infusion Morphine Sulfate 2 mg 01/05/18 13:24 01/05/18 13:48 Morphine Sulf 2 Mg Inj IVP 01/05/18 13:25 2 mg O ONE Administration Morphine Sulfate 4 mg 01/05/18 14:36 01/05/18 14:44 Morphine Sulfate Inj IVP 01/05/18 14:37 4 mg O ONE Administration Morphine Sulfate 2 mg 01/05/18 15:24 01/05/18 15:28 Morphine Sulf 2 Mg Inj IVP 01/05/18 15:25 2 mg O ONE Administration Morphine Sulfate 4 mg 01/05/18 17:27 01/05/18 17:48 Morphine Sulfate Inj IVP 01/05/18 17:28 4 mg O ONE Administration Morphine Sulfate 2 mg 01/05/18 17:46 Morphine Sulf 2 Mg Inj IVP Q3-4HR PRN Pain Morphine Sulfate 15 mg 01/05/18 20:00 Morphine Sulfate *Ir* PO Q4HR SHERIN Morphine Sulfate 30 mg 01/05/18 17:47 Ms Contin PO BID PRN Pain Morphine Sulfate 4 mg 01/05/18 17:50 Morphine Sulf 2 Mg Inj IVP Q1-4HR PRN Pain Morphine Sulfate 30 mg 01/05/18 21:00 Ms Contin PO BID SHERIN Morphine Sulfate 15 mg 01/05/18 17:58 Morphine Sulfate *Ir* PO Q4HR PRN Pantoprazole Sodium 40 mg 01/05/18 18:00 Protonix Iv IVP DAILY SHERIN Promethazine HCl 25 mg 01/05/18 13:24 01/05/18 13:49 Phenergan Inj IVP 01/05/18 13:25 25 mg O ONE Administration - Constitutional no acute distress, obese - Routine HEENT Exam Head: Present: normocephalic Eye: Present: EOMI ENT: Present: mucous membranes moist - Routine Neck Exam Present: supple. Absent: lymphadenopathy - Routine Respiratory Exam Present: CTA bilaterally - Routine Cardiovascular Exam Present: RRR, no murmur - Routine Abdominal Exam Present: soft, normoactive bowel sounds. Absent: tenderness Comments: Ileostomy patent/no sign symptoms inflammation. Moderate amount dark liquid in receptacle - Routine Extremities Exam Present: no edema, full ROM - Routine Skin Exam Present: dry, wounds Comments: Midline abdominal incision/dressing intact, not removed. Follows with wound care. - Routine Neurological Exam Present: alert, oriented X3, normal speech - Routine Psychiatric Exam Present: normal affect, cooperative Oncology Results - Labs CBC & Chem 7: 01/08/18 08:19 01/08/18 08:19 - Impressions 1. 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 The patient was initially diagnosed with stage IVB endometrial/ovarian adenocarcinoma s/p cytoreductive surgery (KESHAV/BSO followed by 6 cycles of adjuvant chemotherapy Taxol and carboplatin from 05/08/2016 -08/21/2016. For recurrent disease the patient received 2 cycles of Ifex/Taxol and 1 cycle of Taxol/carbo from Jun - Jul 2017. 2. 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 Assessment and Plan Assessment and Plan: 1. 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 The patient was initially diagnosed with stage IVB endometrial/ovarian adenocarcinoma s/p cytoreductive surgery (KESHAV/BSO followed by 6 cycles of adjuvant chemotherapy Taxol and carboplatin from 05/08/2016 -08/21/2016. For recurrent disease the patient received 2 cycles of Ifex/Taxol and 1 cycle of Taxol/carbo from Jun - Jul 2017. Previously declined palliative chemotherapy. Patient now with intermittent abdominal pain, nausea, vomiting. Following discussion with Dr. Clancy, patient would like palliative chemotherapy in hopes of decreasing risk for bowel obstruction. Received cycle 1 carboplatin/paclitaxel 01/07/2018. 2. 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 Plan 1. Continue supportive care. Will follow counts, renal/hepatic function. CA 125 ordered today. Encouraged to eat small amounts, especially High Protein foods. Encouraged ambulation. Report any new concerns. Informed Dr. Quezada will see her later today. Patient has no questions. - Time Spent With Patient Total time spent is greater than 50% in coordination of care (as documented) at patient's floor/unit and/or counseling patient: 25 - 35 minutes <Tomás Quezada - Last Filed: 01/08/18 17:09> Exam Vital signs: Temperature 97.4 F 01/08/18 07:48 Pulse Rate 73 01/08/18 15:24 Respiratory Rate 18 01/08/18 16:07 Blood Pressure 98/54 01/08/18 15:24 Pulse Oximetry 95 01/08/18 15:24 Oncology Results - Labs CBC & Chem 7: 01/08/18 08:19 01/08/18 08:19 Labs: Short CBC 01/08/18 Range/Units 08:19 WBC 11.6 H (4.5-11.0) T/MM3 Hgb 8.0 L (12-16) GM/DL Hct 25.8 L (36-46) % Plt Count 387 (130-400) T/MM3 BMP 01/08/18 08:19 Sodium 141 Potassium 4.0 Chloride 109 H Carbon Dioxide 25 BUN 10.0 Creatinine 1.0 D Glucose 122 H Calcium 8.0 L Liver Function 01/08/18 Range/Units 08:19 Total Bilirubin 0.40 (0.20-1.30) MG/DL AST 19 (14-36) U/L ALT 13 (1-35) U/L Alkaline Phosphatase 145 H (38-126) U/L Albumin 3.0 L (3.5-5.0) g/dL Assessment and Plan Assessment and Plan: Patient seen, chart reviewed, I participate in the development of the plan of care with this patient with Amanda Adkins. Discussed with Dr. Clancy. Patient has had significant nausea and vomiting with prior chemotherapy. Nausea and vomiting is primarily been delayed. Her only premeds for this current chemotherapy was Zofran and dexamethasone. Will add olanzapine. Consider dexamethasone - Time Spent With Patient Total time spent is greater than 50% in coordination of care (as documented) at patient's floor/unit and/or counseling patient:
[2018-01-08] MEDS: GABAPENTIN 100 MG CAPSULE PO SCH ×3 (09:17→21:44)
[2018-01-08] MEDS: DULOXETINE 30 MG CAPSULE PO SCH ×2 (09:17→21:44)
[2018-01-08] MEDS: ENOXAPARIN 40 MG/0.4 ML INJECTION SQ SCH (09:17)
--- NOTE | 2018-01-08 10:21 | Progress Note ---
- Date 01/08/18 Subjective: Larry was dozing in bed; she feels about the same as yesterday. Pain is still unmanaged. She hardly slept last night b/c of pain and b/c of high stool output. She ate a little bit of eggs for breakfast. She denies fever or sweating. She is tolerating chemo w/out identified side effects at this time. Objective Vital signs: Temperature 97.4 F 01/08/18 07:48 Pulse Rate 69 01/08/18 07:48 Respiratory Rate 16 01/08/18 09:17 Blood Pressure 105/61 01/08/18 07:48 Pulse Oximetry 91 01/08/18 07:48 Height/Weight/BMI: Height 1.6 m Weight 88.6 kg Body Mass Index 34.6 - Constitutional Present: mild distress - Routine HEENT Exam Head: Present: normocephalic Eye: Absent: conjunctival icterus, scleral injection - Routine Respiratory Exam Present: CTA bilaterally - Routine Cardiovascular Exam Present: RRR, S1, S2 - Routine Abdominal Exam Present: tenderness (diffuse), ostomy. 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 Continue wound care for abd wounds. CA 125 up to 476; started palliative chemo yesterday Hgb 8.0; stable. Continue analgesics/antiemetics. Continue IVF - oral intake is poor. Seen and examined patient on same day as the above note nurse practitioner Pippa Rogers. Agree with note, physical, assessment and plan. Exam: Gen.: medically ill appearing. Moderately anxious but less distressed than yesterday HEENT: normocephalic atraumatic, oral mucosa moderately dry neck: no lymphadenopathy no jugular venous distention respiratory: there to auscultation bilaterally with good excursion cardiovascular: cardiovascular S1 S2 no adventitious murmurs rubs or gallops abdomen/GI: postsurgical site dressed with mild leakage extremities: good peripheral perfusion with no edema skin/integument: no significant injuries or edema neuro: alert and oriented. No focal deficits appreciable psych: alert and coherent, conversant and pleasant Labs: reviewed Assessment and plan: no nausea yet from yesterday's chemotherapy. This is anticipated tomorrow by her prior experiences. Pain control not optimal to her but I think that a significant amount of this is anxiety as she does appear to be resting comfortably. I'm not adverse to palliative increases however Documented on [employer] speech to text. Efforts to correct speech recognition errors performed, but variation may exist Resuscitation Status: Do Not Resuscitate - Physician Narrative Narrative: Date: 01/08/18 Time: 1018 Hospital Course Summary Disclaimer: The visit summary below is not to be considered part of the above Progress Note. Hospital Course: 01/05/18 Admit for obs and pain control. Morphine IV/PO and Percocet for pain (will continue her home long acting morphine if she is able to keep it down), compazine/phenergan for nausea/ vomiting. Ativan for anxiety. Pt has met with Hospice previously. Discussed with pt once her pain is under control, recommend Hospice as resource to help keep her pain under control at home. Significant stressors at home may make DC a challenge. Continue home meds. She was on Levaquin for 5 days for post-op seroma with some "creamy drainage." She should have completed this on 01/03/18. Continue daily packing to abd wounds. Consult to wound clinic/Svetlana to follow wounds. Lovenox for VTE ppx Pepcid for GERD/GI ppx DNR Dr Hardy - PCP 01/06/18 Continue daily packing of abdominal wounds. No sign of infection. Patient is willing to restart Cymbalta for her depression, anxiety, and for chronic pain. She is unsure why this was not continued from previous hospitalization. Creatinine remains elevated at 1.3 compared to 1.4 yesterday. Baseline 0.8. Continue IVF's. Long-acting morphine was increased from 30 twice a day to 60 mg twice a day. Patient has not noted any significant drowsiness or other adverse effects. She did require Percocet and morphine IV overnight. Given that she's not having any nausea/vomiting, will try to utilize by mouth pain medications for ease of transition back home. Dr. Clancy consulted to reassess patient to determine if additional chemotherapy /immunotherapy options are available as tumor was being tested to determine if immunotherapy was an option during her last hospitalization. She did not tolerate chemotherapy earlier this year but is not opposed to additional active therapy if something is offered to her which she can tolerate. If no other options for active therapy available palliative care or hospice will need to be pursued. Hemoglobin dropped today 8.6.--> 7.9. Could be dilutional. Hemoglobin has averaged 8-9 since recent surgery. Vital signs are stable. 01/07/18 Creatinine continues to improve and is now within normal limits. White count is still slightly elevated, but not increasing. Hemoglobin stable at 8.2. Chemotherapy started today. Patient understands this is palliative and not curative. She hopes to have some shrinkage of the tumors in hopes that her pain will be improved. Continue IV anti-emetics and pain medication as needed for nausea/pain. Will see how she tolerates chemotherapy. 01/08/18 WBC improved to 11.6. Continue wound care for abd wounds. CA 125 up to 476; started palliative chemo yesterday Hgb 8.0; stable. Continue analgesics/antiemetics. Continue IVF - oral intake is poor.
[2018-01-08] MEDS: FAMOTIDINE 20 MG TABLET PO SCH ×2 (10:28→21:44)
[2018-01-08] MEDS: MORPHINE SULFATE 2mg INJECTION IVP PRN (16:07)
--- NOTE | 2018-01-08 17:08 | General Surgery Progress Note ---
Subjective Patient reports: pain is less, tolerating a regular diet, voiding w/o difficulty , bowel movement (and colostomy bag) Narrative: Visiting her this evening's her colostomy started leaking just before I enter the room. She states this is the third colostomy changed today. States she is for the most part doing all of her own colostomy changes in is feeling fairly comfortable with this but getting frustrated with this recent rash of colostomy leaks. This is frustrating and we talked about different appliances. Will utilize a belted convex appliance and see if this helps. The belt is been ordered but won't arrive until Friday. - Vital Signs Last Vital Signs Temp 97.4 F 01/08/18 07:48 Pulse 73 01/08/18 15:24 Resp 18 01/08/18 16:07 BP 98/54 01/08/18 15:24 Pulse Ox 95 01/08/18 15:24 - Laboratory Result Diagrams: 01/08/18 08:19 01/08/18 08:19 - Abnormal Exam Abdominal: obese, other (the stoma itself is nice and beefy red although has begun to retract slightly causing the colostomy appliance to leak. Skin on the medial and inferior side of the stoma is quite red and almost becoming excoriated) Skin: She has 2 small seroma wounds of the mid abdomen incision. The superior most one measures 1 cm in depth and the more inferior one is about 2 cm in depth and both were packed with quarter inch ribbon gauze today. The midline incision is without erythema or ecchymosis. Assessment and Plan (1) Peristomal skin irritation and breakdown Current Visit: Yes Status: Acute (2) Colostomy care Current Visit: Yes Status: Chronic (3) Abdominal carcinomatosis Current Visit: No Status: Acute Plan: Her pain seems to be under better control. Thank you hospitalist and oncology for taking care of this. Her stoma is starting to leak more. Today we utilized a "crusting technique" together with an Desirae's ring. For the next colostomy change I've encouraged her to try the convex appliance and when the belt cons will at the belt on Friday. Hospital Course Summary Disclaimer: The visit summary below is not to be considered part of the above Progress Note. Hospital Course: 01/05/18 Admit for obs and pain control. Morphine IV/PO and Percocet for pain (will continue her home long acting morphine if she is able to keep it down), compazine/phenergan for nausea/ vomiting. Ativan for anxiety. Pt has met with Hospice previously. Discussed with pt once her pain is under control, recommend Hospice as resource to help keep her pain under control at home. Significant stressors at home may make DC a challenge. Continue home meds. She was on Levaquin for 5 days for post-op seroma with some "creamy drainage." She should have completed this on 01/03/18. Continue daily packing to abd wounds. Consult to wound clinic/Svetlana to follow wounds. Lovenox for VTE ppx Pepcid for GERD/GI ppx DNR Dr Hardy - PCP 01/06/18 Continue daily packing of abdominal wounds. No sign of infection. Patient is willing to restart Cymbalta for her depression, anxiety, and for chronic pain. She is unsure why this was not continued from previous hospitalization. Creatinine remains elevated at 1.3 compared to 1.4 yesterday. Baseline 0.8. Continue IVF's. Long-acting morphine was increased from 30 twice a day to 60 mg twice a day. Patient has not noted any significant drowsiness or other adverse effects. She did require Percocet and morphine IV overnight. Given that she's not having any nausea/vomiting, will try to utilize by mouth pain medications for ease of transition back home. Dr. Clancy consulted to reassess patient to determine if additional chemotherapy /immunotherapy options are available as tumor was being tested to determine if immunotherapy was an option during her last hospitalization. She did not tolerate chemotherapy earlier this year but is not opposed to additional active therapy if something is offered to her which she can tolerate. If no other options for active therapy available palliative care or hospice will need to be pursued. Hemoglobin dropped today 8.6.--> 7.9. Could be dilutional. Hemoglobin has averaged 8-9 since recent surgery. Vital signs are stable. 01/07/18 Creatinine continues to improve and is now within normal limits. White count is still slightly elevated, but not increasing. Hemoglobin stable at 8.2. Chemotherapy started today. Patient understands this is palliative and not curative. She hopes to have some shrinkage of the tumors in hopes that her pain will be improved. Continue IV anti-emetics and pain medication as needed for nausea/pain. Will see how she tolerates chemotherapy. 01/08/18 WBC improved to 11.6. Continue wound care for abd wounds. CA 125 up to 476; started palliative chemo yesterday Hgb 8.0; stable. Continue analgesics/antiemetics. Continue IVF - oral intake is poor.
[2018-01-08] MEDS: OLANZapine 5 MG TABLET PO SCH (18:01)
[2018-01-09] MEDS: NS 1,000 ML IV SCH ×2 (03:19→13:37)
[2018-01-09] MEDS: ENOXAPARIN 40 MG/0.4 ML INJECTION SQ SCH (10:08)
[2018-01-09] MEDS: FAMOTIDINE 20 MG TABLET PO SCH ×2 (10:08→23:04)
[2018-01-09] MEDS: GABAPENTIN 100 MG CAPSULE PO SCH ×3 (10:08→23:04)
[2018-01-09] MEDS: OLANZapine 5 MG TABLET PO SCH (10:08)
[2018-01-09] MEDS: DULOXETINE 30 MG CAPSULE PO SCH ×2 (10:08→23:04)
--- NOTE | 2018-01-09 13:15 | Progress Note ---
<Poly Adkins L - Last Filed: 01/09/18 13:25> Oncology Subjective Reclining in hospital bed. Anxious/concerned will have nausea/vomiting,"This is when it usually starts." Denies nausea currently. Minimal oral intake, had fruit only yesterday. Intermittent abdominal pain, relieved with as needed medications. General: No fever, no night sweats Eyes: No redness, no pain, no diplopia ENT: No mouth sores, no trouble swallowing Cardiac: No chest pain no palpitations Pulmonary: No cough, no shortness of breath, no wheezing Abdomen: + pain, no nausea vomiting. Ileostomy : No urgency, frequency, dysuria, or hematuria Musculoskeletal: No arthritis, no myalgias Neurological: No headaches, no focal weakness Skin: No rash, no sores Psychiatric: + anxiety Exam Vital signs: Temperature 97 F 01/09/18 08:00 Pulse Rate 84 01/09/18 08:00 Respiratory Rate 16 01/09/18 12:08 Blood Pressure 107/54 01/09/18 08:00 Pulse Oximetry 91 01/09/18 08:00 Narrative: Generic Name Dose Route Start Last Admin Trade Name Freq PRN Reason Stop Dose Admin Diphenhydramine HCl 50 mg 01/07/18 11:32 Benadryl IVP PRN PRN chemo hypersensitivity Duloxetine HCl 30 mg 01/06/18 09:30 01/09/18 10:08 Cymbalta PO 30 mg BID SHERIN Administration Enoxaparin Sodium 40 mg 01/06/18 09:00 01/09/18 10:08 Lovenox SQ 40 mg DAILY SHERIN Administration Famotidine 20 mg 01/05/18 21:00 01/09/18 10:08 Pepcid PO 20 mg BID SHERIN Administration Gabapentin 100 mg 01/05/18 21:00 01/09/18 10:08 Neurontin PO 100 mg TID SHERIN Administration Hydrocortisone Sodium Succinate 100 mg 01/07/18 11:34 Solu-Cortef IVP PRN PRN chemo hypersensitivity Sodium Chloride 1,000 mls @ 100 mls/hr 01/05/18 18:00 01/09/18 03:19 Normal Saline IV 100 mls/hr .Q10H SHERIN Administration Lorazepam 0.5 - 1 mg 01/05/18 17:46 01/05/18 18:03 Ativan Inj IVP 1 mg Q6H PRN Administration Methylprednisolone Sodium Succinate 125 mg 01/07/18 11:34 Solu-Medrol IVP PRN PRN chemo hypersensitivity Metoclopramide HCl 5 mg 01/05/18 17:47 Reglan PO ACHS PRN PRN orders Metoprolol Tartrate 100 mg 01/06/18 08:00 01/09/18 10:08 Lopressor PO 100 mg BIDWM SHERIN Administration Morphine Sulfate 60 mg 01/05/18 21:00 01/09/18 10:11 Ms Contin PO 60 mg BID SHERIN Administration Morphine Sulfate 4 mg 01/05/18 20:05 01/08/18 16:07 Morphine Sulf 2 Mg Inj IVP 4 mg Q1HR PRN Administration Pain Morphine Sulfate 15 mg 01/05/18 20:04 01/08/18 13:29 Morphine Sulfate *Ir* PO 15 mg Q2HR PRN Administration Olanzapine 5 mg 01/08/18 17:00 01/09/18 10:08 Zyprexa PO 01/11/18 15:00 5 mg DAILY SHERIN Administration Ondansetron HCl 4 mg 01/08/18 17:05 Zofran IVP Q4H PRN Nausea Oxycodone/Acetaminophen 1 tab 01/05/18 17:52 01/05/18 23:26 Percocet 5/325 PO 1 tab Q6H PRN Administration Pain Prochlorperazine 5 mg 01/05/18 17:47 Compazine PO Q8H PRN Nausea Prochlorperazine Edisylate 10 mg 01/05/18 17:49 01/08/18 13:23 Compazine Iv IVP 10 mg Q6H PRN Administration Nausea &/or vomiting Promethazine HCl 25 mg 01/05/18 17:47 01/05/18 21:13 Phenergan Tab PO 25 mg Q6H PRN Administration PRN orders Discontinued Medications Generic Name Dose Route Start Last Admin Trade Name Freq PRN Reason Stop Dose Admin Diphenhydramine HCl 25 mg 01/07/18 13:15 01/07/18 14:57 Benadryl IVP 01/07/18 13:16 25 mg O ONE Administration Duloxetine HCl 30 mg 01/06/18 21:00 Cymbalta PO BID SHERIN Sodium Chloride 1,000 mls @ 999.9 mls/hr 01/05/18 17:47 01/05/18 19:06 Normal Saline IV 01/05/18 18:46 Infused .Q1H ONE Infusion Dexamethasone 10 mg/ Sodium 52.5 mls @ 155 mls/hr 01/07/18 12:20 01/07/18 13: 52 Chloride IV 01/07/18 12:40 Infused O ONE Infusion Famotidine 20 mg/ Sodium 52 mls @ 100 mls/hr 01/07/18 12:45 01/07/18 14:39 Chloride IV 01/07/18 13:16 Infused O ONE Infusion Paclitaxel 150 mg/ Sodium 525 mls @ 175 mls/hr 01/07/18 13:20 01/07/18 18:30 Chloride IV 01/07/18 16:19 Infused O ONE Infusion Ondansetron HCl 16 mg/ Sodium 58 mls @ 200 mls/hr 01/07/18 12:00 01/07/18 13: 22 Chloride IVP 01/07/18 12:17 Infused O ONE Infusion Carboplatin 440 mg/ Sodium 544 mls @ 544 mls/hr 01/07/18 16:30 01/07/18 20:20 Chloride IV 01/07/18 17:29 Infused O ONE Infusion Morphine Sulfate 2 mg 01/05/18 13:24 01/05/18 13:48 Morphine Sulf 2 Mg Inj IVP 01/05/18 13:25 2 mg O ONE Administration Morphine Sulfate 4 mg 01/05/18 14:36 01/05/18 14:44 Morphine Sulfate Inj IVP 01/05/18 14:37 4 mg O ONE Administration Morphine Sulfate 2 mg 01/05/18 15:24 01/05/18 15:28 Morphine Sulf 2 Mg Inj IVP 01/05/18 15:25 2 mg O ONE Administration Morphine Sulfate 4 mg 01/05/18 17:27 01/05/18 17:48 Morphine Sulfate Inj IVP 01/05/18 17:28 4 mg O ONE Administration Morphine Sulfate 2 mg 01/05/18 17:46 Morphine Sulf 2 Mg Inj IVP Q3-4HR PRN Pain Morphine Sulfate 15 mg 01/05/18 20:00 Morphine Sulfate *Ir* PO Q4HR SHERIN Morphine Sulfate 30 mg 01/05/18 17:47 Ms Contin PO BID PRN Pain Morphine Sulfate 4 mg 01/05/18 17:50 Morphine Sulf 2 Mg Inj IVP Q1-4HR PRN Pain Morphine Sulfate 30 mg 01/05/18 21:00 Ms Contin PO BID SHERIN Morphine Sulfate 15 mg 01/05/18 17:58 Morphine Sulfate *Ir* PO Q4HR PRN Pantoprazole Sodium 40 mg 01/05/18 18:00 Protonix Iv IVP DAILY SHERIN Promethazine HCl 25 mg 01/05/18 13:24 01/05/18 13:49 Phenergan Inj IVP 01/05/18 13:25 25 mg O ONE Administration - Constitutional mild distress, obese - Routine HEENT Exam Head: Present: normocephalic Eye: Present: EOMI ENT: Present: mucous membranes moist - Routine Neck Exam Present: supple. Absent: lymphadenopathy - Routine Respiratory Exam Present: CTA bilaterally - Routine Cardiovascular Exam Present: RRR. Absent: no murmur - Routine Abdominal Exam Present: soft, non tender, wound (dressing dry/intact. Wound not examined) Comments: ileostomy patent. Brown liquid in receptacle - Routine Extremities Exam Present: no edema, full ROM - Routine Skin Exam Present: dry, warm - Routine Neurological Exam Present: alert, oriented X3 - Routine Psychiatric Exam Present: cooperative, anxious (anxious that will have nausea today) Oncology Results - Labs CBC & Chem 7: 01/09/18 04:40 01/09/18 04:40 Labs: Short CBC 01/09/18 Range/Units 04:40 WBC 10.1 (4.5-11.0) T/MM3 Hgb 8.0 L (12-16) GM/DL Hct 26.5 L (36-46) % Plt Count 386 (130-400) T/MM3 [facility] 01/09/18 04:40 Sodium 141 Potassium 4.1 Chloride 110 H Carbon Dioxide 24 BUN 9.0 Creatinine 1.0 Glucose 99 Calcium 8.1 L Assessment and Plan Assessment and Plan: 1. 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 The patient was initially diagnosed with stage IVB endometrial/ovarian adenocarcinoma s/p cytoreductive surgery (KESHAV/BSO followed by 6 cycles of adjuvant chemotherapy Taxol and carboplatin from 05/08/2016 -08/21/2016. For recurrent disease the patient received 2 cycles of Ifex/Taxol and 1 cycle of Taxol/carbo from Jun - Jul 2017. Previously declined palliative chemotherapy. Patient now with intermittent abdominal pain, nausea, vomiting. Following discussion with Dr. Clancy, patient would like palliative chemotherapy in hopes of decreasing risk for bowel obstruction. Received cycle 1 carboplatin/paclitaxel 01/07/2018. 2. 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 Plan 1. Continue supportive care. Encouraged take one day at a time. Reassured dosing/frequency of chemotherapy changed, that may help decrease risk for nausea. Asked patient to increase oral intake, focus on increasing protein intake and gave examples of high protein foods. - Time Spent With Patient Total time spent is greater than 50% in coordination of care (as documented) at patient's floor/unit and/or counseling patient: 25 - 35 minutes <Tomás Quezada - Last Filed: 01/09/18 16:09> Exam Vital signs: Temperature 98.3 F 01/09/18 15:50 Pulse Rate 81 01/09/18 15:50 Respiratory Rate 16 01/09/18 15:50 Blood Pressure 102/47 01/09/18 15:50 Pulse Oximetry 91 01/09/18 15:50 Oncology Results - Labs CBC & Chem 7: 01/09/18 04:40 01/09/18 04:40 Labs: Short CBC 01/09/18 Range/Units 04:40 WBC 10.1 (4.5-11.0) T/MM3 Hgb 8.0 L (12-16) GM/DL Hct 26.5 L (36-46) % Plt Count 386 (130-400) T/MM3 [facility] 01/09/18 04:40 Sodium 141 Potassium 4.1 Chloride 110 H Carbon Dioxide 24 BUN 9.0 Creatinine 1.0 Glucose 99 Calcium 8.1 L - Impressions Laboratory Tests 12/15/17 12/16/17 12/16/17 03:49 03:34 20:11 WBC 19.0 H D Hgb Plt Count Neut % (Auto) Neut # (Auto) Creatinine 1.0 Glucose Magnesium Alkaline Phosphatase CA 125 Antigen 381 H D 01/06/18 01/07/18 01/07/18 04:22 05:42 05:42 WBC 12.2 H Hgb Plt Count 405 H Neut % (Auto) 76.0 H Neut # (Auto) 9.3 H Creatinine 1.3 H D 1.2 Glucose Magnesium Alkaline Phosphatase CA 125 Antigen 01/08/18 01/08/18 01/08/18 08:19 08:19 08:19 WBC 11.6 H Hgb 8.0 L Plt Count 387 Neut % (Auto) 83.7 H Neut # (Auto) 9.7 H Creatinine 1.0 D Glucose 122 H Magnesium 1.9 Alkaline Phosphatase 145 H CA 125 Antigen 476 H 01/09/18 01/09/18 04:40 04:40 WBC 10.1 Hgb Plt Count 386 Neut % (Auto) 79.9 H Neut # (Auto) 8.1 H Creatinine 1.0 Glucose Magnesium Alkaline Phosphatase CA 125 Antigen Assessment and Plan Assessment and Plan: Patient examined, chart reviewed, I participate in the development of the plan of care of this patient with Amanda Adkins. She had one episode of vomiting this morning. She is currently on olanzapine 5 mg daily for delayed emesis. She has Zofran available for as needed nausea. WBC is slightly lower at 10 K and ANC is slightly lower at 8.1. Creatinine is better. She has had episodes of her ostomy leaking. CA 125 is higher than December 15. It is 425. Prior value was 381. Will continue to follow and support for nausea and vomiting after chemotherapy. Follow counts closely as she may need G CSF. She is due for her next cycle of chemotherapy on 01/14/18. - Time Spent With Patient Total time spent is greater than 50% in coordination of care (as documented) at patient's floor/unit and/or counseling patient:
[2018-01-09] MEDS: ONDANSETRON 4 MG/2 ML INJECTION IVP PRN (13:37)
[2018-01-09] MEDS: TBO-FILGRASTIM 480mcg/0.8ml INJECTION SQ SCH (16:55)
[2018-01-09] MEDS: PROCHLORPERAZINE 10 MG/2 ML INJECTION IVP PRN (16:55)
[2018-01-09] MEDS: MORPHINE SULFATE 2mg INJECTION IVP PRN (18:45)
[2018-01-10] MEDS: NS 1,000 ML IV SCH ×3 (01:15→22:07)
[2018-01-10] MEDS: DULOXETINE 30 MG CAPSULE PO SCH ×2 (09:08→22:08)
[2018-01-10] MEDS: FAMOTIDINE 20 MG TABLET PO SCH ×2 (09:09→22:08)
[2018-01-10] MEDS: ENOXAPARIN 40 MG/0.4 ML INJECTION SQ SCH (09:09)
[2018-01-10] MEDS: MORPHINE SULFATE 2mg INJECTION IVP PRN (09:09)
[2018-01-10] MEDS: GABAPENTIN 100 MG CAPSULE PO SCH ×3 (09:09→22:09)
[2018-01-10] MEDS: OLANZapine 5 MG TABLET PO SCH (09:09)
--- NOTE | 2018-01-10 14:17 | Progress Note ---
Oncology Subjective awake, responsive, in bed. No po intake today. no food today. S/p carbo/taxol chemotherapy sunday 01/07. On IV hydration. Olanzipine added for n/v. Exam Vital signs: Temperature 99.2 F 01/10/18 08:00 Pulse Rate 82 01/10/18 08:00 Respiratory Rate 16 01/10/18 10:35 Blood Pressure 103/51 01/10/18 08:00 Pulse Oximetry 92 01/10/18 08:00 - Constitutional no acute distress, well nourished, average body habitus - Routine HEENT Exam Head: Present: normocephalic, atraumatic Eye: Present: EOMI, PERRL ENT: Present: mucous membranes moist, oropharynx clear - Routine Neck Exam Present: supple. Absent: lymphadenopathy - Routine Respiratory Exam Present: CTA bilaterally. Absent: dyspnea - Routine Cardiovascular Exam Present: RRR, no murmur - Routine Abdominal Exam Present: soft, non tender, ostomy - Routine Skin Exam Present: dry. Absent: mottling - Routine Neurological Exam Present: alert, oriented X3 Oncology Results - Labs CBC & Chem 7: 01/09/18 04:40 01/09/18 04:40 Assessment and Plan Assessment and Plan: 1. Refractory miex mullerian tumor 2. CHEK 2 mutation 3. peritoneal carcinomatosis 4. recent chemo 01/07 carbo and taxol 5. cbc and wbc adequate yest Diphenhydramine HCl (Benadryl) 50 mg IVP PRN PRN PRN Reason: chemo hypersensitivity Duloxetine HCl (Cymbalta) 30 mg PO BID [facility] Last Admin: 01/10/18 09:08 Dose: 30 mg Enoxaparin Sodium (Lovenox) 40 mg SQ DAILY [facility] Last Admin: 01/10/18 09:09 Dose: 40 mg Famotidine (Pepcid) 20 mg PO BID [facility] Last Admin: 01/10/18 09:09 Dose: 20 mg Gabapentin (Neurontin) 100 mg PO TID [facility] Last Admin: 01/10/18 09:09 Dose: 100 mg Hydrocortisone Sodium Succinate (Solu-Cortef) 100 mg IVP PRN PRN PRN Reason: chemo hypersensitivity Sodium Chloride (Normal Saline) 1,000 mls @ 100 mls/hr IV .Q10H [facility] Last Admin: 01/10/18 11:06 Dose: 100 mls/hr Lorazepam (Ativan Inj) 0.5 - 1 mg IVP Q6H PRN Last Admin: 01/05/18 18:03 Dose: 1 mg Methylprednisolone Sodium Succinate (Solu-Medrol) 125 mg IVP PRN PRN PRN Reason: chemo hypersensitivity Metoclopramide HCl (Reglan) 5 mg PO ACHS PRN PRN Reason: PRN orders Metoprolol Tartrate (Lopressor) 100 mg PO BIDWM [facility] Last Admin: 01/10/18 09:08 Dose: 100 mg Morphine Sulfate (Ms Contin) 60 mg PO BID [facility] Last Admin: 01/10/18 09:09 Dose: 60 mg Morphine Sulfate (Morphine Sulf 2 Mg Inj) 4 mg IVP Q1HR PRN PRN Reason: Pain Last Admin: 01/10/18 09:09 Dose: 2 mg Morphine Sulfate (Morphine Sulfate *Ir*) 15 mg PO Q2HR PRN Last Admin: 01/09/18 13:37 Dose: 15 mg Olanzapine (Zyprexa) 5 mg PO DAILY [facility] Stop: 01/11/18 15:00 Last Admin: 01/10/18 09:09 Dose: 5 mg Ondansetron HCl (Zofran) 4 mg IVP Q4H PRN PRN Reason: Nausea Last Admin: 01/09/18 13:37 Dose: 4 mg Oxycodone/Acetaminophen (Percocet 5/325) 1 tab PO Q6H PRN PRN Reason: Pain Last Admin: 01/05/18 23:26 Dose: 1 tab Prochlorperazine (Compazine) 5 mg PO Q8H PRN PRN Reason: Nausea Prochlorperazine Edisylate (Compazine Iv) 10 mg IVP Q6H PRN PRN Reason: Nausea &/or vomiting Last Admin: 01/09/18 16:55 Dose: 10 mg Promethazine HCl (Phenergan Tab) 25 mg PO Q6H PRN PRN Reason: PRN orders Last Admin: 01/05/18 21:13 Dose: 25 mg Sodium Chloride (Iv Flush) 10 ml IV PRN PRN PRN Reason: Flushing Tbo-Filgrastim (Granix) 480 mcg SQ Q24H [facility] Stop: 01/11/18 23:59 Last Admin: 01/09/18 16:55 Dose: 480 mcg Plan 1.continue support with olanzipine and IV hydration and antiemetics. 2. monitor counts 3. monitor hydration status 4. encourage ambulation. Intake & Output 01/08/18 01/09/18 01/10/18 01/11/18 06:59 06:59 06:59 06:59 Intake Total 3486.500 / 3486.500 2460 / 2460 2850 / 2850 983.333 / 983.333 Output Total Balance 3486.500 / 3486.500 2460 / 2460 2849 / 2849 983.333 / 983.333 Weight 88.6 kg 93 kg Laboratory Results - last 72 hr 01/08/18 01/08/18 01/08/18 08:19 08:19 08:19 WBC 11.6 H RBC 3.03 L Hgb 8.0 L Hct 25.8 L MCV 85.1 MCH 26.4 MCHC 31.0 RDW Std Deviation 40.2 Plt Count 387 MPV 9.7 Immature Gran % (Auto) 0.4 Neut % (Auto) 83.7 H Lymph % (Auto) 12.0 L D[place]y % (Auto) 3.8 Eos % (Auto) 0.0 Baso % (Auto) 0.1 Neut # (Auto) 9.7 H Lymph # (Auto) 1.4 [place]y # (Auto) 0.4 Eos # (Auto) 0.0 Baso # (Auto) 0.0 Abs Immat Gran (auto) 0.05 H Turbidity < 20 Sodium 141 Potassium 4.0 Chloride 109 H Carbon Dioxide 25 Anion Gap 7 BUN 10.0 Creatinine 1.0 D GFR Calculation 58 BUN/Creatinine Ratio 10 Glucose 122 H Calculated Osmolality 271 Calcium 8.0 L Magnesium 1.9 Total Bilirubin 0.40 Icterus Index < 2 AST 19 ALT 13 Alkaline Phosphatase 145 H Lactate Dehydrogenase 505 Total Protein 6.0 L Albumin 3.0 L Globulin 3.0 Albumin/Globulin Ratio 1.0 L CA 125 Antigen 476 H Specimen Hemolysis < 15 01/09/18 01/09/18 04:40 04:40 WBC 10.1 RBC 3.05 L Hgb 8.0 L Hct 26.5 L MCV 86.9 MCH 26.2 MCHC 30.2 L RDW Std Deviation 42.7 Plt Count 386 MPV 10.0 Immature Gran % (Auto) 0.3 Neut % (Auto) 79.9 H Lymph % (Auto) 15.2 L D[place]y % (Auto) 2.5 Eos % (Auto) 1.9 Baso % (Auto) 0.2 Neut # (Auto) 8.1 H Lymph # (Auto) 1.5 [place] # (Auto) 0.3 Eos # (Auto) 0.2 Baso # (Auto) 0.0 Abs Immat Gran (auto) 0.03 Turbidity < 20 Sodium 141 Potassium 4.1 Chloride 110 H Carbon Dioxide 24 Anion Gap 7 BUN 9.0 Creatinine 1.0 GFR Calculation 58 BUN/Creatinine Ratio 9 Glucose 99 Calculated Osmolality 270 Calcium 8.1 L Magnesium Total Bilirubin Icterus Index < 2 AST ALT Alkaline Phosphatase Lactate Dehydrogenase Total Protein Albumin Globulin Albumin/Globulin Ratio CA 125 Antigen Specimen Hemolysis < 15 - Time Spent With Patient Total time spent is greater than 50% in coordination of care (as documented) at patient's floor/unit and/or counseling patient: less than 15 minutes
[2018-01-10] MEDS: TBO-FILGRASTIM 480mcg/0.8ml INJECTION SQ SCH (17:29)
--- NOTE | 2018-01-10 18:58 | Progress Note ---
- Date 01/09/18 Subjective: Patient had received antiemetics and was sleeping soundly at time of rounding. Nursing reported that there was difficulties with her colostomy bag overfilling the coming loose while she slept. Objective Vital signs: Temperature 96.4 F L 01/10/18 15:30 Pulse Rate 78 01/10/18 15:30 Respiratory Rate 16 01/10/18 15:30 Blood Pressure 106/64 01/10/18 15:30 Pulse Oximetry 91 01/10/18 15:30 Height/Weight/BMI: Height 5 ft 3 in Weight 93.5 kg Body Mass Index 34.6 - Constitutional Present: somnolent. Absent: well nourished, well developed - Routine HEENT Exam Head: Present: normocephalic, atraumatic Eye: Present: EOMI ENT: Present: mucous membranes moist, dentition normal - Routine Respiratory Exam Present: CTA bilaterally. Absent: wheezes - Routine Cardiovascular Exam Present: RRR. Absent: murmur - Routine Abdominal Exam Present: soft, normoactive bowel sounds, non distended. 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 Her overall health does not appear to be showing significant improvement. She is having difficulty reported by nursing with the management of her colostomy at this time. Continue with antiemetics and pain medications. Focus on palliative improvement as can be achieved. She will have significant logistical problems with this colostomy bag. Documented on [employer] speech to text. Efforts to correct speech recognition errors performed, but variation may exist - Physician Narrative Narrative: Date: 01/10/18 Time: 185 Hospital Course Summary Disclaimer: The visit summary below is not to be considered part of the above Progress Note. Hospital Course: 01/05/18 Admit for obs and pain control. Morphine IV/PO and Percocet for pain (will continue her home long acting morphine if she is able to keep it down), compazine/phenergan for nausea/ vomiting. Ativan for anxiety. Pt has met with Hospice previously. Discussed with pt once her pain is under control, recommend Hospice as resource to help keep her pain under control at home. Significant stressors at home may make DC a challenge. Continue home meds. She was on Levaquin for 5 days for post-op seroma with some "creamy drainage." She should have completed this on 01/03/18. Continue daily packing to abd wounds. Consult to wound clinic/Svetlana to follow wounds. Lovenox for VTE ppx Pepcid for GERD/GI ppx DNR Dr Hardy - PCP 01/06/18 Continue daily packing of abdominal wounds. No sign of infection. Patient is willing to restart Cymbalta for her depression, anxiety, and for chronic pain. She is unsure why this was not continued from previous hospitalization. Creatinine remains elevated at 1.3 compared to 1.4 yesterday. Baseline 0.8. Continue IVF's. Long-acting morphine was increased from 30 twice a day to 60 mg twice a day. Patient has not noted any significant drowsiness or other adverse effects. She did require Percocet and morphine IV overnight. Given that she's not having any nausea/vomiting, will try to utilize by mouth pain medications for ease of transition back home. Dr. Clancy consulted to reassess patient to determine if additional chemotherapy /immunotherapy options are available as tumor was being tested to determine if immunotherapy was an option during her last hospitalization. She did not tolerate chemotherapy earlier this year but is not opposed to additional active therapy if something is offered to her which she can tolerate. If no other options for active therapy available palliative care or hospice will need to be pursued. Hemoglobin dropped today 8.6.--> 7.9. Could be dilutional. Hemoglobin has averaged 8-9 since recent surgery. Vital signs are stable. 01/07/18 Creatinine continues to improve and is now within normal limits. White count is still slightly elevated, but not increasing. Hemoglobin stable at 8.2. Chemotherapy started today. Patient understands this is palliative and not curative. She hopes to have some shrinkage of the tumors in hopes that her pain will be improved. Continue IV anti-emetics and pain medication as needed for nausea/pain. Will see how she tolerates chemotherapy. 01/08/18 WBC improved to 11.6. Continue wound care for abd wounds. CA 125 up to 476; started palliative chemo yesterday Hgb 8.0; stable. Continue analgesics/antiemetics. Continue IVF - oral intake is poor.
--- NOTE | 2018-01-10 18:58 | Progress Note ---
- Date 01/10/18 Subjective: She was initially somnolent 1st time I came through yet again. I was able to catch her that 2nd attempt. Nursing had been working with her for better attachment of the colostomy bag to prevent leakage and further irritation of abdominal skin Objective Vital signs: Temperature 96.4 F L 01/10/18 15:30 Pulse Rate 78 01/10/18 15:30 Respiratory Rate 16 01/10/18 15:30 Blood Pressure 106/64 01/10/18 15:30 Pulse Oximetry 91 01/10/18 15:30 Height/Weight/BMI: Height 5 ft 3 in Weight 93.5 kg Body Mass Index 34.6 - Constitutional Present: disheveled, cooperative. Absent: well nourished, well developed - Routine HEENT Exam Head: Present: normocephalic, atraumatic Eye: Present: EOMI ENT: Present: mucous membranes moist, dentition normal - Routine Respiratory Exam Present: CTA bilaterally. Absent: wheezes - Routine Cardiovascular Exam Present: RRR. Absent: murmur - Routine Abdominal Exam Present: soft, normoactive bowel sounds, non distended, ostomy. Absent: tenderness - Routine Extremities Exam Present: normal capillary refill - Routine Skin Exam Present: warm, rash, cracked. 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 Patient realizes that she does need assistance with this. Admits that skin is relatively sore secondary to the leakage. Uncertain of how to manage this independently. - Physician Narrative Narrative: Date: 01/10/18 Time: 1857 Hospital Course Summary Disclaimer: The visit summary below is not to be considered part of the above Progress Note. Hospital Course: 01/05/18 Admit for obs and pain control. Morphine IV/PO and Percocet for pain (will continue her home long acting morphine if she is able to keep it down), compazine/phenergan for nausea/ vomiting. Ativan for anxiety. Pt has met with Hospice previously. Discussed with pt once her pain is under control, recommend Hospice as resource to help keep her pain under control at home. Significant stressors at home may make DC a challenge. Continue home meds. She was on Levaquin for 5 days for post-op seroma with some "creamy drainage." She should have completed this on 01/03/18. Continue daily packing to abd wounds. Consult to wound clinic/Svetlana to follow wounds. Lovenox for VTE ppx Pepcid for GERD/GI ppx DNR Dr Hardy - PCP 01/06/18 Continue daily packing of abdominal wounds. No sign of infection. Patient is willing to restart Cymbalta for her depression, anxiety, and for chronic pain. She is unsure why this was not continued from previous hospitalization. Creatinine remains elevated at 1.3 compared to 1.4 yesterday. Baseline 0.8. Continue IVF's. Long-acting morphine was increased from 30 twice a day to 60 mg twice a day. Patient has not noted any significant drowsiness or other adverse effects. She did require Percocet and morphine IV overnight. Given that she's not having any nausea/vomiting, will try to utilize by mouth pain medications for ease of transition back home. Dr. Clancy consulted to reassess patient to determine if additional chemotherapy /immunotherapy options are available as tumor was being tested to determine if immunotherapy was an option during her last hospitalization. She did not tolerate chemotherapy earlier this year but is not opposed to additional active therapy if something is offered to her which she can tolerate. If no other options for active therapy available palliative care or hospice will need to be pursued. Hemoglobin dropped today 8.6.--> 7.9. Could be dilutional. Hemoglobin has averaged 8-9 since recent surgery. Vital signs are stable. 01/07/18 Creatinine continues to improve and is now within normal limits. White count is still slightly elevated, but not increasing. Hemoglobin stable at 8.2. Chemotherapy started today. Patient understands this is palliative and not curative. She hopes to have some shrinkage of the tumors in hopes that her pain will be improved. Continue IV anti-emetics and pain medication as needed for nausea/pain. Will see how she tolerates chemotherapy. 01/08/18 WBC improved to 11.6. Continue wound care for abd wounds. CA 125 up to 476; started palliative chemo yesterday Hgb 8.0; stable. Continue analgesics/antiemetics. Continue IVF - oral intake is poor.
[2018-01-11] MEDS: ENOXAPARIN 40 MG/0.4 ML INJECTION SQ SCH (08:57)
[2018-01-11] MEDS: OLANZapine 5 MG TABLET PO SCH (08:58)
[2018-01-11] MEDS: GABAPENTIN 100 MG CAPSULE PO SCH ×3 (08:58→21:25)
[2018-01-11] MEDS: DULOXETINE 30 MG CAPSULE PO SCH ×2 (08:58→21:25)
[2018-01-11] MEDS: FAMOTIDINE 20 MG TABLET PO SCH ×2 (08:59→21:26)
[2018-01-11] MEDS: NS 1,000 ML IV SCH (09:08)
--- NOTE | 2018-01-11 14:39 | Progress Note ---
- Date 01/11/18 Subjective: Larry feels better today compared to yesterday in regards to abdominal pain. However she had a 5-min episode of vertigo while sitting in her chair. She felt like she was going to pass out. She stated the room was spinning around her, and she felt like she was on an amusement ride. She denied feeling nauseated or SOA or diaphoretic during that time. She denied having chest pain. She stated that she's had that happen to her before. She is very thirsty - feels like she can't get enough water in her and has been drinking a lot of it. She also admitted to having significant social/home stressors - there are 7 people who live with her and she was the one supporting them all. Now that she hasn't been able to work she is worried about their wellbeing (and her own, on top if it). Objective Vital signs: Temperature 96.8 F 01/11/18 08:00 Pulse Rate 86 01/11/18 08:00 Respiratory Rate 18 01/11/18 10:53 Blood Pressure 108/60 01/11/18 08:00 Pulse Oximetry 96 01/11/18 08:00 Height/Weight/BMI: Height 1.6 m Weight 93.7 kg Body Mass Index 34.6 - Constitutional Present: no acute distress, well nourished, well developed - Routine HEENT Exam Head: Present: normocephalic Eye: Absent: conjunctival icterus, scleral injection ENT: Absent: oropharynx clear (thrush) - Routine Respiratory Exam Present: CTA bilaterally Comments: Rn reported crackles this morning during her evaluation but lungs were clear when I evaluated her - Routine Abdominal Exam Present: soft, normoactive bowel sounds, tenderness (diffuse) - Routine Extremities Exam Present: edema (trace BLE) - Routine Musculoskeletal Exam Musculoskeletal: Present: moving extremities well - Routine Skin Exam Present: intact, dry, warm - Routine Neurological Exam Present: alert, oriented X3, CN II-XII intact, moving all extremities, normal speech. 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 Increased 2.4 on 01/11/18. Nausea/vomiting - improved s/p exploratory laparotomy, adhesiolysis, small bowel resection, loop ileostomy and incidental appendectomy on 12/15/17 Leukocytosis- POA Thrombocytosis - POA - resolved Thrush Anxiety, Depression Insomnia CAD Migraine headaches Hiatal hernia Normocytic Anemia, chronic Hypertension Plan WBC up to 27.4 though pt did receive Granix recently. Hgb 7.6 Creatinine was up 2.4 this morning without a parallel increase in BUN. On repeat it was 2.3. She's not on nephrotoxic medications ?antineoplastic agents? Furthermore with reported crackles this morning and good oral intake fluids were discontinued to prevent fluid overload. Her weight is up >3 kg. Will start measuring I&O; check CXR. May need diuresis? Start Nystatin for thrush. Discussed with attending. DVT Prophylaxis: SCD's, Lovenox GI Prophylaxis: Protonix Resuscitation Status: Do Not Resuscitate - Physician Narrative Narrative: Date: 01/11/18 Time: 5 Seen and examined patient on same day as the above note. Agree with note, physical, assessment and plan from nurse practitioner Pippa Rogers Exam: Gen.: sleepy, no apparent acute distress. Chronically ill appearing HEENT: normocephalic atraumatic, oral mucosa moderately dry neck: no lymphadenopathy no jugular venous distention respiratory: there to auscultation bilaterally with good excursion cardiovascular: cardiovascular S1 S2 no adventitious murmurs rubs or gallops abdomen/GI: soft nondistended with bowel sounds extremities: good peripheral perfusion with no edema skin/integument: no significant injuries or edema neuro: alert and oriented. No focal deficits appreciable psych: engaged inappropriate. Situationally depressed appropriately Lab work:reviewed and noted climbing creatinine level at 2.4. In wbc's 27 Assessment and plan: new leukocytosis and vertigo: patient stated that she felt an episode of spinning sensation that began acutely lasted 5 minutes, slowly decreasing. She also noted to have a creatinine climb over the last 24 hours also white blood cell count 27. Although the vertigo symptoms maybe a bit peculiar and presentation, both are explainable side effects of cisplatin. Climbing white blood cell count concern of the potential splenic rupture I've requested Granix to be on hold Patient is beginning understand that she is not making any progress and I have discussed some end-of-life care for her. She does understand that she needs hospice criteria and I believe that she would not have an adequate support system at home. I have offered arrangements for placement at one of the nursing facilities which she would qualify under hospice. She will require some time to think about this Documented on [employer] speech to text. Efforts to correct speech recognition errors performed, but variation may exist Hospital Course Summary Disclaimer: The visit summary below is not to be considered part of the above Progress Note. Hospital Course: 01/05/18 Admit for obs and pain control. Morphine IV/PO and Percocet for pain (will continue her home long acting morphine if she is able to keep it down), compazine/phenergan for nausea/ vomiting. Ativan for anxiety. Pt has met with Hospice previously. Discussed with pt once her pain is under control, recommend Hospice as resource to help keep her pain under control at home. Significant stressors at home may make DC a challenge. Continue home meds. She was on Levaquin for 5 days for post-op seroma with some "creamy drainage." She should have completed this on 01/03/18. Continue daily packing to abd wounds. Consult to wound clinic/Svetlana to follow wounds. Lovenox for VTE ppx Pepcid for GERD/GI ppx DNR Dr Hardy - PCP 01/06/18 Continue daily packing of abdominal wounds. No sign of infection. Patient is willing to restart Cymbalta for her depression, anxiety, and for chronic pain. She is unsure why this was not continued from previous hospitalization. Creatinine remains elevated at 1.3 compared to 1.4 yesterday. Baseline 0.8. Continue IVF's. Long-acting morphine was increased from 30 twice a day to 60 mg twice a day. Patient has not noted any significant drowsiness or other adverse effects. She did require Percocet and morphine IV overnight. Given that she's not having any nausea/vomiting, will try to utilize by mouth pain medications for ease of transition back home. Dr. Clancy consulted to reassess patient to determine if additional chemotherapy /immunotherapy options are available as tumor was being tested to determine if immunotherapy was an option during her last hospitalization. She did not tolerate chemotherapy earlier this year but is not opposed to additional active therapy if something is offered to her which she can tolerate. If no other options for active therapy available palliative care or hospice will need to be pursued. Hemoglobin dropped today 8.6.--> 7.9. Could be dilutional. Hemoglobin has averaged 8-9 since recent surgery. Vital signs are stable. 01/07/18 Creatinine continues to improve and is now within normal limits. White count is still slightly elevated, but not increasing. Hemoglobin stable at 8.2. Chemotherapy started today. Patient understands this is palliative and not curative. She hopes to have some shrinkage of the tumors in hopes that her pain will be improved. Continue IV anti-emetics and pain medication as needed for nausea/pain. Will see how she tolerates chemotherapy. 01/08/18 WBC improved to 11.6. Continue wound care for abd wounds. CA 125 up to 476; started palliative chemo yesterday Hgb 8.0; stable. Continue analgesics/antiemetics. Continue IVF - oral intake is poor. 01/09/18 no nausea yet from yesterday's chemotherapy. This is anticipated tomorrow by her prior experiences. Pain control not optimal to her but I think that a significant amount of this is anxiety as she does appear to be resting comfortably. 01/10/18 01/11/18 WBC up to 27.4 though pt did receive Granix recently. Hgb 7.6 Creatinine was up 2.4 this morning without a parallel increase in BUN. On repeat it was 2.3. She's not on nephrotoxic medications ?antineoplastic agents? Furthermore with reported crackles this morning and good oral intake fluids were discontinued to prevent fluid overload. Her weight is up >3 kg. Will start measuring I&O; check CXR. May need diuresis? Start Nystatin for thrush.
[2018-01-11] MEDS: NYSTATIN 500,000 units/5 ml ORAL LIQUID PO SCH ×2 (18:00→21:25)
--- NOTE | 2018-01-12 07:14 | XRay Report ---
Indication: crackles XR chest 1V: Comparison: 12/19/2017 Technique: Portable AP upright chest Findings: Patient showed normal heart, central vascularity mediastinum. Probable bibasilar atelectatic changes are suggested. No acute bony findings noted. Incidentally noted is a right-sided port in place. Impression: Mild atelectatic changes with a normal heart size. .
[2018-01-12] MEDS: ENOXAPARIN 40 MG/0.4 ML INJECTION SQ SCH (08:05)
[2018-01-12] MEDS: DULOXETINE 30 MG CAPSULE PO SCH ×2 (08:05→20:18)
[2018-01-12] MEDS: FAMOTIDINE 20 MG TABLET PO SCH ×2 (08:06→20:19)
[2018-01-12] MEDS: GABAPENTIN 100 MG CAPSULE PO SCH ×3 (08:06→20:19)
[2018-01-12] MEDS: NYSTATIN 500,000 units/5 ml ORAL LIQUID PO SCH ×4 (10:48→20:20)
--- NOTE | 2018-01-12 12:08 | Progress Note ---
<Poly Adkins L - Last Filed: 01/12/18 14:53> Oncology Subjective Alone in room. Pleasant affect. Denies pain currently. Complains of increased weakness; denies shortness of air. Reports nausea yesterday/no emesis. " Just happened one time." No nausea today. Continues to have decreased appetite General: No fever, no night sweats Eyes: No redness, no pain, no diplopia ENT: No mouth sores, no trouble swallowing Cardiac: No chest pain no palpitations Pulmonary: No cough, no shortness of breath, no wheezing Abdomen: Intermittent abd.pain, no nausea vomiting, no diarrhea or constipation : No urgency, frequency, dysuria, or hematuria Musculoskeletal: No arthritis, no myalgias Neurological: No headaches, no focal weakness Skin: No rash, no sores Psychiatric: + anxiety over disease/home situation. Exam Vital signs: Temperature 98 F 01/12/18 07:27 Pulse Rate 82 01/12/18 07:27 Respiratory Rate 16 01/12/18 09:08 Blood Pressure 97/60 01/12/18 07:27 Pulse Oximetry 92 01/12/18 07:27 Narrative: Generic Name Dose Route Start Last Admin Trade Name Freq PRN Reason Stop Dose Admin Diphenhydramine HCl 50 mg 01/07/18 11:32 Benadryl IVP PRN PRN chemo hypersensitivity Duloxetine HCl 30 mg 01/06/18 09:30 01/12/18 08:05 Cymbalta PO 30 mg BID SHERIN Administration Enoxaparin Sodium 40 mg 01/06/18 09:00 01/12/18 08:05 Lovenox SQ 40 mg DAILY SHERIN Administration Famotidine 20 mg 01/05/18 21:00 01/12/18 08:06 Pepcid PO 20 mg BID SHERIN Administration Gabapentin 100 mg 01/05/18 21:00 01/12/18 08:06 Neurontin PO 100 mg TID SHERIN Administration Hydrocortisone Sodium Succinate 100 mg 01/07/18 11:34 Solu-Cortef IVP PRN PRN chemo hypersensitivity Lorazepam 0.5 - 1 mg 01/05/18 17:46 01/05/18 18:03 Ativan Inj IVP 1 mg Q6H PRN Administration Methylprednisolone Sodium Succinate 125 mg 01/07/18 11:34 Solu-Medrol IVP PRN PRN chemo hypersensitivity Metoclopramide HCl 5 mg 01/05/18 17:47 Reglan PO ACHS PRN PRN orders Metoprolol Tartrate 100 mg 01/06/18 08:00 01/12/18 08:05 Lopressor PO 100 mg BIDWM SHERIN Administration Morphine Sulfate 60 mg 01/05/18 21:00 01/12/18 08:06 Ms Contin PO 60 mg BID SHERIN Administration Morphine Sulfate 4 mg 01/05/18 20:05 01/10/18 09:09 Morphine Sulf 2 Mg Inj IVP 2 mg Q1HR PRN Administration Pain Morphine Sulfate 15 mg 01/05/18 20:04 01/12/18 08:06 Morphine Sulfate *Ir* PO 15 mg Q2HR PRN Administration Nystatin 5 ml 01/11/18 17:00 01/12/18 12:33 Mycostatin PO 5 ml QID SHERIN Administration Ondansetron HCl 4 mg 01/08/18 17:05 01/09/18 13:37 Zofran IVP 4 mg Q4H PRN Administration Nausea Oxycodone/Acetaminophen 1 tab 01/05/18 17:52 01/05/18 23:26 Percocet 5/325 PO 1 tab Q6H PRN Administration Pain Prochlorperazine 5 mg 01/05/18 17:47 Compazine PO Q8H PRN Nausea Prochlorperazine Edisylate 10 mg 01/05/18 17:49 01/09/18 16:55 Compazine Iv IVP 10 mg Q6H PRN Administration Nausea &/or vomiting Promethazine HCl 25 mg 01/05/18 17:47 01/05/18 21:13 Phenergan Tab PO 25 mg Q6H PRN Administration PRN orders Sodium Chloride 10 ml 01/10/18 14:04 Iv Flush IV PRN PRN Flushing Sodium Chloride 500 ml 01/12/18 12:44 Normal Saline IV PRN PRN Sodium Chloride 10 - 80 ml 01/12/18 12:44 01/12/18 13:26 Iv Flush IV 30 ml PRN PRN Administration Flushing Discontinued Medications Generic Name Dose Route Start Last Admin Trade Name Freq PRN Reason Stop Dose Admin Diphenhydramine HCl 25 mg 01/07/18 13:15 01/07/18 14:57 Benadryl IVP 01/07/18 13:16 25 mg O ONE Administration Duloxetine HCl 30 mg 01/06/18 21:00 Cymbalta PO BID SHERIN Sodium Chloride 1,000 mls @ 100 mls/hr 01/05/18 18:00 01/11/18 09:37 Normal Saline IV Infused .Q10H SHERIN Infusion Sodium Chloride 1,000 mls @ 999.9 mls/hr 01/05/18 17:47 01/05/18 19:06 Normal Saline IV 01/05/18 18:46 Infused .Q1H ONE Infusion Dexamethasone 10 mg/ Sodium 52.5 mls @ 155 mls/hr 01/07/18 12:20 01/07/18 13: 52 Chloride IV 01/07/18 12:40 Infused O ONE Infusion Famotidine 20 mg/ Sodium 52 mls @ 100 mls/hr 01/07/18 12:45 01/07/18 14:39 Chloride IV 01/07/18 13:16 Infused O ONE Infusion Paclitaxel 150 mg/ Sodium 525 mls @ 175 mls/hr 01/07/18 13:20 01/07/18 18:30 Chloride IV 01/07/18 16:19 Infused O ONE Infusion Ondansetron HCl 16 mg/ Sodium 58 mls @ 200 mls/hr 01/07/18 12:00 01/07/18 13: 22 Chloride IVP 01/07/18 12:17 Infused O ONE Infusion Carboplatin 440 mg/ Sodium 544 mls @ 544 mls/hr 01/07/18 16:30 01/07/18 20:20 Chloride IV 01/07/18 17:29 Infused O ONE Infusion Morphine Sulfate 2 mg 01/05/18 13:24 01/05/18 13:48 Morphine Sulf 2 Mg Inj IVP 01/05/18 13:25 2 mg O ONE Administration Morphine Sulfate 4 mg 01/05/18 14:36 01/05/18 14:44 Morphine Sulfate Inj IVP 01/05/18 14:37 4 mg O ONE Administration Morphine Sulfate 2 mg 01/05/18 15:24 01/05/18 15:28 Morphine Sulf 2 Mg Inj IVP 01/05/18 15:25 2 mg O ONE Administration Morphine Sulfate 4 mg 01/05/18 17:27 01/05/18 17:48 Morphine Sulfate Inj IVP 01/05/18 17:28 4 mg O ONE Administration Morphine Sulfate 2 mg 01/05/18 17:46 Morphine Sulf 2 Mg Inj IVP Q3-4HR PRN Pain Morphine Sulfate 15 mg 01/05/18 20:00 Morphine Sulfate *Ir* PO Q4HR SHERIN Morphine Sulfate 30 mg 01/05/18 17:47 Ms Contin PO BID PRN Pain Morphine Sulfate 4 mg 01/05/18 17:50 Morphine Sulf 2 Mg Inj IVP Q1-4HR PRN Pain Morphine Sulfate 30 mg 01/05/18 21:00 Ms Contin PO BID SHERIN Morphine Sulfate 15 mg 01/05/18 17:58 Morphine Sulfate *Ir* PO Q4HR PRN Olanzapine 5 mg 01/08/18 17:00 01/11/18 08:58 Zyprexa PO 01/11/18 15:00 5 mg DAILY SHERIN Administration Pantoprazole Sodium 40 mg 01/05/18 18:00 Protonix Iv IVP DAILY SHERIN Promethazine HCl 25 mg 01/05/18 13:24 01/05/18 13:49 Phenergan Inj IVP 01/05/18 13:25 25 mg O ONE Administration Tbo-Filgrastim 480 mcg 01/09/18 16:45 01/10/18 17:29 Granix SQ 01/11/18 23:59 480 mcg Q24H SHERIN Administration - Constitutional no acute distress, well developed, cooperative - Routine HEENT Exam Head: Present: normocephalic Eye: Present: EOMI ENT: Present: mucous membranes moist - Routine Neck Exam Present: supple. Absent: lymphadenopathy - Routine Respiratory Exam Present: CTA bilaterally. Absent: wheezes, crackles - Routine Cardiovascular Exam Present: RRR, murmur - Routine Abdominal Exam Present: soft, non tender, ostomy (patent w/ clear light brown liquid.). Absent : normoactive bowel sounds (hypoactive bowel sounds) - Routine Extremities Exam Present: no edema, full ROM - Routine Skin Exam Present: dry, pallor, warm Comments: Dressing to superior and inferior incision site mid abdomen. Inferior dressing saturated with clear liquid. Will have nursing change dressing site. - Routine Neurological Exam Present: alert, oriented X3, moving all extremities - Routine Psychiatric Exam Present: normal affect, cooperative. Absent: agitated Oncology Results - Labs CBC & Chem 7: 01/12/18 03:35 01/12/18 03:35 Labs: Short CBC 01/12/18 Range/Units 03:35 WBC 19.3 H (4.5-11.0) T/MM3 Hgb 7.0 L (12-16) GM/DL Hct 23.3 L (36-46) % Plt Count 326 (130-400) T/MM3 [facility] 01/11/18 01/12/18 14:01 03:35 Sodium 142 139 Potassium 4.4 3.9 Chloride 114 H 112 H Carbon Dioxide 22 18 L BUN 16.0 16.0 Creatinine 2.3 H 1.8 H D Glucose 95 86 Calcium 8.1 L 8.2 L Assessment and Plan Assessment and Plan: 1. 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 On palliative chemotherapy; received Carboplatin/Taxol 01/07/18. Tolerated fairly well; some nausea/emesis, but improved with addition of olanzapine. G-CSF; last dose given 01/09/18. Today with anemia/Hgb 01/12/18 is 7.0. 2. CHEK 2 mutation 3. peritoneal carcinomatosis Plan Continue supportive care. Will give 1 unit packed RBCs today; discussed with Dr. Ortiz. Patient uncertain on discharge planning. At this time, thinks she may go home but concerned that she does not have electricity. Instructed to discuss social media editor availability with case management. - Time Spent With Patient Total time spent is greater than 50% in coordination of care (as documented) at patient's floor/unit and/or counseling patient: 25 - 35 minutes <Digna Clancy - Last Filed: 01/14/18 20:51> Exam Vital signs: Temperature 97.5 F 01/14/18 12:15 Pulse Rate 75 01/14/18 12:15 Respiratory Rate 18 01/14/18 12:15 Blood Pressure 122/68 01/14/18 12:15 Pulse Oximetry 94 01/14/18 12:15 Oncology Results - Labs CBC & Chem 7: 01/14/18 04:23 01/14/18 04:23 Labs: Short CBC 01/14/18 Range/Units 04:23 WBC 8.5 (4.5-11.0) T/MM3 Hgb 8.3 L (12-16) GM/DL Hct 26.2 L (36-46) % Plt Count 322 (130-400) T/MM3 BMP 01/14/18 04:23 Sodium 141 Potassium 3.8 Chloride 109 H Carbon Dioxide 24 BUN 10.0 Creatinine 1.3 H D Glucose 99 Calcium 8.6 Liver Function 01/14/18 Range/Units 04:23 Total Bilirubin 0.40 (0.20-1.30) MG/DL AST 19 (14-36) U/L ALT 9 (1-35) U/L Alkaline Phosphatase 137 H (38-126) U/L Albumin 3.1 L (3.5-5.0) g/dL Assessment and Plan - Time Spent With Patient Total time spent is greater than 50% in coordination of care (as documented) at patient's floor/unit and/or counseling patient:
[2018-01-12] MEDS ORDERED: NS FLUSH BAG 500ml IV PRN (12:44)
[2018-01-12] MEDS: SALINE FLUSH 10ml SYRINGE IV PRN ×2 (13:26→15:32)
[2018-01-12] MEDS: MORPHINE SULFATE 2mg INJECTION IVP PRN (15:32)
--- NOTE | 2018-01-12 16:27 | Progress Note ---
- Date 01/12/18 Subjective: Larry is feeling better today, overall -- her abd pain has improved to 6/10. She is eating better without nausea. She's had good output through her colostomy. However, she's had 2 dizzy episodes today -- though they weren't as severe as her vertiginous episode yesterday. She's also noticed a couple of times today becoming suddenly fatigued. She denies SOA. Objective Vital signs: Temperature 97.6 F 01/12/18 15:10 Pulse Rate 73 01/12/18 15:10 Respiratory Rate 16 01/12/18 15:32 Blood Pressure 98/54 01/12/18 15:10 Pulse Oximetry 97 01/12/18 15:10 Height/Weight/BMI: Height 1.6 m Weight 94 kg Body Mass Index 34.6 - Constitutional Present: no acute distress, well nourished, well developed - Routine HEENT Exam Head: Present: normocephalic Eye: Present: PERRL. Absent: conjunctival icterus, scleral injection ENT: Present: mucous membranes moist - Routine Respiratory Exam Present: CTA bilaterally - Routine Cardiovascular Exam Present: RRR, S1, S2 - Routine Abdominal Exam Present: soft, normoactive bowel sounds, non tender (with light palpation), ostomy - Routine Extremities Exam Present: no edema - Routine Musculoskeletal Exam Musculoskeletal: Present: moving extremities well - Routine Skin Exam Present: intact, dry, pallor, warm - Routine Neurological Exam Present: alert, oriented X3, CN II-XII intact, moving all extremities, vision grossly intact, hearing grossly intact, normal speech. Absent: sensory deficit , motor deficit, altered mental status, facial asymmetry - Routine Psychiatric Exam Present: normal affect, normal thought process, cooperative Results - Labs CBC & Chem 7: 01/12/18 03:35 01/12/18 03:35 Assessment and Plan Assessment and Plan: Assessment Abdominal pain - failed OP tx Endometrial CA (stage IV)/carcinomatosis with mets to liver, peritoneum, omentum Nausea/vomiting - resolved s/p exploratory laparotomy, adhesiolysis, small bowel resection, loop ileostomy and incidental appendectomy on 12/15/17 BEAU - creatinine 1.4 on admit, baseline 0.8; increased to 2.4 on 01/11/18 Leukocytosis- POA Thrombocytosis - POA Anxiety, Depression Insomnia CAD Migraine headaches Hiatal hernia Normocytic Anemia, acute on chronic: PRBC x1 unit 01/12/18 Hypertension Plan Hgb down to 7.0 and pt reports sx of fatigue and dizziness. PRBC transfusion ordered. Creatinine showing improvement to 1.8. WBC trending down, s/p Granix Given underlying social situation and Dr. Clancy's recommendations for future treatment, we may consider further discussions on hospice, especially if she goes home, which would provide an extra reliable layer of support for Larry and her household. DVT Prophylaxis: SCD's GI Prophylaxis: Pepcid Resuscitation Status: Do Not Resuscitate - Physician Narrative Narrative: Date: 01/12/18 Time: 1620 Seen and examined patient on same day as the above note by nurse practitioner Pippa Rogers. Agree with subjective commentary, physical, assessment and plan. Comprehensive physical findings correlate to the above note. Exam: Gen.:no apparent distress, conversant and pleasant HEENT: normocephalic atraumatic, oral mucosa moderately dry neck: no lymphadenopathy no jugular venous distention respiratory: there to auscultation bilaterally with good excursion cardiovascular: cardiovascular S1 S2 no adventitious murmurs rubs or gallops abdomen/GI: improving erythema surrounding the ostomy skin/integument: no significant injuries or edema neuro: alert and oriented times 3. No focal deficits appreciable psych: mood appears much less depressed than prior Labs: reviewed and noted improving white blood cell count and renal function. Assessment and plan: case discussed with Dr. Quezada's nurse practitioner mAanda Mas. I let her know that we had held the patient's Granix yesterday due to the climbing white blood cell count and this appears to have been helpful. I did not have an opportunity today to reiterate my anticipation that she will never recover sufficiently enough to be self-sufficient in her own home again. But in conversation with Amanda I believe that the oncology team will be reinforcing this as well. Appreciate her input. Documented on [facility] speech to text. Efforts to correct speech recognition errors performed, but variation may exist Hospital Course Summary Disclaimer: The visit summary below is not to be considered part of the above Progress Note. Hospital Course: 01/05/18 Admit for obs and pain control. Morphine IV/PO and Percocet for pain (will continue her home long acting morphine if she is able to keep it down), compazine/phenergan for nausea/ vomiting. Ativan for anxiety. Pt has met with Hospice previously. Discussed with pt once her pain is under control, recommend Hospice as resource to help keep her pain under control at home. Significant stressors at home may make DC a challenge. Continue home meds. She was on Levaquin for 5 days for post-op seroma with some "creamy drainage." She should have completed this on 01/03/18. Continue daily packing to abd wounds. Consult to wound clinic/Svetlana to follow wounds. Lovenox for VTE ppx Pepcid for GERD/GI ppx DNR Dr Hardy - PCP 01/06/18 Continue daily packing of abdominal wounds. No sign of infection. Patient is willing to restart Cymbalta for her depression, anxiety, and for chronic pain. She is unsure why this was not continued from previous hospitalization. Creatinine remains elevated at 1.3 compared to 1.4 yesterday. Baseline 0.8. Continue IVF's. Long-acting morphine was increased from 30 twice a day to 60 mg twice a day. Patient has not noted any significant drowsiness or other adverse effects. She did require Percocet and morphine IV overnight. Given that she's not having any nausea/vomiting, will try to utilize by mouth pain medications for ease of transition back home. Dr. Clancy consulted to reassess patient to determine if additional chemotherapy /immunotherapy options are available as tumor was being tested to determine if immunotherapy was an option during her last hospitalization. She did not tolerate chemotherapy earlier this year but is not opposed to additional active therapy if something is offered to her which she can tolerate. If no other options for active therapy available palliative care or hospice will need to be pursued. Hemoglobin dropped today 8.6.--> 7.9. Could be dilutional. Hemoglobin has averaged 8-9 since recent surgery. Vital signs are stable. 01/07/18 Creatinine continues to improve and is now within normal limits. White count is still slightly elevated, but not increasing. Hemoglobin stable at 8.2. Chemotherapy started today. Patient understands this is palliative and not curative. She hopes to have some shrinkage of the tumors in hopes that her pain will be improved. Continue IV anti-emetics and pain medication as needed for nausea/pain. Will see how she tolerates chemotherapy. 01/08/18 WBC improved to 11.6. Continue wound care for abd wounds. CA 125 up to 476; started palliative chemo yesterday Hgb 8.0; stable. Continue analgesics/antiemetics. Continue IVF - oral intake is poor. 01/09/18 no nausea yet from yesterday's chemotherapy. This is anticipated tomorrow by her prior experiences. Pain control not optimal to her but I think that a significant amount of this is anxiety as she does appear to be resting comfortably. 01/10/18 01/11/18 WBC up to 27.4 though pt did receive Granix recently. Hgb 7.6 Creatinine was up 2.4 this morning without a parallel increase in BUN. On repeat it was 2.3. She's not on nephrotoxic medications ?antineoplastic agents? Furthermore with reported crackles this morning and good oral intake fluids were discontinued to prevent fluid overload. Her weight is up >3 kg. Will start measuring I&O; check CXR. May need diuresis? Start Nystatin for thrush. 01/12/18 Hgb down to 7.0 and pt reports sx of fatigue and dizziness. PRBC transfusion ordered. Creatinine showing improvement to 1.8.WBC trending down, s/p Granix Given underlying social situation and Dr. Clancy's recommendations for future treatment, we may consider further discussions on hospice, especially if she goes home, which would provide an extra reliable layer of support for Larry and her household.
--- NOTE | 2018-01-12 16:41 | Wound Care Progress Note ---
Wound Center Progress Note: Pt seen for wound/ostomy follow up. Pt resting in bed, no complaints of pain. Lynda RN has emptied ileostomy pouch, pouch has large amount of yellow green liquid drainage. Nurse has also packed inferior abdominal wound. Pt reports she is having difficulties getting a seal around the inferior aspect of the wafer. Pt's stoma is in a skin fold. Nurse reports peristomal skin is becoming denuded. Staff has tried using the crusting technique, binder, and barrier rings to help prevent leaks; none have been to successful. The nurse is applying Cavalon and tegaderm to peristomal skin with some success. Recommendations: Will order 1 pc flexible convex drainable pouch and belt. Plain 1/4" packing applied to superior abdominal wound. Will continue with wound /ostomy care/education PRN.
[2018-01-13] MEDS: DULOXETINE 30 MG CAPSULE PO SCH ×2 (11:09→21:13)
[2018-01-13] MEDS: FAMOTIDINE 20 MG TABLET PO SCH ×2 (11:10→21:14)
[2018-01-13] MEDS: GABAPENTIN 100 MG CAPSULE PO SCH ×3 (11:10→21:14)
[2018-01-13] MEDS: NYSTATIN 500,000 units/5 ml ORAL LIQUID PO SCH ×4 (11:11→21:14)
[2018-01-13] MEDS: ENOXAPARIN 40 MG/0.4 ML INJECTION SQ SCH (11:11)
--- NOTE | 2018-01-13 11:33 | Progress Note ---
<Poly Adkins - Last Filed: 01/13/18 12:39> Oncology Subjective Partner in room with patient. Alert/oriented. Verbalizes vomiting every day, " about 2 times every day." no nausea since 2 days post chemo. Pleased: feels she is tolerating this chemotherapy better. Denies fever, chills, night sweats. No cough or shortness of air. Intermittent abdominal pain, relieved with as needed medicines. No dysuria/hematuria. General: No fever, no night sweats Eyes: No redness, no pain, no diplopia ENT: No mouth sores, no trouble swallowing Cardiac: No chest pain no palpitations Pulmonary: No cough, no shortness of breath, no wheezing Abdomen: + pain, no nausea, + vomiting. Ileostomy : No urgency, frequency, dysuria, or hematuria Musculoskeletal: No arthritis, no myalgias Neurological: No headaches, no focal weakness Skin: No rash, no sores Psychiatric: + anxiety/ depression with cancer dx ; calm/pleasant affect today. Exam Vital signs: Temperature 97.8 F 01/13/18 08:00 Pulse Rate 74 01/13/18 08:00 Respiratory Rate 16 01/13/18 11:10 Blood Pressure 113/65 01/13/18 08:00 Pulse Oximetry 94 01/13/18 08:00 Narrative: Generic Name Dose Route Start Last Admin Trade Name Freq PRN Reason Stop Dose Admin Diphenhydramine HCl 50 mg 01/07/18 11:32 Benadryl IVP PRN PRN chemo hypersensitivity Duloxetine HCl 30 mg 01/06/18 09:30 01/13/18 11:09 Cymbalta PO 30 mg BID SHERIN Administration Enoxaparin Sodium 40 mg 01/06/18 09:00 01/13/18 11:11 Lovenox SQ 40 mg DAILY SHERIN Administration Famotidine 20 mg 01/05/18 21:00 01/13/18 11:10 Pepcid PO 20 mg BID SHERIN Administration Gabapentin 100 mg 01/05/18 21:00 01/13/18 11:10 Neurontin PO 100 mg TID SHERIN Administration Hydrocortisone Sodium Succinate 100 mg 01/07/18 11:34 Solu-Cortef IVP PRN PRN chemo hypersensitivity Lorazepam 0.5 - 1 mg 01/05/18 17:46 01/05/18 18:03 Ativan Inj IVP 1 mg Q6H PRN Administration Methylprednisolone Sodium Succinate 125 mg 01/07/18 11:34 Solu-Medrol IVP PRN PRN chemo hypersensitivity Metoclopramide HCl 5 mg 01/05/18 17:47 Reglan PO ACHS PRN PRN orders Metoprolol Tartrate 100 mg 01/06/18 08:00 01/13/18 11:10 Lopressor PO 100 mg BIDWM SHERIN Administration Morphine Sulfate 60 mg 01/05/18 21:00 01/13/18 11:10 Ms Contin PO 60 mg BID SHERIN Administration Morphine Sulfate 4 mg 01/05/18 20:05 01/12/18 15:32 Morphine Sulf 2 Mg Inj IVP 4 mg Q1HR PRN Administration Pain Morphine Sulfate 15 mg 01/05/18 20:04 01/13/18 11:15 Morphine Sulfate *Ir* PO 15 mg Q2HR PRN Administration Nystatin 5 ml 01/11/18 17:00 01/13/18 11:11 Mycostatin PO 5 ml QID SHERIN Administration Ondansetron HCl 4 mg 01/08/18 17:05 01/09/18 13:37 Zofran IVP 4 mg Q4H PRN Administration Nausea Oxycodone/Acetaminophen 1 tab 01/05/18 17:52 01/05/18 23:26 Percocet 5/325 PO 1 tab Q6H PRN Administration Pain Prochlorperazine 5 mg 01/05/18 17:47 Compazine PO Q8H PRN Nausea Prochlorperazine Edisylate 10 mg 01/05/18 17:49 01/09/18 16:55 Compazine Iv IVP 10 mg Q6H PRN Administration Nausea &/or vomiting Promethazine HCl 25 mg 01/05/18 17:47 01/05/18 21:13 Phenergan Tab PO 25 mg Q6H PRN Administration PRN orders Sodium Chloride 10 ml 01/10/18 14:04 01/12/18 15:32 Iv Flush IV 10 ml PRN PRN Administration Flushing Sodium Chloride 500 ml 01/12/18 12:44 Normal Saline IV PRN PRN Sodium Chloride 10 - 80 ml 01/12/18 12:44 01/12/18 13:26 Iv Flush IV 30 ml PRN PRN Administration Flushing Discontinued Medications Generic Name Dose Route Start Last Admin Trade Name Pretty PRN Reason Stop Dose Admin Diphenhydramine HCl 25 mg 01/07/18 13:15 01/07/18 14:57 Benadryl IVP 01/07/18 13:16 25 mg O ONE Administration Duloxetine HCl 30 mg 01/06/18 21:00 Cymbalta PO BID SHERIN Sodium Chloride 1,000 mls @ 100 mls/hr 01/05/18 18:00 01/11/18 09:37 Normal Saline IV Infused .Q10H SHERIN Infusion Sodium Chloride 1,000 mls @ 999.9 mls/hr 01/05/18 17:47 01/05/18 19:06 Normal Saline IV 01/05/18 18:46 Infused .Q1H ONE Infusion Dexamethasone 10 mg/ Sodium 52.5 mls @ 155 mls/hr 01/07/18 12:20 01/07/18 13: 52 Chloride IV 01/07/18 12:40 Infused O ONE Infusion Famotidine 20 mg/ Sodium 52 mls @ 100 mls/hr 01/07/18 12:45 01/07/18 14:39 Chloride IV 01/07/18 13:16 Infused O ONE Infusion Paclitaxel 150 mg/ Sodium 525 mls @ 175 mls/hr 01/07/18 13:20 01/07/18 18:30 Chloride IV 01/07/18 16:19 Infused O ONE Infusion Ondansetron HCl 16 mg/ Sodium 58 mls @ 200 mls/hr 01/07/18 12:00 01/07/18 13: 22 Chloride IVP 01/07/18 12:17 Infused O ONE Infusion Carboplatin 440 mg/ Sodium 544 mls @ 544 mls/hr 01/07/18 16:30 01/07/18 20:20 Chloride IV 01/07/18 17:29 Infused O ONE Infusion Morphine Sulfate 2 mg 01/05/18 13:24 01/05/18 13:48 Morphine Sulf 2 Mg Inj IVP 01/05/18 13:25 2 mg O ONE Administration Morphine Sulfate 4 mg 01/05/18 14:36 01/05/18 14:44 Morphine Sulfate Inj IVP 01/05/18 14:37 4 mg O ONE Administration Morphine Sulfate 2 mg 01/05/18 15:24 01/05/18 15:28 Morphine Sulf 2 Mg Inj IVP 01/05/18 15:25 2 mg O ONE Administration Morphine Sulfate 4 mg 01/05/18 17:27 01/05/18 17:48 Morphine Sulfate Inj IVP 01/05/18 17:28 4 mg O ONE Administration Morphine Sulfate 2 mg 01/05/18 17:46 Morphine Sulf 2 Mg Inj IVP Q3-4HR PRN Pain Morphine Sulfate 15 mg 01/05/18 20:00 Morphine Sulfate *Ir* PO Q4HR SHERIN Morphine Sulfate 30 mg 01/05/18 17:47 Ms Contin PO BID PRN Pain Morphine Sulfate 4 mg 01/05/18 17:50 Morphine Sulf 2 Mg Inj IVP Q1-4HR PRN Pain Morphine Sulfate 30 mg 01/05/18 21:00 Ms Contin PO BID SHERIN Morphine Sulfate 15 mg 01/05/18 17:58 Morphine Sulfate *Ir* PO Q4HR PRN Olanzapine 5 mg 01/08/18 17:00 01/11/18 08:58 Zyprexa PO 01/11/18 15:00 5 mg DAILY SHERIN Administration Pantoprazole Sodium 40 mg 01/05/18 18:00 Protonix Iv IVP DAILY SHERIN Promethazine HCl 25 mg 01/05/18 13:24 01/05/18 13:49 Phenergan Inj IVP 01/05/18 13:25 25 mg O ONE Administration Tbo-Filgrastim 480 mcg 01/09/18 16:45 01/10/18 17:29 Granix SQ 01/11/18 23:59 480 mcg Q24H SHERIN Administration - Constitutional no acute distress, well developed, cooperative - Routine HEENT Exam Head: Present: normocephalic Eye: Present: EOMI ENT: Present: mucous membranes moist - Routine Neck Exam Present: supple. Absent: lymphadenopathy, tenderness - Routine Respiratory Exam Present: CTA bilaterally - Routine Cardiovascular Exam Present: RRR. Absent: no murmur - Routine Abdominal Exam Present: soft, normoactive bowel sounds, ostomy (collection bag intact. Has mild erythema RLQ; extends ~ 10cm around bag. Drssg to incision dry/intact- dressing is not removed) - Routine Extremities Exam Present: no edema, full ROM - Routine Back/Spine/Pelvis Exam Back/Spine: Absent: vertebral tenderness - Routine Skin Exam Present: dry, warm Comments: see abd. examination notes - Routine Neurological Exam Present: alert, oriented X3 - Routine Psychiatric Exam Present: normal affect, cooperative. Absent: anxious Oncology Results - Labs CBC & Chem 7: 01/13/18 03:50 01/13/18 03:50 Labs: Short CBC 01/13/18 Range/Units 03:50 WBC 13.8 H (4.5-11.0) T/MM3 Hgb 8.2 L D (12-16) GM/DL Hct 25.9 L D (36-46) % Plt Count 343 (130-400) T/MM3 BMP 01/13/18 03:50 Sodium 142 Potassium 3.7 Chloride 111 H Carbon Dioxide 23 BUN 14.0 Creatinine 1.5 H D Glucose 119 H Calcium 8.5 Assessment and Plan Assessment and Plan: 1. 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 On palliative chemotherapy; received Carboplatin/Taxol 01/07/18. Tolerated fairly well; some nausea/emesis, but improved with addition of olanzapine. G-CSF; last dose given 01/09/18. Hgb on 01/12/18 is 7.0. Status post 1 unit packed RBCs given 01/12/18. Hemoglobin improved today 01/13/18 at 8.2. 2. CHEK 2 mutation 3. peritoneal carcinomatosis Plan Continue supportive care. Dr. Alas reviewed chemotherapy plan. Briefly discussed again this chemotherapy is for palliative intent/goal will be to reduce symptoms of nausea/vomiting, abdominal pain and possibly reduce risk for bowel obstuction. Hospice care again discussed. - Time Spent With Patient Total time spent is greater than 50% in coordination of care (as documented) at patient's floor/unit and/or counseling patient: 25 - 35 minutes <Digna Clancy - Last Filed: 01/14/18 20:53> Exam Vital signs: Temperature 97.5 F 01/14/18 12:15 Pulse Rate 75 01/14/18 12:15 Respiratory Rate 18 01/14/18 12:15 Blood Pressure 122/68 01/14/18 12:15 Pulse Oximetry 94 01/14/18 12:15 Oncology Results - Labs CBC & Chem 7: 01/14/18 04:23 01/14/18 04:23 Labs: Short CBC 01/14/18 Range/Units 04:23 WBC 8.5 (4.5-11.0) T/MM3 Hgb 8.3 L (12-16) GM/DL Hct 26.2 L (36-46) % Plt Count 322 (130-400) T/MM3 BMP 01/14/18 04:23 Sodium 141 Potassium 3.8 Chloride 109 H Carbon Dioxide 24 BUN 10.0 Creatinine 1.3 H D Glucose 99 Calcium 8.6 Liver Function 01/14/18 Range/Units 04:23 Total Bilirubin 0.40 (0.20-1.30) MG/DL AST 19 (14-36) U/L ALT 9 (1-35) U/L Alkaline Phosphatase 137 H (38-126) U/L Albumin 3.1 L (3.5-5.0) g/dL Assessment and Plan Assessment and Plan: I interviewed and examined the patient. I developed the plan of care. - Time Spent With Patient Total time spent is greater than 50% in coordination of care (as documented) at patient's floor/unit and/or counseling patient:
--- NOTE | 2018-01-13 12:55 | Progress Note ---
- Date 01/13/18 Subjective: Larry is more emotional today - more tearful, feeling down and depressed. She is frustrated with her situation i.e. "I'm 57 y/o and shouldn't have to be going through this ... but the reality is I am". She is sick of the constant, nagging abdominal pain, the mess created by the colostomy, and increasing anxiety. She tends to cope by covering up her feelings but still tries to find a silver lining. Today, she is very worried about Sofiya, who is also struggling with Larry's terminal condition. She understands that her time is limited, and her/our goal is to find the best combination of symptom control in a safe environment with extra nursing support as needed. She's open to hospice and has already received a lot of information on it before. She states that Sofiya's mother has opened up her home to Larry -- she could certainly be discharged there signed up with hospice. Furthermore, hospice provides support for loved ones in addition to managing her symptoms of pain and anxiety. She denies any dizzy episodes today. She denies feeling SOA. She still feels very fatigued. Objective Vital signs: Temperature 97.8 F 01/13/18 08:00 Pulse Rate 74 01/13/18 08:00 Respiratory Rate 16 01/13/18 11:10 Blood Pressure 113/65 01/13/18 08:00 Pulse Oximetry 94 01/13/18 08:00 Height/Weight/BMI: Height 1.6 m Weight 94.9 kg Body Mass Index 34.6 - Constitutional Present: well nourished, well developed, obese - Routine HEENT Exam Head: Present: normocephalic Eye: Present: PERRL. Absent: conjunctival icterus, scleral injection - Routine Respiratory Exam Present: CTA bilaterally - Routine Cardiovascular Exam Present: RRR, S1, S2 - Routine Abdominal Exam Present: soft, tenderness (diffuse), ostomy. Absent: normoactive bowel sounds ( hypoactive) - Routine Extremities Exam Present: no edema - Routine Musculoskeletal Exam Musculoskeletal: Present: moving extremities well - Routine Skin Exam Present: intact, dry, warm - Routine Neurological Exam Present: alert, oriented X3, normal speech - Routine Psychiatric Exam Present: cooperative, anxious Results - Labs CBC & Chem 7: 01/14/18 04:23 01/14/18 04:23 Assessment and Plan Assessment and Plan: Assessment Abdominal pain - failed OP tx Endometrial CA (stage IV)/carcinomatosis with mets to liver, peritoneum, omentum Nausea/vomiting - resolved s/p exploratory laparotomy, adhesiolysis, small bowel resection, loop ileostomy and incidental appendectomy on 12/15/17 BEAU - creatinine 1.4 on admit, baseline 0.8; increased to 2.4 on 01/11/18 Leukocytosis- POA Thrombocytosis - POA Anxiety, Depression Insomnia CAD Migraine headaches Hiatal hernia Normocytic Anemia, acute on chronic: PRBC x1 unit 01/12/18 Hypertension Plan Hgb improved to 8.2 s/p transfusion yesterday. WBC declining -- 13.8. Creatinine improved to 1.5. Pt wishes to obtain better sx management (pain, anxiety) -- increase morphine IR to 30 mg. Could also consider increasing MS contin dose (currently 60 mg BID) . Will add Lorazepam 0.5 mg QID PRN. Discharge plans discussed. At this time pt and sig other are planning on home with hospice -- she will plan on living with Sofiya's mother. Discussed with Dr. Mckenzie, Amanda Adkins, Dr. Ortiz. Palliative chemo scheduled for tomorrow. DVT Prophylaxis: Lovenox Resuscitation Status: Do Not Resuscitate - Time spent with patient Time with patient PN: 30 minutes - Physician Narrative Narrative: Date: 01/13/18 Time: 1250 Seen and examined patient on same day as the above note nurse practitioner Pippa Rogers. Agree with subjective note, physical, assessment and plan. Comprehensive physical findings correlate to the above note. Exam: Gen.: alert and conversant no medical distress HEENT: normocephalic atraumatic, oral mucosa moderately dry neck: no lymphadenopathy no jugular venous distention respiratory: there to auscultation bilaterally with good excursion cardiovascular: cardiovascular S1 S2 no adventitious murmurs rubs or gallops abdomen/GI: bowel sounds active ostomy has good output extremities: good peripheral perfusion with no edema skin/integument: no significant injuries or edema neuro: minimally responsive but protecting airway. No focal deficits appreciable psych: mood slightly elevated but affect is appropriate Labs: reviewed assessment and plan: met with Dr. Mckenzie's team in oncology we have made a coordinated effort to figure out next step in her care as she does appear to be stable with her ostomy and pain at this time. She has an abysmal home situation with loss of utilities and rent being due and little support from the 6 other people in the house. It appears that she does not qualify for her singing homes with her current insurance situation. Case management has called to [facility] and the patient does not meet criteria for their admission. At this point the patient is considering home with home health and the assistance of home hospice at this time. Documented on Dragon speech to text. Efforts to crack speech recognition errors performed, but variation may exist Hospital Course Summary Disclaimer: The visit summary below is not to be considered part of the above Progress Note. Hospital Course: 01/05/18 Admit for obs and pain control. Morphine IV/PO and Percocet for pain (will continue her home long acting morphine if she is able to keep it down), compazine/phenergan for nausea/ vomiting. Ativan for anxiety. Pt has met with Hospice previously. Discussed with pt once her pain is under control, recommend Hospice as resource to help keep her pain under control at home. Significant stressors at home may make DC a challenge. Continue home meds. She was on Levaquin for 5 days for post-op seroma with some "creamy drainage." She should have completed this on 01/03/18. Continue daily packing to abd wounds. Consult to wound clinic/Svetlana to follow wounds. Lovenox for VTE ppx Pepcid for GERD/GI ppx DNR Dr Hardy - PCP 01/06/18 Continue daily packing of abdominal wounds. No sign of infection. Patient is willing to restart Cymbalta for her depression, anxiety, and for chronic pain. She is unsure why this was not continued from previous hospitalization. Creatinine remains elevated at 1.3 compared to 1.4 yesterday. Baseline 0.8. Continue IVF's. Long-acting morphine was increased from 30 twice a day to 60 mg twice a day. Patient has not noted any significant drowsiness or other adverse effects. She did require Percocet and morphine IV overnight. Given that she's not having any nausea/vomiting, will try to utilize by mouth pain medications for ease of transition back home. Dr. Mckenzie consulted to reassess patient to determine if additional chemotherapy /immunotherapy options are available as tumor was being tested to determine if immunotherapy was an option during her last hospitalization. She did not tolerate chemotherapy earlier this year but is not opposed to additional active therapy if something is offered to her which she can tolerate. If no other options for active therapy available palliative care or hospice will need to be pursued. Hemoglobin dropped today 8.6.--> 7.9. Could be dilutional. Hemoglobin has averaged 8-9 since recent surgery. Vital signs are stable. 01/07/18 Creatinine continues to improve and is now within normal limits. White count is still slightly elevated, but not increasing. Hemoglobin stable at 8.2. Chemotherapy started today. Patient understands this is palliative and not curative. She hopes to have some shrinkage of the tumors in hopes that her pain will be improved. Continue IV anti-emetics and pain medication as needed for nausea/pain. Will see how she tolerates chemotherapy. 01/08/18 WBC improved to 11.6. Continue wound care for abd wounds. CA 125 up to 476; started palliative chemo yesterday Hgb 8.0; stable. Continue analgesics/antiemetics. Continue IVF - oral intake is poor. 01/09/18 no nausea yet from yesterday's chemotherapy. This is anticipated tomorrow by her prior experiences. Pain control not optimal to her but I think that a significant amount of this is anxiety as she does appear to be resting comfortably. 01/10/18 01/11/18 WBC up to 27.4 though pt did receive Granix recently. Hgb 7.6 Creatinine was up 2.4 this morning without a parallel increase in BUN. On repeat it was 2.3. She's not on nephrotoxic medications ?antineoplastic agents? Furthermore with reported crackles this morning and good oral intake fluids were discontinued to prevent fluid overload. Her weight is up >3 kg. Will start measuring I&O; check CXR. May need diuresis? Start Nystatin for thrush. 01/12/18 Hgb down to 7.0 and pt reports sx of fatigue and dizziness. PRBC transfusion ordered. Creatinine showing improvement to 1.8.WBC trending down, s/p Granix Given underlying social situation and Dr. Mckenzie's recommendations for future treatment, we may consider further discussions on hospice, especially if she goes home, which would provide an extra reliable layer of support for Larry and her household. 01/13/18 Hgb improved to 8.2 s/p transfusion yesterday. WBC declining -- 13.8. Creatinine improved to 1.5. Pt wishes to obtain better sx management (pain, anxiety) -- increase morphine IR to 30 mg. Could also consider increasing MS contin dose (currently 60 mg BID) . Will add Lorazepam 0.5 mg QID PRN. Discharge plans discussed. At this time pt and sig other are planning on home with hospice -- she will plan on living with Sofiya's mother. Palliative chemo scheduled for tomorrow.
--- NOTE | 2018-01-13 15:21 | Wound Care Progress Note ---
Wound Center Progress Note: Pt seen for ostomy follow up. Pt lying in bed watching TV. Discussed with pt how she is getting along with her ostomy, what is working, and what is not. Brought pt 2 different sizes of 1pc convex flexible pouching systems and ostomy belt to try next time she changes her ileostomy appliance. Pt reports the nurse is using tegaderm around stoma to protect skin, and this seems to be working well. Pouch has large amount of dark green liquid drainage. Pt is able to empty pouching independently.
[2018-01-13] MEDS: MORPHINE SULFATE 2mg INJECTION IVP PRN (16:11)
[2018-01-13] MEDS: SALINE FLUSH 10ml SYRINGE IV PRN (21:14)
[2018-01-13] MEDS: LORazepam 0.5 MG TABLET PO PRN (23:16)
[2018-01-14] MEDS: FAMOTIDINE 20 MG TABLET PO SCH (10:26)
[2018-01-14] MEDS: DULOXETINE 30 MG CAPSULE PO SCH ×2 (10:26→21:27)
[2018-01-14] MEDS: ENOXAPARIN 40 MG/0.4 ML INJECTION SQ SCH (10:26)
[2018-01-14] MEDS: GABAPENTIN 100 MG CAPSULE PO SCH ×3 (10:26→21:27)
[2018-01-14] MEDS: NYSTATIN 500,000 units/5 ml ORAL LIQUID PO SCH ×4 (10:27→21:30)
[2018-01-14] MEDS ORDERED: HYDROCORTISONE SOD SUCC 100mg/2ml INJECTION IVP PRN (13:44)
[2018-01-14] MEDS ORDERED: DiphenhydrAMINE 50 MG/ML INJECTION IVP PRN (13:44)
[2018-01-14] MEDS ORDERED: METHYLPREDNISOLONE SOD SUCC 125mg/2ml INJECTION IVP PRN (13:44)
--- NOTE | 2018-01-14 13:48 | General Surgery Progress Note ---
Subjective Patient reports: pain is less, tolerating a regular diet, voiding w/o difficulty , bowel movement (in colostomy) Narrative: The new convex ostomy appliance with belt is holding the colostomy in place better, with out leaks. The larger of the 2 convex appliances fits the best. She is planning on Hospice at some point in time. - Vital Signs Last Vital Signs Temp 97.5 F 01/14/18 12:15 Pulse 75 01/14/18 12:15 Resp 18 01/14/18 12:15 BP 122/68 01/14/18 12:15 Pulse Ox 94 01/14/18 12:15 - Laboratory Result Diagrams: 01/14/18 04:23 01/14/18 04:23 - Normal Exam General: awake, alert, oriented, no acute distress Cardiovascular: regular rate Respiratory: no labored breathing Abdominal: soft, non-tender, other (colostomy with belt on the applinace, good seal and stool in the bag.) Additional Normal Findings: small seroma wounds midline incision being repacked daily, getting smaller. Assessment and Plan (1) Peristomal skin irritation and breakdown Current Visit: Yes Status: Acute (2) Colostomy care Current Visit: Yes Status: Chronic (3) Abdominal carcinomatosis Current Visit: No Status: Acute Plan: Continue care. Order the [place] large size convex colostomy appliance and belts for discharge. Follow up in my office or with Dr. Mota within 1 week of discharge for eval of the seromas. She should have someone do the packing changes daily upon discharge until the appointment Hospital Course Summary Disclaimer: The visit summary below is not to be considered part of the above Progress Note. Hospital Course: 01/05/18 Admit for obs and pain control. Morphine IV/PO and Percocet for pain (will continue her home long acting morphine if she is able to keep it down), compazine/phenergan for nausea/ vomiting. Ativan for anxiety. Pt has met with Hospice previously. Discussed with pt once her pain is under control, recommend Hospice as resource to help keep her pain under control at home. Significant stressors at home may make DC a challenge. Continue home meds. She was on Levaquin for 5 days for post-op seroma with some "creamy drainage." She should have completed this on 01/03/18. Continue daily packing to abd wounds. Consult to wound clinic/Svetlana to follow wounds. Lovenox for VTE ppx Pepcid for GERD/GI ppx DNR Dr Hardy - PCP 01/06/18 Continue daily packing of abdominal wounds. No sign of infection. Patient is willing to restart Cymbalta for her depression, anxiety, and for chronic pain. She is unsure why this was not continued from previous hospitalization. Creatinine remains elevated at 1.3 compared to 1.4 yesterday. Baseline 0.8. Continue IVF's. Long-acting morphine was increased from 30 twice a day to 60 mg twice a day. Patient has not noted any significant drowsiness or other adverse effects. She did require Percocet and morphine IV overnight. Given that she's not having any nausea/vomiting, will try to utilize by mouth pain medications for ease of transition back home. Dr. Clancy consulted to reassess patient to determine if additional chemotherapy /immunotherapy options are available as tumor was being tested to determine if immunotherapy was an option during her last hospitalization. She did not tolerate chemotherapy earlier this year but is not opposed to additional active therapy if something is offered to her which she can tolerate. If no other options for active therapy available palliative care or hospice will need to be pursued. Hemoglobin dropped today 8.6.--> 7.9. Could be dilutional. Hemoglobin has averaged 8-9 since recent surgery. Vital signs are stable. 01/07/18 Creatinine continues to improve and is now within normal limits. White count is still slightly elevated, but not increasing. Hemoglobin stable at 8.2. Chemotherapy started today. Patient understands this is palliative and not curative. She hopes to have some shrinkage of the tumors in hopes that her pain will be improved. Continue IV anti-emetics and pain medication as needed for nausea/pain. Will see how she tolerates chemotherapy. 01/08/18 WBC improved to 11.6. Continue wound care for abd wounds. CA 125 up to 476; started palliative chemo yesterday Hgb 8.0; stable. Continue analgesics/antiemetics. Continue IVF - oral intake is poor. 01/09/18 no nausea yet from yesterday's chemotherapy. This is anticipated tomorrow by her prior experiences. Pain control not optimal to her but I think that a significant amount of this is anxiety as she does appear to be resting comfortably. 01/10/18 01/11/18 WBC up to 27.4 though pt did receive Granix recently. Hgb 7.6 Creatinine was up 2.4 this morning without a parallel increase in BUN. On repeat it was 2.3. She's not on nephrotoxic medications ?antineoplastic agents? Furthermore with reported crackles this morning and good oral intake fluids were discontinued to prevent fluid overload. Her weight is up >3 kg. Will start measuring I&O; check CXR. May need diuresis? Start Nystatin for thrush. 01/12/18 Hgb down to 7.0 and pt reports sx of fatigue and dizziness. PRBC transfusion ordered. Creatinine showing improvement to 1.8.WBC trending down, s/p Granix Given underlying social situation and Dr. Clancy's recommendations for future treatment, we may consider further discussions on hospice, especially if she goes home, which would provide an extra reliable layer of support for Larry and her household. 01/13/18 Hgb improved to 8.2 s/p transfusion yesterday. WBC declining -- 13.8. Creatinine improved to 1.5. Pt wishes to obtain better sx management (pain, anxiety) -- increase morphine IR to 30 mg. Could also consider increasing MS contin dose (currently 60 mg BID) . Will add Lorazepam 0.5 mg QID PRN. Discharge plans discussed. At this time pt and sig other are planning on home with hospice -- she will plan on living with Sofiya's mother. Palliative chemo scheduled for tomorrow.
[2018-01-14] MEDS ORDERED: NS IVP SCH (14:00)
[2018-01-14] MEDS ORDERED: FAMOTIDINE 20 MG in NS 50 ML IV SCH (14:00)
[2018-01-14] MEDS ORDERED: DEXAMETHASONE INJ 10 MG in NS 50 ML IV SCH (14:00)
[2018-01-14] MEDS ORDERED: ONDANSETRON IVP SCH (14:00)
[2018-01-14] MEDS ORDERED: DiphenhydrAMINE 50 MG/ML INJECTION IVP ONE ×2 (14:00→14:15)
[2018-01-14] MEDS: SALINE FLUSH 10ml SYRINGE IV PRN (14:23)
[2018-01-14] MEDS ORDERED: PACLITAXEL IV SCH (14:30)
[2018-01-14] MEDS ORDERED: NS IV SCH (14:30)
--- NOTE | 2018-01-14 18:02 | Progress Note ---
- Date 01/14/18 Subjective: Debbie reports generally feeling better. She denied dyspnea, nausea, or vomiting. She's had no fevers or chills recently. She is eating a small amount today. She has variable abdominal pain which is adequately controlled with oral medications. She is scheduled for chemotherapy today which nursing reports will not start until late in the afternoon and ran into the evening. No recurrent vertigo; ambulating short distances. Liquid stools per ostomy-reports progress being made with appliance staying on. Objective Vital signs: Temperature 97.5 F 01/14/18 12:15 Pulse Rate 75 01/14/18 12:15 Respiratory Rate 18 01/14/18 12:15 Blood Pressure 122/68 01/14/18 12:15 Pulse Oximetry 94 01/14/18 12:15 NAD, alert, fluent speech, in good spirits Conjunctiva clear, sclera anicteric Respirations nonlabored, good airflow compressive clear Regular rhythm, S1-S2 Abdomen soft, mild generalized tenderness, diminished bowel sounds Trace edema bilateral lower extremities Height/Weight/BMI: Height 1.6 m Weight 94.9 kg Body Mass Index 34.6 Results - Labs CBC & Chem 7: 01/14/18 04:23 01/14/18 04:23 Labs: Alkaline phosphatase 137, AST/ALT normal, LDH 415 Assessment and Plan (1) Abdominal pain Problem details: Intractable Current visit: No Status: Acute Assessment and Plan: Assessment Abdominal pain - failed OP tx 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 Leukocytosis has resolved. Creatinine improving progressively, 2.4--> 1.3 over the past 4 days. Adequate pain control on current regimen. Oral intake improving. Palliative chemotherapy today with Taxol, anticipate home tomorrow morning or after IV fluids if necessary. Home with [facility] anticipated. DVT Prophylaxis: Lovenox Resuscitation Status: Do Not Resuscitate - Physician Narrative Narrative: Date: 01/14/18 Time: 1759 Hospital Course Summary Disclaimer: The visit summary below is not to be considered part of the above Progress Note. Hospital Course: 01/05/18 Admit for obs and pain control. Morphine IV/PO and Percocet for pain (will continue her home long acting morphine if she is able to keep it down), compazine/phenergan for nausea/ vomiting. Ativan for anxiety. Pt has met with Hospice previously. Discussed with pt once her pain is under control, recommend Hospice as resource to help keep her pain under control at home. Significant stressors at home may make DC a challenge. Continue home meds. She was on Levaquin for 5 days for post-op seroma with some "creamy drainage." She should have completed this on 01/03/18. Continue daily packing to abd wounds. Consult to wound clinic/Svetlana to follow wounds. Lovenox for VTE ppx Pepcid for GERD/GI ppx DNR Dr Hardy - PCP 01/06/18 Continue daily packing of abdominal wounds. No sign of infection. Patient is willing to restart Cymbalta for her depression, anxiety, and for chronic pain. She is unsure why this was not continued from previous hospitalization. Creatinine remains elevated at 1.3 compared to 1.4 yesterday. Baseline 0.8. Continue IVF's. Long-acting morphine was increased from 30 twice a day to 60 mg twice a day. Patient has not noted any significant drowsiness or other adverse effects. She did require Percocet and morphine IV overnight. Given that she's not having any nausea/vomiting, will try to utilize by mouth pain medications for ease of transition back home. Dr. Clancy consulted to reassess patient to determine if additional chemotherapy /immunotherapy options are available as tumor was being tested to determine if immunotherapy was an option during her last hospitalization. She did not tolerate chemotherapy earlier this year but is not opposed to additional active therapy if something is offered to her which she can tolerate. If no other options for active therapy available palliative care or hospice will need to be pursued. Hemoglobin dropped today 8.6.--> 7.9. Could be dilutional. Hemoglobin has averaged 8-9 since recent surgery. Vital signs are stable. 01/07/18 Creatinine continues to improve and is now within normal limits. White count is still slightly elevated, but not increasing. Hemoglobin stable at 8.2. Chemotherapy started today with carboplatinum/Taxol. Patient understands this is palliative and not curative. She hopes to have some shrinkage of the tumors in hopes that her pain will be improved. Continue IV anti-emetics and pain medication as needed for nausea/pain. Will see how she tolerates chemotherapy. 01/08/18 WBC improved to 11.6. Continue wound care for abd wounds. CA 125 up to 476; started palliative chemo yesterday Hgb 8.0; stable. Continue analgesics/antiemetics. Continue IVF - oral intake is poor. 01/09/18 no nausea yet from yesterday's chemotherapy. This is anticipated tomorrow by her prior experiences. Pain control not optimal to her but I think that a significant amount of this is anxiety as she does appear to be resting comfortably. 01/10/18 01/11/18 WBC up to 27.4 though pt did receive Granix recently. Hgb 7.6 Creatinine was up 2.4 this morning without a parallel increase in BUN. On repeat it was 2.3. She's not on nephrotoxic medications ?antineoplastic agents? Furthermore with reported crackles this morning and good oral intake fluids were discontinued to prevent fluid overload. Her weight is up >3 kg. Will start measuring I&O; check CXR. May need diuresis? Start Nystatin for thrush. 01/12/18 Hgb down to 7.0 and pt reports sx of fatigue and dizziness. PRBC transfusion ordered. Creatinine showing improvement to 1.8.WBC trending down, s/p Granix Given underlying social situation and Dr. Clancy's recommendations for future treatment, we may consider further discussions on hospice, especially if she goes home, which would provide an extra reliable layer of support for Larry and her household. 01/13/18 Hgb improved to 8.2 s/p transfusion yesterday. WBC declining -- 13.8. Creatinine improved to 1.5. Pt wishes to obtain better sx management (pain, anxiety) -- increase morphine IR to 30 mg. Could also consider increasing MS contin dose (currently 60 mg BID) . Will add Lorazepam 0.5 mg QID PRN. Discharge plans discussed. At this time pt and sig other are planning on home with hospice -- she will plan on living with Sofiya's mother. Palliative chemo scheduled for tomorrow. 01/14/18 Hgb stable at 8.3 following transfusion 2 days ago. Leukocytosis has resolved. Creatinine improving progressively, 2.4--> 1.3 over the past 4 days. Tolerating limited oral intake. Adequate pain control on current regimen. Palliative chemotherapy today-Taxol, anticipate home tomorrow morning or after IV fluids if necessary. Home with [facility] hospice anticipated.
--- NOTE | 2018-01-14 20:59 | Progress Note ---
Oncology Subjective The patient lying the bed, seems comfortable. Her pain is under control. She has no nausea or vomiting today. She is receiving day 8 of chemotherapy, Taxol. Review of systems: General: No fever. Respiratory: No shortness of breath no cough. Cardiovascular: No chest pain. GI: Nausea and vomiting under control. The patient has abdominal pain. SAGGER SOAK: No history of seizure. Exam Vital signs: Temperature 97.5 F 01/14/18 12:15 Pulse Rate 75 01/14/18 12:15 Respiratory Rate 18 01/14/18 12:15 Blood Pressure 122/68 01/14/18 12:15 Pulse Oximetry 94 01/14/18 12:15 - Constitutional no acute distress - Routine Respiratory Exam Absent: rhonchi, wheezes, crackles - Routine Cardiovascular Exam Present: RRR, S1, no murmur - Routine Abdominal Exam Present: soft, normoactive bowel sounds, surgical scars, wound - Routine Extremities Exam Present: no edema - Routine Back/Spine/Pelvis Exam Back/Spine: Present: full ROM - Routine Skin Exam Present: intact - Routine Neurological Exam Present: alert, oriented X3 Oncology Results - Labs CBC & Chem 7: 01/14/18 04:23 01/14/18 04:23 Labs: Short CBC 01/14/18 Range/Units 04:23 WBC 8.5 (4.5-11.0) T/MM3 Hgb 8.3 L (12-16) GM/DL Hct 26.2 L (36-46) % Plt Count 322 (130-400) T/MM3 BMP 01/14/18 04:23 Sodium 141 Potassium 3.8 Chloride 109 H Carbon Dioxide 24 BUN 10.0 Creatinine 1.3 H D Glucose 99 Calcium 8.6 Liver Function 01/14/18 Range/Units 04:23 Total Bilirubin 0.40 (0.20-1.30) MG/DL AST 19 (14-36) U/L ALT 9 (1-35) U/L Alkaline Phosphatase 137 H (38-126) U/L Albumin 3.1 L (3.5-5.0) g/dL Assessment and Plan Assessment and Plan: Assessment and plan: 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 Today is day 8 of cycle 1 Taxol and carboplatin. She is tolerating chemotherapy well. The patient may be discharged within 1-2 days with hospice care. Continue supportive care. - Time Spent With Patient Total time spent is greater than 50% in coordination of care (as documented) at patient's floor/unit and/or counseling patient: less than 15 minutes
[2018-01-15] MEDS: LORazepam 0.5 MG TABLET PO PRN ×2 (03:42→18:45)
[2018-01-15] MEDS: SALINE FLUSH 10ml SYRINGE IV PRN ×3 (04:04→05:00)
[2018-01-15] MEDS: MORPHINE SULFATE 2mg INJECTION IVP PRN ×2 (05:00→12:08)
[2018-01-15 08:31] VITALS: PULSE 75
[2018-01-15] MEDS: MAGNESIUM SULFATE 1gm PREMIX 1 GM/100 ML BAG IV SCH ×2 (10:16→11:17)
[2018-01-15] MEDS: ENOXAPARIN 40 MG/0.4 ML INJECTION SQ SCH (10:16)
[2018-01-15] MEDS: DULOXETINE 30 MG CAPSULE PO SCH (10:17)
[2018-01-15] MEDS: FAMOTIDINE 20 MG TABLET PO SCH (10:17)
[2018-01-15] MEDS: GABAPENTIN 100 MG CAPSULE PO SCH ×2 (10:18→15:45)
[2018-01-15] MEDS: NYSTATIN 500,000 units/5 ml ORAL LIQUID PO SCH ×3 (10:43→18:33)
[2018-01-15] MEDS: ONDANSETRON 4 MG/2 ML INJECTION IVP PRN (12:07)
--- NOTE | 2018-01-15 13:34 | Discharge Summary ---
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, peritoneum, omentum Nausea/vomiting - resolved s/p exploratory laparotomy, adhesiolysis, small bowel resection, loop ileostomy and incidental appendectomy on 12/15/17 BEAU - creatinine 1.4 on admit, baseline 0.8; increased to 2.4 on 01/11/18 Leukocytosis- POA Thrombocytosis - POA Anxiety, Depression Insomnia CAD Migraine headaches Hiatal hernia Normocytic Anemia, acute on chronic: PRBC x1 unit 01/12/18 Hypertension - Laboratory Labs: Admission labs 01/05/18 01/05/18 13:47 13:47 WBC 12.9 H RBC 3.17 L Hgb 8.6 L Hct 27.7 L Plt Count 416 H Sodium 140 Potassium 3.9 Chloride 102 Carbon Dioxide 28 BUN 18.0 H Creatinine 1.4 H Glucose 99 Calcium 8.6 Total Bilirubin 0.40 AST 20 ALT 12 Alkaline Phosphatase 179 H Total Protein 6.8 Albumin 3.6 Globulin 3.2 Albumin/Globulin Ratio 1.1 Discharge labs 01/15/18 01/15/18 04:03 04:03 WBC 8.0 RBC 3.30 L Hgb 8.9 L Hct 28.0 L Plt Count 362 Sodium 143 Potassium 4.2 Chloride 106 Carbon Dioxide 27 BUN 9.0 Creatinine 1.2 Glucose 121 H Calcium 8.6 Magnesium 1.5 L Laboratory Tests 01/08/18 08:19 CA 125 Antigen 476 H - Radiology Radiology: Date of Exam: 01/05/18 EXAM: CT abdomen pelvis w con HISTORY: increased pain, POD 21 ileostomy, hx endometrial CA FINDINGS: LUNG BASES: There is trace left pleural effusion. Wedge-shaped consolidations with air bronchograms are seen in the medial basal segment of both lower lobes. There is also a wedge-shaped consolidation seen in the anterior segment of the left lower lobe. LIVER: The liver is normal size again showing multiple hypodense lesions of varying sizes scattered throughout both lobes of the liver which appear to have increased in size, the largest in the right lobe is in the inferior aspect of the right lobe of the liver measuring 3.7 cm (previously measured the largest in the right lobe measured 2.5 cm) largest in the left lobe measuring 3 cm (previously measured 2.5 cm). There is small volume perihepatic ascites. SPLEEN: The spleen is normal size and contour showing no discrete lesions. GALLBLADDER/BILIARY: The gallbladder is surgically absent.PANCREAS: The pancreas is stable in size and contour showing no evidence of enhancing mass effect , ductal dilatation or peripancreatic inflammatory change. ADRENAL GLANDS: The adrenal glands are not enlarged. KIDNEYS: There is again noted grade 3 right hydronephrosis and right hydroureter that extends to the area conglomerate soft tissue mass effect in the right hemipelvis where the pocket of fluid was seen previously. This conglomerate soft tissue mass effect measures 5.7 x 5.3 cm and may represent an enlarged lymph node or a peritoneal metastatic deposit. VASCULAR: The abdominal aorta and IVC are normal caliber. Mild plaque formation is seen in the abdominal aorta. LYMPH NODES: There are enlarged areas of soft tissue mass effect in the pelvis one is seen just right of the midline that measures 5.7 x 5.3 cm and anterior lower pelvis there are two soft tissue masses one measuring 3.5 x 3.1 cm, right of the midline and just left of the midline adjacent to this mass there is a 3.6 x 3.1 cm soft tissue mass. These may represent enlarged lymph nodes or peritoneal metastatic deposits. STOMACH/BOWEL LOOPS: There is a small hiatal hernia, the stomach is partially distended. There are some edematous changes in the region of the wall of the stomach antrum which may represent an antral gastritis. The bowel loops show post surgical change in the right lower quadrant with a diverting ileostomy in the right lower quadrant region. The small bowel and large bowel loops appear to be of normal caliber. There is no evidence of mechanical bowel obstruction. The evaluation for acute inflammatory bowel change is limited due to the small volume ascites in the abdomen and pelvis. URINARY BLADDER: The urinary bladder is normal size and contour showing no wall thickening or intraluminal filling defects. UTERUS/OVARIES: Surgically absent. OSSEOUS STRUCTURES: Stable showing no acute osseous abnormality. Advanced degenerative disc changes are again noted at the lumbosacral junction. PERITONEAL CAVITY : There is small volume free fluid in the abdomen and pelvis. ABDOMINAL WALL: There is been interval postsurgical change with partial small bowel resection and placement of a right lower quadrant diverting ileostomy. There is also a lower anterior abdominal wall midline defect in the periumbilical region with edematous changes and herniated mesenteric fat which appears postsurgical in etiology, likely representing an incisional hernia. There is no associated herniated bowel loops at this time. IMPRESSION: 1. There has been interval postsurgical change involving small bowel loops in the right lower quadrant likely due to partial resection and there is a diverging ileostomy in the right lower quadrant. There is no evidence of mechanical bowel obstruction. The evaluation for acute inflammatory bowel involvement is limited secondary to the small volume free fluid in the abdomen and pelvis. 2. Interval development of soft tissue masses in the pelvis as described that may represent enlarged lymph nodes or metastatic peritoneal deposits. 3. Slight interval worsening of the hepatic metastasis. 4. Small volume abdominal pelvic ascites. 5. Persistent grade 3 right obstructive uropathy secondary to the soft tissue mass effect in the right hemipelvis. 6. There are some edematous changes noted in the region of the stomach antrum which may represent an antral gastritis. Correlate clinically and follow-up as indicated. Date of Exam: 01/11/18 Indication: crackles XR chest 1V: Findings: Patient showed normal heart, central vascularity mediastinum. Probable bibasilar atelectatic changes are suggested. No acute bony findings noted. Incidentally noted is a right-sided port in place. Impression: Mild atelectatic changes with a normal heart size. History of Present Illness HPI: Larry is a 57-year-old female who presents today to emergency room with uncontrolled abdominal pain. She has known endometrial cancer with metastasis within the abdomen and pelvis, including the liver. She was previously on chemotherapy but discontinued due to adverse side effects. She follows with Dr. Clancy. She was recently hospitalized on 12/13/17 for small bowel obstruction. She had exploratory laparotomy, adhesiolysis, small bowel resection, loop ileostomy and incidental appendectomy on 12/05/[address] Mota. She was dismissed on 12/26/17 and since that time, has been controlling her pain with morphine long acting and short acting. She states last week she was having quite a bit of vomiting anytime she would try to eat. Over the weekend, she was able to eat and drink without significant problems. Her pain has been worsening over the last week and has been much worse today. She mentions that she had to move in with her partner's mother because the electricity has been turned off in the house. She states that apparently her family is not using her money to pay the bills, so now she has significant financial stress and has no electricity in her home. She states her anxiety/depression is at an all time high. Her pain is currently a 4, when she moves it is off the charts. She's not currently having any nausea, but she recently received an antiemetic in the emergency room. CT performed patient was in ER shows no evidence of mechanical bowel obstruction. She has had interval development of soft tissue masses in the pelvis that may represent enlarged lymph nodes or metastatic peritoneal deposits. She's had slight interval worsening of her hepatic metastasis and has small-volume abdominal pelvic ascites. She has a persistent grade 3 right obstructive uropathy secondary to the soft tissue mass affecting the right hemipelvis and she has some edematous changes in the stomach which may represent gastritis. White count slightly elevated at 12.9. Hemoglobin 8.6 which is what she has averaged since surgery. Prior to surgery she was averaging 10-11. Creatinine is slightly elevated at 1.4 with her baseline being 0.8. Objective Vital signs: Temperature 97.5 F 01/15/18 08:30 Pulse Rate 75 01/15/18 08:30 Respiratory Rate 16 01/15/18 12:38 Blood Pressure 95/46 01/15/18 08:30 Pulse Oximetry 89 L 01/15/18 08:30 Height/Weight/BMI: Height 1.6 m Weight 94.9 kg Body Mass Index 34.6 - Constitutional Present: no acute distress, well nourished, well developed - Routine HEENT Exam Head: Present: normocephalic, atraumatic - Routine Respiratory Exam Present: CTA bilaterally. Absent: wheezes - Routine Cardiovascular Exam Present: RRR, no murmur - Routine Abdominal Exam Present: soft, tenderness (diffuse), non distended, ostomy - Routine Extremities Exam Present: no edema, normal capillary refill - Routine Skin Exam Present: dry, warm - Routine Neurological Exam Present: oriented X3. Absent: alert (drowsy) - Routine Lymphatic Exam Lymphatic: Absent: adenopathy - Routine Psychiatric Exam Present: normal affect, cooperative Hospital Course This is a general summary of the patient's hospital course. For more details refer to the complete medical record. Hospital course: 01/05/18 Admit for obs and pain control. Morphine IV/PO and Percocet for pain (will continue her home long acting morphine if she is able to keep it down), compazine/phenergan for nausea/ vomiting. Ativan for anxiety. Pt has met with Hospice previously. Discussed with pt once her pain is under control, recommend Hospice as resource to help keep her pain under control at home. Significant stressors at home may make DC a challenge. Continue home meds. She was on Levaquin for 5 days for post-op seroma with some "creamy drainage." She should have completed this on 01/03/18. Continue daily packing to abd wounds. Consult to wound clinic/Svetlana to follow wounds. Lovenox for VTE ppx Pepcid for GERD/GI ppx DNR Dr Yeager - PCP 01/06/18 Continue daily packing of abdominal wounds. No sign of infection. Patient is willing to restart Cymbalta for her depression, anxiety, and for chronic pain. She is unsure why this was not continued from previous hospitalization. Creatinine remains elevated at 1.3 compared to 1.4 yesterday. Baseline 0.8. Continue IVF's. Long-acting morphine was increased from 30 twice a day to 60 mg twice a day. Patient has not noted any significant drowsiness or other adverse effects. She did require Percocet and morphine IV overnight. Given that she's not having any nausea/vomiting, will try to utilize by mouth pain medications for ease of transition back home. Dr. Clancy consulted to reassess patient to determine if additional chemotherapy /immunotherapy options are available as tumor was being tested to determine if immunotherapy was an option during her last hospitalization. She did not tolerate chemotherapy earlier this year but is not opposed to additional active therapy if something is offered to her which she can tolerate. If no other options for active therapy available palliative care or hospice will need to be pursued. Hemoglobin dropped today 8.6.--> 7.9. Could be dilutional. Hemoglobin has averaged 8-9 since recent surgery. Vital signs are stable. 01/07/18 Creatinine continues to improve and is now within normal limits. White count is still slightly elevated, but not increasing. Hemoglobin stable at 8.2. Chemotherapy started today with carboplatinum/Taxol. Patient understands this is palliative and not curative. She hopes to have some shrinkage of the tumors in hopes that her pain will be improved. Continue IV anti-emetics and pain medication as needed for nausea/pain. Will see how she tolerates chemotherapy. 01/08/18 WBC improved to 11.6. Continue wound care for abd wounds. CA 125 up to 476; started palliative chemo yesterday Hgb 8.0; stable. Continue analgesics/antiemetics. Continue IVF - oral intake is poor. 01/09/18 no nausea yet from yesterday's chemotherapy. This is anticipated tomorrow by her prior experiences. Pain control not optimal to her but I think that a significant amount of this is anxiety as she does appear to be resting comfortably. 01/10/18 01/11/18 WBC up to 27.4 though pt did receive Granix recently. Hgb 7.6 Creatinine was up 2.4 this morning without a parallel increase in BUN. On repeat it was 2.3. She's not on nephrotoxic medications ?antineoplastic agents? Furthermore with reported crackles this morning and good oral intake fluids were discontinued to prevent fluid overload. Her weight is up >3 kg. Will start measuring I&O; check CXR. May need diuresis? Start Nystatin for thrush. 01/12/18 Hgb down to 7.0 and pt reports sx of fatigue and dizziness. PRBC transfusion ordered. Creatinine showing improvement to 1.8.WBC trending down, s/p Granix Given underlying social situation and Dr. Clancy's recommendations for future treatment, we may consider further discussions on hospice, especially if she goes home, which would provide an extra reliable layer of support for Larry and her household. 01/13/18 Hgb improved to 8.2 s/p transfusion yesterday. WBC declining -- 13.8. Creatinine improved to 1.5. Pt wishes to obtain better sx management (pain, anxiety) -- increase morphine IR to 30 mg. Could also consider increasing MS contin dose (currently 60 mg BID) . Will add Lorazepam 0.5 mg QID PRN. Discharge plans discussed. At this time pt and sig other are planning on home with hospice -- she will plan on living with Sofiya's mother. Palliative chemo scheduled for tomorrow. 01/14/18 Hgb stable at 8.3 following transfusion 2 days ago. Leukocytosis has resolved. Creatinine improving progressively, 2.4--> 1.3 over the past 4 days. Tolerating limited oral intake. Adequate pain control on current regimen. Palliative chemotherapy today-Taxol, anticipate home tomorrow morning or after IV fluids if necessary. Home with [facility] anticipated. 01/15/18 Labs are stable. DC home on hospice today. Will continue chemo outpt. F-u with Dr Clancy as already scheduled and with Dr. Yeager in 1 wk. Time spent with patient: discharge greater than 30 minutes Resuscitation Status: Do Not Resuscitate Discharge Plan - Discharge Disposition Discharge Date: 01/15/18 Disposition: 50 Discharged To Hospice-Home *Condition: Stable Reason For Visit (Visit label in EMR): Uncontrolled pain - Discharge Medications *Discharge Medications: New Duloxetine [Cymbalta] 30 mg PO BID #60 cap LORazepam [Ativan] 0.5 mg PO QID PRN #20 tab PRN Reason: Anxiety Morphine Sulfate *SR* [Ms Contin] 60 mg PO BID #14 tab Morphine Sulfate 30 mg PO Q4HR PRN #28 tab PRN Reason: Pain Continue Prochlorperazine Tab [Compazine] 5 mg PO Q8H PRN PRN Reason: Nausea Promethazine HCl 25 mg PO Q6H PRN PRN Reason: Prn Orders Gabapentin [Neurontin] 100 mg PO TID #30 cap Metoprolol Tartrate [Lopressor] 100 mg PO BIDWM #60 tab Pnv No.95/Ferrous Fum/Folic AC [ Tablet] 1 tab PO DAILY Metoclopramide [Reglan] 5 mg PO ACHS PRN PRN Reason: Prn Orders Famotidine [Pepcid] 20 mg PO BID tab Discontinued Morphine Sulfate *IR* [Morphine Sulfate *Ir*] 15 mg PO Q4HR #20 tab Morphine Sulfate *SR* [Ms Contin] 30 mg PO BID PRN #20 tab PRN Reason: Pain Levaquin (levofloxacin) 500 mg tablet 500 mg PO DAILY #5 tab - Discharge Packet/Instructions *Diet: As tolerated *Activity: As tolerated *Pain Management/Treatment: per hospice *Wound Care: n/a *Expected Signs/Symptoms: continued pain, weakness, further decline *Notify Physician if: Hospice recommends that you do so *During Business Hours Contact: Hospice nurse *After Business Hours Contact: Hospice nurse *Pending Lab/Results: No Pending Lab - Referrals/Follow Up *Referrals/Follow Up: Digna Clancy MD [Physician] - (Schedule for January 27 or Jan 28) El Yeager II, MD [Primary Care Provider] - 1 Week (Call [facility] before scheduling a follow up appointment with Dr. Yeager. Should be seen in 1 week. ) Amrita Harris APRN [Advanced Practice Nurse] - 02/03/18 10:15 am (wound check) - Patient Handouts Patient Handouts: Endometrial Cancer (DC) - Dismissal Complete Discharge Instructions are:: Complete Physician Narrative - Narrative Physician: Ibis Anguiano MD Attestation Narrative: Date: 01/15/18 Time: [id number] I have independently evaluated and examined this patient. I reviewed the chart, the patient's history, and the WEB SIZER/PA's documented findings as above. We discussed and formulated the assessment and plan as above with additions as below: Debbie was seen earlier this afternoon and was sleeping soundly at the time. Sofiya was at bedside and indicated he tolerated chemotherapy well yesterday without nausea or vomiting but that she was anxious overnight and had trouble sleeping subsequently using IV morphine a couple of times to sleep more than anything else. Subsequently she is sedated today. Plans reviewed with Dr. Quezada. Respirations nonlabored, good airflow, breath sounds clear; abdomen soft, nontender-does not awaken to exam. Stable for discharge after G-CSF dose today. Home with hospice as previously planned.
--- NOTE | 2018-01-15 14:36 | Progress Note ---
Oncology Subjective Emotional at time of intake. Anxious about returning home and what the future holds. Complains of abdominal pain currently, was just given when necessary medications. No nausea. No fever, chills. Taking oral food/fluid slightly better. General: No fever, no night sweats Eyes: No redness, no pain, no diplopia ENT: No mouth sores, no trouble swallowing Cardiac: No chest pain no palpitations Pulmonary: No cough, no shortness of breath, no wheezing Abdomen: + pain, no nausea vomiting. Ileostomy : No urgency, frequency, dysuria, or hematuria Musculoskeletal: No arthritis, no myalgias Neurological: No headaches, no focal weakness Skin: No rash, no sores Psychiatric: + anxiety Exam Vital signs: Temperature 97.5 F 01/15/18 08:30 Pulse Rate 75 01/15/18 08:30 Respiratory Rate 15 01/15/18 14:02 Blood Pressure 95/46 01/15/18 08:30 Pulse Oximetry 89 L 01/15/18 08:30 Narrative: Generic Name Dose Route Start Last Admin Trade Name Freq PRN Reason Stop Dose Admin Diphenhydramine HCl 50 mg 01/07/18 11:32 Benadryl IVP PRN PRN chemo hypersensitivity Duloxetine HCl 30 mg 01/06/18 09:30 01/15/18 10:17 Cymbalta PO 30 mg BID SHERIN Administration Enoxaparin Sodium 40 mg 01/06/18 09:00 01/15/18 10:16 Lovenox SQ 40 mg DAILY SHERIN Administration Famotidine 20 mg 01/05/18 21:00 01/15/18 10:17 Pepcid PO 20 mg BID SHERIN Administration Gabapentin 100 mg 01/05/18 21:00 01/15/18 10:18 Neurontin PO 100 mg TID SHERIN Administration Hydrocortisone Sodium Succinate 100 mg 01/07/18 11:34 Solu-Cortef IVP PRN PRN chemo hypersensitivity Hydrocortisone Sodium Succinate 100 mg 01/14/18 13:44 Solu-Cortef IVP O PRN CHEMO HYPERSENSITIVITY RXN Lorazepam 0.5 - 1 mg 01/05/18 17:46 01/15/18 12:03 Ativan Inj IVP 1 mg Q6H PRN Administration Lorazepam 0.5 mg 01/13/18 13:01 01/15/18 03:42 Ativan PO 0.5 mg QID PRN Administration Methylprednisolone Sodium Succinate 125 mg 01/07/18 11:34 Solu-Medrol IVP PRN PRN chemo hypersensitivity Methylprednisolone Sodium Succinate 125 mg 01/14/18 13:44 Solu-Medrol IVP O PRN CHEMO HYPERSENSITIVITY RXN Metoclopramide HCl 5 mg 01/05/18 17:47 Reglan PO ACHS PRN PRN orders Metoprolol Tartrate 100 mg 01/06/18 08:00 01/15/18 10:18 Lopressor PO 100 mg BIDWM SHERIN Administration Morphine Sulfate 60 mg 01/05/18 21:00 01/15/18 10:17 Ms Contin PO 60 mg BID SHERIN Administration Morphine Sulfate 4 mg 01/05/18 20:05 01/15/18 12:08 Morphine Sulf 2 Mg Inj IVP 2 mg Q1HR PRN Administration Pain Morphine Sulfate 30 mg 01/13/18 13:04 01/15/18 11:00 Morphine Sulfate *Ir* PO 30 mg Q4HR PRN Administration Nystatin 5 ml 01/11/18 17:00 01/15/18 12:39 Mycostatin PO Not Given QID SHERIN Ondansetron HCl 4 mg 01/08/18 17:05 01/15/18 12:07 Zofran IVP 4 mg Q4H PRN Administration Nausea Prochlorperazine 5 mg 01/05/18 17:47 Compazine PO Q8H PRN Nausea Prochlorperazine Edisylate 10 mg 01/05/18 17:49 01/09/18 16:55 Compazine Iv IVP 10 mg Q6H PRN Administration Nausea &/or vomiting Promethazine HCl 25 mg 01/05/18 17:47 01/05/18 21:13 Phenergan Tab PO 25 mg Q6H PRN Administration PRN orders Sodium Chloride 10 ml 01/10/18 14:04 01/15/18 05:00 Iv Flush IV 10 ml PRN PRN Administration Flushing Sodium Chloride 500 ml 01/12/18 12:44 01/14/18 14:42 Normal Saline IV 500 ml PRN PRN Administration Sodium Chloride 10 - 80 ml 01/12/18 12:44 01/15/18 04:04 Iv Flush IV 40 ml PRN PRN Administration Flushing Discontinued Medications Generic Name Dose Route Start Last Admin Trade Name Freq PRN Reason Stop Dose Admin Diphenhydramine HCl 25 mg 01/07/18 13:15 01/07/18 14:57 Benadryl IVP 01/07/18 13:16 25 mg O ONE Administration Diphenhydramine HCl 50 mg 01/14/18 13:44 Benadryl IVP O PRN CHEMO HYPERSENSITIVITY RXN Diphenhydramine HCl 25 mg 01/14/18 14:00 01/14/18 14:23 Benadryl IVP 01/14/18 14:01 25 mg 1400 ONE Administration Duloxetine HCl 30 mg 01/06/18 21:00 Cymbalta PO BID SHERIN Sodium Chloride 1,000 mls @ 100 mls/hr 01/05/18 18:00 01/11/18 09:37 Normal Saline IV Infused .Q10H SHERIN Infusion Sodium Chloride 1,000 mls @ 999.9 mls/hr 01/05/18 17:47 01/05/18 19:06 Normal Saline IV 01/05/18 18:46 Infused .Q1H ONE Infusion Dexamethasone 10 mg/ Sodium 52.5 mls @ 155 mls/hr 01/07/18 12:20 01/07/18 13: 52 Chloride IV 01/07/18 12:40 Infused O ONE Infusion Famotidine 20 mg/ Sodium 52 mls @ 100 mls/hr 01/07/18 12:45 01/07/18 14:39 Chloride IV 01/07/18 13:16 Infused O ONE Infusion Paclitaxel 150 mg/ Sodium 525 mls @ 175 mls/hr 01/07/18 13:20 01/07/18 18:30 Chloride IV 01/07/18 16:19 Infused O ONE Infusion Ondansetron HCl 16 mg/ Sodium 58 mls @ 200 mls/hr 01/07/18 12:00 01/07/18 13: 22 Chloride IVP 01/07/18 12:17 Infused O ONE Infusion Carboplatin 440 mg/ Sodium 544 mls @ 544 mls/hr 01/07/18 16:30 01/07/18 20:20 Chloride IV 01/07/18 17:29 Infused O ONE Infusion Ondansetron HCl 16 mg/ Sodium 58 mls @ 116 mls/hr 01/14/18 14:00 01/14/18 15: 02 Chloride IVP 01/14/18 14:29 Infused 1400 SHERIN Infusion Famotidine 20 mg/ Sodium 52 mls @ 100 mls/hr 01/14/18 14:00 01/14/18 15:59 Chloride IV 01/14/18 14:32 Infused 1400 SHERIN Infusion Dexamethasone 10 mg/ Sodium 52.5 mls @ 210 mls/hr 01/14/18 14:00 01/14/18 15: 58 Chloride IV 01/14/18 14:14 Infused 1400 SHERIN Infusion Paclitaxel 150 mg/ Sodium 525 mls @ 175 mls/hr 01/14/18 14:30 01/14/18 20:30 Chloride IV 01/14/18 17:29 Infused .Q3H SHERIN Infusion Magnesium Sulfate/Dextrose 1 gm in 100 mls @ 100 mls/hr 01/15/18 09:30 12:20 Mag Sulf 1gm Premix IV 01/15/18 11:29 Infused Q1H SHERIN Infusion Morphine Sulfate 2 mg 01/05/18 13:24 01/05/18 13:48 Morphine Sulf 2 Mg Inj IVP 01/05/18 13:25 2 mg O ONE Administration Morphine Sulfate 4 mg 01/05/18 14:36 01/05/18 14:44 Morphine Sulfate Inj IVP 01/05/18 14:37 4 mg O ONE Administration Morphine Sulfate 2 mg 01/05/18 15:24 01/05/18 15:28 Morphine Sulf 2 Mg Inj IVP 01/05/18 15:25 2 mg O ONE Administration Morphine Sulfate 4 mg 01/05/18 17:27 01/05/18 17:48 Morphine Sulfate Inj IVP 01/05/18 17:28 4 mg O ONE Administration Morphine Sulfate 2 mg 01/05/18 17:46 Morphine Sulf 2 Mg Inj IVP Q3-4HR PRN Pain Morphine Sulfate 15 mg 01/05/18 20:00 Morphine Sulfate *Ir* PO Q4HR SHERIN Morphine Sulfate 30 mg 01/05/18 17:47 Ms Contin PO BID PRN Pain Morphine Sulfate 4 mg 01/05/18 17:50 Morphine Sulf 2 Mg Inj IVP Q1-4HR PRN Pain Morphine Sulfate 30 mg 01/05/18 21:00 Ms Contin PO BID SHERIN Morphine Sulfate 15 mg 01/05/18 17:58 Morphine Sulfate *Ir* PO Q4HR PRN Morphine Sulfate 15 mg 01/05/18 20:04 01/13/18 11:15 Morphine Sulfate *Ir* PO 15 mg Q2HR PRN Administration Olanzapine 5 mg 01/08/18 17:00 01/11/18 08:58 Zyprexa PO 01/11/18 15:00 5 mg DAILY SHERIN Administration Oxycodone/Acetaminophen 1 tab 01/05/18 17:52 01/05/18 23:26 Percocet 5/325 PO 1 tab Q6H PRN Administration Pain Pantoprazole Sodium 40 mg 01/05/18 18:00 Protonix Iv IVP DAILY SHERIN Promethazine HCl 25 mg 01/05/18 13:24 01/05/18 13:49 Phenergan Inj IVP 01/05/18 13:25 25 mg O ONE Administration Tbo-Filgrastim 480 mcg 01/09/18 16:45 01/10/18 17:29 Granix SQ 01/11/18 23:59 480 mcg Q24H SHERIN Administration - Constitutional mild distress, obese - Routine HEENT Exam Head: Present: normocephalic Eye: Present: EOMI ENT: Present: mucous membranes moist (No oral lesions.) - Routine Neck Exam Present: supple. Absent: lymphadenopathy - Routine Respiratory Exam Present: CTA bilaterally. Absent: wheezes - Routine Cardiovascular Exam Present: RRR, no murmur - Routine Abdominal Exam Present: soft, wound (dressing dry/intact to midline incision), ostomy. Absent : normoactive bowel sounds (decreased bowel sounds appreciated) - Routine Extremities Exam Present: no edema, full ROM - Routine Back/Spine/Pelvis Exam Back/Spine: Absent: CVA tenderness, paraspinal tenderness - Routine Skin Exam Present: dry, warm, wounds (dressing dry/intact to midline abdominal incision. Wound not examined) - Routine Neurological Exam Present: alert, normal speech - Routine Psychiatric Exam Present: cooperative, anxious Oncology Results - Labs CBC & Chem 7: 01/15/18 04:03 01/15/18 04:03 Labs: Short CBC 01/15/18 Range/Units 04:03 WBC 8.0 (4.5-11.0) T/MM3 Hgb 8.9 L (12-16) GM/DL Hct 28.0 L (36-46) % Plt Count 362 (130-400) T/MM3 BMP 01/15/18 04:03 Sodium 143 Potassium 4.2 Chloride 106 Carbon Dioxide 27 BUN 9.0 Creatinine 1.2 Glucose 121 H Calcium 8.6 Assessment and Plan Assessment and Plan: Assessment 1. 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 Received Cycle 1 day 8 on 2017. Tolerated well. 2. Anxiety 3. Normocytic anemia; chemotherapy-induced. Received one unit packed RBCs on -Hgb was 7.0. Hemoglobin stable/improved. yesterday hemoglobin 8.3, today , 01/15/18, hemoglobin is 8.9. Plan Active listened to patient. Encouraged take one day at a time. Reviewed deep breathing, relaxation. Patient to be discharged today to significant other/ Mother's home with [facility] hospice care. To receive one dose G-CSF 480 g today prior to discharge. RTC to see Dr. Clancy in 2 weeks with CBC, CMP. - Time Spent With Patient Total time spent is greater than 50% in coordination of care (as documented) at patient's floor/unit and/or counseling patient: 25 - 35 minutes
[2018-01-15 15:51] VITALS: BP 95/55; TEMP 97.2; O2SAT 93
[2018-01-15 18:45] VITALS: RESP 18
[2018-01-15] MEDS ORDERED: TBO-FILGRASTIM 480mcg/0.8ml INJECTION SQ SCH (19:00)
== END 2018-01-15 18:45 | disposition hospice, home (50) | DRG 755 ==
LOC: ED 11:47 → EDHOLD 11:47 → SUATTDRO 17:30 → MED 17:35 → SUATTDRO 01-07 08:39
PROVIDERS: ADMIT Internal Medicine; ATTEND Internal Medicine

== ENCOUNTER 2018-01-19 14:47 | Observation (INO) ==
--- NOTE | 2018-01-19 14:58 | Emergency Department Report ---
General Adult HPI - General Chief complaint: Altered Mental Status Stated complaint: Unresponsive Time Seen by Provider: 01/19/18 14:58 Source: patient Mode of arrival: ambulatory Limitations: no limitations - History of Present Illness HPI narrative: Patient is a 57-year-old female currently receiving palliative chemotherapy. Patient awoke this morning with her "body not moving right". Patient's had a similar reaction post chemotherapy before, was somewhat unresponsive with difficulty moving her entire right side. Patient is currently on hospice, however he asked mass was called and patient was brought to the ER for evaluation - Related Data Home Medications Medication Instructions Recorded Confirmed Pnv No.[id number]/Ferrous Fum/Folic AC 1 tab PO DAILY 06/25/17 01/19/18 [ Tablet] Prochlorperazine Tab [Compazine] 5 mg PO Q8H PRN 08/22/17 01/19/18 Promethazine HCl 25 mg PO Q6H PRN 12/06/17 01/19/18 Previous Rx's Medication Instructions Recorded Famotidine [Pepcid] 20 mg PO BID tab 12/26/17 Gabapentin [Neurontin] 100 mg PO TID #30 cap 12/26/17 Metoprolol Tartrate [Lopressor] 100 mg PO BIDWM #60 tab 12/26/17 Duloxetine [Cymbalta] 30 mg PO BID #60 cap 01/15/18 LORazepam [Ativan] 0.5 mg PO QID PRN #20 tab 01/15/18 Metoclopramide [Reglan] 5 mg PO ACHS #30 01/22/18 Morphine Sulfate 30 mg PO Q4HR PRN #15 tab 01/22/18 Morphine Sulfate *SR* [Ms Contin] 60 mg PO DAILY #7 tab 01/22/18 Morphine Sulfate *SR* [Ms Contin] 90 mg PO HS #7 tab 01/22/18 Scopolamine Patch [Transderm-Scop 1 mg TD Q3D #4 patch 01/22/18 Patch] Allergies Allergy/AdvReac Type Severity Reaction Status Date / Time No Known Allergies Allergy Unknown Verified 01/19/18 15:23 Review of Systems Constitutional: Reports: weakness. Denies: fever, chills Eyes: Denies: eye pain, eye discharge, vision change ENT: Denies: ear pain, throat pain, dental pain Cardiovascular: Denies: chest pain, palpitations, dyspnea on exertion Respiratory: Denies: cough, dyspnea, wheezes Gastrointestinal: Denies: abdominal pain, nausea, vomiting Neurological: Reports: weakness. Denies: headache, numbness Psychiatric: Reports: anxiety (left-sided), depression Endocrine: Denies: fatigue, heat or cold intolerance Hematological/Lymphatic: Denies: easy bleeding PFSH Patient Stated Medical History Migraine Yes Coronary Artery Disease Yes Hypertension Yes Sleep Apnea No Diabetes Mellitus Type 2 Yes Hiatal Hernia Yes Obstructive Bowel Yes Other GI Yes: ENDOMETRIAL CA W/ METASTASIS TO LIVER, STOMACH, AND KIDNEYS Hx Urinary Tract Infection Yes Chemotherapy Yes Depression Yes Endometriosis Yes Post Menopausal Yes Now No Clinic Medical History (Last Updated 12/30/17 @ 17:57 by Amrita Harris, AARON) Endometrial cancer (Acute Medical ~2014) Medical History Updates: DM 2. HTN. GERD. Anxiety. Depression. Insomnia. Endometrial CA (stage IV) with mets to liver, stomach and kidneys 04/18/2016. CAD angioplasty 2003. Migraine headaches. Hiatal hernia. gastric ulcer Surgical History: PowerPort insertion 05/03/2016 Ewa. [id number] with resection of right ureter anastomosis incidental [id number]/2016 Tejinder. Lumbar discectomy 2013. Partial right knee replacement 2008 Celine. Heart catheter with angioplasty 2 vessels in 2003. Laparoscopic ovarian cystectomy. Ectopic with left oophorectomy. EGD. exploratory laparotomy extensive adhesiolysis, small bowel resection, creation of loop ileostomy, widely metastatic endometrial cancer 12/15/2017 Svetlana Family History Updates: Mother at 47 of lymphoma, heart disease, diabetes but ultimately of suicide (GSW to head). Father also committed suicide of GSW to head at age 58. He had epilepsy. Daughter with hx of drug addiction. Son is healthy. Maternal grandmother had ovarian cancer. 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 Absent: tenderness - Chest Chest inspection: Present: symmetric chest wall rise. Absent: tenderness, rash - Respiratory Respiratory exam: Present: normal lung sounds bilaterally. Absent: respiratory distress, wheezes, stridor - Cardiovascular Cardiovascular exam: Present: regular rate, normal rhythm, normal heart sounds - Abdominal Exam Abdominal exam: Present: soft, normal bowel sounds. Absent: distention, tenderness - Back Exam Back exam: Present: normal inspection, full ROM. Absent: tenderness, CVA tenderness (R), CVA tenderness (L), muscle spasm, paraspinal tenderness - Skin Skin exam: Present: warm, dry - Neurological Exam Neurological exam: Present: alert, oriented X3, CN II-XII intact, reflexes normal. Absent: motor sensory deficit - Psychiatric Psychiatric exam: Present: normal affect, normal mood Course Vital Signs Temperature 98.2 F 01/19/18 14:50 Pulse Rate 96 01/19/18 14:50 Respiratory Rate 16 01/19/18 14:50 Blood Pressure 159/71 H 01/19/18 14:50 Pulse Oximetry 95 01/19/18 14:50 Temperature 98.1 F 01/21/18 23:56 Pulse Rate 62 01/22/18 07:24 Respiratory Rate 20 01/22/18 13:26 Blood Pressure 106/64 01/22/18 07:24 Pulse Oximetry 93 01/22/18 07:24 Medical Decision Making - [facility] Narrative Medical decision making narrative: Patient currently on hospice, hospice nurses discussed options with family, they would like full care. Patient is taken off hospice at this time. Discuss case with Dr. Anguiano, she will admit - Medical Records Medical records reviewed: Yes: I reviewed the patient's medical records. - Lab Data Lab results reviewed: Yes: I reviewed the patient's lab results. Result diagrams: 01/21/18 04:17 01/21/18 04:17 Lab Results 01/19/18 01/19/18 01/19/18 Range/Units 14:54 15:34 15:34 WBC 5.5 (4.5-11.0) T/MM3 RBC 3.15 L (4.00-5.20) M/MM3 Hgb 8.4 L (12-16) GM/DL Hct 27.4 L (36-46) % MCV 87.0 (80-100) UM3 MCH 26.7 (26-34) UUG MCHC 30.7 L (31-37) GM/DL RDW Std Deviation 44.2 (36.9-50.2) FL Plt Count 280 (130-400) T/MM3 MPV 9.8 (9.4-12.4) UM3 Immature Gran % (Auto) 0.5 (0.0-0.5) % Neut % (Auto) 67.8 H (33-66) % Lymph % (Auto) 23.3 (23-45) % [place] % (Auto) 6.9 (0-9.0) % Eos % (Auto) 1.3 (0-4) % Baso % (Auto) 0.2 (0-2) % Neut # (Auto) 3.7 (1.8-7.7) T/MM3 Lymph # (Auto) 1.3 (1-4.8) T/MM3 [place] # (Auto) 0.4 (0-0.8) T/MM3 Eos # (Auto) 0.1 (0-0.5) T/MM3 Baso # (Auto) 0.0 (0-0.2) T/MM3 Abs Immat Gran (auto) 0.03 (0.00-0.03) T/MM3 Turbidity < 20 (0-20) Sodium 139 (136-146) MEQ/L Potassium 4.2 (3.6-5) MEQ/L Chloride 101 (98-107) MEQ/L Carbon Dioxide 29 (22-30) MEQ/L Anion Gap 9 (5-15) meq/L BUN 6.0 L (7-17) MG/DL Creatinine 1.0 (0.7-1.2) mg/dL GFR Calculation 58 BUN/Creatinine Ratio 6 (6-26) RATIO Glucose 106 (65-110) MG/DL Glucometer 108 (65-110) mg/dL Calculated Osmolality 266 (261-280) MOSM/KG Calcium 8.9 (8.4-10.2) MG/DL Magnesium 1.6 (1.6-2.3) MG/DL Total Bilirubin 1.00 (0.20-1.30) MG/DL Icterus Index < 2 (0-7) AST 22 (14-36) U/L ALT 12 (1-35) U/L Alkaline Phosphatase 120 (38-126) U/L Total Protein 6.7 (6.3-8.2) g/dL Albumin 3.7 (3.5-5.0) g/dL Globulin 3.0 (2.4-3.6) G/DL Albumin/Globulin Ratio 1.2 (1.1-2.2) RATIO Specimen Hemolysis < 15 (0-25) - Radiology Data Radiology results reviewed: Yes: I reviewed the patient's radiology results. CT head: No intracranial abnormalities Disposition Clinical Impression: Generalized weakness Disposition: 02 To [facility] Condition: Stable - Seen By: physician
[2018-01-19] MEDS ORDERED: NS 1,000 ML IV SCH (15:30)
[2018-01-19] MEDS: SALINE FLUSH 10ml SYRINGE IVF PRN ×3 (15:35→22:41)
[2018-01-19] MEDS ORDERED: FentaNYL 100 MCG/2 ML INJECTION IVP ONE ×2 (15:39→16:36)
[2018-01-19] MEDS ORDERED: ONDANSETRON 4 MG/2 ML INJECTION IVP ONE (15:39)
--- NOTE | 2018-01-19 16:08 | CT Scan Report ---
Indication: altered mental status, inability to move limbs PROCEDURE: CT head/brain wo con: Encounter: Initial Comparison: None. Technique: Axial CT images through the head were performed without contrast. Iterative Reconstruction dose reducing technique was utilized. FINDINGS: The ventricles are of normal size, shape, and contour for the patient's age. There are scattered areas of low attenuation in the white matter which most likely represent changes from chronic microvascular ischemia. The brainstem, cerebellum, and cerebral hemispheres otherwise have a normal morphology and CT attenuation. There is no evidence of midline displacement. No hemorrhage, signs of acute territorial stroke, mass effect, mass lesions, or edema is evident. The visualized portions of the skull base, midface, and calvarium demonstrate no abnormality. The paranasal sinuses are well aerated and free of significant disease. The tympanic and mastoid cavities appear normal. IMPRESSION: No acute intracranial abnormality or hemorrhage. .
[2018-01-19] MEDS: MORPHINE SULFATE 4mg INJECTION IVP PRN ×3 (17:23→22:40)
[2018-01-19] MEDS ORDERED: METOCLOPRAMIDE 5mg TABLET PO PRN (17:40)
--- NOTE | 2018-01-19 17:53 | History & Physical Report ---
History of Present Illness Date: 01/19/18 Chief complaint: confusion, right-sided weakness HPI: Debbie is a 57-year-old female with mixed Mullerian cancer who received palliative chemotherapy with Taxol and carboplatin 01/07 and 01/14 during admission January 05-. She reports that she has done reasonably well since home other than some nausea and vomiting over the weekend which increased yesterday. She napped earlier today but when she woke up she was confused, didn't know where she was, had sparkling dots in her right eye, reports her right face was not working and that her right hand was "crumbled up". Her entire right side was weak relative to the left. She additionally describes severe headache centered in the temples especially on the right. 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 She has never had associated neurological deficits with migraines. She presented to the emergency room where a noncontrast CT head was obtained demonstrating no acute pathology and she was treated with 75 g fentanyl followed by 100 g fentanyl to obtain brief pain control. Patient was able to ambulate on arrival to the emergency room and is using both arms symmetrically at the time of presentation. She was not able to describe how long she was unable to use her arm or the right side of her face. Review of Systems All systems PM: 10-point ROS was reviewed, no additional remarkable complaints except (oral intake impaired yesterday, hot flashes, nausea and vomiting the past 2 days, gritty cough since discharge. Remainder of review of systems negative or as per history of present illness.) Past Medical History Medical History: Medical History (Last Updated 12/30/17 @ 17:57 by Amrita Harris, AARON) Endometrial cancer Onset Date: ~2014 Medical History Updates: DM 2. HTN. GERD. Anxiety. Depression. Insomnia. Endometrial CA (stage IV) with mets to liver, stomach and kidneys 04/18/2016. CAD angioplasty 2003. Migraine headaches. Hiatal hernia. gastric ulcer Surgical History: PowerPort insertion 05/03/2016 Ewa. KESHAV-BSO with resection of right ureter anastomosis incidental [id number]/2/2016 Tejinder. Lumbar discectomy 2013. Partial right knee replacement 2008 Celine. Heart catheter with angioplasty 2 vessels in 2003. Laparoscopic ovarian cystectomy. Ectopic with left oophorectomy. EGD. exploratory laparotomy extensive adhesiolysis, small bowel resection, creation of loop ileostomy, widely metastatic endometrial cancer 12/15/2017 Svetlana Family History: Mother had lymphoma and heart disease but of [id number] age 47. Father also committed [id number] age 58. Daughter with history of drug addiction. Family History: As Above - Social History Smoking status: Never smoker Substance use type: does not use Alcohol intake frequency: does not drink Social history: PCP-Dr. Hardy Oncology-Dr. Clancy Surgeon-Dr. Mota DPOA-partner, Sofiya CODE STATUS DO NOT RESUSCITATE Medications Home Medications Medication Instructions Recorded Confirmed Type Pnv No.95/Ferrous Fum/Folic AC 1 tab PO DAILY 06/25/17 01/19/18 History [ Tablet] Prochlorperazine Tab [Compazine] 5 mg PO Q8H PRN 08/22/17 01/19/18 History Metoclopramide [Reglan] 5 mg PO ACHS PRN 12/06/17 01/19/18 History Promethazine HCl 25 mg PO Q6H PRN 12/06/17 01/19/18 History Famotidine [Pepcid] 20 mg PO BID tab 12/26/17 01/19/18 Rx Gabapentin [Neurontin] 100 mg PO TID #30 cap 12/26/17 01/19/18 Rx Metoprolol Tartrate [Lopressor] 100 mg PO BIDWM #60 tab 12/26/17 01/19/18 Rx Duloxetine [Cymbalta] 30 mg PO BID #60 cap 01/15/18 01/19/18 Rx LORazepam [Ativan] 0.5 mg PO QID PRN #20 tab 01/15/18 01/19/18 Rx Morphine Sulfate 30 mg PO Q4HR PRN #28 tab 01/15/18 01/19/18 Rx Morphine Sulfate *SR* [Ms Contin] 60 mg PO BID #14 tab 01/15/18 01/19/18 Rx Allergies Allergy/AdvReac Type Severity Reaction Status Date / Time No Known Allergies Allergy Unknown Verified 01/19/18 15:23 Exam Vital Signs: Temperature 99.1 F 01/19/18 16:57 Pulse Rate 68 01/19/18 16:57 Respiratory Rate 20 01/19/18 17:23 Blood Pressure 151/69 H 01/19/18 16:57 Pulse Oximetry 94 01/19/18 16:57 EXAM: Hokamog-yycymvrdqstax-zajabhasg female, holding temples, crying out in pain intermittently HEENT-PERRL, EOMI without nystagmus, conjugate gaze, conjunctiva clear, sclera anicteric, facial structures symmetric, plaques on tongue consistent with thrush , neck supple Lungs-respirations nonlabored, good airflow, breath sounds clear Cardiac-regular rhythm, S1-S2 Abd-obese, mild diffuse tenderness without guarding, ileostomy right lower quadrant, incisions healing well Ext-without edema Skin-without generalized rash/wounds Neuro-cranial nerves 3-12 intact, moves all extremities well, power symmetric- no right-sided deficits apparent this time; sensation intact to light touch/ cold 4 extremities Psych-anxious, tearful, frightened Height/Weight/BMI: Height 1.6 m Weight 89.8 kg Body Mass Index 35.0 Results - Labs CBC & Chem 7: 01/19/18 15:34 01/19/18 15:34 Labs: Liver enzymes normal including alkaline phosphatase which has been previously elevated - Imaging and Cardiology CT scan - head Status: image reviewed by me (no acute intracranial abnormality; ventricles normal, no shift of midline structures; no evidence of mass on noncontrast study ) Assessment and Plan (1) Altered mental status Current visit: Yes Status: Acute (2) Mixed malignant Mullerian tumor of uterus Problem details: With carcinomatosis/extensive intra-abdominal metastases Current visit: No Status: Chronic Assessment and Plan: Impression: Altered mental status/confusion Transient right-sided weakness Headache, history of migraines Mixed mullerian uterine malignancy, metastatic Recent palliative chemotherapy Anxiety/depression Nausea/vomiting Hypertension Normocytic anemia Plan: Debbie is admitted for supportive care after transient episode focal neurological symptoms without identified neurological deficits on admission or abnormalities on noncontrast CT head. Given patient's advanced malignancy and current palliative care I believe we should continue with supportive care only. Contrast CT or MRI could be considered but options for management are remarkably limited. She has severe headache on admission with visual symptoms consistent with past scotomas and migraines in the past although she's never had focal neurological deficits with migraine. Cannot exclude complex migraine or atypical response to recent chemotherapy. IV narcotic pain medications ordered in conjunction with home narcotic regimen and antiemetics previously prescribed. Will add IV antiemetics for breakthrough nausea as well. Patient was discharged with hospice support but rescinded hospice in the emergency room ; need for additional discussion regarding disease process and what her goals are prior to discharge. Discussed with Dr. Hamilton; Dr. Clancy notified of hospitalization. Resuscitation Status: Do Not Resuscitate - Physician Narrative Narrative: Date: 01/19/18 Time: 174 Hospital Course Summary Disclaimer: The visit summary below is not to be considered part of the above Progress Note.
[2018-01-19] MEDS: DULOXETINE 30 MG CAPSULE PO SCH (20:33)
[2018-01-19] MEDS: FAMOTIDINE 20 MG TABLET PO SCH (20:33)
[2018-01-19] MEDS: GABAPENTIN 100 MG CAPSULE PO SCH (20:33)
[2018-01-19] MEDS: LORazepam 0.5 MG TABLET PO PRN (20:42)
[2018-01-20] MEDS ORDERED: ACETAMINOPHEN 325 MG TABLET PO PRN
[2018-01-20] MEDS: ONDANSETRON 4 MG/2 ML INJECTION IVP PRN ×3 (01:45→20:08)
[2018-01-20] MEDS: FentaNYL 100 MCG/2 ML INJECTION IVP PRN ×8 (01:45→23:53)
[2018-01-20] MEDS: LORazepam 0.5 MG TABLET PO PRN ×3 (03:48→22:03)
[2018-01-20] MEDS: SALINE FLUSH 10ml SYRINGE IVF PRN ×2 (03:50→09:06)
--- NOTE | 2018-01-20 08:48 | Consult Note ---
<Poly Adkins - Last Filed: 01/20/18 10:56> Oncology HPI - Data of Consult Patient: known to practice within the last 3 years Consult date: 01/20/18 Requesting Physician: Taran Elise MD Primary Care Provider: El Hardy II, MD - Consult Narrative Reason for consult: metastatic endometrial Cancer/chemotherapy History of present illness: 57-year-old female, well-known patient of Dr. Blackman with refractory metastatic endometrial cancer presented to [facility] with acute altered mental status and transient right-sided weakness. No neurological deficits noted on admission or abnormalities on noncontrast CT head. Also continued nausea/vomiting, limited oral intake and persistent/chronic abdominal pain. Verbalizes relief of abdomial pain for short periods, but pain recurs, persists. She is admitted for continued supportive care and monitoring. At time of intake, alone in room. Alert/oriented. States her confusion and right-sided weakness have resolved. Persistent nausea/vomiting, states vomited twice yesterday; vomited 3 times on Friday and Friday. Denies headaches or vision changes currently. Denies fever/chills. Voiding normally. No new aches or pains. History of present illness: Initial consultation 05/01/2016: 55 year old woman with family history of ASSEMBLER TESTER cancer, her mother and grandmother both diagnosed with female cancers. The patient was diagnosed on 04/15/16 with stage IVB uterine/ovarian cancer. She is status post cytoreductive surgery, KESHAV /BSO with right ureteral resection with anastomosis. She is undergoing chemotherapy with Taxol and carboplatin. Tumor marker CA 125 went down from 276 to to 16.7. Restaging with CT scan of the chest, abdomen and pelvis after 4 cycles of Taxol carboplatin showed surgical changes in the abdomen with no evidence of recurrence. CT scan showed small bilateral axillary lymph nodes. Screening mammogram on 07/15/16 showed no evidence of malignancy. 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 This genetic test result is associated with the following cancer risk: High risk for female breast cancer and elevated risk for colorectal cancer. Interval history MRI of the breast bilateral on 10/29/16 showed no MR evidence of breast malignancy. Bilateral borderline axillary adenopathy 11.0 mm in size. Interval history The patient received 6 cycles of chemotherapy Taxol and carboplatin from 2015 to 08/21/2016. The patient presented on 02/21/2017 with acute abdominal pain. CT scan of the abdomen and pelvis with contrast showed small low- attenuation lesion in the inferior right lobe of the liver too small to characterize. There is a small bowel obstruction due to an adhesion near the patient umbilical hernia. Subsequently she was transferred to [facility]. She underwent primary incisional herniorrhaphy for the incarcerated incisional hernia/small bowel obstruction. 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 Interval history 07/09/17 The patient presented to the ED at [facility] with abdominal pain and nausea. CT scan of the abdomen and pelvis with contrast on 06/25/2017 showed low-attenuation liver lesions consistent with metastasis ranging from 1.1 -2.9 cm in size. There is moderate right-sided hydronephrosis due to metastatic implants along the retroperitoneal reflection measuring 4.2 x 1.5 cm. New cystic lesion just below the aortic bifurcation measuring 4.6 cm in diameter. Evidence of intra-muscular metastases in the inferior aspect of the right rectus sheath. Cystic metastasis adjacent to the anterior margin of the bladder measuring 5.1 cm in diameter. No evidence of bowel obstruction. Small fat-containing ventral hernia near the left liver margin. Evidence of prior umbilical hernia repair with some nodularity along the umbilicus that could be due to metastatic implants. Tumor marker CA 125 came back elevated at 79.8. CBC: WBC 14.2 with ANC of 9.9, hemoglobin 12 and platelet count 398. CMP remarkable for alkaline phosphatase of 139 otherwise normal. The patient complains of nausea and constipation. KUB unremarkable. No signs of bowel obstruction. Patient complains of abdominal pain, on narcotics. 07/11/17 Patient came into the office today with increasing weakness, brain not working, thought processes are not communicated to the extremities to produce function. She had Paclitaxel and Ifosfamide on Friday, Ifosfamide on . 07/30/2017: During third day of ifosfamide, patient presented with confusion, admitted with possible ifosfamide-induced neurotoxicity, treated conservatively with hydration. Repeat CT scan 07/14/2017 compared to the scan from 06/25/2018 showed progressive disease with severe wall thickening of the proximal sigmoid colon extending through the splenic flexure. Also increased ascites. Multiple hepatic metastatic lesions stable. Case discussed with Dr. Viveros, determined not to be a surgical candidate. Following discussion on supportive care versus hospice versus palliative chemotherapy she desired to continue chemotherapy. 09/16/2017 hospitalized twice following ifosfamide based chemotherapy and Taxol/ carboplatin. Patient decided to stop chemotherapy. At that time she was feeling better with less nausea/less abdominal pain, controlled with narcotics and antiemetics. She wanted to return to work, patient felt she did not need work restriction. She did not complete second opinion visit at [facility] in [place]. 12/15/17 patient with evidence of disease progression associated with bowel obstruction she underwent exploratory laparotomy/small bowel resection/repair of enterotomy/interoperative colonoscopy/incidental appendectomy and creation of a loop colostomy. MMR by IHC came back normal/MMR sufficient. Patient is not a candidate for immunotherapy. 01/07/18: Patient again admitted to [facility] with intractable abdominal pain and persistent nausea vomiting. Also note had developed a postoperative seroma;followed by surgery/wound care. Patient requested oncology visit; during hospitalization extensive discussion by Dr. Clancy on limited treatment options, treatment would be palliative only. Patient determined she would like to try palliative chemotherapy again to see if would decrease abdominal pain and reduce risk for small bowel obstruction. Was discharged 01/15/18 to [facility] with [facility]. Review of Systems - Constitutional Constitutional: Present: fatigue, weakness - EENT Eyes: Absent: diplopia Mouth/Throat: Absent: sores, changes in swallowing - Cardiovascular Cardiovascular: Present: dyspnea on exertion. Absent: chest pain - Respiratory Respiratory: Present: cough (infrequent, prod at times clear sputum). Absent: wheezing - Gastrointestinal Gastrointestinal: Present: abdominal pain, nausea, vomiting - Genitourinary Genitourinary: Absent: dysuria, hematuria - Musculoskeletal Musculoskeletal: Present: muscle weakness - Neurological Neurological: Present: as per HPI, memory loss (acute as per H+P) - Psychiatric Psychiatric: Present: anxiety, depression PFSH Patient Stated Medical History Migraine Yes Coronary Artery Disease Yes Hypertension Yes Sleep Apnea No Diabetes Mellitus Type 2 Yes Hiatal Hernia Yes Obstructive Bowel Yes Other GI Yes: ENDOMETRIAL CA W/ METASTASIS TO LIVER, STOMACH, AND KIDNEYS Hx Urinary Tract Infection Yes Chemotherapy Yes Depression Yes Endometriosis Yes Post Menopausal Yes Now No Clinic Medical History (Last Updated 12/30/17 @ 17:57 by Amrita Harris, AARON) Endometrial cancer (Acute Medical ~2014) Medical History Updates: DM 2. HTN. GERD. Anxiety. Depression. Insomnia. Endometrial CA (stage IV) with mets to liver, stomach and kidneys 04/18/2016. CAD angioplasty 2003. Migraine headaches. Hiatal hernia. gastric ulcer Surgical History: PowerPort insertion 05/03/2016 Mortezaonegricarda. KESHAV-BSO with resection of right ureter anastomosis incidental [id number]/2/2016 Tejinder. Lumbar discectomy 2013. Partial right knee replacement 2008 Celine. Heart catheter with angioplasty 2 vessels in 2003. Laparoscopic ovarian cystectomy. Ectopic with left oophorectomy. EGD. exploratory laparotomy extensive adhesiolysis, small bowel resection, creation of loop ileostomy, widely metastatic endometrial cancer 12/15/2017 Svetlana Family History Updates: Mother at 47 of lymphoma, heart disease, diabetes but ultimately of suicide (GSW to head). Father also committed suicide of GSW to head at age 58. He had epilepsy. Daughter with hx of drug addiction. Son is healthy. Maternal grandmother had ovarian cancer. 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 Does patient use chewing tobacco?: No Current residence: Apartment/Private Home Medications Home Medications Medication Instructions Recorded Confirmed Type Pnv No.95/Ferrous Fum/Folic AC 1 tab PO DAILY 06/25/17 01/19/18 History [ Tablet] Prochlorperazine Tab [Compazine] 5 mg PO Q8H PRN 08/22/17 01/19/18 History Metoclopramide [Reglan] 5 mg PO ACHS PRN 12/06/17 01/19/18 History Promethazine HCl 25 mg PO Q6H PRN 12/06/17 01/19/18 History Famotidine [Pepcid] 20 mg PO BID tab 12/26/17 01/19/18 Rx Gabapentin [Neurontin] 100 mg PO TID #30 cap 12/26/17 01/19/18 Rx Metoprolol Tartrate [Lopressor] 100 mg PO BIDWM #60 tab 12/26/17 01/19/18 Rx Duloxetine [Cymbalta] 30 mg PO BID #60 cap 01/15/18 01/19/18 Rx LORazepam [Ativan] 0.5 mg PO QID PRN #20 tab 01/15/18 01/19/18 Rx Morphine Sulfate 30 mg PO Q4HR PRN #28 tab 01/15/18 01/19/18 Rx Morphine Sulfate *SR* [Ms Contin] 60 mg PO BID #14 tab 01/15/18 01/19/18 Rx Allergies Allergy/AdvReac Type Severity Reaction Status Date / Time No Known Allergies Allergy Unknown Verified 01/19/18 15:23 Exam Vital signs: Temperature 98 F 01/20/18 00:57 Pulse Rate 72 01/20/18 08:00 Respiratory Rate 18 01/20/18 08:00 Blood Pressure 139/74 01/20/18 08:00 Pulse Oximetry 94 01/20/18 08:00 - Constitutional no acute distress, obese, cooperative - Routine HEENT Exam Head: Present: normocephalic Eye: Present: EOMI ENT: Present: mucous membranes moist (mild white streaks on tongue) - Routine Neck Exam Present: supple. Absent: lymphadenopathy - Routine Respiratory Exam Present: CTA bilaterally - Routine Cardiovascular Exam Present: RRR, no murmur - Routine Abdominal Exam Present: soft, tenderness (with exam), wound (dressing to mid abd. inision intact/wound not examined), ostomy (receptacle intact w/ small amount loose yellow stool) - Routine Extremities Exam Present: no edema, full ROM (power 4/4 and equal benny. upper ext.) - Routine Back/Spine/Pelvis Exam Back/Spine: Absent: vertebral tenderness - Routine Skin Exam Present: dry, pallor, wounds (abdominal-dressings intact/wounds not examined) - Routine Neurological Exam Present: alert, oriented X3 - Routine Psychiatric Exam Present: cooperative, anxious Oncology Results - Labs CBC & Chem 7: 01/20/18 03:58 01/20/18 03:58 Labs: Short CBC 01/19/18 01/20/18 Range/Units 15:34 03:58 WBC 5.5 5.4 (4.5-11.0) T/MM3 Hgb 8.4 L 8.1 L (12-16) GM/DL Hct 27.4 L 26.0 L (36-46) % Plt Count 280 294 (130-400) T/MM3 BMP 01/19/18 01/20/18 15:34 03:58 Sodium 139 140 Potassium 4.2 4.0 Chloride 101 101 Carbon Dioxide 29 29 BUN 6.0 L 5.0 L Creatinine 1.0 1.1 Glucose 106 99 Calcium 8.9 8.7 Liver Function 01/19/18 01/20/18 Range/Units 15:34 03:58 Total Bilirubin 1.00 (0.20-1.30) MG/DL AST 22 (14-36) U/L ALT 12 (1-35) U/L Alkaline Phosphatase 120 (38-126) U/L Albumin 3.7 3.4 L (3.5-5.0) g/dL Urine 01/19/18 Range/Units 19:15 Urine Color Yellow (YELLOW) Urine Clarity Clear Urine pH 7.5 (5.0-8.0) Ur Specific [place] 1.015 (1.015-1.025) Urine Protein Negative (NEGATIVE) Urine Glucose (UA) Negative (NEGATIVE) - Impressions = = = = = = = = = = = = = = = = = = = = = = = = = = = = = = = = = = = = = = = = = = = = = = = = = = = = = = = = = = = Date of Exam: 01/19/18 Ordering Provider: Lele Hamilton MD Type of Exam(s): CT head/brain wo con Reason for Exam(s): altered mental status, inability to move limbs Indication: altered mental status, inability to move limbs PROCEDURE: CT head/brain wo con: Encounter: Initial Comparison: None. Technique: Axial CT images through the head were performed without contrast. Iterative Reconstruction dose reducing technique was utilized. FINDINGS: The ventricles are of normal size, shape, and contour for the patient's age. There are scattered areas of low attenuation in the white matter which most likely represent changes from chronic microvascular ischemia. The brainstem, cerebellum, and cerebral hemispheres otherwise have a normal morphology and CT attenuation. There is no evidence of midline displacement. No hemorrhage, signs of acute territorial stroke, mass effect, mass lesions, or edema is evident. The visualized portions of the skull base, midface, and calvarium demonstrate no abnormality. The paranasal sinuses are well aerated and free of significant disease. The tympanic and mastoid cavities appear normal. IMPRESSION: No acute intracranial abnormality or hemorrhage. . Assessment and Plan Assessment and Plan: 1. Refractory metastatic endometrial cancer/mixed mullerian tumor. Current treatment palliative carboplatin/Taxol, last given 01/14/18. 2. Acute confusion/right-sided weakness. Symptoms have resolved. CT head negative for acute findings. 3. Mild yeast stomatitis. Will order Nystatin. 4. Chronic abdominal pain/nausea/vomiting secondary to tumor burden. Plan Continue supportive care/ pain management. Discussed plans when discharged from hospital; states intends to return to [facility] home. Wants to continue palliative chemotherapy. Verbalizes does not want hospice currently. Instructed Dr. Clancy will see her later today. <Digna Clancy - Last Filed: 01/20/18 17:10> Oncology HPI - Data of Consult Requesting Physician: Taran Elise MD Primary Care Provider: El Hardy II, MD [facility] Patient Stated Medical History Migraine Yes Coronary Artery Disease Yes Hypertension Yes Sleep Apnea No Diabetes Mellitus Type 2 Yes Hiatal Hernia Yes Obstructive Bowel Yes Other GI Yes: ENDOMETRIAL CA W/ METASTASIS TO LIVER, STOMACH, AND KIDNEYS Hx Urinary Tract Infection Yes Chemotherapy Yes Depression Yes Endometriosis Yes Post Menopausal Yes Now No Clinic Medical History (Last Updated 12/30/17 @ 17:57 by Amrita Harris, MOLDER FITTING) Endometrial cancer (Acute Medical ~2014) Exam Vital signs: Temperature 98.4 F 01/20/18 15:25 Pulse Rate 70 01/20/18 15:25 Respiratory Rate 18 01/20/18 15:25 Blood Pressure 122/74 01/20/18 15:25 Pulse Oximetry 93 01/20/18 15:25 Oncology Results - Labs CBC & Chem 7: 01/20/18 03:58 01/20/18 03:58 Labs: Short CBC 01/20/18 Range/Units 03:58 WBC 5.4 (4.5-11.0) T/MM3 Hgb 8.1 L (12-16) GM/DL Hct 26.0 L (36-46) % Plt Count 294 (130-400) T/MM3 BMP 01/20/18 03:58 Sodium 140 Potassium 4.0 Chloride 101 Carbon Dioxide 29 BUN 5.0 L Creatinine 1.1 Glucose 99 Calcium 8.7 Liver Function 01/20/18 Range/Units 03:58 Albumin 3.4 L (3.5-5.0) g/dL Urine 01/19/18 Range/Units 19:15 Urine Color Yellow (YELLOW) Urine Clarity Clear Urine pH 7.5 (5.0-8.0) Ur Specific [place] 1.015 (1.015-1.025) Urine Protein Negative (NEGATIVE) Urine Glucose (UA) Negative (NEGATIVE) Assessment and Plan Assessment and Plan: I have seen the patient and I agree with the plan of care as outlined above by Amanda Adkins APRN. The patient would like to continue with chemotherapy instead of hospice. She will be scheduled for chemotherapy next week as an outpatient.
[2018-01-20] MEDS: GABAPENTIN 100 MG CAPSULE PO SCH ×3 (08:55→22:02)
[2018-01-20] MEDS: DULOXETINE 30 MG CAPSULE PO SCH ×2 (08:55→22:02)
[2018-01-20] MEDS: FAMOTIDINE 20 MG TABLET PO SCH ×2 (08:56→22:02)
[2018-01-20] MEDS: PROCHLORPERAZINE 5 MG TABLET PO PRN (08:59)
[2018-01-20] MEDS: MORPHINE SULFATE 4mg INJECTION IVP PRN ×6 (09:52→23:52)
--- NOTE | 2018-01-20 09:52 | Wound Care Progress Note ---
Wound Center Progress Note: Pt seen for wound/ostomy consult. Pt lying in bed, rates pain in abdomen 8/10, tearful. Pt admitted with confusion, R sided facial and hand weakness, and severe ACHARYA. Pt has a RLQ ileostomy and 2 small abdominal wounds to the L of stoma. Pt reports she has been doing well at home managing her ileostomy and packing her abdominal wounds. As for as the ileostomy pouching system, what has worked best is the 2 pc convex wafer with the drainable pouch. Jessica: wafer # [id number], pouch # [id number]. Pt reports she is applying the wafer and then covering it with Tegaderm to help seal it. She has gotten 3 days wear time so far with the last ostomy appliance change. Reports her peristomal skin is good. Pt is also wearing an ostomy belt, which is helping to secure pouching system. Pt is packing abd wounds with 1/4" plain packing gauze. Assured pt the hospital has ostomy and wound care supplies needed. Informed pt I am here to help her as needed, do not hesitate to ask your nurse to contact me. Continue to monitor ostomy/wound PRN.
[2018-01-20] MEDS: NYSTATIN 500,000 units/5 ml ORAL LIQUID PO SCH ×3 (13:16→22:02)
--- NOTE | 2018-01-20 14:00 | Progress Note ---
- Date 01/20/18 Subjective: F/U: Altered mental status/confusion, Transient right-sided weakness, Headache Had episode of nausea with emesis post breakfast. Notes ab pain; trying to get on top of her pain but difficult. Has not been up as much. Reports not certain that hospice care is the route she wants to take-still wants to fight against cancer. Objective Vital signs: Temperature 98.5 F 01/20/18 08:51 Pulse Rate 72 01/20/18 08:00 Respiratory Rate 18 01/20/18 13:12 Blood Pressure 139/74 01/20/18 08:00 Pulse Oximetry 94 01/20/18 08:00 Height/Weight/BMI: Height 1.6 m Weight 87.5 kg Body Mass Index 35.0 - Constitutional Present: well nourished, well developed, average body habitus, obese, cooperative. Absent: agitated, somnolent, obtunded - Routine HEENT Exam Head: Present: normocephalic, atraumatic Eye: Present: EOMI, PERRL ENT: Present: mucous membranes moist - Routine Respiratory Exam Present: CTA bilaterally. Absent: rales, respiratory distress, rhonchi, wheezes , crackles - Routine Cardiovascular Exam Present: RRR, no murmur - Routine Abdominal Exam Present: soft, non distended. Absent: normoactive bowel sounds - Routine Extremities Exam Present: no edema, pulses intact. Absent: cyanosis, clubbing - Routine Musculoskeletal Exam Musculoskeletal: Present: no clubbing or cyanosis - Routine Skin Exam Present: dry, warm - Routine Neurological Exam Present: alert, oriented X3, CN II-XII intact, moving all extremities, vision grossly intact, hearing grossly intact, normal speech. 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 Still has nausea with emesis; working on oral intake slowly. Encourage ambulation. Continue with supportive pain control. Discussed with patient about her cancerous process. Palliative treatments are only treatment available. Discussed that this is not a curative process and overall disease process with continue to progress. Resuscitation Status: Do Not Resuscitate - Physician Narrative Physician: Taran Elise MD Narrative: Date: 01/20/18 Time: 1357 Hospital Course Summary Disclaimer: The visit summary below is not to be considered part of the above Progress Note. Hospital Course: 01/19/18 Debbie is admitted for supportive care after transient episode focal neurological symptoms without identified neurological deficits on admission or abnormalities on noncontrast CT head. Given patient's advanced malignancy and current palliative care I believe we should continue with supportive care only. Contrast CT or MRI could be considered but options for management are remarkably limited. She has severe headache on admission with visual symptoms consistent with past scotomas and migraines in the past although she's never had focal neurological deficits with migraine. Cannot exclude complex migraine or atypical response to recent chemotherapy. IV narcotic pain medications ordered in conjunction with home narcotic regimen and antiemetics previously prescribed. Will add IV antiemetics for breakthrough nausea as well. Patient was discharged with hospice support but rescinded hospice in the emergency room; need for additional discussion regarding disease process and what her goals are prior to discharge. 01/20/18 Cognitive and neurological status improved. Still has nausea with emesis; working on oral intake slowly. Encourage ambulation. Continue with supportive pain control. Discussed with patient about her cancerous process. Palliative treatments are only treatment available. Discussed that this is not a curative process and overall disease process with continue to progress.
[2018-01-20 18:17] VITALS: BMI 34.2
[2018-01-20] MEDS: NS 1,000 ML IV SCH (21:00)
[2018-01-20] MEDS: ZOLPIDEM 5 MG TABLET PO PRN ×2 (23:02→23:40)
[2018-01-21] MEDS: FentaNYL 100 MCG/2 ML INJECTION IVP PRN ×3 (05:06→14:06)
[2018-01-21] MEDS: SALINE FLUSH 10ml SYRINGE IVF PRN ×4 (05:06→21:00)
[2018-01-21] MEDS: MORPHINE SULFATE 4mg INJECTION IVP PRN (05:08)
[2018-01-21] MEDS: NYSTATIN 500,000 units/5 ml ORAL LIQUID PO SCH ×4 (09:10→21:00)
[2018-01-21] MEDS: DULOXETINE 30 MG CAPSULE PO SCH ×2 (09:10→20:59)
[2018-01-21] MEDS: GABAPENTIN 100 MG CAPSULE PO SCH ×3 (09:11→21:00)
[2018-01-21] MEDS: FAMOTIDINE 20 MG TABLET PO SCH ×2 (09:11→20:59)
[2018-01-21] MEDS: PROCHLORPERAZINE 5 MG TABLET PO PRN (09:11)
[2018-01-21] MEDS: ONDANSETRON 4 MG/2 ML INJECTION IVP PRN (14:07)
--- NOTE | 2018-01-21 14:56 | Progress Note ---
- Date 01/21/18 Subjective: Patient is seen sitting in bed this afternoon. She hasn't vomited since yesterday. She ate some chips and dip at 430 am, a little bit of breakfast and about half her lunch. SHe reports she feels nauseated now. She rates her pain at 8/10. Says her "usual" pain is now around 6. She c/o not being able to "turn off" when trying to go to sleep at night. No CP, SOA, f/c. She plans to continue palliative chemo with Dr. Clancy next week. Objective Vital signs: Temperature 98.4 F 01/21/18 07:39 Pulse Rate 79 01/21/18 07:39 Respiratory Rate 20 01/21/18 14:06 Blood Pressure 129/69 01/21/18 07:39 Pulse Oximetry 96 01/21/18 07:39 Height/Weight/BMI: Height 1.6 m Weight 87.5 kg Body Mass Index 34.2 - Constitutional Present: no acute distress, well nourished, well developed - Routine HEENT Exam Head: Present: normocephalic, atraumatic - Routine Respiratory Exam Present: CTA bilaterally. 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 Doing better with oral intake. No vomiting today. Will try to convert her to PO meds for nausea and pain. Give Reglan 5mg achs scheduled as this typically works well for her. Encourage ambulation. Continue with supportive pain control. Patient plans to continue palliative chemo with Dr. Clancy. She doesn't feel she is ready for hospice. She will need to have close f-u with PCP or Dr. Clancy for pain management to avoid continued hospitalizations. Resuscitation Status: Do Not Resuscitate - Time spent with patient Time with patient PN: 25 minutes - Physician Narrative Physician: Taran Elise MD Narrative: Date: 01/21/18 Time: 1817 Have independently interviewed & examine pt. Chart reviewed. Case discussed with CM & my PA. Care plan developed with my supervision; agree with above. Still with ab pain and nausea but able to keep food down better. Passing stool. Not sleeping well at night-pain very distracting. Breathing well. Urinating well. Lungs: clear C:V: regular AB: soft nd BS present MSE: awake alert Plan: Stop IVF as oral intake improving. Will try to transition off IV narcotics. Change MS Contin to 60mg in am with increased dose of 90mg at night. Add Scopolamine patch to help chronic nausea. Making gradual gains, hope for discharge soon. Hospital Course Summary Disclaimer: The visit summary below is not to be considered part of the above Progress Note. Hospital Course: 01/19/18 Debbie is admitted for supportive care after transient episode focal neurological symptoms without identified neurological deficits on admission or abnormalities on noncontrast CT head. Given patient's advanced malignancy and current palliative care I believe we should continue with supportive care only. Contrast CT or MRI could be considered but options for management are remarkably limited. She has severe headache on admission with visual symptoms consistent with past scotomas and migraines in the past although she's never had focal neurological deficits with migraine. Cannot exclude complex migraine or atypical response to recent chemotherapy. IV narcotic pain medications ordered in conjunction with home narcotic regimen and antiemetics previously prescribed. Will add IV antiemetics for breakthrough nausea as well. Patient was discharged with hospice support but rescinded hospice in the emergency room; need for additional discussion regarding disease process and what her goals are prior to discharge. 01/20/18 Cognitive and neurological status improved. Still has nausea with emesis; working on oral intake slowly. Encourage ambulation. Continue with supportive pain control. Discussed with patient about her cancerous process. Palliative treatments are only treatment available. Discussed that this is not a curative process and overall disease process with continue to progress. 01/21/18 Still has nausea requiring IV medication. Doing better with oral intake. No vomiting today. Will try to convert her to PO meds for nausea and pain. Continue with 60mg of MS Contin in am, but increase evening dose to 90mg to help pain. Add Scopolamine patch to help nausea. Patient plans to continue palliative chemo with Dr. Clancy. She doesn't feel she is ready for hospice. She will need to have close f-u with PCP or Dr. Clancy for pain management to avoid continued hospitalizations.
[2018-01-21] MEDS: NS 1,000 ML IV SCH (15:18)
--- NOTE | 2018-01-21 16:57 | Progress Note ---
Oncology Subjective Lying in the bed, nausea and vomiting improved. Pain improved. Exam Vital signs: Temperature 98.4 F 01/21/18 16:30 Pulse Rate 65 01/21/18 16:30 Respiratory Rate 16 01/21/18 16:30 Blood Pressure 131/78 01/21/18 16:30 Pulse Oximetry 93 01/21/18 16:30 - Constitutional no acute distress, cooperative - Routine Respiratory Exam Absent: rales, respiratory distress, rhonchi, wheezes - Routine Cardiovascular Exam Present: RRR, no murmur - Routine Abdominal Exam Present: soft Comments: Colostomy is functioning. No leakage. Oncology Results - Labs CBC & Chem 7: 01/21/18 04:17 01/21/18 04:17 Labs: Short CBC 01/21/18 Range/Units 04:17 WBC 5.1 (4.5-11.0) T/MM3 Hgb 8.0 L (12-16) GM/DL Hct 26.6 L (36-46) % Plt Count 313 (130-400) T/MM3 BMP 01/21/18 04:17 Sodium 141 Potassium 4.3 Chloride 103 Carbon Dioxide 31 H BUN 8.0 D Creatinine 1.1 Glucose 95 Calcium 8.8 Assessment and Plan Assessment and Plan: 1. 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 2. Nausea vomiting and abdominal pain, improved. Continue supportive care. The patient is due for the second cycle of carboplatin Taxol next week. She is scheduled for chemotherapy as an outpatient in the office. - Time Spent With Patient Total time spent is greater than 50% in coordination of care (as documented) at patient's floor/unit and/or counseling patient: 25 - 35 minutes
[2018-01-21] MEDS: METOCLOPRAMIDE 5mg TABLET PO SCH ×2 (18:18→21:00)
[2018-01-21] MEDS ORDERED: SCOPOLAMINE 1mg/3 days PATCH (Eq. 1.5 Patch) TD SCH (18:30)
[2018-01-21] MEDS: LORazepam 0.5 MG TABLET PO PRN (18:38)
[2018-01-21 23:57] VITALS: TEMP 98.1
[2018-01-22] MEDS: ZOLPIDEM 5 MG TABLET PO PRN (03:18)
[2018-01-22] MEDS: METOCLOPRAMIDE 5mg TABLET PO SCH ×2 (06:13→11:48)
[2018-01-22 07:27] VITALS: BP 106/64; PULSE 62; O2SAT 93
[2018-01-22] MEDS: DULOXETINE 30 MG CAPSULE PO SCH (09:40)
[2018-01-22] MEDS: NYSTATIN 500,000 units/5 ml ORAL LIQUID PO SCH ×2 (09:40→13:41)
[2018-01-22] MEDS: PROCHLORPERAZINE 5 MG TABLET PO PRN (09:40)
[2018-01-22] MEDS: GABAPENTIN 100 MG CAPSULE PO SCH (09:41)
[2018-01-22] MEDS: FAMOTIDINE 20 MG TABLET PO SCH (09:41)
--- NOTE | 2018-01-22 11:22 | Progress Note ---
- Date 01/22/18 Subjective: Patient seen this morning sitting on the side of her bed eating breakfast. Patient reports she is feeling "OK." She says she has vomited about once each day. Scopalamine patch has helped with nausea. No CP, SOA, f/c. Objective Vital signs: Temperature 98.1 F 01/21/18 23:56 Pulse Rate 62 01/22/18 07:24 Respiratory Rate 18 01/22/18 09:40 Blood Pressure 106/64 01/22/18 07:24 Pulse Oximetry 93 01/22/18 07:24 Height/Weight/BMI: Height 1.6 m Weight 86.4 kg Body Mass Index 34.2 - Constitutional Present: no acute distress, well nourished, well developed - Routine HEENT Exam Head: Present: normocephalic, atraumatic - Routine Respiratory Exam Present: CTA bilaterally. 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 Will continue Scopolamine patches and Reglan for nausea and prn prometh and/or compazine. Continue extended release morphine regularly with PRN immediate release morphine and Percocet. She is planning on palliative chemo next week and states that Dr Clancy has dealt with her nausea/pain meds previously. Resuscitation Status: Do Not Resuscitate - Physician Narrative Physician: Taran Elise MD Narrative: Date: 01/22/18 Time: 1153 Have independently interviewed & examined pt. Chart reviewed. Case discussed with CM & my PA. Care plan developed with my supervision; agree with above. Doing better today. Feels patch helping nausea. Did sleep better with increase dose of MS Contin last night. Tolerating this medications well. Eating better. Not having confusion or weakness. Thoughts linear. Strength stable. Breathing well. Lungs: clear bilaterally CV: regular AB: soft nd BS present MSE: awake alert appropriate, thoughts linear, converses well. Plan: Medically stable for discharge to home. See orders for details. Hospital Course Summary Disclaimer: The visit summary below is not to be considered part of the above Progress Note. Hospital Course: 01/19/18 Debbie is admitted for supportive care after transient episode focal neurological symptoms without identified neurological deficits on admission or abnormalities on noncontrast CT head. Given patient's advanced malignancy and current palliative care I believe we should continue with supportive care only. Contrast CT or MRI could be considered but options for management are remarkably limited. She has severe headache on admission with visual symptoms consistent with past scotomas and migraines in the past although she's never had focal neurological deficits with migraine. Cannot exclude complex migraine or atypical response to recent chemotherapy. IV narcotic pain medications ordered in conjunction with home narcotic regimen and antiemetics previously prescribed. Will add IV antiemetics for breakthrough nausea as well. Patient was discharged with hospice support but rescinded hospice in the emergency room; need for additional discussion regarding disease process and what her goals are prior to discharge. 01/20/18 Cognitive and neurological status improved. Still has nausea with emesis; working on oral intake slowly. Encourage ambulation. Continue with supportive pain control. Discussed with patient about her cancerous process. Palliative treatments are only treatment available. Discussed that this is not a curative process and overall disease process with continue to progress. 01/21/18 Still has nausea requiring IV medication. Doing better with oral intake. No vomiting today. Will try to convert her to PO meds for nausea and pain. Continue with 60mg of MS Contin in am, but increase evening dose to 90mg to help pain. Add Scopolamine patch to help nausea. Patient plans to continue palliative chemo with Dr. Clancy. She doesn't feel she is ready for hospice. She will need to have close f-u with PCP or Dr. Clancy for pain management to avoid continued hospitalizations. 01/22/18 DC home today. Will continue Scopalamine patches and Reglan for nausea and prn prometh and/or compazine. Continue extended release morphine regularly with PRN immediate release morphine and percocet. She is planning on palliative chemo next week and states that Dr Clanyc has dealt with her nausea/pain meds previously.
--- NOTE | 2018-01-22 11:33 | Discharge Summary ---
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 (2) Altered mental status Status: Acute Altered mental status/confusion-resolved Transient right-sided weakness-resolved Headache, history of migraines-resolved Mixed mllerian uterine malignancy, metastatic Intractable abdominal pain - chronic secondary to uterine cancer Recent palliative chemotherapy Anxiety/depression Nausea/vomiting Hypertension Normocytic anemia - Laboratory Labs: Dismissal labs 01/21/18 01/21/18 04:17 04:17 WBC 5.1 RBC 3.05 L Hgb 8.0 L Hct 26.6 L Sodium 141 Potassium 4.3 Chloride 103 Carbon Dioxide 31 H BUN 8.0 D Creatinine 1.1 Glucose 95 Calcium 8.8 Admission labs 01/19/18 01/19/18 15:34 15:34 WBC 5.5 RBC 3.15 L Hgb 8.4 L Hct 27.4 L Sodium 139 Potassium 4.2 Chloride 101 Carbon Dioxide 29 BUN 6.0 L Creatinine 1.0 Glucose 106 Magnesium 1.6 AST 22 ALT 12 Alkaline Phosphatase 120 Total Protein 6.7 Albumin 3.7 Globulin 3.0 Albumin/Globulin Ratio 1.2 - Radiology Radiology: Date of Exam: 01/19/18 Indication: altered mental status, inability to move limbs PROCEDURE: CT head/brain wo con: FINDINGS: The ventricles are of normal size, shape, and contour for the patient' s age. There are scattered areas of low attenuation in the white matter which most likely represent changes from chronic microvascular ischemia. The brainstem , cerebellum, and cerebral hemispheres otherwise have a normal morphology and CT attenuation. There is no evidence of midline displacement. No hemorrhage, signs of acute territorial stroke, mass effect, mass lesions, or edema is evident. The visualized portions of the skull base, midface, and calvarium demonstrate no abnormality. The paranasal sinuses are well aerated and free of significant disease. The tympanic and mastoid cavities appear normal. IMPRESSION: No acute intracranial abnormality or hemorrhage. History of Present Illness HPI: Debbie is a 57-year-old female with mixed Mullerian cancer who received palliative chemotherapy with Taxol and carboplatin 01/07 and 01/14 during admission January 05-. She reports that she has done reasonably well since home other than some nausea and vomiting over the weekend which increased yesterday. She napped earlier today but when she woke up she was confused, didn't know where she was, had sparkling dots in her right eye, reports her right face was not working and that her right hand was "crumbled up". Her entire right side was weak relative to the left. She additionally describes severe headache centered in the temples especially on the right. 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 She has never had associated neurological deficits with migraines. She presented to the emergency room where a noncontrast CT head was obtained demonstrating no acute pathology and she was treated with 75 g fentanyl followed by 100 g fentanyl to obtain brief pain control. Patient was able to ambulate on arrival to the emergency room and is using both arms symmetrically at the time of presentation. She was not able to describe how long she was unable to use her arm or the right side of her face. For complete details of the H&P refer to that document. Objective Vital signs: See today's progress note for exam documentation Height/Weight/BMI: Height 1.6 m Weight 86.4 kg Body Mass Index 34.2 Hospital Course This is a general summary of the patient's hospital course. For more details refer to the complete medical record. Hospital course: 01/19/18 Debbie is admitted for supportive care after transient episode focal neurological symptoms without identified neurological deficits on admission or abnormalities on noncontrast CT head. Given patient's advanced malignancy and current palliative care I believe we should continue with supportive care only. Contrast CT or MRI could be considered but options for management are remarkably limited. She has severe headache on admission with visual symptoms consistent with past scotomas and migraines in the past although she's never had focal neurological deficits with migraine. Cannot exclude complex migraine or atypical response to recent chemotherapy. IV narcotic pain medications ordered in conjunction with home narcotic regimen and antiemetics previously prescribed. Will add IV antiemetics for breakthrough nausea as well. Patient was discharged with hospice support but rescinded hospice in the emergency room; need for additional discussion regarding disease process and what her goals are prior to discharge. 01/20/18 Cognitive and neurological status improved. Still has nausea with emesis; working on oral intake slowly. Encourage ambulation. Continue with supportive pain control. Discussed with patient about her cancerous process. Palliative treatments are only treatment available. Discussed that this is not a curative process and overall disease process with continue to progress. 01/21/18 Still has nausea requiring IV medication. Doing better with oral intake. No vomiting today. Will try to convert her to PO meds for nausea and pain. Continue with 60mg of MS Contin in am, but increase evening dose to 90mg to help pain. Add Scopolamine patch to help nausea. Patient plans to continue palliative chemo with Dr. Clancy. She doesn't feel she is ready for hospice. She will need to have close f-u with PCP or Dr. Clancy for pain management to avoid continued hospitalizations. 01/22/18 DC home today. Will continue Scopalamine patches and Reglan for nausea and prn prometh and/or compazine. Continue extended release morphine regularly with PRN immediate release morphine and percocet. She will see Dr. Clancy next week and have palliative chemo as well. Dr Clancy will take care of pain/nausea meds OP. Time spent with patient: discharge greater than 30 minutes Resuscitation Status: Do Not Resuscitate Discharge Plan - Discharge Disposition Discharge Date: 01/22/18 Disposition: Discharged Home, Self-Care *Condition: Stable Reason For Visit (Visit label in EMR): Generalized Weakness - Discharge Medications *Discharge Medications: New Scopolamine Patch [Transderm-Scop Patch] 1 mg TD Q3D #4 patch Morphine Sulfate *SR* [Ms Contin] 60 mg PO DAILY #7 tab Morphine Sulfate *SR* [Ms Contin] 90 mg PO HS #7 tab Continue Prochlorperazine Tab [Compazine] 5 mg PO Q8H PRN PRN Reason: Nausea Promethazine HCl 25 mg PO Q6H PRN PRN Reason: Prn Orders Gabapentin [Neurontin] 100 mg PO TID #30 cap Metoprolol Tartrate [Lopressor] 100 mg PO BIDWM #60 tab Duloxetine [Cymbalta] 30 mg PO BID #60 cap LORazepam [Ativan] 0.5 mg PO QID PRN #20 tab PRN Reason: Anxiety Morphine Sulfate 30 mg PO Q4HR PRN #15 tab PRN Reason: Pain Pnv No.95/Ferrous Fum/Folic AC [ Tablet] 1 tab PO DAILY Famotidine [Pepcid] 20 mg PO BID tab Changed Metoclopramide [Reglan] 5 mg PO ACHS #30 Discontinued Morphine Sulfate *SR* [Ms Contin] 60 mg PO BID #14 tab - Discharge Packet/Instructions *Diet: As tolerated *Activity: As tolerated *Pain Management/Treatment: per Dr. Clancy *Wound Care: continue packing wound as you were doing prior to hospitalization *Expected Signs/Symptoms: continued nausea and abdominal pain *Notify Physician if: you develop fever, or if pain and nausea/vomiting isn't controlled with current medications *During Business Hours Contact: Dr Clancy or Dr Hardy *After Business Hours Contact: [facility] and ask to have your physician paged. *Pending Lab/Results: No Pending Lab - Referrals/Follow Up *Referrals/Follow Up: Digna Clancy MD [Physician] - 1 Week (APPOINTMENT ON WITH DR CLANCY 01/28 AT 9AM.) El Hardy II, MD [Primary Care Provider] - 1 Week (APPOINTMENT ON 01/29 AT 11:15.) - Patient Handouts Patient Handouts: Weakness (DC), Altered Mental Status (GEN) - Dismissal Complete Discharge Instructions are:: Complete Physician Narrative - Narrative Physician: Taran Elise MD Attestation Narrative: Date: 01/22/18 Time: [id number] I have independently interviewed and examined patient prior to discharge. See my progress note for details. Discharge care plans made with my supervision; case discussed with my PA, reviewed above note and agree.
[2018-01-22] MEDS: SALINE FLUSH 10ml SYRINGE IVF PRN (12:23)
[2018-01-22 13:26] VITALS: RESP 20
[2018-01-22] MEDS: LORazepam 0.5 MG TABLET PO PRN (13:26)
== END 2018-01-22 14:47 | disposition home or self-care (01) ==
LOC: ED 14:47 → EDHOLD 14:47 → SUATTDRO 16:37 → MED 16:48
PROVIDERS: ADMIT Internal Medicine; ATTEND Hospitalist